=== PATIENT | female | born 1965 | race Caucasian/White ===

== ENCOUNTER 2024-12-09 21:33 | Inpatient (IN) | payer BC, OTHER ==
--- OUTSIDE RECORDS SUMMARY | 2024-12-09 21:43 | XMS REPORT | Continuity of Care Document ---
Author Name Unknown Address [address] [facility] [address] [place] [address] [facility] [place] Address [address] [facility] [address] [place] [address] Care Team Providers Care Auditor Supervisor Name Role Phone Fiona Sanchez Primary Care Physician [phone] PRUDENCE SIERRA Attending Clinician Unavailable FIONA SANCHEZ Attending Clinician Unavailab john NICHOLAS MD Attending Clinician Unavailab john LAB90 Attending Clinician Unavailable Aye Sandoval RN Attending Clinician [phone] Sandy FLORES Attending Clinician Unavailable Sandy FLORES Attending Clinician Unavailable Sandy Canada Attending Clinician [phone] HIPOLITO POE Attending Clinician UnavailBerta Rojo MD Attending Clinician [phone] Hipolito Poe MD Attending Clinician [phone] FREDRICK GALVEZ Attending Clinician Unavailable LAUREL GUARDADO Attending Clinician Unavailable Abhay Bond MD, Winter Attending Clinician + Flavio Mills MD Attending Clinician + Laurel Guardado MD Attending Clinician + [phone] Attending Clinician Unavailable ROSE SCHMITT Attending Clinician UnavailSEBLE Guerrero Attending Clinician Unasheela iljunior Rm, Generic Provider Attending Clinician Unavailable KAYLI HOLGUIN Attending Clinician Unavailable KAYLI HOLGUIN Attending Clinician Unavailable Flavia Denise MD Attending Clinician + [phone] FLAVIA DENISE Attending Clinician Unavailable OLYA CALHOUN Attending Clinician Unavailable Berta Uribe MD Attending Clinician + Fletcher LINARES, Olya Attending Clinician [phone] ROB CALDERA Attending Clinician UnavailROB Horta Attending Clinician Unavaila cait Diamond, [facility] Attending Clinician UnavailVERONICA Meng Attending Clinician Unavailable Dieudonne THOMAS, Veronica Brown Attending Clinician [phone] Doctor Unassigned, Melvin Attending Clinician U navailable Amaya Durand Attending Clinician +[phone] CANDIDO KRUEGER Attending Clinician Unavailable Candido Krueger DO Attending Clinician + ANIBAL CHINCHILLA Attending Clinician Unav Anibal Mcneil MD Attending Clinician + SOREN LEO Attending Clinician Unavailab HIPOLITO Hartley Admitting Clinician UnavailHipolito Holley MD Admitting Clinician [phone] LAUREL GUARDADO Admitting Clinician Unavailable Laurel Guardado MD Admitting Clinician +[phone] Sandy FLORES Admitting Clinician Unavailable OLYA CALHOUN Admitting Clinician Unavailable Olya Calhoun DO Admitting Clinician [phone] AMAYA TINOCO Admitting Clinician Unavailable ANIBAL CHINCHILLA Admitting Clinician Unav ailSOREN Wang Admitting Clinician Unavailab le Payers Payer Name Policy Type Policy Number Effective Date Expirati on Date Source SILVER 5 [facility] 94 9 [id number] 2024 00:00:00 ZACH Baxter/ GRACE NIEVES [id number] 2024 00:00:00 [employer] [place] [id number] 2017 00:00:00 [facility] Problems Condition Name Condition Details Condition Category Status Onset Date Resolution Date Last Treatment Date Treating Clinician Comments Source Hospital discharge follow-up Hospital discharge follow-up Disease Active 12-07 00:00: 00 Grace Arana Externa willam PNA (pneumonia ) PNA (pneumonia ) Disease Active 12-07 00:00: 00 Grace Mcgowana willam Vomiting and diarrhea Vomiting and diarrhea Disease Active 11-30 00:00: 00 [facility] Abdominal pain, unspecifie d abdominal location Abdominal pain, unspecifie d abdominal location Disease Active 11-01 00:00: 00 [facility] Encounter for screening for human papillomav irus (HPV) Encounter for screening for human papillomav irus (HPV) Disease Active 04-14 00:00: 00 Grace Jon - Juan Ma willam History of diverticul itis History of diverticul itis Disease Active 04-14 00:00: 00 Grace Jon - Externa willam Primary hypertensi on Primary hypertensi on Disease Active 03-16 00:00: 00 Grace Jon - Externa willam Seasonal allergies Seasonal allergies Disease Active 03-16 00:00: 00 Grace Jon - Externa willam Vomiting, unspecifie d vomiting type, unspecifie d whether nausea present Vomiting, unspecifie d vomiting type, unspecifie d whether nausea present Disease Active 03-01 00:00: 00 [facility] Obesity (BMI 30-39.9) Obesity (BMI 30-39.9) Disease Active 03-01 00:00: 00 [facility] Gallstones Gallstones Disease Active 2023-0 8-06 00:00: 00 [facility] Routine gynecologi mily examinatio n Routine gynecologi mily examinatio n Disease Active 2021-07 00:00: 00 [facility] Urinary incontinen ce in female Urinary incontinen ce in female Disease Active 2021-07 00:00: 00 [facility] BMI 32.0-32.9, adult BMI 32.0-32.9, adult Disease Active 2021-07 00:00: 00 [facility] Absence of menstruati on Absence of menstruati on Disease Active 2021-07 00:00: 00 [facility] Uterovagin al prolapse, complete Uterovagin al prolapse, complete Disease Active 2021-07 00:00: 00 [facility] Allergic rhinitis Allergic rhinitis Disease Active 2021-07 00:00: 00 [facility] Anxiety Anxiety Disease Active 2021-07 00:00: 00 [facility] Diverticul osis of colon without diverticul itis Diverticul osis of colon without diverticul itis Disease Active 2021-07 00:00: 00 [facility] Gastroesop hageal reflux disease Gastroesop hageal reflux disease Disease Active 2021-07 00:00: 00 [facility] Headache Headache Disease Active 2021-07 00:00: 00 [facility] Major depressive disorder, single episode, unspecifie d Major depressive disorder, single episode, unspecifie d Disease Active 2021-07 00:00: 00 [facility] Mixed anxiety and depressive disorder Mixed anxiety and depressive disorder Disease Active 2021-07 00:00: 00 [facility] Pain in left knee Pain in left knee Disease Active 2021-07 00:00: 00 [facility] Swelling Swelling Disease Active 2021-07 00:00: 00 [facility] Urinary incontinen ce Urinary incontinen ce Disease Active 2021-07 00:00: 00 [facility] Uterovagin al prolapse Uterovagin al prolapse Disease Active 2021-07 00:00: 00 [facility] Vitamin deficiency Vitamin deficiency Disease Active 2021-07 00:00: 00 [facility] Continuous urine leakage Continuous urine leakage Disease Active 2021-07 00:00: 00 [facility] [id number] Left knee pain, unspecifie d chronicity Problem [facility] [id number] Gastroesop hageal reflux disease without esophagiti s Problem [facility] Dysthymia Dysthymic disorder Problem [facility] [id number] Screening mammogram, encounter for Problem [facility] Swelling Swelling Problem [facility] History of substance abuse History of substance abuse Disease Active Grace Arana Externa l Screening for malignant neoplasm of breast Encounter for screening for malignant neoplasm of breast Problem [facility] Depression Depression Problem [facility] No known active problems No known active problems Disease [facility] Allergies, Adverse Reactions, Alerts Allergy Name Allergy Type Status Severity Reaction(s) Onset Date Inactive Date Treating Clinician Comments Source Seasonal Ic Propensi ty to adverse reaction s Active Runny Nose 03-16 00:00: 00 Grace Arana Externa l NO KNOWN ALLERGIE S Drug Class Active [facility] Social History Social Habit Start Date Stop Date Quantity Comments Source Sexual orientation 2024-09-29 09:26:03 Heterosexual (finding) Grace Jon - External History of tobacco use Cigarette Smoker [facility] Gender identity [facility] ASSERTION Not [facility] History of Social function 2024-12-09 00:00:00 2024-12-09 00:00:00 Grace Jon - External Alcoholic beverage intake 2024-12-03 00:00:00 2024-12-03 00:00:00 Current drinker of alcohol (finding) [facility] Tobacco use and exposure 2024-11-30 00:00:00 2024-11-30 00:00:00 Smokeless tobacco non-user [facility] Cigarettes smoked current (pack per day) - Reported 2024-11-30 00:00:00 2024-11-30 00:00:00 [facility] Cigarette pack-years 2024-11-30 00:00:00 2024-11-30 00:00:00 [facility] Sex 2024-02-03 21:43:28 2024-02-03 21:43:28 Female (finding) Grace Jon - [place] Alcohol intake 2023-03-23 00:00:00 2023-03-23 00:00:00 Current drinker of alcohol (finding) [facility] Tobacco Comment 2023-03-01 00:00:00 2023-03-01 00:00:00 Recently russ [facility] Exposure to SARS-CoV-2 (event) 2022-07-01 00:00:00 2022-07-11 12:09:00 Not sure [facility] Alcohol Comment 2022-07-11 00:00:00 2022-07-11 00:00:00 rarely [facility] Sex assigned at 1965 00:00:00 1965 00:00:00 F Grace Lebron Smoking Status Start Date Stop Date Source Smokes tobacco daily 2024-03-16 00:00:00 Grace Jon - External Ex-smoker 2023-03-01 00:00:00 2023-03-01 00:00:00 [facility] Tobacco smoking consumption unknown [facility] Never Smoker [facility] Medications Ordered Medication Name Filled Medication Name Start Date Stop Date Current Medication? Ordering Clinician Indication Dosage Frequency Signature (SIG) Comments Components Source Amoxicillin -Pot Clavulanate 500-125 MG oral Tablet 12-09 15:55: 19 12-09 00:00 :00 No 1{tbl} Q.[id number] 3D Take 1 tablet by mouth every 8 hours. Grace quarles busPIRone HCl 10 MG oral Tablet 12-08 11:52: 18 Yes 10mg Q.5D Take 1 tablet (10 mg total) by mouth 2 times daily as needed. Grace quarles Propranolol HCl 10 MG oral Tablet 12-08 00:00: 00 Yes [id number] 10mg Q.5D Take 1 tablet (10 mg total) by mouth 2 times daily as needed (Anxiety). Grace quarles Loratadine (CLARITIN) 10 MG oral tablet 12-07 12:22: 57 12-07 00:00 :00 No 10mg QD Take 1 tablet (10 mg total) by mouth daily. Grace quarles Azithromyci n 250 MG oral Tablet 12-07 12:22: 51 12-07 00:00 :00 No 250mg QD Take 1 tablet (250 mg total) by mouth daily. Grace quarles busPIRone HCl 10 MG oral Tablet 12-07 11:10: 41 Yes 10mg Q.5D Take 1 tablet (10 mg total) by mouth 2 times daily as needed. Grace quarles Amoxicillin -Pot Clavulanate 500-125 MG oral Tablet 12-07 10:25: 27 Yes 1{tbl} Q.[id number] 3D Take 1 tablet by mouth every 8 hours. Grace quarles hydroCHLORO thiazide 12.5 MG oral Capsule 12-07 00:00: 00 Yes [id number] 12.5mg QD Take 1 capsule (12.5 mg total) by mouth daily as needed. Grace quarles magnesium sulfate in water 2 gram/50 mL (4 %) infusion 2 g 12-04 02:15: 00 12-04 02:49 :00 No 2g 2 g, IV Piggyback, Administer over 60 Minutes, ONCE, 1 dose, On 12/03/24 at 2115, Routine [facility] LORazepam (ATIVAN) injection 0.5 mg 12-04 01:45: 00 12-04 01:42 :00 No .5mg 0.5 mg, Slow IV Push, ONCE, 1 dose, On 12/03/24 at 2045, STAT [facility] azithromyci n (ZITHROMAX) tablet 500 mg 12-04 01:30: 00 12-04 01:41 :00 No 500mg 500 mg, Oral, ONCE, 1 dose, On 12/03/24 at 2030, LORENA, Reason for Anti-Infec tive: Documented Infection, Documented Infection Site: Respirator y, Duration of therapy: Once (ED) [facility] cefTRIAXone (ROCEPHIN) 1,000 mg in sterile water for injection 10 mL IV Push 12-04 01:30: 00 12-04 01:44 :00 No 1000mg 1,000 mg, Intravenou s, ONCE, 1 dose, On 12/03/24 at 2030, 10 mL, Reason for Anti-Infec tive: Documented Infection, Documented Infection Site: Respirator y, Duration of therapy: Once (ED) [facility] iopamidol (ISOVUE 370-500 mL) injection 90 mL 12-03 23:45: 00 12-04 00:00 :00 No [id number] 90mL 90 mL, Intravenou s, ONCE, 1 dose, On 12/03/24 at 1900, [facility] psyllium husk (METAMUCIL (SUGAR FREE)) 3.4 gram oral powder packet 1 Packet 12-03 17:45: 00 12-03 18:23 :18 No 1{packe t} 1 Packet, Oral, DAILY, First dose on 12/03/24 at 1245, Until Discontinu ed, Routine [facility] NaCl 0.9% (NS) IV infusion 1,000 mL 12-03 16:00: 00 12-03 18:23 :18 No 1000mL at 125 mL/hr, IV Infusion, CONTINUOUS , Starting on 12/03/24 at 1100, Until 12/03/24 at 1323, Routine [facility] diclofenac 75 mg EC tablet 12-03 12:44: 24 12-03 00:00 :00 No 75mg Take 1 tablet by mouth in the morning. [facility] simethicone (GAS RELIEF (SIMETHICON E)) chewable tablet 80 mg simethicone (GAS RELIEF (SIMETHICON E)) chewable tablet 80 mg 12-03 02:00: 00 12-03 18:23 :18 Yes 80mg 80 mg, Oral, PC+HS, First dose on Thu12/02/24 at 2100, Until Discontinu ed, Routine [facility] amoxicillin -pot clavulanate 500-125 mg tablet 12-03 00:00: 00 Yes [id number] 500mg Take 1 tablet by mouth every 8 (eight) hours. [facility] azithromyci n (ZITHROMAX Z-CHERELLE) 250 mg tablet 12-03 00:00: 00 Yes [id number] 250mg Take 1 tablet by mouth SEE-INSTRU CTIONS. Take 500 mg day 1, then 250 mg days 2 to 5. [facility] busPIRone 10 mg tablet 12-03 00:00: 00 Yes [id number] 10mg Take 1 tablet by mouth 2 (two) times daily as needed for Other (anxiety). [facility] iopamidol (ISOVUE-370 ) injection 50 mL iopamidol (ISOVUE-370 ) injection 50 mL 12-02 16:15: 00 12-02 16:15 :00 Yes [id number] 50mL 50 mL, Intravenou s, ONCE, 1 dose, On Thu12/02/24 at 1115, Routine [facility] potassium chloride in water 10 mEq/100 mL RTU 10 mEq potassium chloride in water 10 mEq/100 mL RTU 10 mEq 12-02 13:00: 00 12-02 16:43 :00 Yes 10meq 10 mEq, IV Piggyback, Q1H, 2 doses, First dose on Thu12/02/24 at 0800, Last dose on Thu12/02/24 at 0900, Administer over 60 Minutes, 100 mL [facility] magnesium sulfate in water 4 gram/50 mL (8 %) IV Piggyback 4 g magnesium sulfate in water 4 gram/50 mL (8 %) IV Piggyback 4 g 12-02 13:00: 00 12-02 18:42 :00 Yes 4g 4 g, IV Piggyback, at 25 mL/hr Administer over 120 Minutes, ONCE, 1 dose, On Thu12/02/24 at 0800, LORENA [facility] ondansetron (ZOFRAN (PF)) injection 4 mg ondansetron (ZOFRAN (PF)) injection 4 mg 12-01 19:00: 00 12-02 18:59 :00 Yes 4mg 4 mg, Slow IV Push, Q8H, First dose on Thu12/01/24 at 1400, For 3 doses, Please give medication over 2-5 minutes. [facility] buPROPion XL (WELLBUTRIN XL) tablet 150 mg buPROPion XL (WELLBUTRIN XL) tablet 150 mg 11-30 14:00: 00 12-03 18:23 :18 Yes 150mg 150 mg, Oral, DAILY, First dose on Thu11/30/24 at 0900, Until Discontinu ed [facility] heparin (porcine) injection 5,000 Units [id number] 4849-0 5-07 13:00: 00 12-03 18:23 :18 Yes 5000U 5,000 Units, Subcutaneo us, Q12H, First dose on Thu11/30/24 at 0800, Until Discontinu ed, Routine [facility] NaCl 0.9% (NS) IV infusion 1,000 mL 11-30 06:45: 00 11-30 07:50 :51 No 1000mL at 100 mL/hr, IV Infusion, CONTINUOUS , Starting on Thu11/30/24 at 0145, Until Thu11/30/24 at 0250, Routine [facility] methylPREDN ISolone sod succ (SOLU-MEDRO L (PF)) injection 40 mg methylPREDN ISolone sod succ (SOLU-MEDRO L (PF)) injection 40 mg 11-30 06:30: 00 11-30 07:48 :00 Yes 40mg 40 mg, Intravenou s, ONCE, 1 dose, On Thu11/30/24 at 0130, 1 mL [facility] NaCl 0.9% (NS) IV infusion 1,000 mL 11-30 05:45: 00 12-03 12:51 :55 No 1000mL at 125 mL/hr, IV Infusion, CONTINUOUS , Starting on Thu11/30/24 at 0045, Until 12/03/24 at 0751, Routine [facility] ondansetron (ZOFRAN (PF)) injection 4 mg ondansetron (ZOFRAN (PF)) injection 4 mg 11-30 05:34: 52 12-03 18:23 :18 Yes 4mg 4 mg, Slow IV Push, Q6HPRN, Starting on Thu11/30/24 at 0034, Until 12/03/24 at 1323, Administer over 2-5 Minutes, 2 mL [facility] FENTanyl (PF) (SUBLIMAZE) injection 25 mcg FENTanyl (PF) (SUBLIMAZE) injection 25 mcg 11-30 05:34: 48 12-01 05:33 :48 Yes 25ug 25 mcg, Slow IV Push, Q6HPRN, Starting on Thu11/30/24 at 0034, Until Apple 12/01/24 at 0033, Routine, Pain (scale 7-10) [facility] HYDROcodone -acetaminop hen (NORCO 5) tablet 1 tablet HYDROcodone -acetaminop hen (NORCO 5) tablet 1 tablet 11-30 05:34: 40 12-02 05:33 :40 Yes 1{tbl} 1 tablet, Oral, Q6HPRN, Starting on Thu11/30/24 at 0034, Until 12/02/24 at 0033, Routine, Pain (scale 4-6) [facility] acetaminoph en (TYLENOL) tablet 650 mg 11-30 05:34: 37 12-03 18:23 :18 No 650mg 650 mg, Oral, Q6HPRN, Starting on Thu11/30/24 at 0034, Until 12/03/24 at 1323, Routine, Pain (scale 1-3) [facility] ciprofloxac in in 5 % dextrose (CIPRO) piggyback 200 mg 11-30 05:00: 00 11-30 06:47 :00 No 200mg 200 mg, IV Piggyback, ONCE, 1 dose, On Thu11/30/24 at 0000, Administer over 60 Minutes, 100 mL, Reason for Anti-Infec tive: Documented Infection, Documented Infection Site: Abdominal, Duration of therapy: Once (ED) [facility] metroNIDAZO LE in NaCl (iso-os) (FLAGYL I.V.) RTU IV infusion 500 mg 11-30 04:15: 00 11-30 05:34 :00 No 500mg 500 mg, IV Infusion, ONCE, 1 dose, On Thu11/29/24 at 2315, Administer over 60 Minutes, 100 mL, Reason for Anti-Infec tive: Documented Infection, Documented Infection Site: Abdominal, Duration of therapy: Once (ED) [facility] NaCl 0.9% (NS) bolus infusion 1,000 mL 11-30 03:30: 00 11-30 07:08 :00 No 1000mL at 999 mL/hr, 1,000 mL, IV Infusion, ONCE, 1 dose, On Thu11/29/24 at 2230, [facility] NaCl 0.9% (NS) bolus infusion 1,000 mL 11-30 02:00: 00 11-30 02:02 :00 No 1000mL at 999 mL/hr, 1,000 mL, IV Infusion, ONCE, 1 dose, On Thu11/29/24 at 2100, STAT [facility] metoclopram melita HCl (REGLAN) injection 10 mg 11-30 01:15: 00 11-30 01:07 :00 No 10mg 10 mg, Slow IV Push, ONCE, 1 dose, On Thu11/29/24 at 2015, LORENA [facility] Diclofenac Sodium 75 MG oral Tablet Delayed Response 11-24 00:00: 00 12-07 00:00 :00 No 75mg Q.5D TAKE 1 TABLET (75 MG TOTAL) BY MOUTH TWICE A DAY NEEDED Grace quarles hydrALAZINE (APRESOLINE ) tablet 10 mg 11-02 17:00: 00 11-02 21:22 :26 No 10mg 10 mg, Oral, Q6H, First dose on Thu11/02/24 at 1200, Until Discontinu ed, Routine [facility] BUPROPION HCL ORAL 11-02 16:22: 26 Yes 300mg Take 300 mg by mouth. Bupropion HCL XL 300 mg [facility] magnesium oxide (MAG-OX 400) 400 mg (241.3 mg magnesium) tablet 400 mg 11-02 14:15: 00 11-02 21:22 :26 No 400mg 400 mg, Oral, DAILY, First dose on Thu11/02/24 at 0915, Until Discontinu ed, Routine [facility] enoxaparin (LOVENOX) injection 40 mg 11-02 14:00: 00 11-02 21:22 :26 No 40mg 40 mg, Subcutaneo us, DAILY, First dose on Thu11/02/24 at 0900, Until Discontinu ed, Routine [facility] nicotine (NICODERM) 21 mg/24 hr patch 1 Patch 11-02 04:15: 00 11-02 21:22 :26 No 1{patch } 1 Patch, Topical, Administer over 24 Hours, Q24H, First dose on Thu11/01/24 at 2315, Until Discontinu ed, Routine [facility] Ondansetron (ZOFRAN) 4 MG oral TABLET DISPERSIBLE 11-02 00:00: 00 Yes 4mg Q.[id number] 3D Take 1 tablet (4 mg total) by mouth every 8 hours as needed for nausea PLEASE SEE ATTACHED FOR DETAILED DIRECTIONS . Grace quarles ondansetron 4 mg disintegrat ing tablet 11-02 00:00: 00 11-13 04:59 :00 Yes [id number] 8mg Take 2 tablets by mouth every 8 (eight) hours as needed for Nausea and Vomiting (N/V) for up to 10 days. [facility] acetaminoph en-codeine 300-30 mg tablet 11-02 00:00: 00 11-10 04:59 :00 Yes [id number] 1{tbl} Take 1 tablet by mouth every 6 (six) hours as needed for Pain (scale 4-6) or Pain (scale 7-10) for up to 7 days. Indication s: acute pain [facility] NaCl 0.9% (NS) IV infusion 1,000 mL 2024-11-01 23:45: 00 11-02 01:37 :17 No 1000mL at 125 mL/hr, IV Infusion, ONCE, 1 dose, On Thu11/01/24 at 1845, LORENA [facility] NaCl 0.9% (NS) IV infusion 1,000 mL 2024-0 11-01 23:00: 00 11-02 21:22 :26 No 1000mL at 125 mL/hr, IV Infusion, CONTINUOUS , Starting on Thu11/01/24 at 1800, Until Thu11/02/24 at 1622, Routine [facility] ondansetron (ZOFRAN (PF)) injection 4 mg 2024-11-01 22:52: 53 11-02 21:22 :26 No 4mg [facility] morpHINE (4 mg/mL) injection 4 mg 11-01 22:52: 51 11-02 21:22 :26 No 4mg [facility] HYDROcodone -acetaminop hen (NORCO 5) tablet 1 tablet 11-01 22:52: 50 11-02 21:22 :26 No 1{tbl} [facility] acetaminoph en (TYLENOL) tablet 650 mg 2024-11-01 22:52: 44 11-02 21:22 :26 No 650mg [facility] NaCl 0.9% (NS) bolus infusion 1,000 mL 5-0 11-01 21:15: 00 11-01 22:49 :00 No 1000mL at 999 mL/hr, 1,000 mL, IV Infusion, ONCE, 1 dose, On Thu11/01/24 at 1615, LORENA [facility] iopamidol (ISOVUE 370-500 mL) injection 85 mL 11-01 20:57: 00 11-01 20:57 :00 No [id number] 85mL 85 mL, Intravenou s, ONCE, 1 dose, On Thu11/01/24 at 1615, Routine [facility] morpHINE (4 mg/mL) injection 4 mg 11-01 20:30: 00 11-01 20:42 :00 No 4mg 4 mg, Slow IV Push, ONCE, 1 dose, On Thu11/01/24 at 1530, STAT [facility] ondansetron (ZOFRAN (PF)) injection 8 mg 11-01 20:30: 00 11-01 20:40 :00 No 8mg 8 mg, Slow IV Push, ONCE, 1 dose, On Thu11/01/24 at 1530, 4 mL [facility] famotidine (PEPCID (PF)) injection 20 mg 11-01 20:30: 00 11-01 20:45 :00 No 20mg 20 mg, Slow IV Push, ONCE, 1 dose, [facility]01/24 [facility] 1530[facility] oral Tablet 10-09 00:00: 00 12-07 00:00 :00 No [id number] 40mg QD Take 1 tablet (40 mg total) by mouth daily. Grace quarles Bilateral Injection: Methylpredn isolone Acetate (Depo-Medro l) 40 mg/ml, 80mg - Physician Administere d ([id number]) 09-26 14:45: 37 No [id number] 80mg 80 mg, Physician Administer ed, ONCE, 1 dose, On Thu09/26/24 at 1315 Grace quarles Loratadine (CLARITIN) 10 MG oral tablet 09-26 12:57: 10 Yes 10mg QD Take 1 tablet (10 mg total) by mouth daily. Grace quarles Diclofenac Sodium 75 MG oral Tablet Delayed Response 09-26 00:00: 00 Yes 75mg Q.5D Take 1 tablet (75 mg total) by mouth 2 times daily Prn pain. Grace quarles Diclofenac Sodium 1 % apply externally Gel 09-26 00:00: 00 12-07 00:00 :00 No Q.25D Apply 1 applicatio n. topically 4 times daily as needed. Grace quarles methylPREDN ISolone (Medrol) 4 MG oral Tablet Therapy Pack 09-26 00:00: 00 12-07 00:00 :00 No 1{cherelle} Take 1 cherelle by mouth See Admin Instructio ns Use as directed.. Grace quarles Ibuprofen (MOTRIN) 800 MG oral Tablet 2023-07 00:00: 00 Yes [id number] 800mg Take 1 tablet (800 mg total) by mouth every 12 hours as needed for pain Please take with food. Grace quarles hydrALAZINE HCl 25 MG oral Tablet 2023-07 00:00: 00 12-07 00:00 :00 No [id number] 25mg Q.5D Take 1 tablet (25 mg total) by mouth 2 times daily. Grace quarles Bupropion HCL XL 300 MG OR TB24 2023-07 00:00: 00 Yes [id number] 300mg QD Take 1 tablet (300 mg total) by mouth daily. Grace quarles Loratadine (CLARITIN) 10 MG oral tablet 2023-07 10:44: 35 Yes 10mg QD Take 1 tablet (10 mg total) by mouth daily. Grace quarles Bilateral Injection: Methylpredn isolone Acetate (Depo-Medro l) 40 mg/ml, 80mg - Physician Administere d ([id number]) 2023-07 10:44: 27 No [id number] 80mg Grace quarles Bilateral Injection: Methylpredn isolone Acetate (Depo-Medro l) 40 mg/ml, 80mg - Physician Administere d ([id number]) 2023-07 16:15: 45 No [id number] 80mg 80 mg, Physician Administer ed, ONCE, 1 dose, On Thu05/23/24 at 1530 Grace quarles Loratadine (CLARITIN) 10 MG oral tablet 2023-07 15:03: 29 Yes 10mg QD Take 1 tablet (10 mg total) by mouth daily. Grace quarles Loratadine (CLARITIN) 10 MG oral tablet 2023-07 14:55: 37 Yes 10mg QD Take 1 tablet (10 mg total) by mouth daily. Grace quarles Bupropion HCL XL 300 MG OR TB24 2023-07 00:00: 00 Yes [id number] 300mg QD Take 1 tablet (300 mg total) by mouth daily. Grace quarles hydrALAZINE HCl 25 MG oral Tablet 2023-07 00:00: 00 07-12 00:00 :00 No [id number] 25mg QD Take 1 tablet (25 mg total) by mouth daily. Grace quarles Loratadine (CLARITIN) 10 MG oral tablet 04-14 08:53: 09 Yes 10mg QD Take 1 tablet (10 mg total) by mouth daily. Grace quarles Ibuprofen (MOTRIN) 800 MG oral Tablet 04-14 00:00: 00 07-12 00:00 :00 No [id number] 800mg Take 1 tablet (800 mg total) by mouth every 12 hours as needed for pain Please take with food. Grace quarles Bupropion HCL XL 150 MG OR TB24 04-14 00:00: 00 05-11 00:00 :00 No [id number] 150mg QD Take 1 tablet (150 mg total) by mouth daily. Grace quarles Lisinopril 40 MG oral Tablet 04-11 00:00: 00 Yes [id number] 40mg QD Take 1 tablet (40 mg total) by mouth daily. Grace quarles Loratadine (CLARITIN) 10 MG oral tablet 03-16 09:07: 10 Yes 10mg QD Take 1 tablet (10 mg total) by mouth daily. Grace quarles Lisinopril 40 MG oral Tablet 03-16 00:00: 00 Yes [id number] 40mg QD Take 1 tablet (40 mg total) by mouth daily. Grace quarles hydrALAZINE HCl 25 MG oral Tablet 03-16 00:00: 00 Yes [id number] 25mg QD Take 1 tablet (25 mg total) by mouth daily. Grace quarles Ibuprofen (MOTRIN) 800 MG oral Tablet 03-16 00:00: 00 04-14 00:00 :00 No [id number] 800mg Take 1 tablet (800 mg total) by mouth every 12 hours as needed for pain Please take with food. Grace qualres hydrALAZINE HCl 25 MG oral Tablet 01-24 00:00: 00 03-16 00:00 :00 No 25mg Q.5D Take 1 tablet (25 mg total) by mouth 2 times daily. Grace quarles Ondansetron (ZOFRAN) 4 MG oral TABLET DISPERSIBLE 12-24 00:00: 00 03-16 00:00 :00 No DISSOLVE 1 TABLET ON THE TONGUE EVERY 8 HOURS NEEDED FOR NAUSEA AND VOMITING . Grace quarles NaCl 0.9% (NS) bolus infusion 1,000 mL 12-22 21:30: 00 12-22 22:02 :00 No 1000mL at 999 mL/hr, 1,000 mL, IV Infusion, ONCE, 1 dose, On Thu12/23/23 at 1630, STAT [facility] ketorolac (TORADOL) injection 15 mg 12-22 21:30: 00 12-22 20:24 :00 No 15mg 15 mg, Slow IV Push, ONCE, 1 dose, On Thu12/23/23 at 1630, LORENA [facility] diphenhydrA MINE (BENADRYL) injection 25 mg 12-22 21:30: 00 12-22 20:24 :00 No 25mg 25 mg, Slow IV Push, ONCE, 1 dose, On Thu12/23/23 at 1630, STAT [facility] metoclopram melita HCl (REGLAN) injection 10 mg 12-22 21:30: 00 12-22 20:24 :00 No 10mg 10 mg, Slow IV Push, ONCE, 1 dose, On Thu12/23/23 at 1630, [facility] cefTRIAXone (ROCEPHIN) 1,000 mg in NaCl 0.9% (NS) 100 mL MINI-BAG 12-22 21:15: 00 12-22 21:45 :00 No 1000mg 1,000 mg, IV Piggyback, ONCE, 1 dose, On Thu12/23/23 at 1615, Administer over 30 Minutes, 100 mL, Reason for Anti-Infec tive: Documented Infection, Documented Infection Site: Urine, Duration of Therapy: Once (ED) [facility] ketorolac (TORADOL) injection 15 mg 12-22 19:00: 00 12-22 18:39 :00 No 15mg 15 mg, Slow IV Push, ONCE, 1 dose, On Thu12/23/23 at 1400, [facility] ondansetron (ZOFRAN (PF)) injection 4 mg 12-22 19:00: 00 12-22 18:37 :00 No 4mg 4 mg, Slow IV Push, ONCE, 1 dose, On Thu12/23/23 at 1400, [facility] NaCl 0.9% (NS) bolus infusion 1,000 mL 12-22 18:15: 00 12-22 20:00 :00 No 1000mL at 999 mL/hr, 1,000 mL, IV Infusion, ONCE, 1 dose, On Thu12/23/23 at 1315, STAT [facility] ondansetron 4 mg disintegrat ing tablet 12-22 00:00: 00 Yes [id number] 4mg Take 1 tablet by mouth every 8 (eight) hours as needed for Nausea and Vomiting (N/V). [facility] cefdinir 300 mg capsule 529 00:00: 00 01-02 04:59 :00 No [id number] 300mg Take 1 capsule by mouth every 12 (twelve) hours for 10 days. [facility] Lisinopril 40 MG oral Tablet 23 00:00: 00 03-16 00:00 :00 No 40mg QD Take 1 tablet (40 mg total) by mouth daily. Grace quarles hydrALAZINE 25 mg tablet 04-08 00:00: 00 05-09 04:59 :00 No [id number] 25mg Take 1 tablet by mouth in the morning and 1 tablet in the evening. Do all this for 30 days. [facility] loratadine 10 mg tablet 03-19 10:01: 56 Yes 1 tablet [facility] lisinopriL 40 mg tablet 03-19 00:00: 00 Yes [id number] 40mg Take 1 tablet by mouth in the morning. [facility] cloniDINE 0.1 mg/24 hr patch 03-08 00:00: 00 04-08 04:59 :00 No [id number] 1{patch } Apply 1 Patch to skin weekly for 30 days. [facility] lisinopriL 40 mg tablet 03-05 00:00: 00 04-05 04:59 :00 No [id number] 40mg Take 1 tablet by mouth in the morning for 30 days. [facility] loratadine 10 mg tablet 03-04 17:51: 07 Yes 1 tablet [facility] DULoxetine 60 mg capsule 03-04 17:51: 07 11-30 00:00 :00 No 1 capsule [facility] venlafaxine XR 75 mg 24 hr capsule 03-04 17:51: 07 11-01 00:00 :00 No 1 capsule with food [facility] ibuprofen (ADVIL ORAL) 03-04 16:25: 15 03-04 00:00 :00 No Take by mouth. [facility] hydrALAZINE (APRESOLINE ) tablet 25 mg 03-04 13:45: 00 Yes 25mg 25 mg, Oral, BID, First dose (after last modificati on) on Thu03/04/23 at 0845, Until Discontinu ed, [facility] mg tablet 03-04 00:00: 00 04-04 04:59 :00 No [id number] 25mg Take 1 tablet by mouth in the morning and 1 tablet in the evening. Do all this for 30 days. [facility] traMADoL 50 mg tablet 03-04 00:00: 00 03-12 04:59 :00 No [id number] 50mg Take 1 tablet by mouth every 8 (eight) hours as needed for Pain (scale 7-10) for up to 7 days. Indication s: acute pain [facility] acetaminoph en (TYLENOL) tablet 650 mg 03-03 23:42: 09 Yes 650mg 650 mg, Oral, Q6HPRN, Starting on Thu03/03/23 at 1842, Until Discontinu ed, Routine, Pain (scale 1-3), Temp > 38 C [facility] iohexoL (OMNIPAQUE 300-50 mL)) injection 03-03 21:31: 00 Yes PRN, Starting on Thu03/03/23 at 1631, Until Discontinu ed, Routine, Intra-op [facility] bupivacaine (preserv free) (SENSORCAIN E MPF) 0.25 % (2.5 mg/mL) 30 mL, lidocaine-e pinephrine (XYLOCAINE WITH EPINEPHRINE ) 1 %-1:100,000 30 mL 03-03 20:43: 00 Yes PRN, Starting on Thu03/03/23 at 1543, Intra-op [facility] sodium chloride 0.9 % irrigation solution 03-03 20:43: 00 Yes PRN, Starting on Thu03/03/23 at 1543, Until Discontinu ed, Intra-op [facility] ALPRAZolam (XANAX) tablet 0.5 mg 03-03 13:00: 00 03-03 13:26 :00 No .5mg 0.5 mg, Oral, ONCE, 1 dose, On Thu03/03/23 at 0800, Routine [facility] morpHINE (2 mg/mL) injection 2 mg 03-03 11:48: 09 Yes 2mg 2 mg, Slow IV Push, PRN, Starting on Thu03/03/23 at 0648, Until Discontinu ed, Routine, Chest pain [facility] labetaloL (NORMODYNE) injection 20 mg 03-03 11:45: 00 Yes 20mg 20 mg, Slow IV Push, Q4HPRN, Starting on Thu03/03/23 at 0645, Until Discontinu ed, Routine, For SBP > 170, failed Hydralazin e [facility] hydralAZINE (APRESOLINE ) injection 10 mg 03-03 11:41: 37 Yes 10mg 10 mg, Slow IV Push, Q4HPRN, Starting on Thu03/03/23 at 0641, Until Discontinu ed, Routine, DBP=>100; SBP=>160 [facility] proMETHazin e (PHENERGAN) 12.5 mg in NaCl 0.9% (NS) 50 mL IV piggyback 03-03 11:28: 19 Yes 12.5mg 12.5 mg, IV Piggyback, Q4HPRN, Starting on Thu03/03/23 at 0628, Until Discontinu ed, Routine, N/V unresponsi ve to Ondansetro n [facility] hydrALAZINE (APRESOLINE ) tablet 10 mg 03-03 01:00: 00 03-04 13:41 :32 No 10mg 10 mg, Oral, BID, First dose (after last modificati on) on Thu03/02/23 at 2000, Until Discontinu ed, Routine [facility] potassium chloride in water 10 mEq/100 mL RTU 10 mEq 03-02 17:00: 00 03-02 21:19 :00 No 10meq 10 mEq, IV Piggyback, Q2H ES, 2 doses, First dose (after last modificati on) on Thu03/02/23 at 1200, Last dose on Thu03/02/23 at 1400, Administer over 60 Minutes, 100 mL [facility] KCL (KLOR-CON M20) tablet 40 mEq 03-02 15:00: 00 03-02 15:06 :00 No 40meq 40 mEq, Oral, ONCE, 1 dose, On Thu03/02/23 at 1000, Routine [facility] lisinopriL (PRINIVIL,Z ESTRIL) tablet 40 mg 03-02 14:00: 00 Yes 40mg 40 mg, Oral, DAILY, First dose on Thu03/02/23 at 0900, Until Discontinu ed, Routine [facility] hydrALAZINE (APRESOLINE ) tablet 10 mg 03-02 11:00: 00 03-02 20:47 :19 No 10mg 10 mg, Oral, Q6H, First dose on Thu03/02/23 at 0600, Until Discontinu ed, Routine [facility] piperacilli n-tazobacta m (ZOSYN) 3.375 g in NaCl 0.9% (NS) 100 mL MINI-BAG 03-02 06:30: 00 03-09 06:29 :00 No 3.375g 3.375 g, IV Piggyback, Q8H ABX, 21 doses, First dose on Thu03/02/23 at 0130, Last dose on Thu03/08/23 at 1730, Administer over 4 Hours, 100 mL
Reas on for Anti-Infec tive: Documented Infection& lt;br>Docu mented Infection Site: Abdominal< br>Duratio n of Therapy: 7 days [facility] cloniDINE (CATAPRES-T TS 1) 0.1 mg/24 hr patch 1 Patch 03-01 23:40: 35 Yes 1{patch } 1 Patch, Transderma l (Apply To Skin), Administer over 7 Days, QWEEKLY, First dose (after last modificati on) on Thu03/01/23 at 1845, Until Discontinu ed, LORENA [facility] piperacilli n-tazobacta m (ZOSYN) 3.375 g in NaCl 0.9% (NS) 100 mL MINI-BAG 03-01 22:45: 00 03-02 03:24 :57 No 3.375g 3.375 g, IV Piggyback, ONCE, 1 dose, On Thu03/01/23 at 1745, Administer over 30 Minutes, 100 mL
Reas on for Anti-Infec tive: Documented Infection< br>Documen jessy Infection Site: Abdominal< br>Duratio n of Therapy: 7 days [facility] labetaloL (NORMODYNE) injection 20 mg 03-01 22:26: 31 03-03 11:42 :00 No 20mg 20 mg, Slow IV Push, Q6HPRN, Starting on Thu03/01/23 at 1726, Until Thu03/03/23 at 0642, Routine, For SBP > 170, failed Hydralazin e [facility] enoxaparin (LOVENOX) injection 40 mg 03-01 22:00: 00 Yes 40mg 40 mg, Subcutaneo us, DAILY, First dose on Thu03/01/23 at 1700, Until Discontinu ed, Routine [facility] hydralAZINE (APRESOLINE ) injection 10 mg 03-01 21:05: 15 03-03 11:42 :00 No 10mg 10 mg, Slow IV Push, Q4HPRN, Starting on Thu03/01/23 at 1605, Until Thu03/03/23 at 0642, Routine, DBP=>100; SBP=>180 [facility] proCHLORper azine (COMPAZINE) 5 mg in NaCl 0.9% (NS) piggyback 03-01 19:45: 49 Yes 5mg 5 mg, IV Piggyback, at 100 mL/hr Administer over 30 Minutes, Q6HPRN, Starting on Thu03/01/23 at 1445, Until Discontinu ed, Routine, N/V not improved with zofran [facility] lactated ringers IV infusion 1,000 mL 03-01 18:45: 00 03-02 12:12 :27 No 1000mL at 100 mL/hr, 1,000 mL, IV Infusion, CONTINUOUS , Starting on Thu03/01/23 at 1345, Until 03/02/23 at 0712, Routine [facility] ondansetron (ZOFRAN (PF)) injection 4 mg 03-01 18:32: 26 Yes 4mg 4 mg, Slow IV Push, Q6HPRN, Starting on Thu03/01/23 at 1332, Until Discontinu ed, Routine, Nausea and Vomiting (N/V) [facility] iopamidol (ISOVUE 370-500 mL) injection 85 mL 03-01 17:15: 00 03-01 17:15 :00 No [id number] 85mL 85 mL, Intravenou s, ONCE, 1 dose, On Thu03/01/23 at 1215, Routine [facility] proMETHazin e (PHENERGAN) 12.5 mg in NaCl 0.9% (NS) 50 mL IV piggyback 03-01 16:30: 00 03-01 16:26 :00 No 12.5mg 12.5 mg, IV Piggyback, ONCE, 1 dose, On Thu03/01/23 at 1130, LORENA [facility] ketorolac (TORADOL) injection 15 mg 03-01 16:00: 00 03-01 15:09 :00 No 15mg 15 mg, Slow IV Push, ONCE, 1 dose, On Thu03/01/23 at 1100, Routine [facility] NaCl 0.9% (NS) bolus infusion 1,000 mL 03-01 15:45: 00 03-01 17:30 :00 No 1000mL at 999 mL/hr, 1,000 mL, IV Infusion, ONCE, 1 dose, On Thu03/01/23 at 1045, STAT [facility] ondansetron (ZOFRAN (PF)) injection 4 mg 03-01 15:45: 00 03-01 14:54 :00 No 4mg 4 mg, Slow IV Push, ONCE, 1 dose, On Thu03/01/23 at 1045, LORENA [facility] NaCl 0.9% (NS) bolus infusion 1,000 mL 03-01 15:30: 00 03-01 16:30 :00 No 1000mL at 999 mL/hr, 1,000 mL, IV Infusion, ONCE, 1 dose, On Thu03/01/23 at 1030, LORENA [facility] loratadine 10 mg tablet 03-01 15:15: 03 Yes 1 tablet [facility] ibuprofen (ADVIL ORAL) 03-01 15:15: 03 Yes Take by mouth. [facility] metoclopram melita HCl (REGLAN) injection 10 mg 03-01 15:15: 00 03-01 15:12 :00 No 10mg 10 mg, Slow IV Push, ONCE, 1 dose, On Thu03/01/23 at 1015, LORENA [facility] DULoxetine 60 mg capsule 03-01 14:42: 11 Yes 1 capsule [facility] venlafaxine XR 75 mg 24 hr capsule 03-01 14:42: 11 Yes 1 capsule with food [facility] DULoxetine 60 mg capsule 2021-07 10:42: 18 Yes 1 capsule [facility] loratadine 10 mg tablet 2021-07 10:42: 18 Yes 1 tablet [facility] venlafaxine XR 75 mg 24 hr capsule 2021-07 10:42: 18 Yes 1 capsule with food [facility] ibuprofen (ADVIL ORAL) 2021-07 10:42: 18 Yes Take by mouth. [facility] DULoxetine 60 mg capsule 2021-07 08:53: 03 Yes 1 capsule [facility] loratadine 10 mg tablet 2021-07 08:53: 03 Yes 1 tablet [facility] venlafaxine XR (EFFEXOR XR) 75 mg 24 hr capsule 2021-07 08:53: 03 Yes 1 capsule with food [facility] traMADoL (ULTRAM) tablet 50 mg 09-25 03:15: 00 09-25 02:13 :00 No 50mg 50 mg, Oral, ONCE NOW, 1 dose, On Thu09/24/21 at 2115, Routine [facility] predniSONE (DELTASONE) tablet 40 mg 09-25 03:15: 00 09-25 02:12 :00 No 40mg 40 mg, Oral, ONCE, 1 dose, On Thu09/24/21 at 2115, LORENA [facility] ketorolac (TORADOL) injection 15 mg 09-25 01:30: 00 09-25 00:41 :00 No 15mg 15 mg, Slow IV Push, ONCE, 1 dose, On Thu09/24/21 at 1930, LORENA
Fa culty member approving Restricted medication : AMAYA TINOCO [facility] fluconazole 150 mg tablet 09-24 00:00: 00 11-01 00:00 :00 No [id number] Take 1 tablet now and repeat in 5 days [facility] naproxen 500 mg tablet 09-24 00:00: 00 03-04 00:00 :00 No [id number] 500mg Take 1 tablet by mouth 2 (two) times daily with meals. [facility] traMADoL 50 mg tablet 09-24 00:00: 00 10-02 05:59 :00 No [id number] 50mg Take 1 tablet by mouth every 6 (six) hours as needed for Pain (scale 7-10) for up to 7 days. Indication s: acute pain [facility] predniSONE 20 mg tablet 09-24 00:00: 00 09-29 05:59 :00 No [id number] 20mg Take 1 tablet by mouth 2 (two) times daily for 4 days. [facility] loperamide 2 mg capsule 07-30 00:00: 00 12-03 00:00 :00 No [id number] 2mg Take 1 capsule by mouth every 4 (four) hours as needed for Diarrhea. Not to exceed 16mg daily. [facility] ondansetron 4 mg disintegrat ing tablet 07-30 00:00: 00 11-30 00:00 :00 No [id number] 4mg Take 1 tablet by mouth every 8 (eight) hours as needed for Nausea and Vomiting (N/V). [facility] aspirin chewable tablet 324 mg 08-14 10:00: 00 08-14 08:49 :00 No 324mg 324 mg, Oral, ONCE, 1 dose, 08/14/20 at 0400, Routine [facility] nitroglycer in (NITROSTAT) sublingual tablet 0.4 mg 08-14 09:45: 00 08-14 08:49 :00 No .4mg 0.4 mg, Sublingual , ONCE, 1 dose, 08/14/20 at 0345, LORENA [facility] meclizine 25 mg tablet 01-12 00:00: 00 Yes 25mg Take 1 tablet by mouth every 6 (six) hours. [facility] ondansetron (ZOFRAN, HYDROCHLORI DE,) 4 mg tablet 01-12 00:00: 00 11-30 00:00 :00 No 4mg Take 1 tablet by mouth every 8 (eight) hours as needed for Nausea and Vomiting (N/V). [facility] Loratadine Loratadine Yes Na Wild 1 tablet [facility] Duloxetine HCl Duloxetine HCl Yes Na Wild 1 capsule [facility] Effexor XR 75 MG Effexor XR 75 MG No 1{capsu le_with _food} QD Effexor XR 75 MG Immunizations Ordered Immunization Name Filled Immunization Name Date Status Comments Source TD Pres-Free 2024-02-23 00:00:00 Completed [facility] TDAP 2021-04-06 00:00:00 Completed [facility] TDAP 2021-04-06 00:00:00 Completed [facility] TDAP 2021-04-06 00:00:00 Completed [facility] TDAP 2021-04-06 00:00:00 Completed [facility] TDAP 2021-04-06 00:00:00 Completed [facility] TDAP 2021-04-06 00:00:00 Completed [facility] TDAP 2021-04-06 00:00:00 Completed [facility] TDAP 2021-04-06 00:00:00 Completed [facility] TDAP 2021-04-06 00:00:00 Completed [facility] SARS-COV-2 COVID-19 VACCINE - (MODERNA) 2020-10-06 00:00:00 Completed [facility] SARS-COV-2 COVID-19 VACCINE - (MODERNA) 2020-10-06 00:00:00 Completed [facility] SARS-COV-2 COVID-19 VACCINE - (MODERNA) 2020-10-06 00:00:00 Completed [facility] SARS-COV-2 COVID-19 VACCINE - (MODERNA) 2020-10-06 00:00:00 Completed [facility] SARS-COV-2 COVID-19 VACCINE - (MODERNA) 2020-10-06 00:00:00 Completed [facility] SARS-COV-2 COVID-19 VACCINE - (MODERNA) 2020-10-06 00:00:00 Completed [facility] SARS-COV-2 COVID-19 VACCINE - (MODERNA) 2020-10-06 00:00:00 Completed [facility] SARS-COV-2 COVID-19 VACCINE - (MODERNA) 2020-10-06 00:00:00 Completed [facility] SARS-COV-2 COVID-19 VACCINE - (MODERNA) 2020-10-06 00:00:00 Completed SARS-COV-2 COVID-19 VACCINE - (MODERNA) 2020-08-31 00:00:00 Completed [facility] SARS-COV-2 COVID-19 VACCINE - (MODERNA) 2020-08-31 00:00:00 Completed [facility] SARS-COV-2 COVID-19 VACCINE - (MODERNA) 2020-08-31 00:00:00 Completed [facility] SARS-COV-2 COVID-19 VACCINE - (MODERNA) 2020-08-31 00:00:00 Completed [facility] SARS-COV-2 COVID-19 VACCINE - (MODERNA) 2020-08-31 00:00:00 Completed [facility] SARS-COV-2 COVID-19 VACCINE - (MODERNA) 2020-08-31 00:00:00 Completed [facility] SARS-COV-2 COVID-19 VACCINE - (MODERNA) 2020-08-31 00:00:00 Completed [facility] SARS-COV-2 COVID-19 VACCINE - (MODERNA) 2020-08-31 00:00:00 Completed [facility] SARS-COV-2 COVID-19 VACCINE - (MODERNA) 2020-08-31 00:00:00 Completed SARS-COV-2 COVID-19 VACCINE - (MODERNA) Unknown Completed [facility] TDAP Unknown Completed [facility] SARS-COV-2 COVID-19 VACCINE - (MODERNA) Unknown Completed [facility] TDAP Unknown Completed [facility] TD Pres-Free Unknown Completed [facility] SARS-COV-2 COVID-19 VACCINE - (MODERNA) Unknown Completed [facility] TDAP Unknown Completed [facility] TD Pres-Free Unknown Completed [facility] Td- Tetanus & Diphtheria Vaccine (age 7+ years) Unknown Completed Grace Seybol d - External Tdap- (Boostrix, Adacel) Unknown Completed Grace Seybold - External Td- Tetanus & Diphtheria Vaccine (age 7+ years) Unknown Completed Grace Seybol d - External Tdap- (Boostrix, Adacel) Unknown Completed Grace Seybold - External Td- Tetanus & Diphtheria Vaccine (age 7+ years) Unknown Completed Grace Seybol d - External Tdap- (Boostrix, Adacel) Unknown Completed Grace Seybold - External Td- Tetanus & Diphtheria Vaccine (age 7+ years) Unknown Completed Grace Seybol d - External Tdap- (Boostrix, Adacel) Unknown Completed Grace Seybold - External Td- Tetanus & Diphtheria Vaccine (age 7+ years) Unknown Completed Grace Seybol d - External Tdap- (Boostrix, Adacel) Unknown Completed Grace Seybold - External Td- Tetanus & Diphtheria Vaccine (age 7+ years) Unknown Completed Grace Seybol d - External Tdap- (Boostrix, Adacel) Unknown Completed Grace Seybold - External Td- Tetanus & Diphtheria Vaccine (age 7+ years) Unknown Completed Grace Seybol d - External Tdap- (Boostrix, Adacel) Unknown Completed Grace Seybold - External Td- Tetanus & Diphtheria Vaccine (age 7+ years) Unknown Completed Grace Seybol d - External Tdap- (Boostrix, Adacel) Unknown Completed Grace Seybold - External Td- Tetanus & Diphtheria Vaccine (age 7+ years) Unknown Completed Grace Seybol d - External Tdap- (Boostrix, Adacel) Unknown Completed Grace Floresybold - External Vital Signs Vital Name Observation Time Observation Value Comments S ource Systolic blood pressure 2024-12-09 20:25:00 123 mm[Hg] Grace Aguiaro ld - External Diastolic blood pressure 2024-12-09 20:25:00 84 mm[Hg] Grace Aguiaro ld - External Heart rate 2024-12-09 20:25:00 96 /min Royce orlando Seybold - External Respiratory rate 2024-12-09 20:25:00 16 /min Grace Floresybold - External Body height 2024-12-09 20:25:00 167.6 cm Elaina otero Seybold - External Body weight 2024-12-09 20:25:00 73.936 kg Elaina otero Seybold - External BMI 2024-12-09 20:25:00 26.31 kg/m2 Elaina otero Seybold - External Oxygen saturation in Arterial blood by Pulse oximetry 2024-12-09 20:25:00 100 /min Gracefilemon Aguiaro ld - External Systolic blood pressure 2024-12-07 15:22:00 138 mm[Hg] Gracefilemon Aguiaro ld - External Diastolic blood pressure 2024-12-07 15:22:00 72 mm[Hg] Grace Aldrich ld - External Body temperature 2024-12-07 15:22:00 36.83 Ai Grace Jon - External Respiratory rate 2024-12-07 15:22:00 23 /min Grace Jon - External Body height 2024-12-07 15:22:00 167.6 cm Elaina Jon - External Body weight 2024-12-07 15:22:00 73.483 kg Elaina Jon - External BMI 2024-12-07 15:22:00 26.15 kg/m2 Elaina Jon - External Systolic blood pressure 2024-12-04 04:00:00 158 mm[Hg] [facility] Diastolic blood pressure 2024-12-04 04:00:00 73 mm[Hg] [facility] Heart rate 2024-12-04 04:00:00 94 /min [facility] Body temperature 2024-12-04 04:00:00 36.78 Ai [facility] Respiratory rate 2024-12-04 04:00:00 22 /min [facility] Oxygen saturation in Arterial blood by Pulse oximetry 2024-12-04 04:00:00 95 /min [facility] Body height 2024-12-03 22:51:00 170.2 cm [facility] Body weight 2024-12-03 22:51:00 75.751 kg [facility] BMI 2024-12-03 22:51:00 26.16 kg/m2 [facility] Systolic blood pressure 2024-12-03 13:52:00 149 mm[Hg] [facility] Diastolic blood pressure 2024-12-03 13:52:00 87 mm[Hg] [facility] Heart rate 2024-12-03 13:52:00 87 /min [facility] Body temperature 2024-12-03 13:52:00 36.72 Ai [facility] Respiratory rate 2024-12-03 13:52:00 16 /min [facility] Oxygen saturation in Arterial blood by Pulse oximetry 2024-12-03 13:52:00 97 /min [facility] Body weight 2024-12-03 08:00:00 79.47 kg [facility] BMI 2024-12-03 08:00:00 28.28 kg/m2 [facility] Body height 2024-11-30 08:16:00 167.6 cm [facility] Systolic blood pressure 2024-11-02 20:25:00 148 mm[Hg] [facility] Diastolic blood pressure 2024-11-02 20:25:00 90 mm[Hg] [facility] Heart rate 2024-11-02 20:25:00 96 /min [facility] Body temperature 2024-11-02 20:25:00 36.11 Ai [facility] Respiratory rate 2024-11-02 20:25:00 18 /min [facility] Oxygen saturation in Arterial blood by Pulse oximetry 2024-11-02 20:25:00 98 /min [facility] Body height 2024-11-01 23:49:00 167.6 cm [facility] Body weight 2024-11-01 23:49:00 74.481 kg [facility] BMI 2024-11-01 23:49:00 26.50 kg/m2 [facility] Body height 2024-09-26 18:56:00 167.6 cm Elaina ey Seybold - External Body weight 2024-09-26 18:56:00 73.483 kg Elaina ey Seybold - External BMI 2024-09-26 18:56:00 26.15 kg/m2 Elaina ey Seybold - External Systolic blood pressure 2024-06-07 16:44:00 120 mm[Hg] Grace Seybo ld - External Diastolic blood pressure 2024-06-07 16:44:00 70 mm[Hg] Grace Floresybo ld - External Heart rate 2024-06-07 16:44:00 85 /min Arielse y Seybold - External Body temperature 2024-06-07 16:44:00 36.06 Ai Grace Seybold - External Respiratory rate 2024-06-07 16:44:00 16 /min Grace Seybold - External Body height 2024-06-07 16:44:00 167.6 cm Elaina ey Seybold - External Body weight 2024-06-07 16:44:00 73.573 kg Elaina ey Seybold - External BMI 2024-06-07 16:44:00 26.18 kg/m2 Elaina ey Seybold - External Oxygen saturation in Arterial blood by Pulse oximetry 2024-06-07 16:44:00 98 /min Grace Seybo ld - External Body weight 2024-05-23 20:04:00 75.841 kg Elaina ey Seybold - External BMI 2024-05-23 20:04:00 26.99 kg/m2 Elaina ey Seybold - External Systolic blood pressure 2024-05-11 19:47:00 104 mm[Hg] Grace Seybo ld - External Diastolic blood pressure 2024-05-11 19:47:00 68 mm[Hg] Grace Seybo ld - External Heart rate 2024-05-11 19:47:00 88 /min Kelse y Seybold - External Body temperature 2024-05-11 19:47:00 36.78 Ai Grace Seybold - External Respiratory rate 2024-05-11 19:47:00 18 /min Grace Seybold - External Body height 2024-05-11 19:47:00 167.6 cm Elaina ey Seybold - External Body weight 2024-05-11 19:47:00 73.029 kg Elaina ey Seybold - External BMI 2024-05-11 19:47:00 25.99 kg/m2 Elaina ey Seybold - External Oxygen saturation in Arterial blood by Pulse oximetry 2024-05-11 19:47:00 98 /min Grace Seybo ld - External Systolic blood pressure 2024-04-14 13:45:00 124 mm[Hg] Grace Seybo ld - External Diastolic blood pressure 2024-04-14 13:45:00 60 mm[Hg] Grace Seybo ld - External Heart rate 2024-04-14 13:45:00 86 /min Kelse y Seybold - External Body temperature 2024-04-14 13:45:00 36.5 Ai Grace Seybold - External Respiratory rate 2024-04-14 13:45:00 20 /min Grace Seybold - External Body height 2024-04-14 13:45:00 167.6 cm Elaina ey Seybold - External Body weight 2024-04-14 13:45:00 73.936 kg Elaina ey Seybold - External BMI 2024-04-14 13:45:00 26.31 kg/m2 Elaina ey Seybold - External Oxygen saturation in Arterial blood by Pulse oximetry 2024-04-14 13:45:00 98 /min Grace Seybo ld - External Systolic blood pressure 2024-03-16 14:00:00 108 mm[Hg] Grace Seybo ld - External Diastolic blood pressure 2024-03-16 14:00:00 62 mm[Hg] Grace Seybo ld - External Heart rate 2024-03-16 14:00:00 68 /min Royce orlando Seybold - External Body temperature 2024-03-16 14:00:00 36.89 Ai Grace Seybold - External Respiratory rate 2024-03-16 14:00:00 20 /min Grace Seybold - External Body height 2024-03-16 14:00:00 167.6 cm Elaina ey Seybold - External Body weight 2024-03-16 14:00:00 71.838 kg Elaina ey Seybold - External BMI 2024-03-16 14:00:00 25.56 kg/m2 Elaina ey Seybold - External Oxygen saturation in Arterial blood by Pulse oximetry 2024-03-16 14:00:00 98 /min Grace Floresybo ld - External Systolic blood pressure 2024-02-23 05:29:18 112 mm[Hg] [facility] Diastolic blood pressure 2024-02-23 05:29:18 62 mm[Hg] [facility] Heart rate 2024-02-23 05:29:18 88 /min [facility] Body temperature 2024-02-23 05:29:18 36.5 Ai [facility] Respiratory rate 2024-02-23 05:29:18 18 /min [facility] Body height 2024-02-23 05:24:00 167.6 cm [facility] Body weight 2024-02-23 05:24:00 70.308 kg [facility] BMI 2024-02-23 05:24:00 25.02 kg/m2 [facility] Oxygen saturation in Arterial blood by Pulse oximetry 2024-02-23 05:24:00 97 /min [facility] Systolic blood pressure 2023-12-23 23:30:00 156 mm[Hg] [facility] Diastolic blood pressure 2023-12-23 23:30:00 78 mm[Hg] [facility] Heart rate 2023-12-23 23:30:00 89 /min Un[facility] Body temperature 2023-12-23 23:30:00 36.78 Ai [facility] Respiratory rate 2023-12-23 23:30:00 16 /min [facility] Oxygen saturation in Arterial blood by Pulse oximetry 2023-12-23 23:30:00 98 /min [facility] Body height 2023-12-23 16:46:00 170.2 cm [facility] Body weight 2023-12-23 16:46:00 74.844 kg [facility] BMI 2023-12-23 16:46:00 25.84 kg/m2 [facility] Systolic blood pressure 2023-03-19 15:02:00 141 mm[Hg] [facility] Diastolic blood pressure 2023-03-19 15:02:00 78 mm[Hg] [facility] Heart rate 2023-03-19 15:02:00 90 /min Unive [facility] Body temperature 2023-03-19 15:02:00 36.61 Ai [facility] Respiratory rate 2023-03-19 15:02:00 18 /min [facility] Body height 2023-03-19 15:02:00 167.6 cm [facility] Body weight 2023-03-19 15:02:00 86.637 kg [facility] BMI 2023-03-19 15:02:00 30.83 kg/m2 [facility] Oxygen saturation in Arterial blood by Pulse oximetry 2023-03-19 15:02:00 98 /min [facility] Systolic blood pressure 2023-03-04 21:20:00 109 mm[Hg] [facility] Diastolic blood pressure 2023-03-04 21:20:00 60 mm[Hg] [facility] Heart rate 2023-03-04 21:20:00 82 /min Un[facility] Body temperature 2023-03-04 21:20:00 37.06 Ai [facility] Respiratory rate 2023-03-04 21:20:00 18 /min [facility] Oxygen saturation in Arterial blood by Pulse oximetry 2023-03-04 21:20:00 93 /min [facility] Body weight 2023-03-03 08:12:00 87 kg [facility] BMI 2023-03-03 08:12:00 30.96 kg/m2 [facility] Body height 2023-03-01 20:17:00 167.6 cm [facility] Body temperature 2023-03-03 19:10:00 36.56 Ai [facility] Systolic blood pressure 2023-03-03 18:17:00 178 mm[Hg] [facility] Diastolic blood pressure 2023-03-03 18:17:00 93 mm[Hg] [facility] Heart rate 2023-03-03 18:17:00 109 /min [facility] Oxygen saturation in Arterial blood by Pulse oximetry 2023-03-03 16:13:00 97 /min [facility] Respiratory rate 2023-03-03 12:56:00 19 /min [facility] Body weight 2023-03-03 08:12:00 87 kg [facility] BMI 2023-03-03 08:12:00 30.96 kg/m2 [facility] Body height 2023-03-01 20:17:00 167.6 cm [facility] Systolic blood pressure 2022-07-11 16:40:00 122 mm[Hg] [facility] Diastolic blood pressure 2022-07-11 16:40:00 76 mm[Hg] [facility] Heart rate 2022-07-11 16:40:00 77 /min Un[facility] Body temperature 2022-07-11 16:40:00 36.72 Ai [facility] Body height 2022-07-11 16:40:00 166.4 cm [facility] Body weight 2022-07-11 16:40:00 91.164 kg [facility] BMI 2022-07-11 16:40:00 32.94 kg/m2 [facility] Systolic blood pressure 2021-09-25 02:27:00 152 mm[Hg] [facility] Diastolic blood pressure 2021-09-25 02:27:00 68 mm[Hg] [facility] Heart rate 2021-09-25 02:27:00 91 /min Un[facility] Respiratory rate 2021-09-25 02:27:00 18 /min [facility] Oxygen saturation in Arterial blood by Pulse oximetry 2021-09-25 02:27:00 99 /min [facility] Body temperature 2021-09-24 23:57:00 36.44 Ai [facility] Body weight 2021-09-24 23:57:00 100.699 kg [facility] Systolic blood pressure 2021-07-30 21:02:00 115 mm[Hg] [facility] Diastolic blood pressure 2021-07-30 21:02:00 72 mm[Hg] [facility] Heart rate 2021-07-30 21:02:00 94 /min [facility] Respiratory rate 2021-07-30 21:02:00 21 /min [facility] Oxygen saturation in Arterial blood by Pulse oximetry 2021-07-30 21:02:00 93 /min [facility] Body temperature 2021-07-30 20:26:00 37.17 Ai [facility] Body weight 2021-07-30 20:26:00 129.729 kg [facility] Systolic blood pressure 2020-08-14 11:00:00 117 mm[Hg] [facility] Diastolic blood pressure 2020-08-14 11:00:00 77 mm[Hg] [facility] Heart rate 2020-08-14 11:00:00 77 /min [facility] Respiratory rate 2020-08-14 11:00:00 16 /min [facility] Oxygen saturation in Arterial blood by Pulse oximetry 2020-08-14 11:00:00 95 /min [place] [facility] Body temperature 2020-08-14 06:27:00 36.94 Ai [facility] Body weight 2020-08-14 06:27:00 129.729 kg [facility] Procedures Procedure Date / Time Performed Performing Clinician Source CBC WITH DIFF 2024-12-04 00:08:00 Sandy Flores [facility] URINALYSIS 2024-12-04 00:08:[address] [facility] XR CHEST 1 VW 2024-12-04 00:04:13 Sandy Flores Lili [facility] CT CHEST PULMONARY ANGIOGRAM 2024-12-03 23:50:01 Sandy Flores Lili [facility] MAGNESIUM 2024-12-03 23:28:00 Sandy Flores [facility] TROPONIN I 2024-12-03 23:28:[address] [facility] COMP. METABOLIC PANEL ([id number]) 2024-12-03 23:28:00 Sandy Flores Lili [facility] N-TERMINAL PRO-BNP 2024-12-03 23:28:00 Sandy Flores [facility] PHOSPHORUS 2024-12-03 09:39:00 Olya Calhoun [facility] MAGNESIUM 2024-12-03 09:39:00 Olya Calhoun [facility] BASIC METABOLIC PANEL (NA, K, CL, CO2, GLUCOSE, BUN, CREATININE, CA) 2024-12-03 09:39:00 Olya Calhoun [facility] CBC WITH DIFF 2024-12-03 09:39:00 Olya Calhoun [facility] MAGNESIUM 2024-12-02 19:44:00 Hipolito Poe [facility] BASIC METABOLIC PANEL (NA, K, CL, CO2, GLUCOSE, BUN, CREATININE, CA) 2024-12-02 19:44:00 Hipolito Poe [facility] CLOSTRIDIUM DIFFICILE TOXIN 2024-12-02 11:53:00 Mayra Gómez [facility] MAGNESIUM 2024-12-02 09:27:00 Laurel Guardado [facility] BASIC METABOLIC PANEL (NA, K, CL, CO2, GLUCOSE, BUN, CREATININE, CA) 2024-12-02 09:27:00 Laurel Guardado [facility] CBC WITHOUT DIFF 2024-12-02 09:27:00 Laurel Guardado [facility] GIARDIA CRYPTOSPORIDIUM AG SCR 2024-12-01 01:32:00 Celia [facility] BASIC METABOLIC PANEL (NA, K, CL, CO2, GLUCOSE, BUN, CREATININE, CA) 2024-11-30 19:04:00 Celia [facility] XR ABDOMEN 2 VW 2024-11-30 14:28:00 Hipolito Poe [facility] URINALYSIS 2024-11-30 02:56:00 [facility] CT ABDOMEN PELVIS WO CONTRAST 2024-11-30 02:51:22 Berta Uribe [facility] HB ECG ROUTINE & RHYTHM STRIP 2024-11-30 01:25:09 Berta Uribe [facility] LIPASE 2024-11-30 01:03:00 Berta [facility]ribe [facility] TROPONIN I 2024-11-30 01:03:00 Berta Uribe [facility] COMP. METABOLIC PANEL ([id number]) 2024-11-30 01:03:00 Berta Uribe [facility] CBC WITH DIFF 2024-11-30 01:03:00 Berta Uribe [facility] N-TERMINAL PRO-BNP 2024-11-30 01:03:00 Berta Uribe [facility] LACTIC ACID WHOLE BLOOD 2024-11-30 01:02:00 Do rianna Uribe [facility] BASIC METABOLIC PANEL (NA, K, CL, CO2, GLUCOSE, BUN, CREATININE, CA) 2024-11-02 13:53:00 Laurel Guardado [facility] MAGNESIUM 2024-11-02 11:38:00 Laurel Guardado [facility] CBC WITH DIFF 2024-11-02 09:38:00 Laurel Guardado [facility] CT ABDOMEN PELVIS W CONTRAST 2024-11-01 21:06:00 Flavio Mills [facility] URINALYSIS 2024-11-01 20:45:00 Flavio Mills [facility] LIPASE 2024-11-01 20:27:00 Flavio Mills [facility] COMP. METABOLIC PANEL ([id number]) 2024-11-01 20:27:00 Flavio Mills [facility] CBC WITH DIFF 2024-11-01 20:27:00 [facility] 2024-09-26 19:51:49 Fredrick Galvez Semario alberto - External CT HEAD WO CONTRAST 2023-12-23 20:54:00 Sandy Flores [facility] URINALYSIS 2023-12-23 20:12:00 Sandy Flores [facility] LIPASE 2023-12-23 18:36:00 SandraSandy agrawal [facility] MAGNESIUM 2023-12-23 18:36:00 Sandy Flores [facility] TROPONIN I 2023-12-23 18:36:00 Sandy Flores [facility] COMP. METABOLIC PANEL ([id number]) 2023-12-23 18:36:00 Sandy Flores [facility] CBC WITH DIFF 2023-12-23 18:36:00 Sandy Flores [facility] BASIC METABOLIC PANEL (NA, K, CL, CO2, GLUCOSE, BUN, CREATININE, CA) 2023-03-04 10:35:00 Mary Escalera [facility] CBC WITH DIFF 2023-03-04 10:35:[address] [facility] BASIC METABOLIC PANEL (NA, K, CL, CO2, GLUCOSE, BUN, CREATININE, CA) 2023-03-04 10:35:00 Jw [facility] CBC WITH DIFF 2023-03-04 10:35:[address] [facility] FL TIME OR (NON-REPORTABLE) 2023-03-03 21:49:00 Flavia Denise [facility] FL TIME OR (NON-REPORTABLE) 2023-03-03 21:49:00 Flavia Denise [facility] CHOLECYSTECTOMY LAPAROSCOPY WITH CHOLANGIOGRAM 2023-03-03 20:05:00 Howie [facility] CHOLECYSTECTOMY LAPAROSCOPY WITH CHOLANGIOGRAM 2023-03-03 20:05:00 Howie [facility] FECES CULTURE 2023-03-03 13:01:00 Jef Desouza [facility] FECES CULTURE 2023-03-03 13:01:00 Jef Desouza Un [facility] HB ECG ROUTINE & RHYTHM STRIP 2023-03-03 11:56:26 Jw [facility] HB ECG ROUTINE & RHYTHM STRIP 2023-03-03 11:56:26 Jw [facility] MAGNESIUM 2023-03-03 10:06:00 Laurel Guardado [facility] TROPONIN I 2023-03-03 10:06:00 Jw [facility] BASIC METABOLIC PANEL (NA, K, CL, CO2, GLUCOSE, BUN, CREATININE, CA) 2023-03-03 10:06:00 [facility] 2023-03-03 10:06:00 Laurel [facility]ado [facility] MAGNESIUM 2023-03-03 10:06:00 [facility] 2023-03-03 10:06:00 Jw [facility] BASIC METABOLIC PANEL (NA, K, CL, CO2, GLUCOSE, BUN, CREATININE, CA) 2023-03-03 10:06:00 Laurel Guardado [facility] CBC WITH DIFF 2023-03-03 10:06:00 Laurel Guardado [facility] MAGNESIUM 2023-03-02 17:10:00 Laurel [facility]ado [facility] MAGNESIUM 2023-03-02 17:10:00 Laurel Guardado [facility] ABDOMEN LIMITED 2023-03-02 14:51:14 [facility]23[facility]-02 14:51[facility] 2023-03-02 10:17:00 Jef Desouza [facility] HEPATIC FUNCTION PANEL ([id number]) (ALB,T.PRO,BILI T,BU/BC,ALT,AST,ALK PHOS) 2023-03-02 10:17:00 [facility] BASIC MET[facility]OLIC PANEL (NA, K, CL, CO2, GLUCOSE, BUN, CREATININE, CA) 2023-03-02 10:17:00 Jef Desouza [facility] CBC WITH DIFF 2023-03-02 10:17:00 Jef Desouza [facility] MAGNESIUM 2023-03-02 10:17:00 Jef Desouza [facility] HEPATIC FUNCTION PANEL ([id number]) (ALB,T.PRO,BILI T,BU/BC,ALT,AST,ALK PHOS) 2023-03-02 10:17:00 [facility] BASIC MET[facility]OLIC PANEL (NA, K, CL, CO2, GLUCOSE, BUN, CREATININE, CA) 2023-03-02 10:17:00 Jef Desouza [facility] CBC WITH DIFF 2023-03-02 10:17:00 Jef Desouza [facility] URINALYSIS 2023-03-01 16:22:00 Berta [facility] URINALYSIS 2023-03-01 16:22:00 Berta Uribe [facility] CT ABDOMEN PELVIS W CONTRAST 2023-03-01 16:08:00 Berta Uribe [facility] CT ABDOMEN PELVIS W CONTRAST 2023-03-01 16:08:00 Berta Uribe [facility] LIPASE 2023-03-01 14:53:00 Berta [facility] COMP. METABOLIC PANEL ([id number]) 2023-03-01 14:53:00 Berta Uribe [facility] CBC WITH DIFF 2023-03-01 14:53:00 Berta Uribe [facility] GLYCOSYLATED HEMOGLOBIN (A1C) 2023-03-01 14:53:00 Jef Desouza [facility] COVID-19 (ID NOW RAPID TESTING) 2023-03-01 14:53:[facility] 2023-03-01 14:53:00 Berta Uribe [facility] LIPASE 2023-03-01 14:53:00 Berta [facility] COMP. METABOLIC PANEL ([id number]) 2023-03-01 14:53:00 [facility] 2023-03-01 14:53:00 Berta Uribe [facility] GLYCOSYLATED HEMOGLOBIN (A1C) 2023-03-01 14:53:00 Jef Desouza [facility] COVID-19 (ID NOW RAPID TESTING) 2023-03-01 14:53:00 [facility] 2023-03-01 14:53:00 [facility] FOR [facility]AG[facility]IS AND TREATMENT 2023-03-01 14:27:45 Doctor Unassigned, Melvin [facility] CONSENT/REFUSAL FOR DIAGNOSIS AND TREATMENT 2023-03-01 14:27:45 Doctor Unassigned, Melvin [facility] PAP SMEAR-LIQUID BASED-CP 2022-07-11 17:01:00 Rob Hutchins [facility] CONSENT/REFUSAL FOR DIAGNOSIS AND TREATMENT 2022-07-11 16:18:16 Doctor Unassigned, Melvin [facility] POCT URINALYSIS W/O SPECIFIC GRAVITY 2022-07-11 00:00:00 Rob Caldera [facility] XR CHEST 1 VW 2021-09-25 01:22:27 Amaya Tinoco [facility] XR SHOULDER 2+ VW LEFT 2021-09-25 01:22:27 Elvia Tinoco [facility] URINALYSIS 2021-09-25 01:15:00 Am[facility] MAGNESIUM 2021-09-25 00:41:00 Amaya Tin[facility] TROPONIN I 2021-09-25 00:41:00 Amaya Tin[facility] COMP. METABOLIC PANEL ([id number]) 2021-09-25 00:41:00 Amaya Tinoco [facility] CBC WITH DIFF 2021-09-25 00:41:00 Amaya Tinoco [facility] N-TERMINAL PRO-BNP 2021-09-25 00:41:00 Amaya Tinoco [facility] CONSENT/REFUSAL FOR DIAGNOSIS AND TREATMENT 2021-09-24 23:55:08 Doctor Unassigned, Melvin [facility] NOTICE OF PRIVACY PRACTICES 2021-07-30 20:15:43 Doctor Unassigned, Melvin [facility] CONSENT/REFUSAL FOR DIAGNOSIS AND TREATMENT 2021-07-30 20:14:53 Doctor Unassigned, Melvin [facility] TROPONIN I 2020-08-14 08:54:00 AufdAnibal rios [facility] XR CHEST 1 VW 2020-08-14 07:37:40 Anibal Chinchilla [facility] LIPASE 2020-08-14 06:37:00 AuAnibal mackey [facility] TROPONIN I 2020-08-14 06:37:00 AumelitaerAnibal aguilera [facility] COMP. METABOLIC PANEL ([id number]) 2020-08-14 06:37:00 AufdAnibal rios [facility] CBC WITH DIFF 2020-08-14 06:37:00 Anibal Chinchilla [facility] PROTHROMBIN TIME / INR 2020-08-14 06:37:00 Anibal Ruvalcaba [facility] D-DIMER 2020-08-14 06:37:00 Anibal Chinchilla [facility] ACTIVATED PARTIAL THRMPLAS RENA 2020-08-14 06:37:00 Anibal Chinchilla [facility] NOTICE OF PRIVACY PRACTICES 2020-08-14 06:18:59 Doctor Unassigned, Melvin [facility] CONSENT/REFUSAL FOR DIAGNOSIS AND TREATMENT 2020-08-14 06:18:36 Doctor Unassigned, Melvin [facility] Encounters Start Date/Time End Date/Time Encounter Type Admission Type Attending [facility] Care Department Encounter ID Source 2024-12-12 13:20:00 2024-12-12 13:20:00 Outpatient PRUDENCE SIERRA [id number] [facility] 2024-12-09 15:30:00 2024-12-09 15:30:00 Outpatient FIONA SANCHEZ [id number] [facility] 2024-12-08 00:00:00 2024-12-08 00:00:00 Outpatient FIONA SANCHEZ [id number] [facility] 2024-12-08 00:00:00 2024-12-08 00:00:00 Outpatient FIONA SANCHEZ [id number] [facility] 2024-12-08 00:00:00 2024-12-08 00:00:00 Outpatient FIONA SANCHEZ [id number] [facility] 2024-12-08 00:00:00 2024-12-08 00:00:00 Outpatient MD GRACE MADRIGAL [id number] [facility] 2024-12-07 11:20:00 2024-12-07 11:20:00 Outpatient LAB90 GRACE ORR [id number] [facility] 2024-12-07 10:30:00 2024-12-07 10:30:00 Outpatient FIONA SANCHEZ [id number] [facility] 2024-12-07 00:00:00 2024-12-07 00:00:00 Outpatient GRACE ORR [id number] [facility] 2024-12-05 00:00:00 2024-12-05 12:09:42 Transition of Care Aye Sandoval Marisa M [facility] [id number] [facility] 2024-12-03 17:54:00 2024-12-03 23:04:00 Emergency X Sandy [facility]ES [facility] [id number] [facility] 2024-12-03 17:54:00 2024-12-03 23:04:00 Emergency Sandy Flores [facility] 1..840.114 [id number] [facility] 2024-11-29 19:40:00 2024-12-03 13:23:00 Inpatient X HIPOLITO POE [facility] [id number] [facility] 2024-11-29 19:40:00 2024-12-03 13:23:00 Hospital Encounter Berta Uribe Mohammad A. [facility] 1..840.114 [id number] [facility] 2024-11-24 00:00:00 2024-11-24 00:00:00 Outpatient FREDRICK GALVEZ [id number] [facility] 2024-11-19 00:00:00 2024-11-19 00:00:00 Outpatient [facility] [id number] [facility] 2024-11-03 00:00:00 2024-11-03 16:26:26 Transition of Care Aye Sandoval Marisa M [facility] [id number] [facility] 2024-11-01 14:57:00 2024-11-02 16:21:00 Outpatient LAUREL HOOPER [facility] [id number] [place] [facility] 2024-11-01 14:57:00 2024-11-02 16:21:00 Emergency Abhay Bond, [place], Laurel Akins [facility] .2.840.114 350.1.13.10 4.2.7.2.686 [id number] [facility] 2024-10-24 13:30:00 2024-10-24 13:30:00 Outpatient GRACE ORR [id number] [facility] 2024-10-24 13:00:00 2024-10-24 13:00:00 Outpatient GRACE ORR [id number] [facility] 2024-10-23 00:00:00 2024-10-23 00:00:00 Outpatient FREDRICK GALVEZ [id number] [facility] 2024-10-20 00:00:00 2024-10-20 00:00:00 Outpatient FREDRICK GALVEZ [id number] [facility] 2024-10-09 00:00:00 2024-10-09 00:00:00 Outpatient FIONA SANCHEZ [id number] [facility] 2024-09-26 13:35:00 2024-09-26 13:35:00 [facility] [id number] [facility]-26 13:00:00 2024-09-26 13:00:00 Outpatient FREDRICK GALVEZ [id number] [facility] 2024-07-29 00:00:00 2024-07-29 00:00:00 Outpatient MD GRACE MADRIGAL [id number] [facility] 2024-07-21 00:00:00 2024-07-21 00:00:00 Outpatient FIONA SANCHEZ GRACE ORR [id number] [facility] 2024-07-16 00:00:00 2024-07-16 00:00:00 Outpatient FIONA SANCHEZ GRACE ORR [id number] [facility] 2024-07-12 14:00:00 2024-07-12 14:00:00 Outpatient FIONA SANCHEZ GRACE ORR [id number] [facility] 2024-07-09 00:00:00 2024-07-09 00:00:00 Outpatient FIONA SANCHEZ GRACE ORR [id number] [facility] 2024-06-21 00:00:00 2024-06-21 00:00:00 Outpatient MD GRACE [facility]ADRIGAL [id number] [facility] 2024-06-15 15:00:00 2024-06-15 15:00:00 Outpatient FIONA SANCHEZ GRACE ORR [id number] [facility] 2024-06-07 11:45:00 2024-06-07 11:45:00 Outpatient CHAZ [facility] [id number] [facility] 2024-06-07 11:00:00 2024-06-07 11:00:00 Outpatient ROSE SCHMITT [id number] [facility] 2024-06-04 00:00:00 2024-06-04 00:00:00 Outpatient FIONA SANCHEZ GRACE ROR [id number] [facility] 2024-05-23 14:30:00 2024-05-23 14:30:00 Outpatient FREDRICK GALVEZ [id number] [facility] 2024-05-11 15:00:00 2024-05-11 15:00:00 Outpatient FIONA SANCHEZ GRACE ORR [id number] [facility] 2024-05-06 00:00:00 2024-05-06 00:00:00 Outpatient FIONA SANCHEZ GRACE ORR [id number] [facility] 2024-05-03 00:00:00 2024-05-03 00:00:00 Outpatient FIONA SANCHEZ GRACE [id number] [facility] 2024-04-14 09:00:00 2024-04-14 09:00:00 Outpatient FIONA SANCHEZ GRACE [id number] [facility] 2024-04-14 00:00:00 2024-04-14 00:00:00 Outpatient GRACE GRACE [id number] [facility] 2024-04-11 00:00:00 2024-04-11 00:00:00 Outpatient FIONA SANCHEZ GRACE [id number] [facility] 2024-04-06 00:00:00 2024-04-06 00:00:00 Outpatient FIONA SANCHEZFILEMON ORR [id number] [facility] 2024-04-02 00:00:00 2024-04-02 00:00:00 Outpatient FIONA SANCHEZ GRACE ORR [id number] [facility] 2024-04-01 09:40:00 2024-04-01 09:40:00 Outpatient LAB47 GRACE ORR [id number] [facility] 2024-04-01 09:40:00 2024-04-01 09:40:00 Outpatient GRACE ORR [id number] [facility] 2024-04-01 09:35:00 2024-04-01 09:35:00 Outpatient LAB47 GRACE ORR [id number] [facility] 2024-03-16 09:55:00 2024-03-16 09:55:00 Outpatient LAB90 GRACE ORR [id number] [facility] 2024-03-16 09:00:00 2024-03-16 09:00:00 Outpatient FIONA SANCHEZ GRACE ORR [id number] [facility] 2024-03-07 10:00:00 2024-03-07 10:00:00 Outpatient SEBLE GARZA [id number] [facility] 2024-03-02 00:00:00 2024-03-02 10:13:01 Letter (Out) Campaigns, Generic Provider Campaigns, Generic Provider [facility] 1.2.840.114 350.1.13.10 4.2.7.2.686 [id number] [facility] 2024-02-23 00:28:00 2024-02-23 02:47:00 Emergency X KAYLI HOLGUINKARENMELISSA ARZOLAPEDRO [facility] [id number] [facility] 2024-02-23 00:28:00 2024-02-23 02:47:00 Emergency Kayli Holguin S [facility] 1.840.114 350.1.13.10 4.2.7.2.686 [id number] [facility] 2023-12-23 11:47:00 2023-12-23 18:33:00 Emergency X SANDRA Sandy [facility] [id number] [facility] 2023-12-23 11:47:00 2023-12-23 18:33:00 Emergency Sandra, K Lili [facility] 1.840.114 350.1.13.10 4.2.7.2.686 [id number] [facility] 2023-11-09 11:33:37 2023-11-09 11:33:37 Outpatient [facility] [id number] Fredrick Smith 2023-09-17 13:24:58 2023-09-17 13:24:58 Outpatient [facility] [id number] Fredrick Smith 2023-04-08 17:11:13 2023-04-08 17:11:13 Outpatient [facility] [id number] Fredrick Smith 2023-04-08 00:00:00 2023-04-08 00:00:00 Telephone Flavia Denise [facility] 1..840.114 350.1.13.10 4.2.7.2.686 [id number] [facility] 2023-04-07 00:00:00 2023-04-07 00:00:00 Telephone Flavia Denise [facility] 1.2.840.114 350.1.13.10 4.2.7.2.686 [id number] [facility] 2023-03-19 10:00:00 2023-03-19 10:47:42 Outpatient R FLAVIA DENISE [facility] [id number] [facility] 2023-03-19 10:00:00 2023-03-19 10:47:42 Office Visit Flavia Denise [facility] 1.2.840.114 350.1.13.10 4.2.7.2.686 [id number] [facility] 2023-03-01 09:36:00 2023-03-04 17:50:00 Outpatient X OLYA CALHOUN [facility] [id number] [facility] 2023-03-01 09:36:00 2023-03-04 17:50:00 [facility] 1.2.840.114 350.1.13.10 4.2.7.2.686 [id number] [facility] 2023-03-03 14:20:00 2023-03-03 17:01:00 Surgery Flavia Denise [facility] 1.2.840.114 350.1.13.10 4.2.7.2.686 [id number] [facility] 2022-08-22 00:00:00 2022-08-22 00:00:00 Outpatient R ROB CALDERA CHERYAL [facility] [id number] [facility] 2022-07-11 14:00:00 2022-07-11 14:15:00 Care Analyst Visit Pob, Adc Lab Main Rob Caldera [facility] 1..114 350.1.13.10 4.2.7.2.686 [id number] [facility] 2022-07-11 10:30:00 2022-07-11 11:11:49 Outpatient R VERONICA GALAN [facility] [id number] [facility] 2022-07-11 10:30:00 2022-07-11 11:11:49 Office Visit Rob Caldera Veronica Galan [facility] 1..114 350.1.13.10 4.2.7.2.686 [id number] [facility] 2022-07-11 00:00:00 2022-07-11 00:00:00 Orders Only Doctor Unassigned, Melvin [facility] 1..114 350.1.13.10 4.2.7.2.686 [id number] [facility] 2022-07-09 00:00:00 2022-07-09 00:00:00 (TEL) STLMLC ST[facility]MLC [id number] [facility] 2021-09-24 18:10:00 2021-09-24 20:29:00 Emergency X AMAYA TINOCO [facility] [id number] [facility] 2021-09-24 18:10:00 2021-09-24 20:29:00 Emergency Amaya Tinoco [facility] 1..114 350.1.13.10 4.2.7.2.686 [id number] [facility] 2021-07-30 14:29:00 2021-07-30 15:19:00 Emergency X CANDIDO KRUEGER [facility] [id number] [facility] 2021-07-30 14:29:00 2021-07-30 15:19:00 Emergency Candido Krueger [facility] 1.2.840.114 350.1.13.10 4.2.7.2.686 [id number] [facility] 2021-07-30 00:00:00 2021-07-30 00:00:00 Orders Only Doctor Unassigned, Melvin [facility] 1.2.840.114 350.1.13.10 4.2.7.2.686 [id number] [facility] 2020-08-14 00:20:00 2020-08-14 05:15:00 Emergency X ANIBAL CHINCHILLA [facility] [id number] [facility] 2020-08-14 00:20:00 2020-08-14 05:15:00 Emergency Anibal Chinchilla [facility] 1.2.840.114 350.1.13.10 4.2.7.2.686 [id number] [facility] 2020-08-14 00:00:00 2020-08-14 00:00:00 Orders Only Doctor Unassigned, Melvin [facility] 1.2.840.114 350.1.13.10 4.2.7.2.686 [id number] [facility] 2019-07-31 13:24:12 2019-07-31 15:25:00 Emergency X SOREN LEO [facility] [id number] [facility] 2018-01-12 11:07:00 2018-01-12 11:07:00 [facility] [id number] [facility] 2017-12-14 14:00:00 2017-12-14 14:00:00 Outpatient [facility] [id number] [facility] 2017-12-07 10:15:00 2017-12-07 10:15:[address] [facility] [id number] [facility] Results Test Description Test Time Test Comments Results Result Co mments Source [facility] 1 [id number] 00:49:40ORDERING PROVIDER: ?Sandy FLORES HISTORY: Shortness of breath TECHNIQUE: AP view of the chest COMPARISON: Concurrent CTA chest FINDINGS: Small right pleural effusion and subjacent pulmonary opacities. Bluntingleft costophrenic angle appears to correlate with subsegmental atelectasisversus scarring on the comparison CT. ? No pneumothorax. ? The cardiacsilhouette and pulmonary vasculature are within normal limits. ?Milddegenerative changes are seen in the spine and shoulders. [facility] pulmonary [id number] 00:46:32ORDERING PROVIDER: ?Sandy FLORES HISTORY: PE suspected, high pretest prob TECHNIQUE: ?Axial CT images of the chest were obtained followingadministration of IV contrast in the arterial phase according to the PEprotocol. Multiplanar 2-D and 3-D/MIP reformations were generated andevaluated. CT scan is performed using the ALARA principle. Technical Quality: Adequate COMPARISON: CXR 12/03/2024 FINDINGS: Vasculature: ?The pulmonary arteries are patent and normal in caliber. ? Nointraluminal filling defects are seen to suggest thromboembolic disease. ?The aorta is patent and normal in caliber. No intraluminal dissection flap. ?Aortic atherosclerotic disease is identified. Airways: ?The trachea and central airways are patent. Lungs and pleura: ?Small right pleural effusion. There are consolidativeopacities at the basilar segments right lower lobe, possibly atelectasis orpotentially pneumonia. Additional subsegmental atelectasis versus scarringat the left lung base. Lungs are otherwise relatively clear. Nopneumothorax. Heart and mediastinum: ?The heart is normal in size. ? No pericardialeffusion. ?No evidence of right heart strain. No pathologically enlargedmediastinal or hilar lymph nodes are detected. Chest wall: ?The chest wall soft tissues are nonacute. ? No pathologicallyenlarged axillary lymph nodes. ? No acute or suspicious osseousabnormalities. Upper abdomen: ?Prior cholecystectomy. Otherwise, the visualized upperabdomen is unremarkable.[facility] Troponin [id number] 00:20:15* Test Item Value Reference Range Interpretation Comme [facility] TROPONIN I (test code = 9104917425) 0.006 ng/mL <=0.034 REMINGTON (test code = REMINGTON) Reference (Normal) Range (defined by the 99th percentile reference limit): <= 0.034 ng/mL Note: Cardiac troponin begins to rise 3-4 hours after the onset of ischemia. Repeat in 4-6 hours if the sample was drawn within 3-4 hours of the onset of the symptom and found normal. Diagnosis of myocardial injury is made with acute changes in cTn concentrations with at least one serial sample above the 99th percentile upper reference limit (URL), taken together with the patient's clinical presentation. Biotin has been reported to cause a negative bias, interpret results relative to patient's use of biotin. Lab Interpretation (test code = 31774-2) Normal [facility]-Terminal Aof-[id number] 00:17:59* Test Item Value Reference Range Interpretation Comme [facility] NT-proBNP (test code = 89335-3) 39322 pg/mL <=125 H REMINGTON (test code = REMINGTON) Positive: Heart Failure Likely Lab Interpretation (test code = 09031-4) Abnormal [facility]. Metabolic Panel (38304)2024-12-04 00:11:18* Test Item Value Reference Range Interpretation Comme nts NA (test code = 7951526760) 137 mmol/L 135-145 K (test code = 4889542273) 3.6 mmol/L 3.5-5.0 CL (test code = 9055941375) 104 mmol/L 98-108 CO2 TOTAL (test code = 9571092290) 28 mmol/L 23-31 AGAP (test code = 2898589972) 5 2-16 BUN (test code = 1518061174) 10 mg/dL 7-23 GLUCOSE (test code = 8363428529) 102 mg/dL 70-110 CREATININE (test code = 2160-0) 0.83 mg/dL 0.50-1.04 TOTAL BILI (test code = 0504255030) 0.6 mg/dL 0.1-1.1 CALCIUM (test code = 4394587284) 7.8 mg/dL 8.6-10.6 L T PROTEIN (test code = 9573547406) 5.9 g/dL 6.3-8.2 L ALBUMIN (test code = 5863850518) 3.1 g/dL 3.5-5.0 L ALK PHOS (test code = 8191276843) 90 U/L 34-122 ALTv (test code = 1742-6) 46 U/L 5-35 H AST(SGOT) (test code = 3858981901) 21 U/L 13-40 eGFR (test code = 32193-0) 81.3 mL/min/1.73m2 CKD-EPI eGFR (2020). Assuming creatinine has been stable day-to-day for at least three months, the eGFR indicates Category G2 (60 - 89 mL/min/1.73 m2) Lab Interpretation (test code = 87600-0) Abnormal [facility]2025-05-11 00:11:18* Test Item Value Reference Range Interpretation Comme nts MAGNESIUM (test code = 0397491954) 1.4 mg/dL 1.7-2.4 L Lab Interpretation (test cod e = 89653-8) Abnormal [facility] Abdomen 2 [id number] 21:49:51EXAM: XR ABDOMEN 2 11/30/2024 8:59 AM HISTORY: ileus COMPARISON: None. FINDINGS: Multiple loops ofgaseous dilated loops of small bowel measuring 4.3 cm inlargest diameter. Gas is noted in the largebowel loops without distention.Air is present in the rectum. No radiopaque stones identified. No acute bony abnormality is present. Cholecystectomy clips are notedCH[facility]25-[facility] 20:43:36* Test Item Value Reference Range Interpretation Comme nts MAGNESIUM (test code = 3208099596) 2.3 mg/dL 1.7-2.4 Lab Interpretation (test cod e = 82004-2) Normal [facility] Center[facility] Metabolic Panel (NA, K, CL, CO2, GLUCOSE, BUN, CREATININE, CA)2024-12-02 20:43:36* Test Item Value Reference Range Interpretation Comme nts NA (test code = 9214617780) 134 mmol/L 135-145 L K (test code = 7080992676) 3.7 mmol/L 3.5-5.0 CL (test code = 2879791061) 105 mmol/L 98-108 CO2 TOTAL (test code = 9128732884) 25 mmol/L 23-31 AGAP (test code = 8486142105) 4 2-16 BUN (test code = 1670901240) 16 mg/dL 7-23 GLUCOSE (test code = 0254552622) 97 mg/dL 70-110 CREATININE (test code = 2160-0) 0.83 mg/dL 0.50-1.04 CALCIUM (test code = 1025795556) 7.8 mg/dL 8.6-10.6 L eGFR (test code = 58265-3) 81.3 mL/min/1.73m2 CKD-EPI eGFR (2020). Assuming creatinine has been stable day-to-day for at least three months, the eGFR indicates Category G2 (60 - 89 mL/min/1.73 m2) Lab Interpretation (test code = 29654-2) Abnormal [facility] Metabolic Panel (NA, K, CL, CO2, GLUCOSE, BUN, CREATININE, CA)2024-11-30 20:08:08* Test Item Value Reference Range Interpretation Comme nts NA (test code = 6874064680) 138 mmol/L 135-145 K (test code = 8343519056) 3.7 mmol/L 3.5-5.0 CL (test code = 4088169270) 104 mmol/L 98-108 CO2 TOTAL (test code = 7026923191) 24 mmol/L 23-31 AGAP (test code = 6700852049) 10 2-16 BUN (test code = 3481428666) 60 mg/dL 7-23 H GLUCOSE (test code = 1980316430) 118 mg/dL 70-110 H CREATININE (test code = 2160-0) 1.76 mg/dL 0.50-1.04 H CALCIUM (test code = 8685006374) 8.4 mg/dL 8.6-10.6 L eGFR (test code = 43388-9) 33 mL/min/1.73m2 CKD-EPI eGFR (2020). Assuming creatinine has been stable day-to-day for at least three months, the eGFR indicates Category G3b (30 - 44 mL/min/1.73 m2) Lab Interpretation (test code = 71738-2) Abnormal [facility] pelvis wo [id number] 03:55:20ORDERING PHYSICIAN:BERTA CANTU CLINICAL INFORMATION: ? Nausea/vomiting COMPARISON: 11/01/2024 Technique: ? CT of the abdomen and pelvis was performed without IV or p.o.contrast. Multiplanar reformats were also obtained. This study wasperformed according to ALARA principle for radiation dose reduction. Findings: No urinary calcifications or signs of urinary obstruction are seen. Thegallbladder is surgically absent. Unenhanced liver, spleen, adrenal glands,and pancreas show no evidence of grossabnormalities. Distended fluid-filled loops of small bowel are seen throughout theabdomen. High-grade point of transition is seen at the level of thedistal/terminal ileum (best seen on image 103 of series 2). Liquid stool isalso seen in the colon. Colonic diverticulosis without evidence of acutediverticulitis is seen. No free air or free fluid is seen. No focalloculated fluid collections are seen. Lung bases are clear. There are nosuspicious focal osseous lesions.[facility] CenterCBC WITH [id number] 02:02:09* Test Item Value Reference Range Interpretation Comme nts WBC (test code = 6690-2) 5.59 4.30-11.10 RBC (test code = 789-8) 4.4 3.93-5.25 HGB (test code = 718-7) 13.4 g/dL 11.6-15.0 HCT (test code = 4544-3) 40.1 % 35.7-45.2 MCV (test code = 787-2) 91.1 fL 80.6-95.5 MCH (test code = 785-6) 30.5 pg 25.9-32.8 MCHC (test code = 786-4) 33.4 g/dL 31.6-35.1 RDW-SD (test code = 85214-9) 45.9 fL 39.0-49.9 RDW-CV (test code = 788-0) 13.6 % 12.0-15.5 PLT (test code = 777-3) 272 166-358 MPV (test code = 20761-2) 10.4 fL 9.5-12.9 NRBC/100 WBC (test code = 4597840685) 0 0.0-10.0 NRBC x10^3 (test code = 3741898095) See_Comment [Automated messa ge] The system which generated this result transmitted reference range: 10*3/?L. The reference range was not used to interpret this result as normal/abnormal. SEG % (test code = 76595-0) 37 % 33-76 BAND % (test code = 33215-2) 24 % 0-1 H META % (test code = 73364-4) 7 % <=0 H LYMPH % (test code = 37268-1) 17 % 14-54 MONO % (test code = 57718-6) 12 % 0-4 H EOS % (test code = 64672-3) 2 % 0-3 BASO % (test code = 29105-3) 1 % 0-1 ANC (test code = 753-4) 3.41 10*3/uL 1.88-7.09 TOXIC CHANGES (test code = 803-7) Present A PLT ESTIMATE (test code = 9317-9) Normal Normal Lab Interpretation (test code = 03472-7) Abnormal [facility] CenterTROPONIN [id number] 01:34:06* Test Item Value Reference Range Interpretation Comme nts TROPONIN I (test code = 5963336899) 0.007 ng/mL <=0.034 REIMNGTON (test code = REMINGTON) Reference (Normal) Range (defined by the 99th percentile reference limit): <= 0.034 ng/mL Note: Cardiac troponin begins to rise 3-4 hours after the onset of ischemia. Repeat in 4-6 hours if the sample was drawn within 3-4 hours of the onset of the symptom and found normal. Diagnosis of myocardial injury is made with acute changes in cTn concentrations with at least one serial sample above the 99th percentile upper reference limit (URL), taken together with the patient's clinical presentation. Biotin has been reported to cause a negative bias, interpret results relative to patient's use of biotin. Lab Interpretation (test code = 89229-6) Normal [facility] CenterN-TERMINAL [id number] 01:31:25* Test Item Value Reference Range Interpretation Comme nts NT-proBNP (test code = 44239-4) 1140 pg/mL <=125 H REMINGTON (test code = REMINGTON) Positive: Heart Failure Likely Lab Interpretation (test code = 97354-3) Abnormal [facility] CenterCOMP. METABOLIC PANEL (71349)2024-11-30 01:22:25* Test Item Value Reference Range Interpretation Comme nts NA (test code = 8206089111) 132 mmol/L 135-145 L K (test code = 6177660853) 3.7 mmol/L 3.5-5.0 CL (test code = 8808552124) 94 mmol/L 98-108 L CO2 TOTAL (test code = 4994715265) 26 mmol/L 23-31 AGAP (test code = 5789167653) 12 2-16 BUN (test code = 9864697545) 96 mg/dL 7-23 H GLUCOSE (test code = 9388142233) 118 mg/dL 70-110 H CREATININE (test code = 2160-0) 3.84 mg/dL 0.50-1.04 H TOTAL BILI (test code = 0549554537) 0.6 mg/dL 0.1-1.1 CALCIUM (test code = 7855762666) 8.5 mg/dL 8.6-10.6 L T PROTEIN (test code = 9297764751) 6.7 g/dL 6.3-8.2 ALBUMIN (test code = 0233961992) 3.6 g/dL 3.5-5.0 ALK PHOS (test code = 4397487033) 88 U/L 34-122 ALTv (test code = 1742-6) 184 U/L 5-35 H AST(SGOT) (test code = 8399063156) 22 U/L 13-40 eGFR (test code = 16201-0) 12.9 mL/min/1.73m2 CKD-EPI eGFR (2020). Assuming creatinine has been stable day-to-day for at least three months, the eGFR indicates Category G5 (<= 14mL/min/1.73 m2) Lab Interpretation (test code = 45672-2) Abnormal [facility] CenterLIPASE2025-05-07 01:22:05* Test Item Value Reference Range Interpretation Comme nts LIPASE (test code = 7371588583) 34 U/L 0-220 Lab Interpretation (test cod e = 79371-2) Normal [facility] CenterLactic Acid Whole [id number] 01:10:23* Test Item Value Reference Range Interpretation Jaswinder rosenthal LACTIC ACID (test code = 7953113908) 1.52 mmol/L 0.50-2.20 Lab Interpretation (test cod e = 39914-7) Normal [facility] CenterCT Abdomen pelvis w kdktnsep1025-35-96 21:37:10CT ABDOMEN PELVIS W CONTRAST 11/01/2024 3:46 PM HISTORY: Abdominal pain, acute, nonlocalized non-focal abdominal pain; greatest in RLQ; history of cholecystectomy.Vomiting and diarrhea. COMPARISON: Ultrasound dated 03/02/[address] dated 03/01/2023. TECHNIQUE: Axial images of the abdomen and pelvis were acquired afteradministration of intravenous contrast. Coronal and sagittalreconstructions were alsocreated. FINDINGS: LOWER CHEST: Right lower quadrant calcified granuloma. Bibasilaratelectasis.. ? HEPATOBILIARY: The liver is normal in size. No focal hepatic lesion.The gallbladder is surgically abs ent.Mild extrahepatic biliary ductal dilatation with CBD measuring up to 9 mmin diameter, likely related to reservoir phenomena. SPLEEN: Normal in size. ?No lesion. Small splenule is noted. PANCREAS:The parenchyma is unremarkable. No ductal dilatation. No masses. ADRENAL GLANDS: Mild thickening ofbilateral adrenal glands withoutdiscrete nodules, more on the left side, similar to prior. KIDNEYS:No hydronephrosis or stone. No solid mass. Subcentimeterhypodensities seen in the mid pole of the right kidney, too small tocharacterize. GI TRACT: Small hiatus hernia. There is wall thickening of the terminalileum with alternating areas of dilatation and luminal narrowing of thesmall bowel loops mo st evident distally measuring up to 3.9 cm in the rightupper quadrant. The appendix is normal. Sigmoid predominant colonicdiverticulosis with wall thickening of the sigmoid colon, similar to prior PERITONEUM AND RETROPERITONEUM: No free air or free fluid. LYMPH NODES: Prominent reactive mesenteric lymph nodes mainly along theileocolic chain. PELVIS/BLADDER: The urinary bladder is underdistended with circumferentialmural thickening. The reproductive organs are within normal limits. VESSELS: Mildaortoiliac atherosclerotic calcification without dilatationor significant stenosis. BONES AND SOFT TISSUES: No aggressive osseous lesion. Degenerative changesof bilateral hip joints. No concerning soft tissue abnormality.[facility] CenterHIPS [id number] 19:54:26History: ?severe bilateral pain; no injuryImages: ?3 views, each hipFindings: There is advanced osteoarthritis of the joints bilaterally with 95% narrowing of articular cartilage, subcortical eburnation, subchondral cyst formation, and ? osteophytosis.Grace Dontrell - ExternalCT HEAD WO [id number] 20:57:52EXAM: CT HEAD WO CONTRAST HISTORY: 58 years-old Female; Provided indication: Headache, new orworsening. TECHNIQUE: Axial CT of the head was performed and reconstructed at 5 mmintervals. Coronal and sagittal reformatted images were generated. COMPARISON: 01/11/2017 FINDINGS: The ventricles and cerebral sulci are normal in caliber and configuration.No midline shift or pathological extra-axial fluid collection is present.The basal cisterns are unremarkable. No acute intracranial hemorrhage or significant mass effect is visualized.No parenchymal attenuation abnormality is seen. The ricci- white matterdifferentiation is preserved. The mastoid air cells and paranasal air sinuses are clear. The calvariumand central skull base are unremarkable. [facility] [id number] 19:26:44* Test Item Value Reference Range Interpretation Comme nts TROPONIN I (test code = 5753430773) 0.010 ng/mL <=0.034 REMINGTON (test code = REMINGTON) Reference (Normal) Range (defined by the 99th percentile reference limit): <= 0.034 ng/mL Note: Cardiac troponin begins to rise 3-4 hours after the onset of ischemia. Repeat in 4-6 hours if the sample was drawn within 3-4 hours of the onset of the symptom and found normal. Diagnosis of myocardial injury is made with acute changes in cTn concentrations with at least one serial sample above the 99th percentile upper reference limit (URL), taken together with the patient's clinical presentation. Biotin has been reported to cause a negative bias, interpret results relative to patient's use of biotin. Lab Interpretation (test code = 32112-3) [facility]15:27* Test Item Value Reference Range Interpretation Comme nts MAGNESIUM (test code = 7792097118) 1.9 mg/dL 1.7-2.4 Lab Interpretation (test cod e = 13740-3) Normal [facility]. Metabolic Panel (80165)2023-12-23 19:15:22* Test Item Value Reference Range Interpretation Comme nts NA (test code = 1774448520) 143 mmol/L 135-145 K (test code = 2883811552) 4.5 mmol/L 3.5-5.0 CL (test code = 8067826462) 111 mmol/L 98-108 H CO2 TOTAL (test code = 1196905414) 29 mmol/L 23-31 AGAP (test code = 4168292638) 3 2-16 BUN (test code = 3477418938) 22 mg/dL 7-23 GLUCOSE (test code = 5364828521) 121 mg/dL 70-110 H CREATININE (test code = 2160-0) 0.77 mg/dL 0.50-1.04 TOTAL BILI (test code = 9230369632) 0.6 mg/dL 0.1-1.1 CALCIUM (test code = 6125182108) 9.8 mg/dL 8.6-10.6 T PROTEIN (test code = 3782573347) 7.2 g/dL 6.3-8.2 ALBUMIN (test code = 8764961051) 4.3 g/dL 3.5-5.0 ALK PHOS (test code = 9456352833) 87 U/L 34-122 ALTv (test code = 1742-6) 49 U/L 5-35 H AST(SGOT) (test code = 8155073090) 36 U/L 13-40 eGFR (test code = 65113-9) 89.5 mL/min/1.73m2 Lab Interpretation (test cod e = 67645-3) [facility] 19:15:02* Test Item Value Reference Range Interpretation Comme nts LIPASE (test code = 1697276829) 81 U/L 0-220 Lab Interpretation (test cod e = 76621-4) Normal [facility] with [id number] 19:08:24* Test Item Value Reference Range Interpretation Comme nts WBC (test code = 6690-2) 9.10 4.30-11.10 RBC (test code = 789-8) 4.72 3.93-5.25 HGB (test code = 718-7) 14.7 g/dL 11.6-15.0 HCT (test code = 4544-3) 45.7 % 35.7-45.2 H MCV (test code = 787-2) 96.8 fL 80.6-95.5 H MCH (test code = 785-6) 31.1 pg 25.9-32.8 MCHC (test code = 786-4) 32.2 g/dL 31.6-35.1 RDW-SD (test code = 51793-1) 52.2 fL 39.0-49.9 H RDW-CV (test code = 788-0) 14.5 % 12.0-15.5 PLT (test code = 777-3) 189 166-358 MPV (test code = 67388-0) 11.3 fL 9.5-12.9 NRBC/100 WBC (test code = 3907640257) 0.0 0.0-10.0 NRBC x10^3 (test code = 9882612286) See_Comment [Automated messa ge] The system which generated this result transmitted reference range: 10*3/?L. The reference range was not used to interpret this result as normal/abnormal. GRAN MAT (NEUT) % (test code = 770-8) 85.8 % IMM GRAN % (test code = 9031913007) 0.20 % LYMPH % (test code = 736-9) 8.4 % MONO % (test code = 5905-5) 5.2 % EOS % (test code = 713-8) 0.2 % BASO % (test code = 706-2) 0.2 % GRAN MAT x10^3(ANC) (test code = 7111690144) 7.81 10*3/uL 1.88-7.09 H IMM GRAN x10^3 (test code = 3132261896) 0.00-0.06 LYMPH x10^3 (test code = 731-0) 0.76 10*3/uL 1.32-3.29 L MONO x10^3 (test code = 742-7) 0.47 10*3/uL 0.33-0.92 EOS x10^3 (test code = 711-2) 0.03-0.39 L BASO x10^3 (test code = 704-7) 0.01-0.07 Lab Interpretation (test code = 54724-3) [facility]* Test Item Value Reference Range Interpretation Comme nts MAGNESIUM (test code = 1497847091) 2.1 mg/dL 1.7-2.4 Lab Interpretation (test cod e = 82106-7) Normal [facility]2023-08-07 18:39:05* Test Item Value Reference Range Interpretation Comme nts MAGNESIUM (test code = 1805233925) 2.1 mg/dL 1.7-2.4 Lab Interpretation (test cod e = 42898-2) Normal [facility] (03840[facility] (ALB,T.PRO,BILI T,BU/BC,ALT,AST,ALK PHOS)2023-03-02 15:45:16* Test Item Value Reference Range Interpretation Comme nts TOTAL BILI (test code = 7223156728) 0.9 mg/dL 0.1-1.1 BILI UNCON (test code = 6778793064) 0.6 mg/dL 0.1-1.1 BILI CONJ (test code = 6330464755) 0.0 mg/dL 0.0-0.3 T PROTEIN (test code = 7482623822) 6.9 g/dL 6.3-8.2 ALBUMIN (test code = 1552619584) 4.0 g/dL 3.5-5.0 ALK PHOS (test code = 1265212208) 80 U/L 34-122 ALTv (test code = 1742-6) 17 U/L 5-35 AST(SGOT) (test code = 3944035977) 23 U/L 13-40 Lab Interpretation (test cod e = 95799-2) Normal [facility] (55317) (ALB,T.PRO,BILI T,BU/BC,ALT,AST,ALK PHOS)2023-03-02 15:45:16* Test Item Value Reference Range Interpretation Comme nts TOTAL BILI (test code = 2952628232) 0.9 mg/dL 0.1-1.1 BILI UNCON (test code = 4319610339) 0.6 mg/dL 0.1-1.1 BILI CONJ (test code = 7647714410) 0.0 mg/dL 0.0-0.3 T PROTEIN (test code = 8973130173) 6.9 g/dL 6.3-8.2 ALBUMIN (test code = 3707830684) 4.0 g/dL 3.5-5.0 ALK PHOS (test code = 3091853932) 80 U/L 34-122 ALTv (test code = 1742-6) 17 U/L 5-35 AST(SGOT) (test code = 4800969531) 23 U/L 13-40 Lab Interpretation (test cod e = 03965-3) Normal [facility] METABOLIC PANEL (NA, K, CL, CO2, GLUCOSE, BUN, CREATININE, CA)2023-03-02 11:51:06* Test Item Value Reference Range Interpretation Comme nts NA (test code = 2049379237) 139 mmol/L 135-145 K (test code = 9575730830) 3.0 mmol/L 3.5-5.0 L CL (test code = 5103295967) 103 mmol/L 98-108 CO2 TOTAL (test code = 5748136165) 27 mmol/L 23-31 AGAP (test code = 3153000236) 9 2-16 BUN (test code = 5569942118) 13 mg/dL 7-23 GLUCOSE (test code = 9107782916) 115 mg/dL 70-110 H CREATININE (test code = 8054122398) 0.69 mg/dL 0.50-1.04 CALCIUM (test code = 9440498744) 9.4 mg/dL 8.6-10.6 eGFR (test code = 3032645101) 87.7 mL/min/1.73m2 REMINGTON (test code = REMINGTON) Association of Glomerular Filtration Rate (GFR) and Staging of Kidney Disease* + --+ --+ ------+| GFR (mL/min/1.73 m2) ?| With Kidney Damage ?| ?Without Kidney Damage+ --------+ --------+ +| ?>90 ?| ?Stage one ?| ? Normal ?+ ---+ ---+ -------+| ?60-89 ?| ?Stage two ?| ? Decreased GFR ? + --+ --+ ------+| ?30-59 ?| ?Stage three ?| ? Stage three ? + --+ --+ ------+| ?15-29 ?| ?Stage four ? | ? Stage four ?+ ---+ ---+ -------+| ?<15 (or dialysis) ? ?| ?Stage five ? | ? Stage five ?+ ---+ ---+ -------+ *Each stage assumes the associated GFR level has been in effect for at least three months. ?Stages 1 to 5, with or without kidney disease, indicate chronic kidney disease. Notes: Determination of stages one and two (with eGFR >59mL/min/1.73 m2) requires estimation of kidney damage for at least three months as defined by structural or functional abnormalities of the kidney, manifested by either:Pathological abnormalities or Markers of kidney damage (including abnormalities in the composition of the blood or urine or abnormalities in imaging tests). Lab Interpretation (test code = 23449-7) Abnormal [facility] METABOLIC PANEL (NA, K, CL, CO2, GLUCOSE, BUN, CREATININE, CA)2023-03-02 11:51:06* Test Item Value Reference Range Interpretation Comme nts NA (test code = 1619822552) 139 mmol/L 135-145 K (test code = 2175420388) 3.0 mmol/L 3.5-5.0 L CL (test code = 6729415595) 103 mmol/L 98-108 CO2 TOTAL (test code = 3057870982) 27 mmol/L 23-31 AGAP (test code = 8229639565) 9 2-16 BUN (test code = 6480501535) 13 mg/dL 7-23 GLUCOSE (test code = 6191844515) 115 mg/dL 70-110 H CREATININE (test code = 2792240309) 0.69 mg/dL 0.50-1.04 CALCIUM (test code = 7415556675) 9.4 mg/dL 8.6-10.6 eGFR (test code = 7109262086) 87.7 mL/min/1.73m2 REMINGTON (test code = REMINGTON) Association of Glomerular Filtration Rate (GFR) and Staging of Kidney Disease* + --+ --+ ------+| GFR (mL/min/1.73 m2) ?| With Kidney Damage ?| ?Without Kidney Damage+ --------+ --------+ +| ?>90 ?| ?Stage one ?| ? Normal ?+ ---+ ---+ -------+| ?60-89 ?| ?Stage two ?| ? Decreased GFR ? + --+ --+ ------+| ?30-59 ?| ?Stage three ?| ? Stage three ? + --+ --+ ------+| ?15-29 ?| ?Stage four ? | ? Stage four ?+ ---+ ---+ -------+| ?<15 (or dialysis) ? ?| ?Stage five ? | ? Stage five ?+ ---+ ---+ -------+ *Each stage assumes the associated GFR level has been in effect for at least three months. ?Stages 1 to 5, with or without kidney disease, indicate chronic kidney disease. Notes: Determination of stages one and two (with eGFR >59mL/min/1.73 m2) requires estimation of kidney damage for at least three months as defined by structural or functional abnormalities of the kidney, manifested by either:Pathological abnormalities or Markers of kidney damage (including abnormalities in the composition of the blood or urine or abnormalities in imaging tests). Lab Interpretation (test code = 68389-0) [facility] 11:38:59* Test Item Value Reference Range Interpretation Comme nts MAGNESIUM (test code = 7012885456) 2.0 mg/dL 1.7-2.4 Lab Interpretation (test cod e = 06054-4) Normal [facility]2023-08-07 11:38:59* Test Item Value Reference Range Interpretation Comme nts MAGNESIUM (test code = 5253616138) 2.0 mg/dL 1.7-2.4 Lab Interpretation (test cod e = 67520-5) Normal [facility] WITH [id number] 11:29:57* Test Item Value Reference Range Interpretation Comme nts WBC (test code = 6690-2) 14.14 See_Comment H [Automated message] The system which generated this result transmitted reference range: 4.30 - 11.10 10*3/?L. The reference range was not used to interpret this result as normal/abnormal. RBC (test code = 789-8) 5.39 See_Comment H [Automated message] The system which generated this result transmitted reference range: 3.93 - 5.25 10*6/?L. The reference range was not used to interpret this result as normal/abnormal. HGB (test code = 718-7) 16.2 g/dL 11.6-15.0 H HCT (test code = 4544-3) 47.9 % 35.7-45.2 H MCV (test code = 787-2) 88.9 fL 80.6-95.5 MCH (test code = 785-6) 30.1 pg 25.9-32.8 MCHC (test code = 786-4) 33.8 g/dL 31.6-35.1 RDW-SD (test code = 10970-7) 40.7 fL 39.0-49.9 RDW-CV (test code = 788-0) 12.5 % 12.0-15.5 PLT (test code = 777-3) 178 See_Comment [Automated message] The system which generated this result transmitted reference range: 166 - 358 10*3/?L. The reference range was not used to interpret this result as normal/abnormal. MPV (test code = 34097-4) 11.0 fL 9.5-12.9 NRBC/100 WBC (test code = 6508329684) 0.0 See_Comment [Automated message] The system which generated this result transmitted reference range: 0.0 - 10.0 /100 WBCs. The reference range was not used to interpret this result as normal/abnormal. NRBC x10^3 (test code = 6189877553) See_Comment [Automated message] The system which generated this result transmitted reference range: 10*3/?L. The reference range was not used to interpret this result as normal/abnormal. GRAN MAT (NEUT) % (test code = 770-8) 79.7 % IMM GRAN % (test code = 8088396321) 0.40 % LYMPH % (test code = 736-9) 11.5 % MONO % (test code = 5905-5) 8.3 % EOS % (test code = 713-8) 0.0 % BASO % (test code = 706-2) 0.1 % GRAN MAT x10^3(ANC) (test code = 8685148157) 11.28 10*3/uL 1.88-7.09 H IMM GRAN x10^3 (test code = 1858331555) 0.06 10*3/uL 0.00-0.06 LYMPH x10^3 (test code = 731-0) 1.62 10*3/uL 1.32-3.29 MONO x10^3 (test code = 742-7) 1.17 10*3/uL 0.33-0.92 H EOS x10^3 (test code = 711-2) 0.03-0.39 L BASO x10^3 (test code = 704-7) 0.01-0.07 Lab Interpretation (test code = 31599-3) [facility]normal [facility] WITH [id number] 11:29:57* Test Item Value Reference Range Interpretation Comme nts WBC (test code = 6690-2) 14.14 See_Comment H [Automated message] The system which generated this result transmitted reference range: 4.30 - 11.10 10*3/?L. The reference range was not used to interpret this result as normal/abnormal. RBC (test code = 789-8) 5.39 See_Comment H [Automated message] The system which generated this result transmitted reference range: 3.93 - 5.25 10*6/?L. The reference range was not used to interpret this result as normal/abnormal. HGB (test code = 718-7) 16.2 g/dL 11.6-15.0 H HCT (test code = 4544-3) 47.9 % 35.7-45.2 H MCV (test code = 787-2) 88.9 fL 80.6-95.5 MCH (test code = 785-6) 30.1 pg 25.9-32.8 MCHC (test code = 786-4) 33.8 g/dL 31.6-35.1 RDW-SD (test code = 70502-3) 40.7 fL 39.0-49.9 RDW-CV (test code = 788-0) 12.5 % 12.0-15.5 PLT (test code = 777-3) 178 See_Comment [Automated message] The system which generated this result transmitted reference range: 166 - 358 10*3/?L. The reference range was not used to interpret this result as normal/abnormal. MPV (test code = 37261-3) 11.0 fL 9.5-12.9 NRBC/100 WBC (test code = 5966850156) 0.0 See_Comment [Automated message] The system which generated this result transmitted reference range: 0.0 - 10.0 /100 WBCs. The reference range was not used to interpret this result as normal/abnormal. NRBC x10^3 (test code = 4387670580) See_Comment [Automated message] The system which generated this result transmitted reference range: 10*3/?L. The reference range was not used to interpret this result as normal/abnormal. GRAN MAT (NEUT) % (test code = 770-8) 79.7 % IMM GRAN % (test code = 7429528012) 0.40 % LYMPH % (test code = 736-9) 11.5 % MONO % (test code = 5905-5) 8.3 % EOS % (test code = 713-8) 0.0 % BASO % (test code = 706-2) 0.1 % GRAN MAT x10^3(ANC) (test code = 7723801377) 11.28 10*3/uL 1.88-7.09 H IMM GRAN x10^3 (test code = 5054778254) 0.06 10*3/uL 0.00-0.06 LYMPH x10^3 (test code = 731-0) 1.62 10*3/uL 1.32-3.29 MONO x10^3 (test code = 742-7) 1.17 10*3/uL 0.33-0.92 H EOS x10^3 (test code = 711-2) 0.03-0.39 L BASO x10^3 (test code = 704-7) 0.01-0.07 Lab Interpretation (test code = 86739-4) [facility] 22:48:46* Test Item Value Reference Range Interpretation Comme nts HGB A1C (test code = 4548-4) 5.5 % 4.0-5.7 REMINGTON (test code = REMINGTON) Reference RangesNormal: <5.7%Prediabetes: 5.7 - 6.4%Diabetes: > 6.5% Lab Interpretation (test code = 76215-7) Normal [facility]A1C[facility]2023-03-01 22:48:46* Test Item Value Reference Range Interpretation Comme nts HGB A1C (test code = 4548-4) 5.5 % 4.0-5.7 REMINGTON (test code = REMINGTON) Reference RangesNormal: <5.7%Prediabetes: 5.7 - 6.4%Diabetes: > 6.5% Lab Interpretation (test code = 02931-6) [facility] [id number] 15:55:43* Test Item Value Reference Range Interpretation Comme nts WBC (test code = 6690-2) 12.07 See_Comment H [Automated message] The system which generated this result transmitted reference range: 4.30 - 11.10 10*3/?L. The reference range was not used to interpret this result as normal/abnormal. RBC (test code = 789-8) 5.74 See_Comment H [Automated message] The system which generated this result transmitted reference range: 3.93 - 5.25 10*6/?L. The reference range was not used to interpret this result as normal/abnormal. HGB (test code = 718-7) 17.7 g/dL 11.6-15.0 H HCT (test code = 4544-3) 51.9 % 35.7-45.2 H MCV (test code = 787-2) 90.4 fL 80.6-95.5 MCH (test code = 785-6) 30.8 pg 25.9-32.8 MCHC (test code = 786-4) 34.1 g/dL 31.6-35.1 RDW-SD (test code = 01570-1) 40.2 fL 39.0-49.9 RDW-CV (test code = 788-0) 12.2 % 12.0-15.5 PLT (test code = 777-3) 200 See_Comment [Automated message] The system which generated this result transmitted reference range: 166 - 358 10*3/?L. The reference range was not used to interpret this result as normal/abnormal. MPV (test code = 86943-7) 10.9 fL 9.5-12.9 NRBC/100 WBC (test code = 2670541056) 0.0 See_Comment [Automated message] The system which generated this result transmitted reference range: 0.0 - 10.0 /100 WBCs. The reference range was not used to interpret this result as normal/abnormal. NRBC x10^3 (test code = 8837888617) See_Comment [Automated message] The system which generated this result transmitted reference range: 10*3/?L. The reference range was not used to interpret this result as normal/abnormal. GRAN MAT (NEUT) % (test code = 770-8) 89.3 % IMM GRAN % (test code = 7498459980) 0.40 % LYMPH % (test code = 736-9) 7.2 % MONO % (test code = 5905-5) 2.7 % EOS % (test code = 713-8) 0.2 % BASO % (test code = 706-2) 0.2 % GRAN MAT x10^3(ANC) (test code = 4581720010) 10.79 10*3/uL 1.88-7.09 H IMM GRAN x10^3 (test code = 6117916352) 0.05 10*3/uL 0.00-0.06 LYMPH x10^3 (test code = 731-0) 0.87 10*3/uL 1.32-3.29 L MONO x10^3 (test code = 742-7) 0.32 10*3/uL 0.33-0.92 L EOS x10^3 (test code = 711-2) 0.03-0.39 L BASO x10^3 (test code = 704-7) 0.01-0.07 REACT LYMPHS (test code = 1864318922) Rare GIANT PLATELETS (test code = 5908-9) Present See_Comment A [Automated message] The system which generated this result transmitted reference range: (none). The reference range was not used to interpret this result as normal/abnormal. Lab Interpretation (test code = 37437-2) Abnormal [facility] WITH [id number] 15:55:43* Test Item Value Reference Range Interpretation Comme nts WBC (test code = 6690-2) 12.07 See_Comment H [Automated message] The system which generated this result transmitted reference range: 4.30 - 11.10 10*3/?L. The reference range was not used to interpret this result as normal/abnormal. RBC (test code = 789-8) 5.74 See_Comment H [Automated message] The system which generated this result transmitted reference range: 3.93 - 5.25 10*6/?L. The reference range was not used to interpret this result as normal/abnormal. HGB (test code = 718-7) 17.7 g/dL 11.6-15.0 H HCT (test code = 4544-3) 51.9 % 35.7-45.2 H MCV (test code = 787-2) 90.4 fL 80.6-95.5 MCH (test code = 785-6) 30.8 pg 25.9-32.8 MCHC (test code = 786-4) 34.1 g/dL 31.6-35.1 RDW-SD (test code = 76076-7) 40.2 fL 39.0-49.9 RDW-CV (test code = 788-0) 12.2 % 12.0-15.5 PLT (test code = 777-3) 200 See_Comment [Automated message] The system which generated this result transmitted reference range: 166 - 358 10*3/?L. The reference range was not used to interpret this result as normal/abnormal. MPV (test code = 02643-8) 10.9 fL 9.5-12.9 NRBC/100 WBC (test code = 1623643428) 0.0 See_Comment [Automated message] The system which generated this result transmitted reference range: 0.0 - 10.0 /100 WBCs. The reference range was not used to interpret this result as normal/abnormal. NRBC x10^3 (test code = 9546862305) See_Comment [Automated message] The system which generated this result transmitted reference range: 10*3/?L. The reference range was not used to interpret this result as normal/abnormal. GRAN MAT (NEUT) % (test code = 770-8) 89.3 % IMM GRAN % (test code = 3835803947) 0.40 % LYMPH % (test code = 736-9) 7.2 % MONO % (test code = 5905-5) 2.7 % EOS % (test code = 713-8) 0.2 % BASO % (test code = 706-2) 0.2 % GRAN MAT x10^3(ANC) (test code = 0445991011) 10.79 10*3/uL 1.88-7.09 H IMM GRAN x10^3 (test code = 1600808686) 0.05 10*3/uL 0.00-0.06 LYMPH x10^3 (test code = 731-0) 0.87 10*3/uL 1.32-3.29 L MONO x10^3 (test code = 742-7) 0.32 10*3/uL 0.33-0.92 L EOS x10^3 (test code = 711-2) 0.03-0.39 L BASO x10^3 (test code = 704-7) 0.01-0.07 REACT LYMPHS (test code = 7212512240) Rare GIANT PLATELETS (test code = 5908-9) Present See_Comment A [Automated message] The system which generated this result transmitted reference range: (none). The reference range was not used to interpret this result as normal/abnormal. Lab Interpretation (test code = 81166-0) Abnormal [facility]. METABOLIC PANEL (76771)2023-03-01 15:35:52* Test Item Value Reference Range Interpretation Comme nts NA (test code = 1294386859) 141 mmol/L 135-145 K (test code = 8439479609) 3.9 mmol/L 3.5-5.0 CL (test code = 2406173636) 100 mmol/L 98-108 CO2 TOTAL (test code = 3862777548) 32 mmol/L 23-31 H AGAP (test code = 2836635954) 9 2-16 BUN (test code = 4476904784) 15 mg/dL 7-23 GLUCOSE (test code = 4001866487) 145 mg/dL 70-110 H CREATININE (test code = 3246990907) 0.74 mg/dL 0.50-1.04 TOTAL BILI (test code = 5501537955) 1.0 mg/dL 0.1-1.1 CALCIUM (test code = 5088866976) 9.8 mg/dL 8.6-10.6 T PROTEIN (test code = 1485318090) 8.2 g/dL 6.3-8.2 ALBUMIN (test code = 2789122445) 4.8 g/dL 3.5-5.0 ALK PHOS (test code = 9088457021) 96 U/L 34-122 ALTv (test code = 1742-6) 22 U/L 5-35 AST(SGOT) (test code = 3216386180) 32 U/L 13-40 eGFR (test code = 4632713415) 80.9 mL/min/1.73m2 REMINGTON (test code = REMINGTON) Association of Glomerular Filtration Rate (GFR) and Staging of Kidney Disease* + --+ --+ ------+| GFR (mL/min/1.73 m2) ?| With Kidney Damage ?| ?Without Kidney Damage+ --------+ --------+ +| ?>90 ?| ?Stage one ?| ? Normal ?+ ---+ ---+ -------+| ?60-89 ?| ?Stage two ?| ? Decreased GFR ? + --+ --+ ------+| ?30-59 ?| ?Stage three ?| ? Stage three ? + --+ --+ ------+| ?15-29 ?| ?Stage four ? | ? Stage four ?+ ---+ ---+ -------+| ?<15 (or dialysis) ? ?| ?Stage five ? | ? Stage five ?+ ---+ ---+ -------+ *Each stage assumes the associated GFR level has been in effect for at least three months. ?Stages 1 to 5, with or without kidney disease, indicate chronic kidney disease. Notes: Determination of stages one and two (with eGFR >59mL/min/1.73 m2) requires estimation of kidney damage for at least three months as defined by structural or functional abnormalities of the kidney, manifested by either:Pathological abnormalities or Markers of kidney damage (including abnormalities in the composition of the blood or urine or abnormalities in imaging tests). Lab Interpretation (test code = 08085-1) Abnormal [facility]. METABOLIC PANEL (51682)2023-03-01 15:35:52* Test Item Value Reference Range Interpretation Comme nts NA (test code = 5169175072) 141 mmol/L 135-145 K (test code = 6588384595) 3.9 mmol/L 3.5-5.0 CL (test code = 7079295406) 100 mmol/L 98-108 CO2 TOTAL (test code = 2726616851) 32 mmol/L 23-31 H AGAP (test code = 8771120274) 9 2-16 BUN (test code = 3830050561) 15 mg/dL 7-23 GLUCOSE (test code = 4569992886) 145 mg/dL 70-110 H CREATININE (test code = 1043125795) 0.74 mg/dL 0.50-1.04 TOTAL BILI (test code = 0122303326) 1.0 mg/dL 0.1-1.1 CALCIUM (test code = 8783792688) 9.8 mg/dL 8.6-10.6 T PROTEIN (test code = 3476079301) 8.2 g/dL 6.3-8.2 ALBUMIN (test code = 5781255896) 4.8 g/dL 3.5-5.0 ALK PHOS (test code = 5570153631) 96 U/L 34-122 ALTv (test code = 1742-6) 22 U/L 5-35 AST(SGOT) (test code = 9222991780) 32 U/L 13-40 eGFR (test code = 5667676071) 80.9 mL/min/1.73m2 REMINGTON (test code = REMINGTON) Association of Glomerular Filtration Rate (GFR) and Staging of Kidney Disease* + --+ --+ ------+| GFR (mL/min/1.73 m2) ?| With Kidney Damage ?| ?Without Kidney Damage+ --------+ --------+ +| ?>90 ?| ?Stage one ?| ? Normal ?+ ---+ ---+ -------+| ?60-89 ?| ?Stage two ?| ? Decreased GFR ? + --+ --+ ------+| ?30-59 ?| ?Stage three ?| ? Stage three ? + --+ --+ ------+| ?15-29 ?| ?Stage four ? | ? Stage four ?+ ---+ ---+ -------+| ?<15 (or dialysis) ? ?| ?Stage five ? | ? Stage five ?+ ---+ ---+ -------+ *Each stage assumes the associated GFR level has been in effect for at least three months. ?Stages 1 to 5, with or without kidney disease, indicate chronic kidney disease. Notes: Determination of stages one and two (with eGFR >59mL/min/1.73 m2) requires estimation of kidney damage for at least three months as defined by structural or functional abnormalities of the kidney, manifested by either:Pathological abnormalities or Markers of kidney damage (including abnormalities in the composition of the blood or urine or abnormalities in imaging tests). Lab Interpretation (test code = 04653-4) [facility] 15[facility]35:31* Test Item Value Reference Range Interpretation Comme nts LIPASE (test code = 0996906246) 136 U/L 0-220 Lab Interpretation (test cod e = 64382-5) [facility] 15:35:31* Test Item Value Reference Range Interpretation Comme nts LIPASE (test code = 2725231371) 136 U/L 0-220 Lab Interpretation (test cod e = 94280-1) Normal [facility] W/O SPECIFIC [id number] 16:47:00* Test Item Value Reference Range Interpretation Comme nts POCT PH U (test code = 3254) 5 mg/dl 5-8 POCT U LEUK EST (test code = 3263) Negative Negative - Negative POCT U NIT (test code = 3262) Negative Negative - Negati ve POCT U PROT (test code = 3259) Negative Negative - Negat papo POCT U GLU (test code = 3256) Normal Negative - Negati ve POCT U KETONE (test code = 3258) Negative Negative - Neg ative POCT U BLD (test code = 3257) Negative Negative - Negati ve [facility]/O SPECIFIC [id number] 16:47:00* Test Item Value Reference Range Interpretation Comme nts POCT PH U (test code = 3254) 5 mg/dl 5-8 POCT U LEUK EST (test code = 3263) Negative Negative - Negative POCT U NIT (test code = 3262) Negative Negative - Negati ve POCT U PROT (test code = 3259) Negative Negative - Negat papo POCT U GLU (test code = 3256) Normal Negative - Negati ve POCT U KETONE (test code = 3258) Negative Negative - Neg ative POCT U BLD (test code = 3257) Negative Negative - Negati ve [facility]TR[facility] [id number] 01:32:53* Test Item Value Reference Range Interpretation Comments TROPONIN I (test code = 2069926366) <0.012 See_Comment [Automated message] The system which generated this result transmitted reference range: <=0.034 ng/mL. The reference range was not used to interpret this result as normal/abnormal. REMINGTON (test code = REMINGTON) Reference (Normal) Range (defined by the 99th percentile reference limit): <= 0.034 ng/mL Note: Cardiac troponin begins to rise 3-4 hours after the onset of ischemia. Repeat in 4-6 hours if the sample was drawn within 3-4 hours of the onset of the symptom and found normal. Diagnosis of myocardial injury is made with acute changes in cTn concentrations with at least one serial sample above the 99th percentile upper reference limit (URL), taken together with the patient's clinical presentation. Biotin has been reported to cause a negative bias, interpret results relative to patient's use of biotin. Lab Interpretation (test code = 51150-1) Normal [facility] CenterN-TERMINAL [id number] 01:29:36* Test Item Value Reference Range Interpretation Comme nts NT-proBNP (test code = 9988066818) 334 pg/mL See_Comment H [Automated message] The system which generated this result transmitted reference range: <=125. The reference range was not used to interpret this result as normal/abnormal. REMINGTON (test code = REMINGTON) Biotin has been reported to cause a negative bias, interpret results relative to patient's use of biotin. Lab Interpretation (test code = 90782-0) [facility]normal [facility] CenterMAGNESIUM2022-03-[facility] 01:22:09* Test Item Value Reference Range Interpretation Comme nts MAGNESIUM (test code = 5511032958) 1.7 mg/dL 1.7-2.4 Lab Interpretation (test cod e = 59672-7) [facility] CenterCOMP[facility] METABOLIC PANEL (06885)2021-09-25 01:21:49* Test Item Value Reference Range Interpretation Comme nts NA (test code = 7744879136) 141 mmol/L 135-145 K (test code = 6489298830) 4.4 mmol/L 3.5-5.0 CL (test code = 1522814257) 103 mmol/L 98-108 CO2 TOTAL (test code = 8768720785) 30 mmol/L 23-31 AGAP (test code = 5463325248) 2-16 BUN (test code = 8630474649) 24 mg/dL 7-23 H GLUCOSE (test code = 1778823658) 91 mg/dL 70-110 CREATININE (test code = 7538900798) 0.99 mg/dL 0.50-1.04 TOTAL BILI (test code = 5235244271) 0.5 mg/dL 0.1-1.1 CALCIUM (test code = 7747986484) 9.6 mg/dL 8.6-10.6 T PROTEIN (test code = 9673643394) 6.9 g/dL 6.3-8.2 ALBUMIN (test code = 1661199928) 4.4 g/dL 3.5-5.0 ALK PHOS (test code = 4204035599) 79 U/L 34-122 ALTv (test code = 1742-6) 17 U/L 5-35 AST(SGOT) (test code = 4168417332) 21 U/L 13-40 eGFR (test code = 5991250311) mL/min/1.73m2 REMINGTON (test code = REMINGTON) Association of Glomerular Filtration Rate (GFR) and Staging of Kidney Disease* + --+ --+ ------+| GFR (mL/min/1.73 m2) ?| With Kidney Damage ?| ?Without Kidney Damage+ --------+ --------+ +| ?>90 ?| ?Stage one ?| ? Normal ?+ ---+ ---+ -------+| ?60-89 ?| ?Stage two ?| ? Decreased GFR ? + --+ --+ ------+| ?30-59 ?| ?Stage three ?| ? Stage three ? + --+ --+ ------+| ?15-29 ?| ?Stage four ? | ? Stage four ?+ ---+ ---+ -------+| ?<15 (or dialysis) ? ?| ?Stage five ? | ? Stage five ?+ ---+ ---+ -------+ *Each stage assumes the associated GFR level has been in effect for at least three months. ?Stages 1 to 5, with or without kidney disease, indicate chronic kidney disease. Notes: Determination of stages one and two (with eGFR >59mL/min/1.73 m2) requires estimation of kidney damage for at least three months as defined by structural or functional abnormalities of the kidney, manifested by either:Pathological abnormalities or Markers of kidney damage (including abnormalities in the composition of the blood or urine or abnormalities in imaging tests). Lab Interpretation (test code = 31703-5) [facility]normal [facility] WITH [id number] 01:04:49* Test Item Value Reference Range Interpretation Comme nts WBC (test code = 6690-2) See_Comment [[employer]] The system which generated this result transmitted reference range: 4.30 - 11.10 10*3/?L. The reference range was not used to interpret this result as normal/abnormal. RBC (test code = 789-8) See_Comment [Automated [employer]] The system which generated this result transmitted reference range: 3.93 - 5.25 10*6/?L. The reference range was not used to interpret this result as normal/abnormal. HGB (test code = 718-7) 14.3 g/dL 11.6-15.0 HCT (test code = 4544-3) 44.4 % 35.7-45.2 MCV (test code = 787-2) 90.2 fL 80.6-95.5 MCH (test code = 785-6) 29.1 pg 25.9-32.8 MCHC (test code = 786-4) 32.2 g/dL 31.6-35.1 RDW-SD (test code = 33576-8) 46.6 fL 39.0-49.9 RDW-CV (test code = 788-0) 14.0 % 12.0-15.5 PLT (test code = 777-3) See_Comment [Automated [employer]a ge] The system which generated this result transmitted reference range: 166 - 358 10*3/?L. The reference range was not used to interpret this result as normal/abnormal. MPV (test code = 61845-0) 11.2 fL 9.5-12.9 NRBC/100 WBC (test code = 4501369009) See_Comment [Automated [employer]age] The system which generated this result transmitted reference range: 0.0 - 10.0 /100 WBCs. The reference range was not used to interpret this result as normal/abnormal. NRBC x10^3 (test code = 9228875888) <0.01 See_Comment [Automated me ssage] The system which generated this result transmitted reference range: 10*3/?L. The reference range was not used to interpret this result as normal/abnormal. GRAN MAT (NEUT) % (test code = 770-8) 68.8 % IMM GRAN % (test code = 9960273697) 0.50 % LYMPH % (test code = 736-9) 21.5 % MONO % (test code = 5905-5) 7.7 % EOS % (test code = 713-8) 1.3 % BASO % (test code = 706-2) 0.2 % GRAN MAT x10^3(ANC) (test code = 7276664704) 6.05 10*3/uL 1.88-7.09 IMM GRAN x10^3 (test code = 2377609572) 0.04 10*3/uL 0.00-0.06 LYMPH x10^3 (test code = 731-0) 1.89 10*3/uL 1.32-3.29 MONO x10^3 (test code = 742-7) 0.68 10*3/uL 0.33-0.92 EOS x10^3 (test code = 711-2) 0.11 10*3/uL 0.03-0.39 BASO x10^3 (test code = 704-7) <0.03 0.01-0.07 [facility]TROP[facility] [id number] 09:25:00* Test Item Value Reference Range Interpretation Comme nts TROPONIN I (test code = 5782688043) <0.012 See_Comment [Automated message] The system which generated this result transmitted reference range: <=0.034 ng/mL. The reference range was not used to interpret this result as normal/abnormal. REMINGTON (test code = REMINGTON) Equal or Less than 0.034 ng/ml---Normal ?Note: Cardiac troponin begins to rise 3-4 hours after the onset of ischemia. Repeat in 4-6 hours if the sample was drawn within 3-4 hours of the onset of the symptom and found normal. Between 0.035 and 0.120 ng/mL--- Borderline. Questionable myocardial injury or necrosis ? ?Note: Serial measurement may be necessary to confirm or exclude the diagnosis of myocardial injury or necrosis; Clinical correlation (symptoms, EKGs, imaging studies, and others) required; Repeat in 4-6 hours if clinically indicated. ? Equal or Higher than 0.121 ng/mL---Abnormal. Myocardial Injury or Necrosis Likely ? Biotin has been reported to cause a negative bias, interpret results relative to patient's use of biotin. ? Lab Interpretation (test code = 80763-9) Normal [facility] CenterD-[id number] 08:20:00* Test Item Value Reference Range Interpretation Comments D-DIMER (test code = 4266118791) <0.27 See_Comment [Automated message] The system which generated this result transmitted reference range: <0.41 ?g/mL (FEU). The reference range was not used to interpret this result as normal/abnormal. REMINGTON (test code = REMINGTON) This test may be used in conjunction with a clinical pretest probability (PTP) assessment model to exclude venous thromboembolism (VTE) in patients suspected of deep venous thrombosis (DVT) and pulmonary embolism (PE) A D-Dimer value less than 0.50 ?g/ml (FEU) has a negative predicative value of 96 to 100% (95% CI)and 97 to 100% (95% CI) as an aid in the diagnosis of deep vein thrombosis (DVT) and pulmonary embolism when there is low or moderate pretest probability of PE or DVT. D-Dimer values are expressed in initial fibrinogen equivalent units (FEU)" The assay results should be used with other information, including the clinical context, in forming a diagnosis. Lab Interpretation (test code = 05155-4) Normal [facility] CenterXR CHEST 1 [id number] 07:48:151. Borderline cardiomegaly with no acute cardiopulmonary abnormalitiesidentified. RL: [id number] signed by Ray Choe DO at 08/14/2020 1:48 AMORDERING PHYSICIAN: ANIBAL CHINCHILLA CLINICAL HISTORY: chest tightness TECHNIQUE: Single view radiograph of the chest was performed. COMPARISON: Single view chest radiograph performed 07/31/2019 FINDINGS: The lungs are expanded and cl ear. No evidence of pleural effusionor pneumothorax is present. Borderline cardiomegaly without mediastinalwidening. No acute osseous abnormalities are identified. Comb, Radiant Results Inft User - 08/14/2020 1:49 AM CSTORDERING PHYSICIAN: ANIBAL CHINCHILLA CLINICAL HISTORY: chest tightness TECHNIQUE: Single view radiograph of the chest was performed.COMPARISON: Single view chest radiograph performed 07/31/2019FINDINGS: The lungs are expanded and clear. No evidence of pleural effusionor pneumothorax is present. Borderline cardiomegaly without mediastinalwidening. No acute osseous abnormalities are identified.IMPRESSION1. Borderline cardiomegaly with no acute cardiopulmonary abnormalitiesidentified.RL: [id number] [facility] CenterTROPONIN [id number] 07:17:00* Test Item Value Reference Range Interpretation Comme nts TROPONIN I (test code = 4535632646) <0.012 See_Comment [Automated message] The system which generated this result transmitted reference range: <=0.034 ng/mL. The reference range was not used to interpret this result as normal/abnormal. REMINGTON (test code = REMINGOTN) Equal or Less than 0.034 ng/ml---Normal ?Note: Cardiac troponin begins to rise 3-4 hours after the onset of ischemia. Repeat in 4-6 hours if the sample was drawn within 3-4 hours of the onset of the symptom and found normal. Between 0.035 and 0.120 ng/mL--- Borderline. Questionable myocardial injury or necrosis ? ?Note: Serial measurement may be necessary to confirm or exclude the diagnosis of myocardial injury or necrosis; Clinical correlation (symptoms, EKGs, imaging studies, and others) required; Repeat in 4-6 hours if clinically indicated. ? Equal or Higher than 0.121 ng/mL---Abnormal. Myocardial Injury or Necrosis Likely ? Biotin has been reported to cause a negative bias, interpret results relative to patient's use of biotin. ? Lab Interpretation (test code = 15386-3) Normal [facility] CenteraPTT2021-01-19 07:16:00* Test Item Value Reference Range Interpretation Comme [facility] APTT Patient (test code = 3173-2) See_Comment [Automated message] The system which generated this result transmitted reference range: 23 - 38 Seconds. The reference range was not used to interpret this result as normal/abnormal. REMINGTON (test code = REMINGTON) The [facility] patient population mean normal value for aPTT is 30 seconds. Lab Interpretation (test code = 39877-9) Normal [facility] CenterPROTHROMBIN TIME / [id number] 07:14:00* Test Item Value Reference Range Interpretation Comme [facility] PROTIME PATIENT (test code = 5964-2) See_Comment [[employer]] The system which generated this result transmitted reference range: 12.0 - 14.7 Seconds. The reference range was not used to interpret this result as normal/abnormal. INR (test code = 6301-6) Normal INR <1.1; Warfarin Therapeutic range 2.0 to 3.0 or 2.5 to 3.5, depending upon the indications. Lab Interpretation (test code = 03910-0) Normal [facility] CenterCOMP. METABOLIC PANEL (80762)2020-08-14 07:06:00* Test Item Value Reference Range Interpretation Comme nts NA (test code = 5336972792) 136 mmol/L 135-145 K (test code = 1779868848) 3.7 mmol/L 3.5-5 CL (test code = 7597233331) 104 mmol/L 98-108 CO2 TOTAL (test code = 8747545407) 26 mmol/L 23-31 AGAP (test code = 6713254912) 2-16 BUN (test code = 4610564934) 17 mg/dL 7-23 GLUCOSE (test code = 4231384394) 124 mg/dL 70-110 H CREATININE (test code = 0409608438) 0.83 mg/dL 0.5-1.04 TOTAL BILI (test code = 7813320071) 0.5 mg/dL 0.1-1.1 CALCIUM (test code = 1797499768) 9.0 mg/dL 8.6-10.6 T PROTEIN (test code = 6155984833) 7.0 g/dL 6.3-8.2 ALBUMIN (test code = 1806628586) 4.1 g/dL 3.5-5 ALK PHOS (test code = 5613600611) 100 U/L 34-122 ALTv (test code = 1742-6) 16 U/L 5-35 AST(SGOT) (test code = 2809876033) 19 U/L 13-40 eGFR Calculation (Non-) (test code = 1628529770) mL/min/1.73m2 eGFR Calculation () (test code = 0920078715) mL/min/1.73m2 REMINGTON (test code = REMINGTON) Association of Glomerular Filtration Rate (GFR) and Staging of Kidney Disease* + --+ --+ ------+| GFR (mL/min/1.73 m2) ?| With Kidney Damage ?| ?Without Kidney Damage+ --------+ --------+ +| ?>90 ?| ?Stage one ?| ? Normal ?+ ---+ ---+ -------+| ?60-89 ?| ?Stage two ?| ? Decreased GFR ? + --+ --+ ------+| ?30-59 ?| ?Stage three ?| ? Stage three ? + --+ --+ ------+| ?15-29 ?| ?Stage four ? | ? Stage four ?+ ---+ ---+ -------+| ?<15 (or dialysis) ? ?| ?Stage five ? | ? Stage five ?+ ---+ ---+ -------+ *Each stage assumes the associated GFR level has been in effect for at least three months. ?Stages 1 to 5, with or without kidney disease, indicate chronic kidney disease. Notes: Determination of stages one and two (with eGFR >59mL/min/1.73 m2) requires estimation of kidney damage for at least three months as defined by structural or functional abnormalities of the kidney, manifested by either:Pathological abnormalities or Markers of kidney damage (including abnormalities in the composition of the blood or urine or abnormalities in imaging tests). Lab Interpretation (test code = 05871-2) Abnormal [facility] CenterLIPASE, [id number] 07:06:00* Test Item Value Reference Range Interpretation Comme nts LIPASE (test code = 4177056170) 76 U/L 0-220 Lab Interpretation (test cod e = 25275-9) Normal [facility] CenterCB WITH [id number] 06:53:00* Test Item Value Reference Range Interpretation Comme nts WBC (test code = 6690-2) See_Comment [[employer]] The system which generated this result transmitted reference range: 4.30 - 11.10 10*3/?L. The reference range was not used to interpret this result as normal/abnormal. RBC (test code = 789-8) See_Comment [[employer]] The system which generated this result transmitted reference range: 3.93 - 5.25 10*6/?L. The reference range was not used to interpret this result as normal/abnormal. HGB (test code = 718-7) 13.5 g/dL 11.6-15 HCT (test code = 4544-3) 42.8 % 35.7-45.2 MCV (test code = 787-2) 87.5 fL 80.6-95.5 MCH (test code = 785-6) 27.6 pg 25.9-32.8 MCHC (test code = 786-4) 31.5 g/dL 31.6-35.1 L RDW-SD (test code = 65611-4) 44.0 fL 39-49.9 RDW-CV (test code = 788-0) 13.6 % 12-15.5 PLT (test code = 777-3) See_Comment [[employer]] The system which generated this result transmitted reference range: 166 - 358 10*3/?L. The reference range was not used to interpret this result as normal/abnormal. MPV (test code = 80937-7) 10.8 fL 9.5-12.9 NRBC/100 WBC (test code = 8126427980) See_Comment [[employer]] The system which generated this result transmitted reference range: 0.0 - 10.0 /100 WBCs. The reference range was not used to interpret this result as normal/abnormal. NRBC x10^3 (test code = 9640010671) <0.01 See_Comment [[employer]] The system which generated this result transmitted reference range: 10*3/?L. The reference range was not used to interpret this result as normal/abnormal. GRAN MAT (NEUT) % (test code = 770-8) 62.9 % IMM GRAN % (test code = 3114934004) 0.30 % LYMPH % (test code = 736-9) 26.1 % MONO % (test code = 5905-5) 8.2 % EOS % (test code = 713-8) 2.1 % BASO % (test code = 706-2) 0.4 % GRAN MAT x10^3(ANC) (test code = 0098782666) 5.85 10*3/uL 1.88-7.09 IMM GRAN x10^3 (test code = 0495141860) 0.03 10*3/uL 0-0.06 LYMPH x10^3 (test code = 731-0) 2.43 10*3/uL 1.32-3.29 MONO x10^3 (test code = 742-7) 0.76 10*3/uL 0.33-0.92 EOS x10^3 (test code = 711-2) 0.20 10*3/uL 0.03-0.39 BASO x10^3 (test code = 704-7) 0.04 10*3/uL 0.01-0.07 Lab Interpretation (test code = 73297-3) Abnormal [facility] Consult Notes Date/Time Note Provider Source 2024-11-30 10:59:47 Associated Order(s): CONSULT GENERAL SURGERY Surgery Consultation / History & Physical Note 11/30/2024 Consult ordered by: Hospitalist Reason for Consult / Chief complaint: abdominal pain, N/V History of presenting illness: Yenni Arce is a 59 year old female with PMHx of anxiety/depression, HTN who presents with 6 days of worsening abdominal pain, N/V. Has been having diarrhea for PMHx of anxiety/depression, HTN who presents with 6 days of worsening abdominal pain, N/V. Had recent hospital admission 11/01/24 for similar symptoms. Imaging showing terminal ileitis/enteritis with symptomatic improvement with zofran. Was told to follow up with PCP and GI for colonoscopy at [facility] On arrival to ED, found to be hypotensive 80s/50s with PAM and Cr elevation to 3.8, improvement after IVF. Reports no family history of UC or Crohns. Had a colonoscopy within the pat [address] Zheng and it was normal. History of diverticulitis that did have her hospitalized in the past. At bedside, RN just placed an NGT and patient is tearful and asking for removal. She reports continued passing flatus today. PSH notable for laparoscopic cholecystectomy 2022. Past medical history: Past Medical History: Diagnosis Date Anxiety Cervix prolapsed into vagina Depression Elevated blood sugar Past surgical history: Past Surgical History: Procedure Laterality Date CHOLECYSTECTOMY LAPAROSCOPY WITH CHOLANGIOGRAM (SHX) N/A 03/03/2023 Surgeon: Flavia Denise MD; Location: [facility] DILATION AND CURETTAGE (SHX) Family history: Family History Problem Relation Age of Onset Cancer Mother Breast Cancer Mother No Significant Medical Problems Father Cancer Sister Breast Cancer Sister Social history: Social History Socioeconomic History Marital status: Number of children: 2 Tobacco Use Smoking status: Every Day Current packs/day: 1.00 Average packs/day: 5.5 packs/day for 10.0 years (55.0 ttl pk-yrs) Types: Cigarettes Passive exposure: Never Smokeless tobacco: Never Vaping Use Vaping status: Every Day Substances: Nicotine Substance and Sexual Activity Alcohol use: Yes Comment: rarely Drug use: Never Sexual activity: Not Currently Social Drivers of Health Financial Resource Strain: Low Risk (03/02/2023) Overall Financial Resource Strain (CARDIA) Difficulty of Paying Living Expenses: Not hard at all Food Insecurity: No Food Insecurity (11/02/2024) NCSS - Food Insecurity Worried About Running Out of Food in the Last Year: No Ran Out of Food in the Last Year: No Transportation Needs: No Transportation Needs (11/02/2024) NCSS - Transportation Lack of Transportation: No Physical Activity: Insufficiently Active (03/02/2023) Exercise Vital Sign Days of Exercise per Week: 5 days Minutes of Exercise per Session: 20 min Social Connections: Unknown (03/02/2023) Social Connection and Isolation Panel [NHANES] Frequency of Communication with Friends and Family: More than three times a week Marital Status: Housing Stability: Not At Risk (11/02/2024) NCSS - Housing/Utilities Has Housing: Yes Worried About Losing Housing: No Unable to Get Utilities: No Allergies: No Known Allergies Medications: Current Facility-Administered Medications Medication Dose Route Frequency Last Rate Last Admin acetaminophen (TYLENOL) tablet 650 mg 650 mg Oral Q6HPRN buPROPion XL (WELLBUTRIN XL) tablet 150 mg 150 mg Oral DAILY FENTanyl (PF) (SUBLIMAZE) injection 25 mcg 25 mcg Slow IV Push Q6HPRN 25 mcg at 11/30/24 1008 heparin (porcine) injection 5,000 Units 5,000 Units Subcutaneous Q12H 5,000 Units at 11/30/24 0807 HYDROcodone-acetaminophen (NORCO 5) tablet 1 tablet 1 tablet Oral Q6HPRN NaCl 0.9% (NS) IV infusion 1,000 mL 1,000 mL IV Infusion CONTINUOUS 125 mL/hr at 11/30/24 0921 1,000 mL at 11/30/24 0921 ondansetron (ZOFRAN (PF)) injection 4 mg 4 mg Slow IV Push Q6HPRN 4 mg at 11/30/24 0804 Review of Systems (-)=Negative,(+)=Positive Constitutional: negative Skin: negative HEENT: negative Cardio: negative Resp: negative GI: per HPI : negative REINA: negative Neuro: negative Physical Exam: BP 103/53 (BP Location: Right arm) | Pulse 99 | Temp 36.8 ?C (98.3 ?F) (Tympanic) | Resp 18 | Ht 1.676 m (5' 6") | Wt 76 kg (167 lb 8 oz) | SpO2 96% | BMI 27.04 kg/m? General: Alert and oriented x 4, NAD HEENT: normocephalic, atraumatic Respiratory: unlabored, equal bilateral chest rise Cardiovascular: hemodynamically stable, regular rate Abdomen: soft, non-distended, non-tender. Prior lap harjinder scars Extremities: no rash, cyanosis or edema Neuro: moves all extremities, answers questions appropriately Labs: Hemogram Recent Labs 11/29/242002 WBC 5.59 HGB 13.4 HCT 40.1 PLT 272 Chemistry Recent Labs 11/29/242002 NA 132* K 3.7 CL 94* TCO2 26 BUN 96* CREAT 3.84* GLU 118* CA 8.5* Urinalysis Recent Labs 11/29/24 2156 UPROTEIN Negative UGLUCOSE Normal UKETONES Negative UBILI Negative ULEUKEST Negative UNITRITE Negative USPGRAV 1.013 LFTs Recent Labs 11/29/242002 AST 22 ALT 184* ALKPHOS 88 LIPASE 34 BILIT 0.6 Radiology: XR Abdomen 2 vw Result Date: 11/30/2024 EXAM: XR ABDOMEN 2 VW 11/30/2024 8:59 AM HISTORY: ileus COMPARISON: None. FINDINGS: Multiple loops of gaseous dilated loops of small bowel measuring 4.3 cm in largest diameter. Gas is noted in the large bowel loops without distention. Air is present in the rectum. No radiopaque stones identified. No acute bony abnormality is present. Cholecystectomy clips are noted Multiple loops of dilated small bowel which can be seen with small bowel obstruction versus ileus. Interval follow-up is recommended. Preliminary Report Dictated by Resident: Дмитрий Loredo CT Abdomen pelvis wo contrast Result Date: 11/29/2024 ORDERING PHYSICIAN:BERTA URIBE CLINICAL INFORMATION: Nausea/vomiting COMPARISON: 11/01/2024 Technique: CT of the abdomen and pelvis was performed without IV or p.o. contrast. Multiplanar reformats were also obtained. This study was performed according to ALARA principle for radiation dose reduction. Findings: No urinary calcifications or signs of urinary obstruction are seen. The gallbladder is surgically absent. Unenhanced liver, spleen, adrenal glands, and pancreas show no evidence of gross abnormalities. Distended fluid-filled loops of small bowel are seen throughout the abdomen. High-grade point of transition is seen at the level of the distal/terminal ileum (best seen on image 103 of series 2). Liquid stool is also seen in the colon. Colonic diverticulosis without evidence of acute diverticulitis is seen. No free air or free fluid is seen. No focal loculated fluid collections are seen. Lung bases are clear. There are no suspicious focal osseous lesions. 1. Distended fluid-filled loops of small bowel with high-grade point of transition to completely decompressed bowel at the level of the distal ileum. Findings are concerning for high-grade obstruction. 2. Liquid stool is also seen throughout the colon. Concomitant or superimposed enterocolitis cannot be ruled out. 3. No urinary calcifications or signs of urinary obstruction. END OF REPORT [id number] Abdomen pelvis w contrast Result Date: 11/01/2024 CT ABDOMEN PELVIS W CONTRAST 11/01/2024 3:46 PM HISTORY: Abdominal pain, acute, nonlocalized non-focal abdominal pain; greatest in RLQ; history of cholecystectomy. Vomiting and diarrhea. COMPARISON: Ultrasound dated 03/02/[address] dated 03/01/2023. TECHNIQUE: Axial images of the abdomen and pelvis were acquired after administration of intravenous contrast. Coronal and sagittal reconstructions were also created. FINDINGS: LOWER CHEST: Right lower quadrant calcified granuloma. Bibasilar atelectasis.. HEPATOBILIARY: The liver is normal in size. No focal hepatic lesion. The gallbladder is surgically absent. Mild extrahepatic biliary ductal dilatation with CBD measuring up to 9 mm in diameter, likely related to reservoir phenomena. SPLEEN: Normal in size. No lesion. Small splenule is noted. PANCREAS: The parenchyma is unremarkable. No ductal dilatation. No masses. ADRENAL GLANDS: Mild thickening of bilateral adrenal glands without discrete nodules, more on the left side, similar to prior. KIDNEYS: No hydronephrosis or stone. No solid mass. Subcentimeter hypodensities seen in the mid pole of the right kidney, too small to characterize. GI TRACT: Small hiatus hernia. There is wall thickening of the terminal ileum with alternating areas of dilatation and luminal narrowing of the small bowel loops most evident distally measuring up to 3.9 cm in the right upper quadrant. The appendix is normal. Sigmoid predominant colonic diverticulosis with wall thickening of the sigmoid colon, similar to prior PERITONEUM AND RETROPERITONEUM: No free air or free fluid. LYMPH NODES: Prominent reactive mesenteric lymph nodes mainly along the ileocolic chain. PELVIS/BLADDER: The urinary bladder is underdistended with circumferential mural thickening. The reproductive organs are within normal limits. VESSELS: Mild aortoiliac atherosclerotic calcification without dilatation or significant stenosis. BONES AND SOFT TISSUES: No aggressive osseous lesion. Degenerative changes of bilateral hip joints. No concerning soft tissue abnormality. 1. Terminal ileitis/enteritis with pattern suggestive of inflammatory bowel disease. Recommend clinical correlation and further assessment. 2. Colonic diverticulosis with wall thickening of the sigmoid colon, similar to prior likely related to muscular hypertrophy from chronic diverticulosis. Patient Active Problem List Diagnosis Allergic rhinitis Anxiety Diverticulosis of colon without diverticulitis Gastroesophageal reflux disease Headache Major depressive disorder, single episode, unspecified Mixed anxiety and depressive disorder Pain in left knee Swelling Continuous urine leakage Uterovaginal prolapse Vitamin deficiency Routine gynecological examination Urinary incontinence in female BMI 32.0-32.9,adult Absence of menstruation Uterovaginal prolapse, complete Vomiting, unspecified vomiting type, unspecified whether nausea present Obesity (BMI 30-39.9) Gallstones Abdominal pain, unspecified abdominal location Vomiting and diarrhea Assessment and Plan: Yenni Arce is a 59 year old female with PMHx of anxiety/depression, HTN who presents with 6 days of worsening abdominal pain, N/V. General surgery consulted for evaluation of SBO with TP at terminal ileum. Per chart review, has hx of terminal ileitis and concern for IBD. Plan: - Will make her NPO - Get stool studies for diarrhea - Will need a colonoscopy in near future - Bowel rest for today. Plan for serial abdominal exam - OK to hold off on NGT as she could not tolerate it. If she vomits again, may consider. Continued IVF for PAM Maria Luisa Yang MD [facility] 2023-03-02 06:45:01 Associated Order(s): CONSULT GENERAL SURGERY Trauma & Acute Care Surgery Consult Reason for Consult: "cholecystitis" History of Present Illness: Yenni Arce is a 57 year old female presenting with acute abdominal pain concerning for acute cholecystitis. Symptoms first started 2 days ago after she ate taco zuluaga, she notes "20 episodes" of vomiting with accompanied nausea, without right upper quadrant pain. On arrival, vital signs were within normal limits and the patient was not febrile. Cotto sign was not present. Labs were within normal limits. US pending. She notes recent CBD use but denies marijuana use. Past Medical History: Patient has a past medical history of Anxiety, Cervix prolapsed into vagina, and Depression. She has no past medical history of Diabetes mellitus, Hypertension, or Pap smear abnormality of cervix. Past Surgical History: Patient has a past surgical history that includes dilation and curettage (shx). Family History: Patient's family history includes Breast Cancer in her mother and sister; Cancer in her mother and sister; No Significant Medical Problems in her father. Social History: Patient reports that she has quit smoking. Her smoking use included cigarettes. She has never been exposed to tobacco smoke. She has never used smokeless tobacco. She reports current alcohol use. She reports that she does not use drugs. Review of systems: Constitutional: (-) fever, (-) chills, (-) weight change Integumentary: (-) rash, (-) lesion Head: (-) headache, (-) change in hearing, (-) change in vision Neck: (-) pain, (-) difficulty swallowing, (-) mass Hematologic: (-) bleeding disorder Pulmonary: (-) cough, (-) shortness of breath Cardiovascular: (-) chest pain, (-) palpitations, (-) syncope Gastrointestinal: (-) abdominal pain, (-) vomiting, (-) diarrhea Genitourinary: (-) dysuria, (-) increased frequency Endocrine: (-) heat intolerance, (-) cold intolerance, (-) polyuria, (-) polydipsia Neurologic: (-) numbness, (-) tingling, (-) weakness Back: (-) pain, (-) spasms Musculoskeletal: (-) muscle pain, (-) joint pain, (-) claudication Psychiatric: (-) anxiety, (-) depression, (-) psychiatric disorder Objective: Vitals: Temp: [36.4 ?C (97.6 ?F)-37.6 ?C (99.7 ?F)] Heart Rate (monitor): [92] Pulse: [90-114] Resp: [14-22] BP: (111-197)/(62-114) MAP (mmHg): [80-138] Physical exam: General: no apparent distress Neurologic: alert and oriented to person, place, and time Cardiac: regular rate and rhythm Chest: unlabored breathing Extremities: no gross deformities or injuries Vascular: pulses palpable and equal Abdomen: no rebound, guarding, or point tenderness Skin: no rashes Laboratory: There are no current results on file for these tests and/or test for 1 year. Recent Labs 03/02/23 0517 WBC 14.14* HGB 16.2* PLT 178 Recent Labs 03/01/23 0953 03/02/23 0517 NA 141 -- K 3.9 -- CL 100 -- TCO2 32* -- BUN 15 -- CREAT 0.74 -- GLU 145* -- MG -- 2.0 CA 9.8 -- Recent Labs 03/01/23 0953 BILIT 1.0 ALT 22 AST 32 ALKPHOS 96 ALB 4.8 LIPASE 136 There are no current results on file for these tests and/or test for 1 year. There are no current results on file for these tests and/or test for 1 year. Recent Labs 03/01/23 0953 HGBA1C 5.5 Radiology: CT ABDOMEN PELVIS W CONTRAST Result Date: 03/01/2023 Cholelithiasis without acute cholecystitis. Thickening of mid sigmoid lumen can be sequela of hypertrophy from extensive diverticulosis. A correlation with endoscopy is recommended if not already performed. Small type I hiatal hernia with distal esophageal thickening suggestive of reflux esophagitis. Preliminary Report Dictated by Resident: Nikita Howe I, Janet Umanzor MD., have reviewed this study and agree with the above report. Microbiology: N/A Pathology: N/A Assessment: Ms. Arce is a 57 year old female with no signficant PMH or past surgical history who presents with asymptomatic gallstones with intractable nausea and vomiting based off of imaging and laboratory findings. Overall clinical picture is consistent with possible gastroenteritis vs biliary colic; the patient would likely benefit from IV antibiotics and surgical intervention. Plan: - Agree with admit to floor - NPO status with IVF - IV Zosyn - Multimodal pain and nausea control - F/up Gallbladder ultrasound results; possible laparoscopic cholecystectomy this admission Patient was discussed with Dr. Denise. Dejuan Arizmendi MD 03/02/2023 06:45 Associated attestation - Flavia Denise MD - 03/03/2023 2:50 PM CDT Attending Attestation: I personally evaluated and examined the patient on 03/02/[address] Arizmendi's consultation note as written. I actively participated in the decision-making process. Please see the resident's note for additional details. 57 YO F with uncontrolled HTN presents with nausea, vomiting. Work p demonstrated a hydropic gallbladder with sones and sludge. Patient admitted by Hospitalist and empirically started on antibiotics for suspected cholecystitis. On exam patient is nontender. Discussed cholecystectomy for symptomatic jada of nausea and vomiting thought to be due to gallstones. Patient is agreeable to surgery. Risks/benefits discussed, consnet obtained. Will plan for laparoscopic cholecystectomy with cholangiogram tomorrow. Flavia Denise M.D. 03/03/2023 14:46 [facility] - Health History and Physical Notes Date/Time Note Provider Source 2024-11-30 00:37:14 [facility] Hospitalist Admission H&P Date of Service: 11/30/2024 CHIEF COMPLAINT: Abdominal pain with intractable nausea and vomiting HISTORY OF PRESENT ILLNESS Yenni Arce is a 59 year old female who presents with abdominal pain along with intractable nausea and vomiting. Patient states she has been feeling poorly for the last few days. Patient's symptoms started on and she is been getting progressively worse. She was seen in the emergency room and her blood pressure was 80s over 50s. She was given IV fluids and her labs came back showing severe dehydration. Patient also had imaging studies which suggested a small bowel obstruction. However, patient does not have any significant abdominal pain at this time. Patient does states that she continues having diarrhea. She denies any blood in her stools. Her labs revealed acute renal failure. Patient will be admitted to the hospital for aggressive IV hydration and for further treatment of her ileus. Patient will be admitted for inpatient hospitalization. PAST MEDICAL HISTORY Past Medical History: Diagnosis Date Anxiety Cervix prolapsed into vagina Depression Elevated blood sugar PAST SURGICAL HISTORY Past Surgical History: Procedure Laterality Date CHOLECYSTECTOMY LAPAROSCOPY WITH CHOLANGIOGRAM (SHX) N/A 03/03/2023 Surgeon: Flavia Denise MD; Location: [facility] [place] DILATION AND CURETTAGE (SHX) ALLERGIES No Known Allergies MEDICATIONS Current home medication list reviewed: Patient's Medications START taking these medications No medications on file CONTINUE taking these medications which have NOT CHANGED DULOXETINE 60 MG CAPSULE 1 capsule HYDRALAZINE HCL (HYDRALAZINE ORAL) Take by mouth. LISINOPRIL 40 MG TABLET Take 1 tablet by mouth in the morning. LOPERAMIDE 2 MG CAPSULE Take 1 capsule by mouth every 4 (four) hours as needed for Diarrhea. Not to exceed 16mg daily. LORATADINE 10 MG TABLET 1 tablet MECLIZINE 25 MG TABLET Take 1 tablet by mouth every 6 (six) hours. ONDANSETRON (ZOFRAN, HYDROCHLORIDE,) 4 MG TABLET Take 1 tablet by mouth every 8 (eight) hours as needed for Nausea and Vomiting (N/V). ONDANSETRON 4 MG DISINTEGRATING TABLET Take 1 tablet by mouth every 8 (eight) hours as needed for Nausea and Vomiting (N/V). ONDANSETRON 4 MG DISINTEGRATING TABLET Take 1 tablet by mouth every 8 (eight) hours as needed for Nausea and Vomiting (N/V). START taking Modified Medications as Prescribed No medications on file STOP taking these medications No medications on file FAMILY HISTORY Family History Problem Relation Age of Onset Cancer Mother Breast Cancer Mother No Significant Medical Problems Father Cancer Sister Breast Cancer Sister SOCIAL HISTORY Social History Socioeconomic History Marital status: Number of children: 2 Tobacco Use Smoking status: Every Day Current packs/day: 1.00 Average packs/day: 5.5 packs/day for 10.0 years (55.0 ttl pk-yrs) Types: Cigarettes Passive exposure: Never Smokeless tobacco: Never Tobacco comments: Recently russ Vaping Use Vaping status: Every Day Substances: Nicotine Substance and Sexual Activity Alcohol use: Yes Comment: rarely Drug use: Never Sexual activity: Not Currently Social Drivers of Health Financial Resource Strain: Low Risk (03/02/2023) Overall Financial Resource Strain (CARDIA) Difficulty of Paying Living Expenses: Not hard at all Food Insecurity: No Food Insecurity (11/02/2024) NCSS - Food Insecurity Worried About Running Out of Food in the Last Year: No Ran Out of Food in the Last Year: No Transportation Needs: No Transportation Needs (11/02/2024) NCSS - Transportation Lack of Transportation: No Physical Activity: Insufficiently Active (03/02/2023) Exercise Vital Sign Days of Exercise per Week: 5 days Minutes of Exercise per Session: 20 min Social Connections: Unknown (03/02/2023) Social Connection and Isolation Panel [NHANES] Frequency of Communication with Friends and Family: More than three times a week Marital Status: Housing Stability: Not At Risk (11/02/2024) NCSS - Housing/Utilities Has Housing: Yes Worried About Losing Housing: No Unable to Get Utilities: No REVIEW OF SYSTEMS 10 systems negative except per HPI PHYSICAL EXAMINATION BP 118/59 | Pulse 102 | Temp 36.3 ?C (97.3 ?F) (Oral) | Resp 17 | Ht 1.676 m (5' 6") | Wt 76.2 kg (168 lb) | SpO2 96% | BMI 27.12 kg/m? General: No acute distress HEENT: Normal oral mucosa, anicteric sclerae, NCAT Cardiovascular: RRR Lungs: Symmetric expansion, clear bilaterally Abdomen: Soft, mildly tender but nondistended bowel sounds hypoactive; no rebound or guarding Musculoskeletal: No synovitis, normal muscle mass Genitourinary: Deferred Skin: No rash, no skin lesions Extremities: No clubbing, no cyanosis, no lower extremity edema Neuro: AAOx3, no focal deficits Psych: Normal affect LABS - reviewed pertinent labs as below: CBC BMP PT/INR WBC (10*3/?L) Date Value 11/29/2024 5.59 NA (mmol/L) Date Value 11/29/2024 132 (L) No results found for: "PT" RBC (10*6/?L) Date Value 11/29/2024 4.40 K (mmol/L) Date Value 11/29/2024 3.7 INR (no units) Date Value 08/14/2020 1.1 PLT (10*3/?L) Date Value 11/29/2024 272 CALCIUM (mg/dL) Date Value 11/29/2024 8.5 (L) HGB (g/dL) Date Value 11/29/2024 13.4 CL (mmol/L) Date Value 11/29/2024 94 (L) aPTT HCT (%) Date Value 11/29/2024 40.1 BUN (mg/dL) Date Value 11/29/2024 96 (H) APTT Patient (Seconds) Date Value 08/14/2020 26 CREATININE (mg/dL) Date Value 11/29/2024 3.84 (H) IMAGING - reviewed, pertinent results as below: Hospital Encounter on 11/29/24 CT Abdomen pelvis wo contrast Narrative ORDERING PHYSICIAN:BERTA URIBE CLINICAL INFORMATION: Nausea/vomiting COMPARISON: 11/01/2024 Technique: CT of the abdomen and pelvis was performed without IV or p.o. contrast. Multiplanar reformats were also obtained. This study was performed according to ALARA principle for radiation dose reduction. Findings: No urinary calcifications or signs of urinary obstruction are seen. The gallbladder is surgically absent. Unenhanced liver, spleen, adrenal glands, and pancreas show no evidence of gross abnormalities. Distended fluid-filled loops of small bowel are seen throughout the abdomen. High-grade point of transition is seen at the level of the distal/terminal ileum (best seen on image 103 of series 2). Liquid stool is also seen in the colon. Colonic diverticulosis without evidence of acute diverticulitis is seen. No free air or free fluid is seen. No focal loculated fluid collections are seen. Lung bases are clear. There are no suspicious focal osseous lesions. Impression 1. Distended fluid-filled loops of small bowel with high-grade point of transition to completely decompressed bowel at the level of the distal ileum. Findings are concerning for high-grade obstruction. 2. Liquid stool is also seen throughout the colon. Concomitant or superimposed enterocolitis cannot be ruled out. 3. No urinary calcifications or signs of urinary obstruction. END OF REPORT [id number] SSMENT/PLAN: 1. Abdominal pain with intractable nausea and vomiting; patient appears to have gastroenteritis versus obstructive symptoms including ileus versus small bowel obstruction. Will repeat abdominal films in the morning. Will continue monitoring labs and will continue with clear liquid diet. If having nausea and vomiting persistently then we may need to get surgical consultation. 2. Hypotension; most likely related to dehydration. Continue with IV fluids. Blood pressure is much better after IV hydration 3. Acute kidney injury; patient's creatinine is 3 times higher than baseline. Continue with IV fluids and repeat renal function in morning. 4. Hyponatremia; continue monitoring sodium level and repeat labs in the morning DVT prophylaxis: enoxaparin Stress ulcer prophylaxis: pantoprazole Code status: FULL Advanced Care Planning (Z71.89) Above assessment and plan discussed at length with patient, patient expressed full understanding. Questions and concerned addressed. Surrogate decision maker: NO Level of care expected after discharge: HOME Time spent: 3 minutes discussing the advanced care plan Smoking Cessation: (Z71.6) Tobacco user?: NO Patient will require inpatient stay of 2 midnights or more given high risk of morbidity and mortality. [place] [employer] TEST PROGRAM MANAGER was verified during stay Hipolito Poe MD [facility] 2024-11-01 23:36:22 Medicine History & Physical Date of Service: 11/01/2024 Pt presents from: Home CC: Int N/V History of Present Illness: Yenni Arce is a 59 year old female with past md hx including hypertension, elevated blood sugar, anxiety and depression that presents to the ED for intractable nausea and vomiting. Per patient she suffered intractable nausea vomiting and diarrhea for the past 5 days. Denies any sick contacts or recent travel. Denies fever intermittent chills. Today she did develop abdominal pain decided come to ED for evaluation. Initial labs show no fever. Hemodynamically stable. She has no leukocytosis. Chemistry did show an elevated creatinine of 1.44 mg deciliter with an elevated BUN of 46 mg/dL. Glucose was noted to be elevated to 126 mg/dL. UA is negative for white blood cells. CT of abdomen and pelvis shows terminal ileitis enteritis with concern for possible inflammatory bowel disease hospitalist call for admission. On exam patient's intractable nausea vomiting has improved with Zofran feels improved. States she has not taken any of her home medications in a few days due to her symptoms. Active smoker, rarely drinks alcohol denies drugs. ROS: Pt denies F / Constipation / CP / SOB / cough / dysuria / hematuria / melena / hematochezia / rashes / suicidal or homicidal ideation / All others negative Review of Hx/Meds: PMH: Past Medical History: Diagnosis Date Anxiety Cervix prolapsed into vagina Depression Elevated blood sugar PSH: has a past surgical history that includes dilation and curettage (shx) and cholecystectomy laparoscopy with cholangiogram (shx) (N/A, 03/03/2023). Family Hx: Noncontributory unless mentioned above Social History Tobacco Use Smoking status: Every Day Current packs/day: 1.00 Average packs/day: 5.5 packs/day for 10.0 years (55.0 ttl pk-yrs) Types: Cigarettes Passive exposure: Never Smokeless tobacco: Never Tobacco comments: Recently russ Vaping Use Vaping status: Every Day Substances: Nicotine Substance Use Topics Alcohol use: Yes Comment: rarely Drug use: Never Current Scheduled Medications Current IV Current Facility-Administered Medications: acetaminophen (TYLENOL) tablet 650 mg, 650 mg, Oral, Q6HPRN, Laurel Guardado MD [START ON 11/02/2024] enoxaparin (LOVENOX) injection 40 mg, 40 mg, Subcutaneous, DAILY, Laurel Guardado MD HYDROcodone-acetaminophen (NORCO 5) tablet 1 tablet, 1 tablet, Oral, Q6HPRN, Laurel Guardado MD morpHINE (4 mg/mL) injection 4 mg, 4 mg, Slow IV Push, Q4HPRN, Laurel Guardado MD NaCl 0.9% (NS) IV infusion 1,000 mL, 1,000 mL, IV Infusion, CONTINUOUS, Laurel Guardado MD, Last Rate: 125 mL/hr at 11/01/241828, 1,000 mL at 11/01/241828 nicotine (NICODERM) 21 mg/24 hr patch 1 Patch, 1 Patch, Topical, Q24H, Olya Calhoun DO ondansetron (ZOFRAN (PF)) injection 4 mg, 4 mg, Slow IV Push, Q6HPRN, Laurel Guardado MD Objective: Vitals: Vitals: 11/01/24 1810 11/01/24 1843 11/01/24 18411/01/241947 BP: 133/75 133/63 (!) 152/85 Pulse: 91 88 90 Resp: 17 18 18 Temp: 36.7 ?C (98.1 ?F) 36.1 ?C (97 ?F) 36.5 ?C (97.7 ?F) TempSrc: SpO2: 95% 98% 97% Weight: 75 kg (165 lb 4.8 oz) 74.5 kg (164 lb 3.2 oz) Height: 1.676 m (5' 6") I/O's: No intake or output data in the 24 hours ending 11/01/24 2336 Physical Exam: General: NAD, Alert, lying in bed comfortable, cogent speech. HEENT: anicteric, oral mucosa dry Neck: supple, no JVD, no bruits. Chest: CTA B/L, no W/R/C. Heart: RRR, S1/S2, no M/G/R Abdominal: BS normoactive, soft, ND, NT. Skin/Extremities: no rash, no cyanosis, warm and dry, no LE edema. Neurological: CN II-XII grossly intact, no focal deficits. Labs: BMP:BMP NA (mmol/L) Date Value 11/01/2024 137 12/23/2023 143 03/04/2023 137 03/03/2023 141 03/02/2023 139 K (mmol/L) Date Value 11/01/2024 4.0 12/23/2023 4.5 03/04/2023 3.8 03/03/2023 3.9 03/02/2023 3.0 (L) CALCIUM (mg/dL) Date Value 11/01/2024 9.2 12/23/2023 9.8 03/04/2023 8.9 03/03/2023 9.1 03/02/2023 9.4 CL (mmol/L) Date Value 11/01/2024 104 12/23/2023 111 (H) 03/04/2023 104 03/03/2023 106 03/02/2023 103 BUN (mg/dL) Date Value 11/01/2024 46 (H) 12/23/2023 22 03/04/2023 16 03/03/2023 15 03/02/2023 13 CREATININE (mg/dL) Date Value 11/01/2024 1.44 (H) 12/23/2023 0.77 03/04/2023 0.75 03/03/2023 0.75 03/02/2023 0.69 GLUCOSE (mg/dL) Date Value 11/01/2024 126 (H) 12/23/2023 121 (H) 03/04/2023 101 03/03/2023 105 03/02/2023 115 (H) CO2 TOTAL (mmol/L) Date Value 11/01/2024 25 12/23/2023 29 03/04/2023 24 03/03/2023 26 03/02/2023 27 CBC:CBC WBC (10*3/?L) Date Value 11/01/2024 6.22 RBC (10*6/?L) Date Value 11/01/2024 4.87 PLT (10*3/?L) Date Value 11/01/2024 267 HGB (g/dL) Date Value 11/01/2024 15.0 HCT (%) Date Value 11/01/2024 44.9 BMP:Hepatic Function Panel ALBUMIN (g/dL) Date Value 11/01/2024 3.9 T PROTEIN (g/dL) Date Value 11/01/2024 6.9 TOTAL BILI (mg/dL) Date Value 11/01/2024 0.5 BILI UNCON (mg/dL) Date Value 03/02/2023 0.6 BILI CONJ (mg/dL) Date Value 03/02/2023 0.0 ALT(SGPT) (U/L) Date Value 01/11/2017 34 ALTv (U/L) Date Value 11/01/2024 18 AST(SGOT) (U/L) Date Value 11/01/2024 14 ALK PHOS (U/L) Date Value 11/01/2024 93 Troponin: Recent Labs 12/23/23 1336 TROPNI 0.010 I have reviewed all relevant labs Imaging: CT Abdomen pelvis w contrast Result Date: 11/01/2024 CT ABDOMEN PELVIS W CONTRAST 11/01/2024 3:46 PM HISTORY: Abdominal pain, acute, nonlocalized non-focal abdominal pain; greatest in RLQ; history of cholecystectomy. Vomiting and diarrhea. COMPARISON: Ultrasound dated 03/02/[address] dated 03/01/2023. TECHNIQUE: Axial images of the abdomen and pelvis were acquired after administration of intravenous contrast. Coronal and sagittal reconstructions were also created. FINDINGS: LOWER CHEST: Right lower quadrant calcified granuloma. Bibasilar atelectasis.. HEPATOBILIARY: The liver is normal in size. No focal hepatic lesion. The gallbladder is surgically absent. Mild extrahepatic biliary ductal dilatation with CBD measuring up to 9 mm in diameter, likely related to reservoir phenomena. SPLEEN: Normal in size. No lesion. Small splenule is noted. PANCREAS: The parenchyma is unremarkable. No ductal dilatation. No masses. ADRENAL GLANDS: Mild thickening of bilateral adrenal glands without discrete nodules, more on the left side, similar to prior. KIDNEYS: No hydronephrosis or stone. No solid mass. Subcentimeter hypodensities seen in the mid pole of the right kidney, too small to characterize. GI TRACT: Small hiatus hernia. There is wall thickening of the terminal ileum with alternating areas of dilatation and luminal narrowing of the small bowel loops most evident distally measuring up to 3.9 cm in the right upper quadrant. The appendix is normal. Sigmoid predominant colonic diverticulosis with wall thickening of the sigmoid colon, similar to prior PERITONEUM AND RETROPERITONEUM: No free air or free fluid. LYMPH NODES: Prominent reactive mesenteric lymph nodes mainly along the ileocolic chain. PELVIS/BLADDER: The urinary bladder is underdistended with circumferential mural thickening. The reproductive organs are within normal limits. VESSELS: Mild aortoiliac atherosclerotic calcification without dilatation or significant stenosis. BONES AND SOFT TISSUES: No aggressive osseous lesion. Degenerative changes of bilateral hip joints. No concerning soft tissue abnormality. 1. Terminal ileitis/enteritis with pattern suggestive of inflammatory bowel disease. Recommend clinical correlation and further assessment. 2. Colonic diverticulosis with wall thickening of the sigmoid colon, similar to prior likely related to muscular hypertrophy from chronic diverticulosis. Assessment and plan: Principal Problem: Abdominal pain, unspecified abdominal location Intractable nausea vomiting: Improved - Continue antiemetics as needed - Advance diet as tolerated PAM: Suspect prerenal in nature based on presentation - Avoid nephrotoxins - Continue gentle IV fluids - Trend BMP - Consider ultrasound of kidneys if function does not improve with fluids Ileitis/enteritis: Noted concern for inflammatory bowel disease, noted patient is afebrile without leukocytosis we will hold off on starting antibiotics his presentation is not consistent - Follow-up fecal calprotectin - Follow-up C. difficile along with fecal pathogen panel will hold antibiotics unless they come back positive Hypertension: - Hold hypertensive agents, reevaluate morning Increased blood sugar: - Continue to monitor may require insulin sliding scale - Follow-up hemoglobin A1c Active smoker: - Counseled to quit - Nicotine patch offered DVT prophylaxis: Lovenox Tobacco user (Z71.6) Patient counseled at length and Pt expressed full understanding, Time discussed 3 minutes [place] QUALITY ASSURANCE TEST PROGRAM MANAGER was verified Disposition: Admit for observation [facility] 2023-03-01 16:37:49 Formatting of this n ote is different from the original. [facility] Hospitalist Admission H&P Date of Service: 03/01/2023 CHIEF COMPLAINT: Nausea/vomiting HISTORY OF PRESENT ILLNESS Yenni Arce is a 57 year old female who presents with nausea/vomiting. States that she had a women's wellness check a few months ago and was told everything was fine. Today she presents to the emergency room complaining of worsening nausea and vomiting that started at noon yesterday and progressively got worse. Denies any right upper quadrant pain or pain with p.o. intake. States that she was in her normal state of health and started having abdominal pain yesterday afternoon. Today the pain continued and has progressively worsened. The emergency room lab work shows a slightly elevated WBC, hemoglobin and hematocrit, UA is negative and glucose slightly elevated at 145. Liver enzymes are within normal limits. CT imaging showing distended gallbladder, cholelithiasis but no acute cholecystitis. Hospitalist consulted for admission and further evaluation. PAST MEDICAL HISTORY Past Medical History: Diagnosis Date Anxiety Cervix prolapsed into vagina Depression PAST SURGICAL HISTORY Past Surgical History: Procedure Laterality Date DILATION AND CURETTAGE (SHX) ALLERGIES No Known Allergies MEDICATIONS Current home medication list reviewed: Current Discharge Medication List STOP taking these medications ibuprofen (ADVIL ORAL) Comments: Reason for Stopping: loratadine 10 mg tablet Comments: Reason for Stopping: loperamide 2 mg capsule Comments: Reason for Stopping: DULoxetine 60 mg capsule Comments: Reason for Stopping: venlafaxine XR 75 mg 24 hr capsule Comments: Reason for Stopping: fluconazole 150 mg tablet Comments: Reason for Stopping: naproxen 500 mg tablet Comments: Reason for Stopping: ondansetron 4 mg disintegrating tablet Comments: Reason for Stopping: meclizine 25 mg tablet Comments: Reason for Stopping: ondansetron (ZOFRAN, HYDROCHLORIDE,) 4 mg tablet Comments: Reason for Stopping: FAMILY HISTORY Family History Problem Relation Age of Onset Cancer Mother Breast Cancer Mother No Significant Medical Problems Father Cancer Sister Breast Cancer Sister SOCIAL HISTORY Social History Socioeconomic History Marital status: Number of children: 2 Tobacco Use Smoking status: Former Types: Cigarettes Passive exposure: Never Smokeless tobacco: Never Tobacco comments: Recently russ Vaping Use Vaping Use: Every day Substances: Nicotine Substance and Sexual Activity Alcohol use: Yes Comment: rarely Drug use: Never Sexual activity: Not Currently REVIEW OF SYSTEMS 10 systems negative except per HPI PHYSICAL EXAMINATION BP (!) 181/109 | Pulse 104 | Temp 37.1 ?C (98.7 ?F) | Resp 16 | Ht 1.676 m (5' 6") | Wt 87 kg (191 lb 12.8 oz) | SpO2 96% | BMI 30.96 kg/m? General: No acute distress HEENT: Normal oral mucosa, anicteric sclerae, NCAT Cardiovascular: RRR Lungs: Symmetric expansion, CTAB Abdomen: Soft, NTND Musculoskeletal: No synovitis, normal muscle mass Genitourinary: Normal Skin: No rash, lesions Neuro: AAOx3, no focal deficits Psych: Normal affect LABS - reviewed pertinent labs as below: CBC BMP PT/INR WBC (10*3/?L) Date Value 03/01/2023 12.07 (H) NA (mmol/L) Date Value 03/01/2023 141 No results found for: "PT" RBC (10*6/?L) Date Value 03/01/2023 5.74 (H) K (mmol/L) Date Value 03/01/2023 3.9 INR (no units) Date Value 08/14/2020 1.1 PLT (10*3/?L) Date Value 03/01/2023 200 CALCIUM (mg/dL) Date Value 03/01/2023 9.8 HGB (g/dL) Date Value 03/01/2023 17.7 (H) CL (mmol/L) Date Value 03/01/2023 100 aPTT HCT (%) Date Value 03/01/2023 51.9 (H) BUN (mg/dL) Date Value 03/01/2023 15 APTT Patient (Seconds) Date Value 08/14/2020 26 CREATININE (mg/dL) Date Value 03/01/2023 0.74 IMAGING - reviewed, pertinent results as below: Hospital Encounter on 03/01/23 CT ABDOMEN PELVIS W CONTRAST Narrative EXAM: CT ABDOMEN PELVIS W CONTRAST HISTORY: 57 years-old Female; Provided indication: Nausea/vomiting. TECHNIQUE: Contiguous axial imaging from the level of the lung bases through the proximal thighs was performed with intravenous contrast. Coronal and sagittal reconstructions were obtained. COMPARISON: None FINDINGS: LOWER THORAX: Atelectatic changes are noted at the bilateral lung bases. LIVER: The liver is normal in size and contour. No focal hepatic lesion is seen. GALLBLADDER AND BILIARY TREE: The gallbladder appears distended. Multiple gallstones are visualized within the gallbladder lumen. Mild prominence of the common bile duct measuring approximately 7 mm. SPLEEN: The spleen appears unremarkable. PANCREAS: No ductal dilation or masses are visualized. ADRENAL GLANDS: No adrenal masses are seen. KIDNEYS: No hydronephrosis, stones, or suspicious masses are visualized. PELVIS/BLADDER: The urinary bladder is partially distended but exhibits circumferential wall thickening. The uterus is normal in appearance. GI TRACT: No dilation or bowel wall thickening is seen. The appendix appears unremarkable. Distal colonic diverticulosis. Moderate-sized mixed type hiatal hernia. PERITONEUM AND RETROPERITONEUM: No intra-abdominal free air or fluid collection is visualized. LYMPH NODES: No lymphadenopathy. VESSELS: Mild atherosclerosis is seen. BONES AND SOFT TISSUES: No suspicious lytic or sclerotic bony lesions are present. Impression Cholelithiasis without acute cholecystitis. Mild prominence of the common bile duct. Circumferential wall thickening of the urinary bladder which is nonspecific but may be seen in the setting of chronic bladder outlet obstruction or cystitis. Distal colonic diverticulosis. Moderate-sized mixed type hiatal hernia. Preliminary Report Dictated by Resident: Nikita Howe PROBLEM LIST/PLAN: Intractable nausea and vomiting: Continue gentle IV fluids Continue antiemetics Continue pain control Stool culture Start IV Zosyn Keep n.p.o. for now Leukocytosis, polycythemia: Likely from dehydration 2/2 nausea and vomiting Given gentle IV fluids Recheck CBC/BMP in a.m. Possible acute cholecystitis: Surgery consulted Keep n.p.o. Imaging showing distended gallbladder, cholelithiasis Continue pain control Hypertension: Unclear etiology likely from nausea vomiting and fluids Patient states she does not take any medications for high blood pressure. Continue as needed hydralazine for now May need to be started on blood pressure medications prior to discharge Hyperglycemia: Check hemoglobin A1c Patient denies history of diabetes mellitus Obesity: Counseled on weight loss diet and exercise DVT prophylaxis: enoxaparin Stress ulcer prophylaxis: no indication for prophylaxis Code status: FC Advanced Care Planning (Z71.89) Above assessment and plan discussed at length with patient, patient expressed full understanding. Questions and concerned addressed. Surrogate decision maker: No Level of care expected after discharge: Home Time spent: 3 minutes discussing the advanced care plan Smoking Cessation: (Z71.6) Tobacco user?: no Observation [place] [employer]ALITY ASSURANCE TEST PROGRAM MANAGER was verified during stay JOANNE Lewis Associated attestation - Olya Calhoun DO - 03/01/2023 7:12 PM CDT I have independently seen and evaluated this patient. I agree with the findings and documentation provided in the PA's note. Medicine team will continue to provide daily care. In summary patient presents for intractable nausea and vomiting. Noted CT imaging showing distended gallbladder cholelithiasis. Surgery was consulted started on empiric antibiotics for possible acute cholecystitis. Continue IV fluids. Continue as needed antiemetics, continue pain management. Noted poorly controlled hypertension we will trial as needed hydralazine and labetalol. Rest of plan events outlined below. Olya Calhoun DO 03/01/2023 7:10 PM Imaging: CT ABDOMEN PELVIS W CONTRAST Result Date: 03/01/2023 EXAM: CT ABDOMEN PELVIS W CONTRAST HISTORY: 57 years-old Female; Provided indication: Nausea/vomiting. TECHNIQUE: Contiguous axial imaging from the level of the lung bases through the proximal thighs was performed with intravenous contrast. Coronal and sagittal reconstructions were obtained. COMPARISON: None FINDINGS: LOWER THORAX: Subsegmental bibasilar lung atelectatic changes are noted. LIVER: The liver is normal in size and contour. No focal hepatic lesion is seen. GALLBLADDER AND BILIARY TREE: The gallbladder appears distended. Multiple gallstones are visualized within the gallbladder lumen. No intra or extrahepatic biliary ductal dilatation. SPLEEN: The spleen appears unremarkable. PANCREAS: No ductal dilation or masses are visualized. ADRENAL GLANDS: No adrenal masses are seen. KIDNEYS: No hydronephrosis, stones, or suspicious masses are visualized. Subcentimeter hypodensity lower pole of the right kidney, too small to characterize. PELVIS/BLADDER: The urinary bladder is collapsed and appears normal. The uterus and ovaries are normal in appearance. GI TRACT: Small type I hiatal hernia and thickening of distal esophageal wall. There is thickening of the mid sigmoid colon associated with extensive diverticulosis. The appendix appears unremarkable. PERITONEUM AND RETROPERITONEUM: No intra-abdominal free air or fluid collection is visualized. LYMPH NODES: No lymphadenopathy. VESSELS: Mild atherosclerosis is seen. BONES AND SOFT TISSUES: No suspicious lytic or sclerotic bony lesions are present. Cholelithiasis without acute cholecystitis. Thickening of mid sigmoid lumen can be sequela of hypertrophy from extensive diverticulosis. A correlation with endoscopy is recommended if not already performed. Small type I hiatal hernia with distal esophageal thickening suggestive of reflux esophagitis. Preliminary Report Dictated by Resident: Nikita Howe I, Janet Umanzor MD., have reviewed this study and agree with the above report. PA-PHYSICIAN POOL MANAGER MIDLEVEL PROVIDER [facility] Notes Date/Time Note Provider Source 2024-12-03 23:02:38 Pt discharged with diagnosis of pneumonia pf right lower lobe due to infectious organism, SOB, and anxiety. Printed and verbal instructions reviewed with and given to pt. Prescriptions given x 3. pt verbalized understanding of teaching and recommended follow-up. Denies questions or concerns at this time. Pt wheeled out at discharge. Appears in no apparent distress. No ataxia noted. [facility] 2024-12-[facility] 17:46:03 Pt arrives to the Ed via [facility] for C/O of SOB. EMS reports pt was discharged to at 1300 from [facility] ICU. Pt called EMS because she reports she couldn't lay flat and catch her breath. Pt placed on 3L NC @97%. Pt has history of HTN. In the ED pt states, " she she feels like she having an anxiety attack. Pt reports pain /10 in neck and shoulders. [facility] 2024-12-03 10:19:37 Problem: Venous Thromboembolism, (actual or risk of) Goal: Absence of venous thromboembolism (Risk) Outcome: Progressing as expected Problem: Discharge Planning Goal: Adequate for discharge Outcome: Progressing as expected Problem: Infection Risk Goal: Absence of infection Outcome: Progressing as expected Problem: Falls, Risk of Goal: Absence of falls Outcome: Progressing as expected Problem: Cardiac Output - Decreased Goal: Cardiac output within specified parameters Outcome: Progressing as expected Goal: Absence of signs and symptoms of decreased cardiac output Outcome: Progressing as expected Problem: Fluid Volume - Imbalanced Goal: Absence of imbalanced fluid volume signs and symptoms Outcome: Progressing as expected Caitlyn Vila RN [facility] 2024-12-03 00:58:40 Problem: Venous Thromboembolism, (actual or risk of) Goal: Absence of venous thromboembolism (Risk) Outcome: Progressing as expected Problem: Discharge Planning Goal: Adequate for discharge Outcome: Progressing as expected Problem: Infection Risk Goal: Absence of infection Outcome: Progressing as expected Problem: Falls, Risk of Goal: Absence of falls Outcome: Progressing as expected Problem: Cardiac Output - Decreased Goal: Cardiac output within specified parameters Outcome: Progressing as expected Goal: Absence of signs and symptoms of decreased cardiac output Outcome: Progressing as expected Problem: Fluid Volume - Imbalanced Goal: Absence of imbalanced fluid volume signs and symptoms Outcome: Progressing as expected Leydi Olson RN [facility] 2024-12-02 13:20:53 Problem: Venous Thromboembolism, (actual or risk of) Goal: Absence of venous thromboembolism (Risk) Outcome: Progressing as expected Problem: Discharge Planning Goal: Adequate for discharge Outcome: Progressing as expected Problem: Infection Risk Goal: Absence of infection Outcome: Progressing as expected Problem: Falls, Risk of Goal: Absence of falls Outcome: Progressing as expected Problem: Cardiac Output - Decreased Goal: Cardiac output within specified parameters Outcome: Progressing as expected Goal: Absence of signs and symptoms of decreased cardiac output Outcome: Progressing as expected Problem: Fluid Volume - Imbalanced Goal: Absence of imbalanced fluid volume signs and symptoms Outcome: Progressing as expected [facility] 2024-12-01 22:15:51 Problem: Venous Thromboembolism, (actual or risk of) Goal: Absence of venous thromboembolism (Risk) Outcome: Progressing as expected Problem: Discharge Planning Goal: Adequate for discharge Outcome: Progressing as expected Problem: Infection Risk Goal: Absence of infection Outcome: Progressing as expected Problem: Falls, Risk of Goal: Absence of falls Outcome: Progressing as expected Problem: Cardiac Output - Decreased Goal: Cardiac output within specified parameters Outcome: Progressing as expected Goal: Absence of signs and symptoms of decreased cardiac output Outcome: Progressing as expected Problem: Fluid Volume - Imbalanced Goal: Absence of imbalanced fluid volume signs and symptoms Outcome: Progressing as expected [facility] Fang Lord RN [facility] 2024-12-01 17:05:37 Problem: Venous Thromboembolism, (actual or risk of) Goal: Absence of venous thromboembolism (Risk) Outcome: Progressing as expected Problem: Discharge Planning Goal: Adequate for discharge Outcome: Progressing as expected Problem: Infection Risk Goal: Absence of infection Outcome: Progressing as expected Problem: Falls, Risk of Goal: Absence of falls Outcome: Progressing as expected Problem: Cardiac Output - Decreased Goal: Cardiac output within specified parameters Outcome: Progressing as expected Goal: Absence of signs and symptoms of decreased cardiac output Outcome: Progressing as expected Problem: Fluid Volume - Imbalanced Goal: Absence of imbalanced fluid volume signs and symptoms Outcome: Progressing as expected [facility] 2024-12-01 01:18:52 Problem: Venous Thromboembolism, (actual or risk of) Goal: Absence of venous thromboembolism (Risk) Outcome: Progressing as expected Problem: Discharge Planning Goal: Adequate for discharge Outcome: Progressing as expected Problem: Infection Risk Goal: Absence of infection Outcome: Progressing as expected Problem: Falls, Risk of Goal: Absence of falls Outcome: Progressing as expected Problem: Cardiac Output - Decreased Goal: Cardiac output within specified parameters Outcome: Progressing as expected Goal: Absence of signs and symptoms of decreased cardiac output Outcome: Progressing as expected Problem: Fluid Volume - Imbalanced Goal: Absence of imbalanced fluid volume signs and symptoms Outcome: Progressing as expected Aruna Martins RN [facility] 2024-11-30 17:34:53 Problem: Venous Thromboembolism, (actual or risk of) Goal: Absence of venous thromboembolism (Risk) Outcome: Progressing as expected Problem: Discharge Planning Goal: Adequate for discharge Outcome: Progressing as expected Problem: Infection Risk Goal: Absence of infection Outcome: Progressing as expected Problem: Falls, Risk of Goal: Absence of falls Outcome: Progressing as expected Problem: Cardiac Output - Decreased Goal: Cardiac output within specified parameters Outcome: Progressing as expected Goal: Absence of signs and symptoms of decreased cardiac output Outcome: Progressing as expected Problem: Fluid Volume - Imbalanced Goal: Absence of imbalanced fluid volume signs and symptoms Outcome: Progressing as expected Keyla Knutson RN [facility] 2024-11-30 03:41:34 Problem: Venous Thromboembolism, (actual or risk of) Goal: Absence of venous thromboembolism (Risk) 11/30/2024 034 by Kristy Lennon RN Outcome: Progressing as expected 11/30/2024 034 by Kristy Lennon RN Outcome: Progressing as expected Problem: Discharge Planning Goal: Adequate for discharge 11/30/2024 034 by Kristy Lnenon RN Outcome: Progressing as expected 11/30/2024 034 by Kristy Lennon RN Outcome: Progressing as expected Problem: Infection Risk Goal: Absence of infection 11/30/2024341 by Kristy Lennon RN Outcome: Progressing as expected 11/30/2024340 by Kristy Lennon RN Outcome: Progressing as expected Problem: Cardiac Output - Decreased Goal: Cardiac output within specified parameters 11/30/2024341 by Kristy Lennon RN Outcome: Progressing as expected 11/30/2024340 by Kristy Lennon RN Outcome: Progressing as expected Goal: Absence of signs and symptoms of decreased cardiac output 11/30/2024341 by Kristy Lennon RN Outcome: Progressing as expected 11/30/2024340 by Kristy Lennon RN Outcome: Progressing as expected Problem: Fluid Volume - Imbalanced Goal: Absence of imbalanced fluid volume signs and symptoms Outcome: Progressing as expected [facility] 2024-11-30 02:27:43 Patient admitted to [facility] for diagnosis of vomiting & diarrhea, & PAM. Patient agrees to admission, discussed plan of care with patient and family. Patient is awake, alert, oriented, resp reg unlabored, color appropriate for race, PIV intact No adverse reaction to medications administered while in ED Belongings with patient to unit Report to SHINGLES ROOFER HELPER Mariluz Leo RN [facility] 2024-11-29 19:32:59 Pt arrived using ED wheelchair, denies use of wheel chair at home. Pt c/o abd pain, nausea, vomiting and diarrhea that started last . Pt denies seeing PCP prior to ED visit. Right arm BP 82/43 map 54 Left arm BP 76/47 map 57 Azucena Herrera RN [facility] 2024-11-29 19:30:00 EMERGENCY DEPARTMENT ENCOUNTER [facility] Patient Name: Yenni Arce Date of : 1965 59 year old Exam Room:TR9/9 Primary Care Physician: Fiona Sanchez Pre- Hospital Patient Escorted by: Friend [6] Mode of Arrival: Personal means [1] EMS Treatment Prior to ED Arrival: PACKING ROOM INSPECTOR treatment: None ED Events Date/Time Event User Comments 11/29/241949 Medical Screening Begins BERTA URIBE MD -- 11/29/241949 First Provider Evaluation BERTA URIBE MD -- Chief Complaint Chief Complaint Patient presents with Abdominal Pain Nausea Vomiting Diarrhea ED Triage Notes Azucena Herrera, [place] 11/29/2024 19:37 Pt arrived using ED wheelchair, denies use of wheel chair at home. Pt c/o abd pain, nausea, vomiting and diarrhea that started last . Pt denies seeing PCP prior to ED visit. Right arm BP 82/43 map 54 Left arm BP 76/47 map 57 HPI History provided by: Patient Vomiting Severity: Moderate Quality: Stomach contents Chronicity: New Relieved by: Nothing Worsened by: Nothing Associated symptoms: no abdominal pain, no chills, no cough, no fever and no headaches Past Medical History / Immunizations Past Medical History: Diagnosis Date Anxiety Cervix prolapsed into vagina Depression Elevated blood sugar Tetanus received in last 5 years: Yes Past Surgical History Past Surgical History: Procedure Laterality Date CHOLECYSTECTOMY LAPAROSCOPY WITH CHOLANGIOGRAM (SHX) N/A 03/03/2023 Surgeon: Flavia Denise MD; Location: [facility] DILATION AND CURETTAGE (SHX) Allergies No Known Allergies Social History Tobacco Use Every Day; 1 pack/day; Smoked an average of 5.5 packs/day for 10.0 years; Types: Cigarettes Passive Exposure: Never Smokeless Tobacco: Never used smokeless tobacco. Tobacco Cessation: Ready to quit: No; Counseling given: Yes Vaping Use Every day; Substances: Nicotine Alcohol Use Yes. Comments: rarely Drug Use Never. Sexual Activity Not currently sexually active. Review of Systems Review of Systems Constitutional: Negative. Negative for chills, fatigue, fever and unexpected weight change. HENT: Negative. Eyes: Negative. Negative for discharge and itching. Respiratory: Negative. Negative for cough, chest tightness, shortness of breath and wheezing. Cardiovascular: Negative. Negative for chest pain and palpitations. Gastrointestinal: Positive for nausea and vomiting. Negative for abdominal distention and abdominal pain. Genitourinary: Negative. Negative for dysuria, urgency, frequency and flank pain. Musculoskeletal: Negative. Skin: Negative. Negative for color change, pallor and wound. Neurological: Negative. Negative for dizziness, syncope, light-headedness and headaches. Psychiatric/Behavioral: Negative. Negative for agitation and behavioral problems. All other systems reviewed and are negative. Endocrine: Endocrine negative Physical Exam ED Triage Vitals [11/29/241932] Weight 76.2 kg (168 lb) Actual or estimated Estimated by patient/family report Height 1.676 m (5' 6") BP (!) 82/43 Pulse 98 Resp 18 Temp 36.3 ?C (97.3 ?F) Temp source Oral SpO2 99 % Measured on Room air Physical Exam Vitals reviewed. Constitutional: Appearance: She is well-developed. HENT: Head: Normocephalic and atraumatic. Nose: Nose normal. Mouth/Throat: Mouth: Mucous membranes are dry. Eyes: Conjunctiva/sclera: Conjunctivae normal. Neck: Trachea: No tracheal deviation. Cardiovascular: Rate and Rhythm: Normal rate and regular rhythm. Heart sounds: Normal heart sounds. No murmur heard. No friction rub. Pulmonary: Effort: Pulmonary effort is normal. No respiratory distress. Breath sounds: Normal breath sounds. No stridor. No wheezing or rales. Abdominal: General: Bowel sounds are normal. There is no distension. Palpations: Abdomen is soft. Tenderness: There is no abdominal tenderness. There is no guarding or rebound. Musculoskeletal: General: Normal range of motion. Cervical back: Normal range of motion and neck supple. Skin: General: Skin is warm and dry. Neurological: Mental Status: She is alert and oriented to person, place, and time. Cranial Nerves: No cranial nerve deficit. Sensory: No sensory deficit. Psychiatric: Behavior: Behavior normal. Thought Content: Thought content normal. Judgment: Judgment normal. Labs Lab Results CBC WITH DIFF - Abnormal Result Value Ref Range WBC 5.59 4.30 - 11.10 10*3/?L RBC 4.40 3.93 - 5.25 10*6/?L HGB 13.4 11.6 - 15.0 g/dL HCT 40.1 35.7 - 45.2 % MCV 91.1 80.6 - 95.5 fL MCH 30.5 25.9 - 32.8 pg MCHC 33.4 31.6 - 35.1 g/dL RDW-SD 45.9 39.0 - 49.9 fL RDW-CV 13.6 12.0 - 15.5 % PLT 272 166 - 358 10*3/?L MPV 10.4 9.5 - 12.9 fL NRBC/100 WBC 0.0 0.0 - 10.0 /100 WBCs NRBC x10 3 <0.01 10*3/?L SEG % 37 33 - 76 % BAND % 24 (*) 0 - 1 % META % 7 (*) <=0 % LYMPH % 17 14 - 54 % MONO % 12 (*) 0 - 4 % EOS % 2 0 - 3 % BASO % 1 0 - 1 % ANC 3.41 1.88 - 7.09 10*3/uL TOXIC CHANGES Present (*) PLT ESTIMATE Normal Normal COMP. METABOLIC PANEL (95227) - Abnormal NA 132 (*) 135 - 145 mmol/L K 3.7 3.5 - 5.0 mmol/L CL 94 (*) 98 - 108 mmol/L CO2 TOTAL 26 23 - 31 mmol/L AGAP 12 2 - 16 BUN 96 (*) 7 - 23 mg/dL GLUCOSE 118 (*) 70 - 110 mg/dL CREATININE 3.84 (*) 0.50 - 1.04 mg/dL TOTAL BILI 0.6 0.1 - 1.1 mg/dL CALCIUM 8.5 (*) 8.6 - 10.6 mg/dL T PROTEIN 6.7 6.3 - 8.2 g/dL ALBUMIN 3.6 3.5 - 5.0 g/dL ALK PHOS 88 34 - 122 U/L ALTv 184 (*) 5 - 35 U/L AST(SGOT) 22 13 - 40 U/L eGFR 12.9 mL/min/1.73m2 N-TERMINAL PRO-BNP - Abnormal NT-proBNP 1,140 (*) <=125 pg/mL URINALYSIS - Abnormal APPEARANCE Slightly Cloudy (*) Clear COLOR Yellow Yellow PH 5.0 4.8 - 8.0 SP GRAVITY 1.013 1.003 - 1.030 GLU U QUAL Normal Normal BLOOD Negative Negative KETONES Negative Negative PROTEIN Negative Negative UROBILIN Normal Normal BILIRUBIN Negative Negative NITRITE Negative Negative LEUK SUSAN Negative Negative RBC/HPF 1 0 - 3 HPF WBC/HPF 7 (*) 0 - 5 HPF BACTERIA Few (*) Negative SQ EPITH 2 HPF LIPASE - Normal LIPASE 34 0 - 220 U/L TROPONIN I - Normal TROPONIN I 0.007 <=0.034 ng/mL LACTIC ACID WHOLE BLOOD - Normal LACTIC ACID 1.52 0.50 - 2.20 mmol/L Imaging CT Abdomen pelvis wo contrast Final Result ORDERING PHYSICIAN:BERTA URIBE CLINICAL INFORMATION: Nausea/vomiting COMPARISON: 11/01/2024 Technique: CT of the abdomen and pelvis was performed without IV or p.o. contrast. Multiplanar reformats were also obtained. This study was performed according to ALARA principle for radiation dose reduction. Findings: No urinary calcifications or signs of urinary obstruction are seen. The gallbladder is surgically absent. Unenhanced liver, spleen, adrenal glands, and pancreas show no evidence of gross abnormalities. Distended fluid-filled loops of small bowel are seen throughout the abdomen. High-grade point of transition is seen at the level of the distal/terminal ileum (best seen on image 103 of series 2). Liquid stool is also seen in the colon. Colonic diverticulosis without evidence of acute diverticulitis is seen. No free air or free fluid is seen. No focal loculated fluid collections are seen. Lung bases are clear. There are no suspicious focal osseous lesions. IMPRESSION 1. Distended fluid-filled loops of small bowel with high-grade point of transition to completely decompressed bowel at the level of the distal ileum. Findings are concerning for high-grade obstruction. 2. Liquid stool is also seen throughout the colon. Concomitant or superimposed enterocolitis cannot be ruled out. 3. No urinary calcifications or signs of urinary obstruction. END OF REPORT [id number] Orders and Treatments Orders Placed This Encounter Procedures CT Abdomen pelvis wo contrast XR Abdomen 2 vw Abdominal 1 View - To confirm nasogastric tube placement. CBC WITH DIFF COMP. METABOLIC PANEL (21176) LIPASE TROPONIN I N-TERMINAL PRO-BNP Lactic Acid Whole Blood URINALYSIS GIARDIA CRYPTOSPORIDIUM AG SCR CLOSTRIDIUM DIFFICILE TOXIN Basic Metabolic Panel (NA, K, CL, CO2, GLUCOSE, BUN, CREATININE, CA) CONSULT GENERAL SURGERY Orders Placed This Encounter Medications NaCl 0.9% (NS) bolus infusion 1,000 mL metoclopramide HCl (REGLAN) injection 10 mg NaCl 0.9% (NS) bolus infusion 1,000 mL metroNIDAZOLE in NaCl (iso-os) (FLAGYL I.V.) RTU IV infusion 500 mg ciprofloxacin in 5 % dextrose (CIPRO) piggyback 200 mg NaCl 0.9% (NS) IV infusion 1,000 mL DISCONTD: NaCl 0.9% (NS) IV infusion 1,000 mL heparin (porcine) injection 5,000 Units acetaminophen (TYLENOL) tablet 650 mg HYDROcodone-acetaminophen (NORCO 5) tablet 1 tablet FENTanyl (PF) (SUBLIMAZE) injection 25 mcg ondansetron (ZOFRAN (PF)) injection 4 mg methylPREDNISolone sod succ (SOLU-MEDROL (PF)) injection 40 mg BUPROPION HCL ORAL buPROPion XL (WELLBUTRIN XL) tablet 150 mg Procedures EKG Time 2024 Rate 92 Normal sinus Non specific ST T changes Prolonged QT Abnormal EKG MDM Patient was evaluated for an emergency medical condition related to Abdominal Pain, Nausea, Vomiting, and Diarrhea Diagnoses considered but not limited to: Dehydration Gastroenteritis Labs:were ordered, and resulted, any relevant abnormalities were considered. Abnormal Labs Reviewed CBC WITH DIFF - Abnormal; Notable for the following components: Result Value BAND % 24 (*) META % 7 (*) MONO % 12 (*) TOXIC CHANGES Present (*) All other components within normal limits COMP. METABOLIC PANEL (15105) - Abnormal; Notable for the following components: NA 132 (*) CL 94 (*) BUN 96 (*) GLUCOSE 118 (*) CREATININE 3.84 (*) CALCIUM 8.5 (*) ALTv 184 (*) All other components within normal limits N-TERMINAL PRO-BNP - Abnormal; Notable for the following components: NT-proBNP 1,140 (*) All other components within normal limits Narrative: Positive: Heart Failure Likely URINALYSIS - Abnormal; Notable for the following components: APPEARANCE Slightly Cloudy (*) WBC/HPF 7 (*) BACTERIA Few (*) All other components within normal limits BASIC METABOLIC PANEL (NA, K, CL, CO2, GLUCOSE, BUN, CREATININE, CA) - Abnormal; Notable for the following components: BUN 60 (*) GLUCOSE 118 (*) CREATININE 1.76 (*) CALCIUM 8.4 (*) All other components within normal limits Imaging:This is a teaching institution and preliminary studies are read by physicians in training. A final read by a radiologist will be confirmatory of preliminary studies or may include addenda. A reasonable attempt will be made to contact the patient or family to communicate findings if necessary. Diagnosis/Impression as of 11/30/24 1858 Vomiting and diarrhea PAM (acute kidney injury) Enterocolitis AdmissionCare Guideline: Renal Failure (Acute), Inpatient Based on the indications selected for the patient, the bed status of Inpatient was determined to be MET The following indications were selected as present at the time of evaluation of the patient: - Clinical Indications for Admission to Inpatient Care - Admission is indicated for 1 or more of the following: - Acute renal failure (stage 3 acute kidney injury), as indicated by 1 or more of the following: - Within past 7 days, rise in serum creatinine to 3 times its baseline value or higher AdmissionCare documentation entered by: Berta Uribe [facility], 28 edition, Copyright ? 2023 [facility] All Rights Reserved. [id number]:00 Medical Decision Making Problems Addressed: PAM (acute kidney injury): acute illness or injury Vomiting and diarrhea: acute illness or injury Amount and/or Complexity of Data Reviewed Labs: ordered. Decision-making details documented in ED Course. Radiology: ordered and independent interpretation performed. Decision-making details documented in ED Course. Risk Prescription drug management. Parenteral controlled substances. Decision regarding hospitalization. Pulse Oximetry: is not hypoxic. Interpreted. Reassessment:stable Communication with beauty consultant: None. Limitations to patient care and compliance: none. Plan & Summary: The patient is a 59-year-old female who presents for vomiting and diarrhea. Upon evaluation the patient looks very dehydrated. She had dry mucous membranes. She was hypotensive as well. She was given IV fluids in emergency department. Workup demonstrates that she has PAM. Also appears that she has an enterocolitis on the CT. Patient was started on Cipro for renal dosed and Flagyl. The patient will require inpatient management. She was admitted in guarded condition. Yenni Arce is a 59 year old female presenting for complaint(s) listed within the note.. Patient has been deemed stable for discharge. Follow up with providers listed below for further evaluation and management. Return precautions given if symptoms worsen as documented in the discharge instructions. History, physical exam findings, results of visit, diagnosis, medication regimens and plan of future care have been considered. Additional MDM may be found in the ED course. Vital signs were rechecked before final disposition and determined to be expected for patient's clinical condition.. Disposition & Follow Up ED Disposition ED Disposition Admit - Inpatient Condition -- Comment -- Current Discharge Medication List STOP taking these medications BUPROPION HCL ORAL Comments: Reason for Stopping: hydralazine HCl (HYDRALAZINE ORAL) Comments: Reason for Stopping: lisinopriL 40 mg tablet Comments: Reason for Stopping: ondansetron 4 mg disintegrating tablet Comments: Reason for Stopping: loratadine 10 mg tablet Comments: Reason for Stopping: loperamide 2 mg capsule Comments: Reason for Stopping: meclizine 25 mg tablet Comments: Reason for Stopping: Berta Uribe Jr., MD [employer] [facility] Emergency Department [employer] D[employer] Software is used frequently and may produce errors. Promptly contact for obvious discrepancies. Berta Uribe MD 11/30/24 0612 [facility] 2024-11-29 19:30:00 AdmissionCare Guideline: Renal Failure (Acute), Inpatient Based on the indications selected for the patient, the bed status of Inpatient was determined to be MET The following indications were selected as present at the time of evaluation of the patient: - Clinical Indications for Admission to Inpatient Care - Admission is indicated for 1 or more of the following: - Acute renal failure (stage 3 acute kidney injury), as indicated by 1 or more of the following: - Within past 7 days, rise in serum creatinine to 3 times its baseline value or higher AdmissionCare documentation entered by: Berta Uribe [facility], 28th edition, Copyright ? 2023 [facility] All Rights Reserved. [id number]:[id number]:00 [employer] [facility] 2024-11-02 15:58:52 Problem: Falls, Risk of Goal: Absence of falls Outcome: Adequate for discharge Problem: Pain Goal: Control of pain at or below patient's documented comfort goal Outcome: Adequate for discharge Goal: Reduction in pain sensation Outcome: Adequate for discharge Problem: Discharge Planning Goal: Adequate for discharge Outcome: Adequate for discharge Goal: Effective communication Outcome: Adequate for discharge Problem: Infection Risk Goal: Absence of infection Outcome: Adequate for discharge Shelbie Paige RN [facility] 2024-11-02 01:34:10 Problem: Falls, Risk of Goal: Absence of falls Outcome: Progressing as expected Problem: Pain Goal: Control of pain at or below patient's documented comfort goal Outcome: Progressing as expected Goal: Reduction in pain sensation Outcome: Progressing as expected Problem: Infection Risk Goal: Absence of infection Outcome: Progressing as expected Nina Motta RN [facility] 2024-11-01 18:22:08 Report hand off to William JOYNER, patient is ready to transport. Nina Ferguson RN [facility] 2024-11-01 18:09:19 Pt blood pressure cuff was off and laying next to her. I reapplied cuff and took a BP to verify pt was not hypotensive. New BP documented Digna Hitchcock RN [facility] 2024-11-01 17:49:24 Patient urinated all over herself, patient was cleaned up and bed was changed and patient requested a bed guerrero to be at her side. Bed guerrero was given, patient is resting, and remains on the monitor. [facility] 2024-11-01 14:53:55 Pt reports headache, vomiting, diarrhea starting last . Some sxs have improved, but she still has nausea and abdominal pain. Describes abd pain as "it feels like the inside of my stomach was beaten up" Daya Melgar RN [facility] - [facility] 2024-11-01 14:49:00 [facility] Emergency Department Note Patient Name: Yenni Arce Date of : 1965 59 year old female Treatment Room: [facility] Primary Care Physician: PATIENT DOES NOT HAVE A PCP Patient Escorted by: Self [9] Mode of Arrival: Personal means [1] EMS Treatment Prior to ED Arrival: PACKING ROOM INSPECTOR treatment: None Travel and Exposure Screening: Symptoms Does patient have any of these symptoms?: (not recorded) Exposure Screening Has patient had contact with someone with a communicable disease in the last month?: (not recorded) Diseases exposed to:: (not recorded) Is Patient ?: (not recorded) Exposure Date: (not recorded) Chief Complaint: Chief Complaint Patient presents with Abdominal Pain History of Present Illness: Onset 10/27 with nausea, vomiting, watery diarrhea. All non-bloody. Unable to keep down food or drink for 3 days. Unable to take daily medications. Concurrent abdominal pain, non-focal, greatest in bilateral lower quadrants, constant with wax/wane intensity, aggravated with PO intake, no definitive relieving factors. No fever. No dysuria, frequency, flank pain. No pedal edema. History provided by: Patient Past Medical History/Immunizations: Past Medical History: Diagnosis Date Anxiety Cervix prolapsed into vagina Depression Tetanus received in last 5 years: Yes Childhood immunizations: Up-to-date Allergies: No Known Allergies Past Social History: Tobacco Use Former; Types: Cigarettes Passive Exposure: Never Smokeless Tobacco: Never used smokeless tobacco. Comments: Recently russ Vaping Use Every day; Substances: Nicotine Alcohol Use Yes. Comments: rarely Drug Use Never. Sexual Activity Not currently sexually active. Past Surgical History: Past Surgical History: Procedure Laterality Date CHOLECYSTECTOMY LAPAROSCOPY WITH CHOLANGIOGRAM (SHX) N/A 03/03/2023 Surgeon: Flavia Denise MD; Location: [facility] [place] DILATION AND CURETTAGE (SHX) Review of Systems: Review of Systems Constitutional: Negative for appetite change ((+) appetite, but unable to tolerate PO) and fever. HENT: Negative. Eyes: Negative. Respiratory: Negative. Cardiovascular: Negative. Gastrointestinal: Positive for abdominal pain, diarrhea, nausea and vomiting. Negative for blood in stool. Genitourinary: Negative. Musculoskeletal: Negative. Skin: Negative. Neurological: Negative. Psychiatric/Behavioral: Negative. Physical Exam: ED Triage Vitals [11/01/24 1455] Weight 70.3 kg (155 lb) Actual or estimated Estimated by healthcare provider Height 1.676 m (5' 6") BP 115/62 Pulse 98 Resp 17 Temp 36.8 ?C (98.2 ?F) Temp source Oral SpO2 96 % Measured on Room air Physical Exam Vitals and nursing note reviewed. Constitutional: General: She is not in acute distress. Appearance: Normal appearance. She is not ill-appearing, toxic-appearing or diaphoretic. HENT: Head: Normocephalic and atraumatic. Right Ear: External ear normal. Left Ear: External ear normal. Nose: Nose normal. Mouth/Throat: Mouth: Mucous membranes are dry. Eyes: Extraocular Movements: Extraocular movements intact. Conjunctiva/sclera: Conjunctivae normal. Cardiovascular: Rate and Rhythm: Normal rate and regular rhythm. Pulmonary: Effort: Pulmonary effort is normal. No respiratory distress. Breath sounds: Normal breath sounds. No wheezing, rhonchi or rales. Abdominal: General: There is no distension. Palpations: Abdomen is soft. Tenderness: There is abdominal tenderness (non-focal, greatest in BLQ). There is no right CVA tenderness or left CVA tenderness. Musculoskeletal: General: Normal range of motion. Cervical back: Normal range of motion. Skin: General: Skin is warm and dry. Neurological: General: No focal deficit present. Mental Status: She is alert. Psychiatric: Mood and Affect: Mood normal. Behavior: Behavior normal. Thought Content: Thought content normal. Judgment: Judgment normal. Radiology: CT Abdomen pelvis w contrast Final Result CT ABDOMEN PELVIS W CONTRAST 11/01/2024 3:46 PM HISTORY: Abdominal pain, acute, nonlocalized non-focal abdominal pain; greatest in RLQ; history of cholecystectomy. Vomiting and diarrhea. COMPARISON: Ultrasound dated 03/02/[address] dated 03/01/2023. TECHNIQUE: Axial images of the abdomen and pelvis were acquired after administration of intravenous contrast. Coronal and sagittal reconstructions were also created. FINDINGS: LOWER CHEST: Right lower quadrant calcified granuloma. Bibasilar atelectasis.. HEPATOBILIARY: The liver is normal in size. No focal hepatic lesion. The gallbladder is surgically absent. Mild extrahepatic biliary ductal dilatation with CBD measuring up to 9 mm in diameter, likely related to reservoir phenomena. SPLEEN: Normal in size. No lesion. Small splenule is noted. PANCREAS: The parenchyma is unremarkable. No ductal dilatation. No masses. ADRENAL GLANDS: Mild thickening of bilateral adrenal glands without discrete nodules, more on the left side, similar to prior. KIDNEYS: No hydronephrosis or stone. No solid mass. Subcentimeter hypodensities seen in the mid pole of the right kidney, too small to characterize. GI TRACT: Small hiatus hernia. There is wall thickening of the terminal ileum with alternating areas of dilatation and luminal narrowing of the small bowel loops most evident distally measuring up to 3.9 cm in the right upper quadrant. The appendix is normal. Sigmoid predominant colonic diverticulosis with wall thickening of the sigmoid colon, similar to prior PERITONEUM AND RETROPERITONEUM: No free air or free fluid. LYMPH NODES: Prominent reactive mesenteric lymph nodes mainly along the ileocolic chain. PELVIS/BLADDER: The urinary bladder is underdistended with circumferential mural thickening. The reproductive organs are within normal limits. VESSELS: Mild aortoiliac atherosclerotic calcification without dilatation or significant stenosis. BONES AND SOFT TISSUES: No aggressive osseous lesion. Degenerative changes of bilateral hip joints. No concerning soft tissue abnormality. IMPRESSION 1. Terminal ileitis/enteritis with pattern suggestive of inflammatory bowel disease. Recommend clinical correlation and further assessment. 2. Colonic diverticulosis with wall thickening of the sigmoid colon, similar to prior likely related to muscular hypertrophy from chronic diverticulosis. Lab Results: Lab Results CBC WITH DIFF - Abnormal Result Value Ref Range WBC 6.22 4.30 - 11.10 10*3/?L RBC 4.87 3.93 - 5.25 10*6/?L HGB 15.0 11.6 - 15.0 g/dL HCT 44.9 35.7 - 45.2 % MCV 92.2 80.6 - 95.5 fL MCH 30.8 25.9 - 32.8 pg MCHC 33.4 31.6 - 35.1 g/dL RDW-SD 46.5 39.0 - 49.9 fL RDW-CV 13.6 12.0 - 15.5 % PLT 267 166 - 358 10*3/?L MPV 10.9 9.5 - 12.9 fL NRBC/100 WBC 0.0 0.0 - 10.0 /100 WBCs NRBC x10 3 <0.01 10*3/?L GRAN MAT (NEUT) % 55.6 % IMM GRAN % 2.10 % LYMPH % 16.6 % MONO % 23.5 % EOS % 1.6 % BASO % 0.6 % GRAN MAT x10 3 (ANC) 3.46 1.88 - 7.09 10*3/uL IMM GRAN x10 3 0.13 (*) 0.00 - 0.06 10*3/uL LYMPH x10 3 1.03 (*) 1.32 - 3.29 10*3/uL MONO x10 3 1.46 (*) 0.33 - 0.92 10*3/uL EOS x10 3 0.10 0.03 - 0.39 10*3/uL BASO x10 3 0.04 0.01 - 0.07 10*3/uL BANDS Increased (*) TOXIC CHANGES Present (*) COMP. METABOLIC PANEL (14416) - Abnormal NA 137 135 - 145 mmol/L K 4.0 3.5 - 5.0 mmol/L CL 104 98 - 108 mmol/L CO2 TOTAL 25 23 - 31 mmol/L AGAP 8 2 - 16 BUN 46 (*) 7 - 23 mg/dL GLUCOSE 126 (*) 70 - 110 mg/dL CREATININE 1.44 (*) 0.50 - 1.04 mg/dL TOTAL BILI 0.5 0.1 - 1.1 mg/dL CALCIUM 9.2 8.6 - 10.6 mg/dL T PROTEIN 6.9 6.3 - 8.2 g/dL ALBUMIN 3.9 3.5 - 5.0 g/dL ALK PHOS 93 34 - 122 U/L ALTv 18 5 - 35 U/L AST(SGOT) 14 13 - 40 U/L eGFR 42.0 mL/min/1.73m2 URINALYSIS - Abnormal APPEARANCE Slightly Cloudy (*) Clear COLOR Yellow Yellow PH 5.0 4.8 - 8.0 SP GRAVITY 1.018 1.003 - 1.030 GLU U QUAL Normal Normal BLOOD Negative Negative KETONES Negative Negative PROTEIN Negative Negative UROBILIN Normal Normal BILIRUBIN Negative Negative NITRITE Negative Negative LEUK SUSAN Negative Negative RBC/HPF 0 0 - 3 HPF WBC/HPF 2 0 - 5 HPF BACTERIA Few (*) Negative MUCOUS Slight (*) Negative LPF SQ EPITH 9 HPF LIPASE - Normal LIPASE 64 0 - 220 U/L EKG: If EKG completed, see Procedure Note. Orders and Treatments: Orders Placed This Encounter Procedures CT Abdomen pelvis w contrast CBC WITH DIFF COMP. METABOLIC PANEL (13423) LIPASE URINALYSIS Orders Placed This Encounter Medications NaCl 0.9% (NS) bolus infusion 1,000 mL famotidine (PEPCID (PF)) injection 20 mg ondansetron (ZOFRAN (PF)) injection 8 mg morpHINE (4 mg/mL) injection 4 mg iopamidol (ISOVUE 370-500 mL) injection 85 mL First Provider Eval: ED Events Date/Time Event User Comments 11/01/24 1504 Medical Screening Begins WINTER MARTIN MD -- 11/01/24 1504 First Provider Evaluation WINTER MARTIN MD -- AdmissionCare Guideline: Dehydration, Observation Based on the indications selected for the patient, the bed status of Observation was determined to be MET The following indications were selected as present at the time of evaluation of the patient: - Observation Care Admission Criteria - Observation care is indicated for 1 or more of the following: - Ability to maintain oral hydration (eg, IV fluid support needed) unclear - Acute kidney injury (stage 2), as indicated by 1 or more of the following: - Reduction of more than 50% in estimated glomerular filtration rate from baseline eGFR - Adult CalculatoreGFR - Pediatric Calculator AdmissionCare documentation entered by: Flavio Mills [facility], 28th edition, Copyright ? 2023 [facility] [place] [facility] [place] [facility] All Rights Reserved. [id number]:39:32-05:00 ED COURSE Diagnosis/Impression as of 11/01/24 1743 Abdominal pain, unspecified abdominal location Nausea and vomiting, unspecified vomiting type Diarrhea, unspecified type Dehydration PAM (acute kidney injury) Procedures: Procedures MDM: Medical Decision Making Primary impression: acute kidney injury Secondary impression: intractable nausea with vomiting, diarrhea; dehydration; abdominal pain; gastroenteritis Differential Diagnoses, including but not limited to: electrolyte / glucose abnl, anemia, PAM, arrhythmia, acute coronary event Problems Addressed: Abdominal pain, unspecified abdominal location: acute illness or injury Dehydration: acute illness or injury Diarrhea, unspecified type: acute illness or injury Nausea and vomiting, unspecified vomiting type: acute illness or injury Amount and/or Complexity of Data Reviewed Independent Historian: Details: self Labs: ordered. Decision-making details documented in ED Course. Radiology: ordered. Decision-making details documented in ED Course. Discussion of management or test interpretation with external provider(s): 1. Case discussed with Hospitalist including presentation, exam, findings, plan. Will evaluate and continue care in Hospital Risk Prescription drug management. Parenteral controlled substances. Risk Details: Findings and plan discussed with patient. GFR today 42 (CKF 3b), down from baseline 89 (CKD 2). 4 days of persistent nausea, vomiting, diarrhea. CT notable for enteritis. Will benefit from further evaluation and treatment in hospital today. Meets AdmissionCare criteria. Flowsheet Documentation: Scoring Tools: No data recorded Disposition/Condition: ED Disposition ED Disposition Admit - Observation Condition Stable Comment -- Discharge Medications: Patient's Medications START taking these medications No medications on file CONTINUE taking these medications which have NOT CHANGED DULOXETINE 60 MG CAPSULE 1 capsule FLUCONAZOLE 150 MG TABLET Take 1 tablet now and repeat in 5 days LISINOPRIL 40 MG TABLET Take 1 tablet by mouth in the morning. LOPERAMIDE 2 MG CAPSULE Take 1 capsule by mouth every 4 (four) hours as needed for Diarrhea. Not to exceed 16mg daily. LORATADINE 10 MG TABLET 1 tablet MECLIZINE 25 MG TABLET Take 1 tablet by mouth every 6 (six) hours. ONDANSETRON (ZOFRAN, HYDROCHLORIDE,) 4 MG TABLET Take 1 tablet by mouth every 8 (eight) hours as needed for Nausea and Vomiting (N/V). ONDANSETRON 4 MG DISINTEGRATING TABLET Take 1 tablet by mouth every 8 (eight) hours as needed for Nausea and Vomiting (N/V). ONDANSETRON 4 MG DISINTEGRATING TABLET Take 1 tablet by mouth every 8 (eight) hours as needed for Nausea and Vomiting (N/V). VENLAFAXINE XR 75 MG 24 HR CAPSULE 1 capsule with food START taking Modified Medications as Prescribed No medications on file STOP taking these medications No medications on file Follow-up: N/a Electronically signed by: Flavio Mills MD 11/01/24 1131 [facility] 2024-11-01 14:49:00 AdmissionCare Guideline: Dehydration, Observation Based on the indications selected for the patient, the bed status of Observation was determined to be MET The following indications were selected as present at the time of evaluation of the patient: - Observation Care Admission Criteria - Observation care is indicated for 1 or more of the following: - Ability to maintain oral hydration (eg, IV fluid support needed) unclear - Acute kidney injury (stage 2), as indicated by 1 or more of the following: - Reduction of more than 50% in estimated glomerular filtration rate from baseline eGFR - Adult CalculatoreGFR - Pediatric Calculator AdmissionCare documentation entered by: Flavio Mills [facility], 28th edition, Copyright ? 2023 [facility] All Rights Reserved. [id number] [facility] 2024-09-27 08:14:05 Pt given results in office. [facility] 2024-09-26 12:57:17 Chief Complaint Patient presents with Follow-up Bilateral knee pain. Pt states she is in constant pain. Last inj 04/2024. [facility] 2024-06-07 10:45:28 Yenni Arce is here today for her Well Woman Exam. No LMP recorded. Patient is postmenopausal. Control Method: post-menopausal The patient's last Pap smear was on 07/11/2022 and results were Normal Last Mammogram was on 11/2023 and results were Abnormal . Last DEXA (Bone Density Scan) was on N/A and results were N/A. Patient requests STD testing. 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 Patent can't tell a difference on medications Casie Kaye LVN T [facility] 2024-04-14 08:53:11 Chief Complaint Patient presents with Physical Has already done labs. Would like to get anxiety or Depression medication Casie Kaye LVN [facility] 2024-03-16 09:07:18 Chief Complaint Patient presents with New Patient Refills on medications. Referral to orthopedic surgeon. Left hand was numb for 10 days Casie Kaye LVN [facility] 2024-02-23 02:46:15 Pt dc'd home ambulatory. Pt v/u of dc instructions, follow up, and wound care. 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 Not UTD on Tetanus. Rebecca Nicole RN [facility] 2023-12-23 18:32:40 Pt given printed and verbal discharge instructions regarding unspecified vomiting, encouraged hydration, Prescriptions provided Discussed antibiotic therapy and to take until all completed unless adverse reaction occurs - if occurs, discontinue medication and follow up with pcp/seek medical attention Pt verbalized understanding of instructions, pt awake alert oriented, resp reg unlabored, skin w/d, color appropriate for race, moves all ext well,pt encouraged to follow up with pcp Advised to seek medical attention for new/prolonged/worsening of symptoms, No adverse reaction to meds given in ER noted upon discharge PIV d'cd, dressing to site, catheter in tact. Awake, alert oriented, resp reg unlabored, skin w/d, pt leaving amb with steady gait, in no apparent distress, waiting for a ride home, sitting on the lobby. [facility] 2023-12-23 11:43:12 Pt states" I've been throwing up for 6hrs straight, hx of htn" Rita Lanza RN [facility] 2023-04-08 15:56:09 Addended by: RAMONE Orlando MD, FLAVIA Quarles on: 04/08/2023 03:56 PM Modules accepted: Orders [facility] 2023-04-08 15:55:13 Formatting of this n ote might be different from the original. A prescription for hydralazine 25 mg BID with no refills was sent to the [facility] pharmacy. She will need to establish a PCP for any additional refills. [facility] 2023-04-08 15:13:26 Formatting of this n ote might be different from the original. Patient notified of results/recommendations. Patient states hydralazine 25 mg BID not ordered. Per office visit note 03/19/23 lisinopril 40 mg tablet was ordered. Confirmed with [facility] order for hydralazine not received. Virgen Stone RN [facility] 2023-04-08 13:29:59 Formatting of this n ote might be different from the original. Confirmed with Dr. Denise via telephone that she does not approve refill for hydralazine, she advised the patient that she needed to contact PCP for that medication. Patient advised and understanding verbalized that she needed to see PCP for further refills. EILEEN DAVIS RN 04/08/2023 1:33 PM Eileen Davis RN [facility] 2023-04-08 12:53:03 Formatting of this n ote might be different from the original. Yenni Arce is a 57 year old female Patient is calling back to check status of medication. I relayed to patient that Rx was filled 03/19 and she needed to discuss further refills with PCP as documented in previous encounter. Patient states she is aware she is suppose to contact PCP, but states a prescription for 90day supply was suppose to be completed by provider. Please contact at earliest convenience to discuss further hydrALAZINE 25 mg tablet Nimco Esparza [facility] 2023-04-08 09:54:44 Formatting of this n ote might be different from the original. A refill was sent to [facility] with confirmation on 03/19/2023. The patient needs to contact her PCP for additional evaluation and need for refills. [facility] 2023-04-07 15:13:26 Formatting of this n ote might be different from the original. Pt calling in for a refill that Dr. Denise was willing to refill until pt gets PCP. Hydralazine 25 mgs twice daily. [facility] Pt has been out fro 3 days. Sara Adhikari [facility] 2023-03-04 16:57:11 Formatting of this n ote might be different from the original. Adequate for discharge Annia Miramontes RN [facility] 2023-03-04 02:47:24 Formatting of this n ote might be different from the original. Problem: Falls, Risk of Goal: Absence of falls Outcome: Progressing as expected Problem: Skin integrity Impaired (Risk or Actual) Goal: Prevention of new skin breakdown Outcome: Progressing as expected Problem: Discharge Planning Goal: Adequate for discharge Outcome: Progressing as expected Goal: Effective communication Outcome: Progressing as expected Problem: Pain Goal: Control of pain at or below patient's documented comfort goal Outcome: Progressing as expected Goal: Reduction in pain sensation Outcome: Progressing as expected Problem: Venous Thromboembolism, (actual or risk of) Goal: Absence of venous thromboembolism (Risk) Outcome: Progressing as expected Problem: Nausea/Vomiting Goal: Absence of nausea/vomiting Outcome: Progressing as expected Micaela Kim RN [facility] 2023-03-03 19:43:13 Formatting of this n ote might be different from the original. Problem: Falls, Risk of Goal: Absence of falls Outcome: Progressing as expected Problem: Skin integrity Impaired (Risk or Actual) Goal: Prevention of new skin breakdown Outcome: Progressing as expected Problem: Discharge Planning Goal: Adequate for discharge Outcome: Progressing as expected Goal: Effective communication Outcome: Progressing as expected Problem: Pain Goal: Control of pain at or below patient's documented comfort goal Outcome: Progressing as expected Goal: Reduction in pain sensation Outcome: Progressing as expected Problem: Venous Thromboembolism, (actual or risk of) Goal: Absence of venous thromboembolism (Risk) Outcome: Progressing as expected Problem: Nausea/Vomiting Goal: Absence of nausea/vomiting Outcome: Progressing as expected Maya Chatman RN [facility] 2023-03-03 15:43:00 Formatting of this n ote is different from the original. BRIEF OPERATIVE NOTE Date of Surgery: 03/03/2023 Surgeon(s) and Role: * Flavia Denise MD - Primary * Deng Baeza MD - Resident - Assisting Pre-Op Diagnosis: Gallstones [K80.20] Post-Op Diagnosis Codes: * Gallstones [K80.20] Procedures: Procedure(s) (LRB): CHOLECYSTECTOMY LAPAROSCOPY WITH CHOLANGIOGRAM (N/A) CPT: , Any Complications Encounters: None Estimated Blood Loss: Minimal Specimens Removed: ID Type Source Tests Collected by Time Destination 1 : Tissue GALLBLADDER SURGICAL PATHOLOGY EXAM Flavia Denise MD 03/03/2023 1646 * No implants in log * Patient's Condition: Stable Findings: Negative IOC Cholelithiasis Any other important information: Stable for transfer to the floor Please see dictated operative report for additional detail. [facility] 2023-03-03 02:00:00 Formatting of this n ote might be different from the original. Problem: Falls, Risk of Goal: Absence of falls Outcome: Progressing as expected Problem: Skin integrity Impaired (Risk or Actual) Goal: Prevention of new skin breakdown Outcome: Progressing as expected Problem: Discharge Planning Goal: Adequate for discharge Outcome: Progressing as expected Goal: Effective communication Outcome: Progressing as expected Problem: Pain Goal: Control of pain at or below patient's documented comfort goal Outcome: Progressing as expected Goal: Reduction in pain sensation Outcome: Progressing as expected Problem: Venous Thromboembolism, (actual or risk of) Goal: Absence of venous thromboembolism (Risk) Outcome: Progressing as expected Problem: Nausea/Vomiting Goal: Absence of nausea/vomiting Outcome: Progressing as expected [facility] 2023-03-02 12:34:20 Formatting of this n ote might be different from the original. Problem: Falls, Risk of Goal: Absence of falls Outcome: Progressing as expected Problem: Skin integrity Impaired (Risk or Actual) Goal: Prevention of new skin breakdown Outcome: Progressing as expected Problem: Discharge Planning Goal: Adequate for discharge Outcome: Progressing as expected Goal: Effective communication Outcome: Progressing as expected Problem: Pain Goal: Control of pain at or below patient's documented comfort goal Outcome: Progressing as expected Goal: Reduction in pain sensation Outcome: Progressing as expected Problem: Venous Thromboembolism, (actual or risk of) Goal: Absence of venous thromboembolism (Risk) Outcome: Progressing as expected Problem: Nausea/Vomiting Goal: Absence of nausea/vomiting Outcome: Progressing as expected T [facility] 2023-03-02 02:41:16 Formatting of this n ote might be different from the original. Problem: Falls, Risk of Goal: Absence of falls Outcome: Progressing as expected Problem: Skin integrity Impaired (Risk or Actual) Goal: Prevention of new skin breakdown Outcome: Progressing as expected Problem: Discharge Planning Goal: Adequate for discharge Outcome: Progressing as expected Goal: Effective communication Outcome: Progressing as expected Problem: Pain Goal: Control of pain at or below patient's documented comfort goal Outcome: Progressing as expected Goal: Reduction in pain sensation Outcome: Progressing as expected Problem: Venous Thromboembolism, (actual or risk of) Goal: Absence of venous thromboembolism (Risk) Outcome: Progressing as expected Problem: Nausea/Vomiting Goal: Absence of nausea/vomiting Outcome: Progressing as expected Azucena Herrera RN [facility] 2023-03-01 14:14:49 Formatting of this n ote might be different from the original. Nurse handoff report called to William JOYNER for 5 Digna Hitchcock RN [facility] 2023-03-01 10:07:00 Formatting of this n ote might be different from the original. Dr Uribe notified pt is c/o headache and continues to vomit. New orders received and initiated. [facility] 2023-03-01 09:35:04 Formatting of this n ote might be different from the original. Vomiting since midnight. Chills. Penelope Dwyer RN [facility] 2023-03-01 09:27:00 Formatting of this n ote is different from the original. 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 Chills. HPI History provided by: Patient Vomiting Severity: Moderate Duration: 1 day Quality: Stomach contents Chronicity: New Relieved by: Nothing Worsened by: Nothing Associated symptoms: chills Associated symptoms: no abdominal pain, no cough, no fever and no headaches Past Medical History / Immunizations Past Medical History: Diagnosis Date Anxiety Cervix prolapsed into vagina Depression Tetanus received in last 5 years: No Past Surgical History Past Surgical History: Procedure Laterality Date DILATION AND CURETTAGE (SHX) Allergies No Known Allergies Social History Tobacco Use Former; Types: Cigarettes Passive Exposure: Never Smokeless Tobacco: Never used smokeless tobacco. Tobacco Cessation: Counseling given: Not Answered Comments: Recently russ Vaping Use Every day; Substances: Nicotine Alcohol Use Yes. Comments: rarely Drug Use Never. Sexual Activity Not currently sexually active. Review of Systems Review of Systems Constitutional: Positive for chills. Negative for fatigue, fever and unexpected weight change. HENT: Negative. Eyes: Negative. Negative for discharge and itching. Respiratory: Negative. Negative for cough, chest tightness, shortness of breath and wheezing. Cardiovascular: Negative. Negative for chest pain and palpitations. Gastrointestinal: Positive for nausea and vomiting. Negative for abdominal distention and abdominal pain. Genitourinary: Negative. Negative for dysuria, urgency, frequency and flank pain. Musculoskeletal: Negative. Skin: Negative. Negative for color change, pallor and wound. Neurological: Negative. Negative for dizziness, syncope, light-headedness and headaches. Psychiatric/Behavioral: Negative. Negative for agitation and behavioral problems. All other systems reviewed and are negative. Endocrine: Endocrine negative Physical Exam ED Triage Vitals [03/01/23 0935] Weight 90.7 kg (200 lb) Actual or estimated Estimated by patient/family report Height 1.676 m (5' 6") BP (!) 146/99 Pulse 90 Resp 14 Temp 36.4 ?C (97.6 ?F) Temp source Oral SpO2 97 % Measured on Room air Physical Exam Vitals reviewed. Constitutional: Appearance: She is well-developed. HENT: Head: Normocephalic and atraumatic. Nose: Nose normal. Eyes: Conjunctiva/sclera: Conjunctivae normal. Neck: Trachea: No tracheal deviation. Cardiovascular: Rate and Rhythm: Normal rate and regular rhythm. Heart sounds: Normal heart sounds. No murmur heard. No friction rub. Pulmonary: Effort: Pulmonary effort is normal. No respiratory distress. Breath sounds: Normal breath sounds. No stridor. No wheezing or rales. Abdominal: General: Bowel sounds are normal. There is no distension. Palpations: Abdomen is soft. Tenderness: There is no abdominal tenderness. There is no guarding or rebound. Musculoskeletal: General: Normal range of motion. Cervical back: Normal range of motion and neck supple. Skin: General: Skin is warm and dry. Neurological: Mental Status: She is alert and oriented to person, place, and time. Cranial Nerves: No cranial nerve deficit. Sensory: No sensory deficit. Psychiatric: Behavior: Behavior normal. Thought Content: Thought content normal. Judgment: Judgment normal. Labs Lab Results CBC WITH DIFF - Abnormal Result Value Ref Range WBC 12.07 (*) 4.30 - 11.10 10*3/?L RBC 5.74 (*) 3.93 - 5.25 10*6/?L HGB 17.7 (*) 11.6 - 15.0 g/dL HCT 51.9 (*) 35.7 - 45.2 % MCV 90.4 80.6 - 95.5 fL MCH 30.8 25.9 - 32.8 pg MCHC 34.1 31.6 - 35.1 g/dL RDW-SD 40.2 39.0 - 49.9 fL RDW-CV 12.2 12.0 - 15.5 % PLT 200 166 - 358 10*3/?L MPV 10.9 9.5 - 12.9 fL NRBC/100 WBC 0.0 0.0 - 10.0 /100 WBCs NRBC x10^3 <0.01 10*3/?L GRAN MAT (NEUT) % 89.3 % IMM GRAN % 0.40 % LYMPH % 7.2 % MONO % 2.7 % EOS % 0.2 % BASO % 0.2 % GRAN MAT x10^3(ANC) 10.79 (*) 1.88 - 7.09 10*3/uL IMM GRAN x10^3 0.05 0.00 - 0.06 10*3/uL LYMPH x10^3 0.87 (*) 1.32 - 3.29 10*3/uL MONO x10^3 0.32 (*) 0.33 - 0.92 10*3/uL EOS x10^3 <0.03 (*) 0.03 - 0.39 10*3/uL BASO x10^3 <0.03 0.01 - 0.07 10*3/uL REACT LYMPHS Rare GIANT PLATELETS Present (*) (none) COMP. METABOLIC PANEL (83475) - Abnormal NA 141 135 - 145 mmol/L K 3.9 3.5 - 5.0 mmol/L CL 100 98 - 108 mmol/L CO2 TOTAL 32 (*) 23 - 31 mmol/L AGAP 9 2 - 16 BUN 15 7 - 23 mg/dL GLUCOSE 145 (*) 70 - 110 mg/dL CREATININE 0.74 0.50 - 1.04 mg/dL TOTAL BILI 1.0 0.1 - 1.1 mg/dL CALCIUM 9.8 8.6 - 10.6 mg/dL T PROTEIN 8.2 6.3 - 8.2 g/dL ALBUMIN 4.8 3.5 - 5.0 g/dL ALK PHOS 96 34 - 122 U/L ALTv 22 5 - 35 U/L AST(SGOT) 32 13 - 40 U/L eGFR 80.9 mL/min/1.73m2 URINALYSIS - Abnormal APPEARANCE Clear Clear COLOR Yellow Yellow PH 7.0 4.8 - 8.0 SP GRAVITY 1.058 (*) 1.003 - 1.030 GLU U QUAL Normal Normal BLOOD Negative Negative KETONES 20 mg/dL (*) Negative PROTEIN Negative Negative UROBILIN Normal Normal BILIRUBIN Negative Negative NITRITE Negative Negative LEUK SUSAN Negative Negative RBC/HPF 9 (*) 0 - 3 HPF WBC/HPF <1 0 - 5 HPF BACTERIA Negative Negative SQ EPITH 6 HPF LIPASE - Normal LIPASE 136 0 - 220 U/L COVID-19 (ID NOW RAPID TESTING) - Normal SARS-CoV-2 Rapid ID NOW Not Detected Not Detected Imaging CT ABDOMEN PELVIS W CONTRAST Preliminary Result EXAM: CT ABDOMEN PELVIS W CONTRAST HISTORY: 57 years-old Female; Provided indication: Nausea/vomiting. TECHNIQUE: Contiguous axial imaging from the level of the lung bases through the proximal thighs was performed with intravenous contrast. Coronal and sagittal reconstructions were obtained. COMPARISON: None FINDINGS: LOWER THORAX: Atelectatic changes are noted at the bilateral lung bases. LIVER: The liver is normal in size and contour. No focal hepatic lesion is seen. GALLBLADDER AND BILIARY TREE: The gallbladder appears distended. Multiple gallstones are visualized within the gallbladder lumen. Mild prominence of the common bile duct measuring approximately 7 mm. SPLEEN: The spleen appears unremarkable. PANCREAS: No ductal dilation or masses are visualized. ADRENAL GLANDS: No adrenal masses are seen. KIDNEYS: No hydronephrosis, stones, or suspicious masses are visualized. PELVIS/BLADDER: The urinary bladder is partially distended but exhibits circumferential wall thickening. The uterus is normal in appearance. GI TRACT: No dilation or bowel wall thickening is seen. The appendix appears unremarkable. Distal colonic diverticulosis. Moderate-sized mixed type hiatal hernia. PERITONEUM AND RETROPERITONEUM: No intra-abdominal free air or fluid collection is visualized. LYMPH NODES: No lymphadenopathy. VESSELS: Mild atherosclerosis is seen. BONES AND SOFT TISSUES: No suspicious lytic or sclerotic bony lesions are present. IMPRESSION Cholelithiasis without acute cholecystitis. Mild prominence of the common bile duct. Circumferential wall thickening of the urinary bladder which is nonspecific but may be seen in the setting of chronic bladder outlet obstruction or cystitis. Distal colonic diverticulosis. Moderate-sized mixed type hiatal hernia. Preliminary Report Dictated by Resident: Nikita Howe Orders and Treatments Orders Placed This Encounter Procedures CT ABDOMEN PELVIS W CONTRAST CBC WITH DIFF COMP. METABOLIC PANEL (60349) LIPASE URINALYSIS COVID-19 (ID NOW TESTING) LAB ONLY COVID INTERPRETATION FECES CULTURE BASIC METABOLIC PANEL (NA, K, CL, CO2, GLUCOSE, BUN, CREATININE, CA) CBC WITH DIFF MAGNESIUM GLYCOSYLATED HEMOGLOBIN (A1C) CONSULT GENERAL SURGERY Orders Placed This Encounter Medications NaCl 0.9% (NS) bolus infusion 1,000 mL NaCl 0.9% (NS) bolus infusion 1,000 mL ondansetron (ZOFRAN (PF)) injection 4 mg ketorolac (TORADOL) injection 15 mg metoclopramide HCl (REGLAN) injection 10 mg proMETHazine (PHENERGAN) 12.5 mg in NaCl 0.9% (NS) 50 mL IV piggyback iopamidol (ISOVUE 370-500 mL) injection 85 mL enoxaparin (LOVENOX) injection 40 mg lactated ringers IV infusion 1,000 mL morpHINE (4 mg/mL) injection 4 mg ondansetron (ZOFRAN (PF)) injection 4 mg proCHLORperazine (COMPAZINE) 5 mg in NaCl 0.9% (NS) piggyback hydralAZINE (APRESOLINE) injection 10 mg piperacillin-tazobactam (ZOSYN) 3.375 g in NaCl 0.9% (NS) 100 mL MINI-BAG piperacillin-tazobactam (ZOSYN) 3.375 g in NaCl 0.9% (NS) 100 mL MINI-BAG labetaloL (NORMODYNE) injection 20 mg DISCONTD: cloniDINE (CATAPRES-TTS 1) 0.1 mg/24 hr patch 1 Patch cloniDINE (CATAPRES-TTS 1) 0.1 mg/24 hr patch 1 Patch Procedures EKG Time 0940 Sinus bradycardia Helix normal Prolonged QT No acute ischemia Notes & MDM Patient was evaluated for an emergency medical condition related to Vomiting DDX GERD PUD Pancreatitis History and/or review of systems is limited by:History limited: None. ED Course as of 03/01/23 1848 Sun Mar 01, 2023 [address] Calhoun [DN] ED Course User Index [DN] Berta Uribe MD Diagnosis/Impression as of 03/01/23 1848 Vomiting, unspecified vomiting type, unspecified whether nausea present Gallstones Diverticulosis Ketonuria Medical Decision Making Problems Addressed: Diverticulosis: chronic illness or injury Gallstones: acute illness or injury Ketonuria: acute illness or injury Vomiting, unspecified vomiting type, unspecified whether nausea present: acute illness or injury Amount and/or Complexity of Data Reviewed Labs: ordered. Decision-making details documented in ED Course. Radiology: ordered and independent interpretation performed. Decision-making details documented in ED Course. Risk Prescription drug management. Parenteral controlled substances. Decision regarding hospitalization. Limitations to patient care and compliance: none. Assessment/Summary: The patient is a 57-year-old female who presents for intractable nausea and vomiting. The patient does not admit to a bilious or bloody vomitus. She denies heavy drinking. She denies fever or diarrhea. She denies any questionable food intake. Work-up demonstrates that she has ketonuria. She does not have an anion gap. She was given IV fluids and multiple antiemetics. Urine is not infected. COVID was negative. CT of the abdomen pelvis does demonstrate diverticulosis which is chronic. However, she has gallstones. She has a benign abdominal exam. Laboratory evaluation does not demonstrate any elevated LFTs or bilirubin. The patient was admitted for further management. General surgery Dr. Patiño was contacted for consult directly. He will see the patient as an inpatient. History, physical exam findings, results of visit, differential diagnosis, medication regimens and plan of future care have been considered. Additional MDM may be found in the ED course. Differential diagnosis considered and final disposition made based on information gathered during evaluation and may not be completely ruled out or specifically listed. Vital signs were rechecked before final disposition. Diagnosis Final diagnoses: [R11.10] Vomiting, unspecified vomiting type, unspecified whether nausea present (Primary) [K80.20] Gallstones [K57.90] Diverticulosis [R82.4] Ketonuria Disposition & Follow Up ED Disposition ED Disposition Admit - Observation Condition -- Comment Is (or was) this a planned re-admission?: No Treatment Team: [facility] [[id number]] Is this patient COVID positive or a patient under investigation (PUI)?: No Current Discharge Medication List STOP taking these medications ibuprofen (ADVIL ORAL) Comments: Reason for Stopping: loratadine 10 mg tablet Comments: Reason for Stopping: loperamide 2 mg capsule Comments: Reason for Stopping: DULoxetine 60 mg capsule Comments: Reason for Stopping: venlafaxine XR 75 mg 24 hr capsule Comments: Reason for Stopping: fluconazole 150 mg tablet Comments: Reason for Stopping: naproxen 500 mg tablet Comments: Reason for Stopping: ondansetron 4 mg disintegrating tablet Comments: Reason for Stopping: meclizine 25 mg tablet Comments: Reason for Stopping: ondansetron (ZOFRAN, HYDROCHLORIDE,) 4 mg tablet Comments: Reason for Stopping: Berta Uribe Jr., MD [employer] [facility] Emergency Department [employer] D[employer] Software is used frequently and may produce errors. Promptly contact for obvious discrepancies. Berta Uribe MD 03/01/23 [id number] [facility] EMERGENCY PHYSICIAN STAFF [facility]
[2024-12-09] MEDS ORDERED: KETOROLAC 30 MG/ML INJ ONE (23:29)
[2024-12-10] LABS: Absolute Basophils 0.1 K/uL (0-0.5); Absolute Eosinophils 0.1 K/uL (0-0.5); Absolute Lymphocytes (CBC) 1.7 K/uL (0.7-4.9); Absolute Monocytes 0.6 K/uL (0.1-1.3); Absolute Neutrophil 6.4 K/uL (1.8-8.0); Basophils % 0.6 % (0-1.3); Eosinophils % 1.6 % (0-4.4); Hematocrit 33.6 % (36.0-45.0); Hemoglobin 11.4 g/dL (12.0-15.0); Lymphocytes % 18.8 % (15.3-44.8); MCHC 33.9 g/dL (32.0-36.0); MCV 88.5 fL (80-100); MPV 8.2 fL (7.6-11.3); Monocytes % 6.7 % (3.3-12.3); Neutrophils % 72.3 % (41.7-73.7); Nucleated Red Blood Cells % 0.1 % (0-0); Platelets 318 thou/uL (152-406); Red Cell Distribution Width 14.2 % (12.1-15.2)
--- NOTE | 2024-12-10 00:31 | RAD REPORT ---
EXAM DESCRIPTION: Extrem Venous W Compress Micheal RadLex: US EXTREMITY VEINS BILATERAL CLINICAL HISTORY: 59 years Female; Pain;Swelling TECHNIQUE: Spectral analysis and color/grayscale sonographic images of both legs were obtained utilizing a high- frequency linear array transducer supplemented with color Doppler, compression and augmentation techniques. COMPARISON: None. FINDINGS: Right leg veins: Common femoral: normal Greater saphenous: normal Superficial femoral: normal Popliteal: normal Calf Veins: normal Left leg veins: Common femoral: normal Greater saphenous: normal Superficial femoral: normal Popliteal: normal Calf Veins: normal IMPRESSION: 1. No sonographic evidence for lower extremity deep venous thrombosis in either leg. Electronically signed by: Caroline Duke MD 12/10/2024 12:25 AM CDT RP TYG Due to temporary technical issues with the PACS/QBuy reporting system, reports are being ami d by the in-house radiologist without review as a courtesy to ensure prompt reporting the interpreting radiologist is fully responsible for the content of the report. Transcribed Date/Time: 12/10/2024 12:30 AM
[2024-12-10 00:45] LABS: ALT/SGPT 32 U/L (13-56); AST/SGOT 14 U/L (15-37); Albumin/Globulin Ratio 0.8 (1.1-1.8); Alkaline Phosphatase 87 U/L (45-117); BUN Blood Urea Nitrogen 22 mg/dL (7-18); Bicarbonate 28 mEq/L (21-32); Bilirubin Total 0.3 mg/dL (0.2-1.0); Globulin 3.9 g/dL (2.3-3.5); Glomerular Filtration Rate 61 ml/min (=/>90); Glucose Level 123 mg/dL (74-106); Magnesium 1.7 mg/dL (1.6-2.4); NT PRO-BNP 1319 pg/mL (<125); Protein, Total 6.9 g/dL (6.4-8.2); Sodium Level 139 mEq/L (136-145); Troponin High Sensitivity 8.9 pg/mL (<58.9)
[2024-12-10 00:54] LABS: Bilirubin Direct < 0.2 mg/dL (0-0.2); Bilirubin Indirect, Calculated 0.1 mg/dL (0.2-0.8)
--- NOTE | 2024-12-10 01:36 | RAD REPORT ---
TIME OF STUDY: 12/09/2024 10:59 PM CDT REASON FOR EXAM: edema COMPARISON: None. FINDINGS: AP view of the chest was obtained, chest 1 view. Lungs: Normal lung volume. No mass, or consolidation. Normal pulmonary vascularity.. Pleura: No pneumothorax. Tiny bilateral pleural effusions are noted. Heart and Mediastinum: Cardiac silhouette is enlarged. Bones: No acute bony abnormality.. IMPRESSION: 1. Cardiomegaly with tiny bilateral pleural effusions. Electronically signed by: Garrick Knowles MD 12/10/2024 01:04 AM CDT Transcribed Date/Time: 12/10/2024 1:36 AM
[2024-12-10] MEDS ORDERED: MAGNESIUM SULFATE 1 gm IVPB 1 GM/100 ML BAG IV ONE ×2 (02:20→07:44)
[2024-12-10] MEDS ORDERED: LORAZEPAM 1 MG TABLET ONE (02:20)
[2024-12-10] MEDS ORDERED: FUROSEMIDE 20 MG/ 2ML VIAL ONE ×2 (02:20→07:44)
[2024-12-10 02:29] LABS: Specific Gravity 1.025 (1.005-1.030); Urine Bacteria None Seen /HPF (<20); Urine Bilirubin NEGATIVE (Negative); Urine Blood Negative (Negative); Urine Clarity Turbid (Clear); Urine Color Yellow (Yellow); Urine Culture Reflex Order NOT NEEDED; Urine Glucose NEGATIVE (Negative); Urine Ketones NEGATIVE (Negative); Urine Microscopic Reflex YN ORDER UMIC; Urine Mucus Slight /HPF (None Seen); Urine Nitrite NEGATIVE (Negative); Urine Protein NEGATIVE (Negative); Urine RBC None Seen /HPF (None Seen); Urine Urobilinogen Normal (Normal); Urine WBC <5 /HPF (<5); Urine pH 5.5 (5.0-7.0)
--- NOTE | 2024-12-10 02:39 | EDPHYS ---
Physician Documentation [facility] Name: Yenni Arce Age: 59 yrs Sex: Female : 1965 Arrival Date: 12/09/2024 Time: 21:33 Bed 16 Private MD: ED Physician Carlos Manuel Walker HPI: 12/09 23:05 This 59 yrs old Female presents to ER via Wheelchair with complaints of Abnormal Lab cp Results, insomnia. 23:05 The patient has shortness of breath when lying on back. cp 23:05 Onset: The symptoms/episode began/occurred over past couple days. Associated signs and cp symptoms: Pertinent positives: edema, difficulty sleeping. Patient reports recent discharge from hospital this past Thursday after admission for vomiting and diarrhea. Vomiting and diarrhea resolved and patient had f/u blood work this week by pcp. Patient was told to go to emergency department for low magnesium and low sodium. Patient c/o swelling in lower legs, insomnia and shortness of breath when lying flat. Historical: - Allergies: 22:51 No Known Allergies; iw - PMHx: 22:51 Hypertensive disorder; iw - PSHx: 22:51 Cholecystectomy; iw - Immunization history:: Adult Immunizations not up to date. - Infectious Disease History:: Denies. - Social history:: Smoking status: Patient reports the use of cigarette tobacco products, smokes one pack cigarettes per day. ROS: 23:10 Constitutional: Negative for body aches, chills, fever, poor PO intake, cp 23:10 Eyes: Negative for injury, pain, redness, and discharge, cp 23:10 ENT: Negative for drainage from ear(s), ear pain, sore throat, difficulty swallowing, difficulty handling secretions, 23:10 Cardiovascular: Positive for edema, Negative for chest pain, palpitations, 23:10 Respiratory: Positive for orthopnea, 23:10 Abdomen/GI: Negative for abdominal pain, vomiting, diarrhea, constipation, 23:10 : Negative for urinary symptoms, 23:10 Neuro: Negative for altered mental status, 23:10 Psych: Positive for insomnia, 23:10 All other systems are negative, Exam: 23:15 Constitutional: The patient appears in no acute distress, alert, awake, cp non-diaphoretic, non-toxic, well developed, well nourished, anxious, 23:15 Head/Face: Normocephalic, atraumatic. cp 23:15 Eyes: Periorbital structures: appear normal, Conjunctiva: normal, no exudate, no injection, Sclera: no appreciated abnormality, Lids and lashes: appear normal, bilaterally, 23:15 ENT: External ear(s): are unremarkable, Nose: is normal, Mouth: Lips: moist, Oral mucosa: moist, Posterior pharynx: Airway: no evidence of obstruction, patent, 23:15 Neck: ROM/movement: is normal, is supple, without pain, no range of motions limitations, 23:15 Chest/axilla: Inspection: normal, 23:15 Cardiovascular: Rate: normal, Rhythm: regular, Edema: pedal edema, that is moderate, ankle edema, that is moderate, JVD: is not appreciated, 23:15 Respiratory: the patient does not display signs of respiratory distress, Respirations: labored breathing, that is mild, Breath sounds: decreased breath sounds, that are mild, throughout, stridor, is not appreciated, 23:15 Abdomen/GI: Inspection: abdomen appears normal, Palpation: abdomen is soft and non-tender, in all quadrants, 23:15 Back: pain, is absent, ROM is normal, 23:15 Musculoskeletal/extremity: ROM: limited passive range of motion due to pain, in the right hip, 23:15 Skin: cellulitis, is not appreciated, no rash present. 23:15 Neuro: Orientation: to person, place \T\ time. Mentation: is normal, Motor: moves all fours, strength is normal, 12/10 02:23 ECG was reviewed by the Attending Physician. cp Vital Signs: 12/09 22:50 BP 139 / 79; Pulse 96; Resp 16; Temp 97; Pulse Ox 95% on R/A; Weight 79.38 kg; Height 5 iw ft. 6 in. ; 12/10 02:16 BP 120 / 99; Pulse 82; Resp 18; Pulse Ox 98% ; cp4 03:00 BP 138 / 74; Pulse 83; Resp 18; Pulse Ox 97% ; cp4 04:00 BP 125 / 86; Pulse 85; Resp 18; Pulse Ox 97% ; cp4 12/09 22:50 Body Mass Index 28.25 (79.38 kg, 167.64 cm) iw MDM: 12/09 22:46 Medical Screening Exam initiated cp 12/10 02:33 Data reviewed: vital signs, nurses notes, lab test result(s), EKG, radiologic studies, cp plain films, I have discussed the patient's presentation/case with the attending Emergency Department Physician; and as a result, I will admit patient. 02:33 Differential diagnosis: Anxiety Reaction CHF exacerbation, Chronic Obstructive cp Pulmonary Disease pneumonia, Pneumothorax pulmonary edema, Pulmonary Embolism reactive airway disease, Sepsis Unstable Angina. Management of patient was discussed with the following: Hospitalist: DR Murcia will admit but requests CT chest PE prior to admission. I considered the following discharge prescriptions or medication management in the emergency department Medications were administered in the Emergency Department. See MAR. Independent interpretation of the following test(s) in the Emergency Department EKG: See my EKG interpretation above. Care significantly affected by the following chronic conditions: Hypertension. Counseling: I had a detailed discussion with the patient and/or guardian regarding the historical points, exam findings, and any diagnostic results supporting the discharge/admit diagnosis, lab results, radiology results, the need for further work-up and treatment in the hospital. Response to treatment: the patient's symptoms have mildly improved after treatment. 12/09 22:59 Order name: Basic Metabolic Panel; Complete Time: : 12/10 01:22 Interpretation: Normal except: GLUC 123; BUN 22; CRE 1.06; GFR 61. 12/09 22:59 Order name: CBC with Diff; Complete Time: 00:29 12/10 00:29 Interpretation: Normal except: RBC 3.80; HGB 11.4; HCT 33.6. 12/09 22:59 Order name: LFT's; Complete Time: : 12/10 01:23 Interpretation: Normal except: AST 14; IBILI, CALC 0.1; ALB 3.0; GLOB 3.9; A/G 0.8. 12/09 22:59 Order name: Magnesium; Complete Time: : 12/10 01:23 Interpretation: Reviewed. 12/09 22:59 Order name: NT PRO-BNP; Complete Time: : 12/10 01:22 Interpretation: Abnormal: NT PRO-BNP 1319. 12/09 22:59 Order name: PT-INR 12/09 21:59 Order name: Troponin HS; Complete Time: : 12/10 01:23 Interpretation: Reviewed. 12/09 22:59 Order name: UA Rfx Latrell Cult if indicated; Complete Time: 03:40 cp 12/09 22:59 Order name: UDS; Complete Time: 03:40 cp 12/10 03:59 Order name: CBC with Automated Diff EDMS 12/10 03:59 Order name: CBC with Automated Diff EDMS 12/10 03:59 Order name: Comprehensive Metabolic Panel EDMS 12/10 03:59 Order name: Comprehensive Metabolic Panel EDMS 12/10 03:59 Order name: Troponin High Sensitivity EDMS 12/10 03:59 Order name: Troponin High Sensitivity EDMS 12/10 03:59 Order name: Troponin High Sensitivity EDMS 12/10 03:59 Order name: Troponin High Sensitivity EDMS 12/09 22:59 Order name: XRAY Hip RIGHT 2 view cp 12/09 22:59 Order name: XRAY Chest (1 view) cp 12/09 22:59 Order name: US Extremity Venous W Compression Micheal cp 12/10 01:51 Order name: CT Chest For PE Angio 12/10 08:34 Order name: CT EDAK 12/09 22:59 Order name: EKG; Complete Time: 23:00 cp 12/09 22:59 Order name: Cardiac monitoring; Complete Time: 02:08 cp 12/09 22:59 Order name: EKG - Nurse/Tech; Complete Time: 02:17 cp 12/09 22:59 Order name: IV Saline Lock; Complete Time: 02:08 12/09 22:59 Order name: Labs collected and sent; Complete Time: 02:08 12/09 22:59 Order name: O2 Per Protocol; Complete Time: 02:08 12/09 22:59 Order name: O2 Sat Monitoring; Complete Time: 02:08 EC:23 Rate is 82 beats/min. Rhythm is regular. TX interval is normal. QRS interval is normal. cp QT interval is normal. T waves are Inverted in lead aVR. Interpreted by me. Reviewed by me. Administered Medications: 12/09 23:40 Drug: Ketorolac IVP 15 mg IVP once Route: IVP; Site: left forearm; kl 12/10 02:29 Drug: LORazepam PO 2 mg PO once Route: PO; cp4 03:26 Follow up: Response: No adverse reaction cp4 02:29 Drug: Furosemide IVP 20 mg IVP once; give over 2 minutes Route: IVP; Site: left cp4 antecubital; 03:26 Follow up: Response: No adverse reaction cp4 02:29 Drug: Magnesium Sulfate IVPB 1 grams IVPB once over 1 hrs Route: IVPB; Infused Over: 1 cp4 hrs; Site: left antecubital; 03:26 Follow up: IV Status: Completed infusion cp4 Disposition: 03:11 I was immediately available on-site in the Emergency Department for consultation in the ms3 care of the patient. Disposition Summary: 12/10/24 02:39 Hospitalization Ordered Notes: Hospitalization Status: Inpatient Admission cp Provider: Getachew Murcia cp Condition: Stable cp Problem: new cp Symptoms: have improved cp Bed/Room Type: Standard cp Location: Telemetry/MedSurg (Inpatient)(12/10/24 14:15) eb Room Assignment: [facility](12/10/24 14:15) eb Diagnosis - Unspecified combined systolic (congestive) and diastolic (congestive) heart failure cp - Pleural effusion in other conditions classified elsewhere cp - Dyspnea cp Forms: - Medication Reconciliation Form cp - SBAR form cp - Leadership Thank You Letter cp Signatures: Dispatcher [employer] Maya Conn RN RN kl Williams, Irene, RN RN iw Page, Corey, PA PA cp Botello, Elizabeth eb Sims, Marcus, DO DO ms3 Saima Martines rv1 Raegan Melgar cp4 Corrections: (The following items were deleted from the chart) 12/09 23:00 23:00 BASIC METABOLIC PANEL+C.LAB.BRZ ordered. EDMS EDMS 23:00 23:00 CBC+H.LAB.BRZ ordered. EDMS EDMS 23:00 23:00 HEPATIC FUNCTION+C.LAB.BRZ ordered. EDMS EDMS 23:00 23:00 MAGNESIUM+C.LAB.BRZ ordered. EDMS EDMS 23:00 23:00 PROBNP+C.LAB.BRZ ordered. EDMS EDMS 23:00 23:00 PROTIME (+INR)+COAG.LAB.BRZ ordered. EDMS EDMS 23:00 23:00 Troponin High Sensitivity+C.LAB.BRZ ordered. EDMS EDMS 23:00 23:00 UA Rfx Latrell Cult if indicated+U.LAB.BRZ ordered. EDMS EDMS 23:00 23:00 URINE DRUG SCREEN+UC.LAB.BRZ ordered. EDMS EDMS 12/10 03:31 02:39 Telemetry/MedSurg (Inpatient) cp rv1 03:31 02:39 cp rv1 14:15 03:31 [facility] ER HOLD rv1 eb 14: 03:31 ERHOLD- rv1 eb
--- NOTE | 2024-12-10 02:39 | ER ---
Nurse's Notes [facility] Name: Yenni Arce Age: 59 yrs Sex: Female : 1965 Arrival Date: 12/09/2024 Time: 21:33 Bed 16 Private MD: Diagnosis: Unspecified combined systolic (congestive) and diastolic (congestive) heart failure;Pleural effusion in other conditions classified elsewhere;Dyspnea Presentation: 12/09 22:51 Chief complaint: Patient states: magnesium was low, ad has swelling in her feet, and iw difficulty sleeping. Coronavirus screen: At this time, the client does not indicate any symptoms associated with coronavirus-19. Ebola Screen: No symptoms or risks identified at this time. Initial Sepsis Screen: Does the patient meet any 2 criteria? No. Patient's initial sepsis screen is negative. Does the patient have a suspected source of infection? No. Patient's initial sepsis screen is negative. Risk Assessment: Do you want to hurt yourself or someone else? Patient reports no desire to harm self or others. 22:51 Method Of Arrival: Wheelchair iw 22:51 Acuity: ROSA MARIA 3 iw 12/10 01:49 Note report to rosalinda melgar rn. kl Historical: - Allergies: 12/09 22:51 No Known Allergies; iw - PMHx: 22:51 Hypertensive disorder; iw - PSHx: 22:51 Cholecystectomy; iw - Immunization history:: Adult Immunizations not up to date. - Infectious Disease History:: Denies. - Social history:: Smoking status: Patient reports the use of cigarette tobacco products, smokes one pack cigarettes per day. Screenin:34 [facility] ED Fall Risk Assessment (Adult) History of falling in the last 3 months, including since admission No falls in past 3 months (0 pts) Confusion or Disorientation No (0 pts) Intoxicated or Sedated No (0 pts) Impaired Gait Yes (1 pt) Mobility Assist Device Used No (0 pt) Altered Elimination No (0 pt) Score/Fall Risk Level 0 - 2 = Low Risk Oriented to surroundings, Maintained a safe environment. Abuse screen: Denies threats or abuse. Nutritional screening: No deficits noted. Tuberculosis screening: No symptoms or risk factors identified. Assessment: 23:33 General: Appears comfortable, Behavior is cooperative. Pain: Complains of pain in kl bilateral hips and knees Pain currently is 9 out of 10 on a pain scale. Noted to be grimacing, guarding. Neuro: No deficits noted. Cardiovascular: No deficits noted. Respiratory: No deficits noted. GI: No deficits noted. No signs and/or symptoms were reported involving the gastrointestinal system. : No deficits noted. No signs and/or symptoms were reported regarding the genitourinary system. EENT: No deficits noted. No signs and/or symptoms were reported regarding the EENT system. Derm: No deficits noted. No signs and/or symptoms reported regarding the dermatologic system. Musculoskeletal: Reports generalized body pain due to arthritis. 12/10 00:21 Reassessment: Patient appears in no apparent distress at this time. No changes from previously documented assessment. Vital Signs: 12/09 22:50 BP 139 / 79; Pulse 96; Resp 16; Temp 97; Pulse Ox 95% on R/A; Weight 79.38 kg; Height 5 iw ft. 6 in. ; 12/10 02:16 BP 120 / 99; Pulse 82; Resp 18; Pulse Ox 98% ; cp4 03:00 BP 138 / 74; Pulse 83; Resp 18; Pulse Ox 97% ; cp4 04:00 BP 125 / 86; Pulse 85; Resp 18; Pulse Ox 97% ; cp4 12/09 22:50 Body Mass Index 28.25 (79.38 kg, 167.64 cm) iw ED Course: 12/09 21:37 Patient arrived in ED. im 21:45 Nick Ludwig PA is PHCP. cp 21:45 Carlos Manuel Walker DO is Attending Physician. cp 22:51 Triage completed. iw 22:52 Arm band placed on. iw 23:23 US Extremity Venous W Compression Micheal In Process Unspecified. EDMS 23:53 XRAY Chest (1 view) In Process Unspecified. EDMS 12/10 01:28 Inserted saline lock: 20 gauge in left antecubital area, using aseptic technique. Blood oh1 collected. Flushed with 10 mL NS. 01:28 Initial lab(s) drawn, by me, sent to lab. oh1 02:16 Raegan Melgar is Primary Nurse. cp4 02:37 Getachew Murcia MD is Hospitalizing Provider. cp 04:49 Bed in low position. Call light in reach. Side rails up X2. Provided Education on: cp4 admission. 04:49 No provider procedures requiring assistance completed. Patient admitted, IV remains in cp4 place. 11:19 Primary Nurse role handed off by Raegan Melgar Administered Medications: 12/09 23:40 Drug: Ketorolac IVP 15 mg IVP once Route: IVP; Site: left forearm; 12/10 02:29 Drug: LORazepam PO 2 mg PO once Route: PO; cp4 03:26 Follow up: Response: No adverse reaction cp4 02:29 Drug: Furosemide IVP 20 mg IVP once; give over 2 minutes Route: IVP; Site: left cp4 antecubital; 03:26 Follow up: Response: No adverse reaction cp4 02:29 Drug: Magnesium Sulfate IVPB 1 grams IVPB once over 1 hrs Route: IVPB; Infused Over: 1 cp4 hrs; Site: left antecubital; 03:26 Follow up: IV Status: Completed infusion cp4 Medication: 04:49 VIS not applicable for this client. cp4 Outcome: 02:39 Decision to Hospitalize by Provider. cp 04:49 Admitted to ER Hold. Please see [facility] for further documentation. cp4 04:49 Condition: stable 04:49 Instructed on the need for admit, 15:33 Patient left the ED. db Signatures: Dispatcher [employer] EDMS Maya Villasenor RN RN kl Williams, Irene, RN RN iw Page, Corey, PA PA Sarah Bloom RN RN ll1 Lizzeth Galan RN RN Jillian Steiner Christina cp4 Lauren Matthews oh1 Corrections: (The following items were deleted from the chart) 12/09 22:52 22:50 BP 139 / 79; Pulse 96bpm; Resp 16bpm; Pulse Ox 95% RA; Temp 97F; iw iw
[2024-12-10 03:32] LABS: Barbiturates NEGATIVE (NEGATIVE); Benzodiazepines NEGATIVE (NEGATIVE); Cocaine NEGATIVE (NEGATIVE); METHAMPHETAM NEGATIVE (NEGATIVE); Methadone NEGATIVE (NEGATIVE); Opiates POSITIVE (NEGATIVE); Phencyclidine NEGATIVE (NEGATIVE); THC Cannibis POSITIVE (NEGATIVE)
--- NOTE | 2024-12-10 03:53 | P.HP ---
Certification for Inpatient Patient admitted to: Inpatient With expected LOS: >2 Midnights Practitioner: I am a practitioner with admitting privileges, knowledge of patient current condition, hospital course, and medical plan of care. Services: Services provided to patient in accordance with Admission requirements found in Title 42 Section 412.3 of the Code of Federal Regulations Patient History Date of Service: 12/10/24 Reason for admission: SOB History of Present Illness: 59 yrs old Female presents to ER via Wheelchair with complaints of Abnormal Lab Results, and shortness of breath. Patient was found to have hypomagnesemia and was sent to ER. Patient also complains of shortness of breath especially when lying on back. Denies any chest pain. No nausea vomiting diarrhea. Symptoms began 2 days ago and has been progressively getting worse. She also has difficulty in sleeping especially when lying flat.. Patient reports recent discharge from hospital this past Thursday after admission for vomiting and diarrhea. Vomiting and diarrhea resolved and patient had f/u blood work this week by pcp. Patient was told to go to emergency department for low magnesium and low sodium. Patient c/o swelling in lower legs, insomnia and shortness of breath when lying flat. Patient was assessed in the ER and is admitted for further management of CHF exacerbation Allergies No Known Allergies Allergy (Unverified 12/10/24 04:11) Home medications list reviewed: Yes - Past Medical/Surgical History Past Medical History: Reviewed- Non-Contributory Past Surgical History: Reviewed- Non-Contributory - Social History Smoking Status: Never smoker Review of Systems 10-point ROS is otherwise unremarkable Physical Examination - Vital Signs Temperature: 98.2 F Blood Pressure: 103/76 Pulse: 78 Respirations: 18 Pulse Ox (%): 94 - Physical Exam General: Alert, Oriented x3, Mild distress HEENT: Atraumatic, Normocephalic Neck: Supple, 2+ carotid pulse no bruit Respiratory: Clear to auscultation bilaterally, Normal air movement Cardiovascular: Normal pulses, Regular rate/rhythm, Normal S1 S2 Capillary refill: <2 Seconds Gastrointestinal: Soft and benign, W/out hepatosplenomegaly Musculoskeletal: No clubbing, No swelling Integumentary: No rashes Neurological: Normal speech, Normal strength at 5/5 x4 extr, Cranial nerves 3-12 intact, Normal reflexes 2+ Lymphatics: No axilla or inguinal lymphadenopathy - Studies Laboratory Data (last 24 hrs) 12/09/24 12/09/24 23:34 23:34 WBC 8.90 Hgb 11.4 L Hct 33.6 L Plt Count 318 Sodium 139 Potassium 4.0 BUN 22 H Creatinine 1.06 H Glucose 123 H Magnesium 1.7 Total Bilirubin 0.3 AST 14 L ALT 32 Alkaline Phosphatase 87 Assessment and Plan - Plan Acute on chronic CHF possibly systolic/diastolic Monitor closely on telemetry Started on aggressive diuresis X-ray findings consistent with CHF Oxygen supplementation Will try to wean down oxygen requirement Continue home medications Titrate as needed Will obtain an echocardiogram Cardiology consult Hypomagnesemia Resolved Acute kidney injury Monitor renal parameters Electrolytes monitor and replace accordingly GI/DVT prophylaxis Advanced directive full code Discharge Plan: Home Plan to discharge in: 48 Hours - Advance Directives Does patient have a Living Will: No Does patient have a Durable POA for Healthcare: No - Code Status/Comfort Care Code Status: Full Code Time Spent Managing Pts Care (In Minutes): 48
[2024-12-10] MEDS ORDERED: ALBUTEROL 2.5 MG/3 ML NEB SOL NEB PRN (03:54)
[2024-12-10] MEDS ORDERED: ONDANSETRON 4 MG/2 ML VIAL IV PRN (03:54)
[2024-12-10 04:47] VITALS: BMI 28.2
[2024-12-10 06:28] LABS: PT Prothrombin Time 11.8 SECONDS (10-13.0)
[2024-12-10] MEDS ORDERED: ENOXAPARIN 40 MG/0.4 ML SQ ONE (07:44)
[2024-12-10] MEDS: LORazepam 2 MG/ML VIAL IV ONE (08:23)
[2024-12-10] MEDS: MAGNESIUM SULFATE 1 gm IVPB 1 GM/100 ML BAG IV ONE (08:30)
--- NOTE | 2024-12-10 08:33 | RAD REPORT ---
EXAMINATION: CTA CHEST PE CLINICAL INDICATION: Female, 59 years old. SOB TECHNIQUE: This examination was performed according to an angiographic protocol with 3D post-processi ng. This involves 3D reconstructions, MIPs, volume rendered images and/or shaded surface rendering. One or more of the following dose reduction techniques were used: Automated exposure control, adjustm ent of the mA and/or kV according to patient size, and/or iterative reconstruction. Unless otherwise specified, incidental findings do not require dedicated imaging follow-up. [id number]. COMPARISON: Yesterday chest radiograph FINDINGS: LOWER NECK: Visualized thyroid gland and soft tissues are normal. MEDIASTINUM AND LYMPH NODES: No mediastinal mass or fluid collection. Normal size mediastinal, hilar, and axillary lymph nodes. Diffuse esophageal wall thickening. THORACIC AORTA: No thoracic aortic aneurysm. PULMONARY ARTERIES: Caliber is within normal limits. No pulmonary emboli identified to the level of t he segmental pulmonary arteries. The subsegmental pulmonary arteries cannot be adequately assessed due to motion/suboptimal contrast opacification. HEART: Normal heart size. No coronary calcifications.No significant pericardial effusion. LUNGS AND AIRWAYS: Atelectasis is present in both lung bases. Eventration of the right hemidiaphragm. Motion artifact limits evaluation for pulmonary nodule detection. PLEURA: No pleural effusions. No pneumothorax. OSSEOUS STRUCTURES AND CHEST WALL: No fracture or suspicious osseous lesions. UPPER ABDOMEN: No acute abnormalities.Cholecystectomy IMPRESSION: Negative for pulmonary embolism to the level of the segmental pulmonary arteries. The subsegmental ve ssels cannot be adequate assessed due to motion. Atelectasis present in the lung bases. No evidence of edema or pneumonia.
[2024-12-10] MEDS: FUROSEMIDE 20 MG/ 2ML VIAL IV SCH (08:55)
[2024-12-10] MEDS: ENOXAPARIN 40 MG/0.4 ML SQ SCH (08:55)
[2024-12-10] MEDS: ALPRAZOLAM 0.5 MG TABLET PO ONE (19:32)
[2024-12-10] MEDS: PSYLLIUM 1 PKT PO SCH (19:46)
--- NOTE | 2024-12-10 21:30 | P.PN ---
Date of Service: 12/10/24 Subjective Patient doing well but really anxious. At requested anxiolytics. Otherwise, patient with a history of abdominal issues after laparoscopic cholecystectomy at [facility]. Patient is overall feeling a little bit better. However workup for congestive heart failure pending. Physical Examination - Vital Signs Reviewed - Physical Exam General: Alert, Oriented x3, Mild distress Cardiovascular: Normal pulses, Regular rate/rhythm, Normal S1 S2 Gastrointestinal: Soft and benign, W/out hepatosplenomegaly Musculoskeletal: No clubbing, No swelling Integumentary: No rashes Neurological: Normal speech, Normal strength at 5/5 x4 extr, Cranial nerves 3-12 intact, Normal reflexes 2+ Assessment and Plan -Assessment/Plan Assessment/plan 1. Heart failure with preserved ejection fraction; continue with diuretics and strict blood pressure control. 2. History of abdominal complaints secondary to laparoscopic cholecystectomy; continue with supportive care 3. History of hypertension; resume antihypertensive 4. History anxiety disorder; continue with anxiety 5. Hypomagnesemia 6; resolved 6 . Acute kidney injury; continue with IV hydration and renal ultrasound pending Monitor renal parameters Electrolytes monitor and replace accordingly GI/DVT prophylaxis Advanced directive full code Discharge Plan: Home Plan to discharge in: 48 Hours - Advance Directives Does patient have a Living Will: No Does patient have a Durable POA for Healthcare: No - Code Status/Comfort Care Code Status: Full Code Time Spent Managing Pts Care (In Minutes): 48
[2024-12-11] MEDS: TEMAZEPAM 15 MG CAP PO PRN (01:05)
[2024-12-11 04:25] LABS: Absolute Eosinophils 0.2 K/uL (0-0.5); Absolute Lymphocytes (CBC) 1.3 K/uL (0.7-4.9); Absolute Monocytes 0.7 K/uL (0.1-1.3); Absolute Neutrophil 6.3 K/uL (1.8-8.0); Basophils % 0.3 % (0-1.3); Eosinophils % 1.8 % (0-4.4); Hemoglobin 11.1 g/dL (12.0-15.0); Lymphocytes % 15.4 % (15.3-44.8); MCHC 33.7 g/dL (32.0-36.0); Monocytes % 8.2 % (3.3-12.3); Neutrophils % 74.3 % (41.7-73.7); Nucleated Red Blood Cells % 0.1 % (0-0); Platelets 301 thou/uL (152-406); RBC Red Blood Cell Count 3.71 M/uL (3.86-4.86); Red Cell Distribution Width 14.2 % (12.1-15.2)
[2024-12-11 04:37] LABS: Potassium 4.1 mEq/L (3.5-5.1); Sodium Level 140 mEq/L (136-145)
[2024-12-11 04:40] LABS: Albumin 2.6 g/dL (3.4-5.0); Anion Gap 6.1 mEq/L (5.0-15.0); BUN Blood Urea Nitrogen 22 mg/dL (7-18); Bicarbonate 33 mEq/L (21-32); Glucose Level 110 mg/dL (74-106)
[2024-12-11 04:43] LABS: ALT/SGPT 23 U/L (13-56); Bilirubin Total 0.4 mg/dL (0.2-1.0); Glomerular Filtration Rate 70 ml/min (=/>90)
[2024-12-11 04:45] LABS: Albumin/Globulin Ratio 0.7 (1.1-1.8); Alkaline Phosphatase 85 U/L (45-117); Globulin 3.6 g/dL (2.3-3.5); Protein, Total 6.2 g/dL (6.4-8.2)
[2024-12-11 05:10] LABS: AST/SGOT < 10 U/L (15-37)
[2024-12-11] MEDS ORDERED: ALBUTEROL 2.5 MG/3 ML NEB SOL NEB PRN (08:07)
[2024-12-11] MEDS ORDERED: FUROSEMIDE 20 MG TABLET PO SCH (09:00)
[2024-12-11] MEDS: NICOTINE 14 MG/PAT TD SCH (09:22)
[2024-12-11] MEDS: FUROSEMIDE 20 MG/ 2ML VIAL IV SCH (09:22)
--- NOTE | 2024-12-11 11:46 | P.CNS ---
Date of Consult: 12/11/24 Chief Complaint: SOB History of Present Illness: Patient with PMH of HTN, presented with worsening SOB, DAVILA, orthopnea, denies chest pain, no syncope, no palpitations. Allergies No Known Allergies Allergy (Unverified 12/10/24 04:11) Home medications list reviewed: Yes Home Medications: buPROPion HCL [Wellbutrin Xl] 1 tab PO DAILY 12/10/24 - Social History Smoking Status: Current every day smoker Review of Systems 10-point ROS is otherwise unremarkable Physical Examination Temp Pulse Resp BP Pulse Ox 97.6 F 80 14 145/63 H 96 12/11/24 08:00 12/11/24 09:22 12/11/24 08:00 12/11/24 09:22 12/11/24 08:00 General: Alert, In no apparent distress HEENT: Atraumatic, PERRLA, Mucous membr. moist/pink, EOMI, Sclerae nonicteric Neck: Supple, 2+ carotid pulse no bruit, No LAD, Without JVD or thyroid abnormality Respiratory: Clear to auscultation bilaterally, Normal air movement Cardiovascular: Regular rate/rhythm, Normal S1 S2 Gastrointestinal: Normal bowel sounds, No tenderness Musculoskeletal: No tenderness Integumentary: No rashes Neurological: Normal gait, Normal speech, Normal tone, Normal affect Lymphatics: No axilla or inguinal lymphadenopathy - Problems (1) SOB (shortness of breath) Current Visit: Yes Status: Acute Plan: agree with Lasix 20 mg IV BID Continue to monitor input and output and electrolytes get Echo.
[2024-12-11] MEDS: ACETAMINOPHEN 325 MG TABLET PO PRN (12:16)
--- NOTE | 2024-12-12 04:05 | P.PN ---
Date of Service: 12/11/24 Subjective Patient doing well but really anxious. At requested anxiolytics. Otherwise, patient with a history of abdominal issues after laparoscopic cholecystectomy at [facility]. Patient is overall feeling a little bit better. However workup for congestive heart failure pending. Echocardiogram to be done in the morning. As long as this looks good and hopefully patient can discharge with outpatient follow-up. Physical Examination - Vital Signs Reviewed - Physical Exam General: Alert, Oriented x3, Mild distress Cardiovascular: Normal pulses, Regular rate/rhythm, Normal S1 S2 Lungs: basilar crackles Gastrointestinal: Soft and benign, W/out hepatosplenomegaly Musculoskeletal: No clubbing, No swelling Integumentary: No rashes Neurological: No focal deficits Assessment and Plan -Assessment/Plan Assessment/plan 1. Heart failure with preserved ejection fraction; continue with diuretics and strict blood pressure control. 2. History of abdominal complaints secondary to laparoscopic cholecystectomy; continue with supportive care 3. History of hypertension; resume antihypertensive 4. History anxiety disorder; continue with anxiety 5. Hypomagnesemia; resolved 6 . Acute kidney injury; continue with IV hydration and renal ultrasound pending Monitor renal parameters Electrolytes monitor and replace accordingly GI/DVT prophylaxis Advanced directive full code Discharge Plan: Home Plan to discharge in: 48 Hours - Advance Directives Does patient have a Living Will: No Does patient have a Durable POA for Healthcare: No - Code Status/Comfort Care Code Status: Full Code Time Spent Managing Pts Care (In Minutes): 48
[2024-12-12] MEDS: FUROSEMIDE 20 MG TABLET PO SCH (08:31)
--- NOTE | 2024-12-12 10:49 | P.PN ---
Subjective Date of Service: 12/12/24 Chief Complaint: SOB Subjective: No new changes, No C/O voiced, Tolerating diet, Ambulating, Improving Review of Systems 10-point ROS is otherwise unremarkable Physical Examination - Vital Signs Temperature: 98 F Blood Pressure: 142/70 Pulse: 84 Respirations: 14 Pulse Ox (%): 95 - Physical Exam General: Alert, In no apparent distress HEENT: Atraumatic, PERRLA, EOMI Neck: Supple, JVD not distended Respiratory: Clear to auscultation bilaterally, Normal air movement Cardiovascular: Regular rate/rhythm, Normal S1 S2 Gastrointestinal: Normal bowel sounds, No tenderness Musculoskeletal: No tenderness Integumentary: No rashes Neurological: Normal speech, Normal tone, Normal affect Lymphatics: No axilla or inguinal lymphadenopathy - Studies Medications List Reviewed: Yes Assessment And Plan - Current Problems (Diagnosis) (1) SOB (shortness of breath) Current Visit: Yes Status: Acute Plan: agree with switching lasix to 20 mg po bid Continue to monitor input and output and electrolytes Echo pending.
--- NOTE | 2024-12-12 12:30 | P.PN ---
Date of Service: 12/12/24 Subjective: having loose watery stools very anxious restless at night, PCP didn't prescribe insomnia meds SOB worsened when laying flat afebrile Physical Exam: Gen: Alert, Orientedx3, very anxious CV: Regular rate and rhythm, no edema Pulm: Nonlabored respirations on 2L NC, basilar crackles Abdomen: Soft, nontender, nondistended Integumentary: No rashes Neuro: Normal strength, normal affect Problem List: Shortness of breath, unclear etiology Abdominal pain secondary to recent lap harjinder Diffuse esophageal wall thickening PAM, resolved Anxiety Hypertension Shortness of breath, unclear etiology on admission, presents with worsening SOB, abnormal labs (Hypomagnesemia). SOB worsened when laying flat. CTA chest negative for PE. No evidence of edema or pneumonia. Bilateral Atelectasis. Diffuse esophageal wall thickening Venous u/s negative for DVT in lower extremities bilaterally CXR: cardiomegaly with tiny bilateral pleural effusions Cardiology is following wean oxygen as tolerated Monitor on telemetry 12/12 - IV lasix deescalated to oral lasix 20 mg BID Echo ordered to eval EF / stenosis; was unable to be done over the weekend Abdominal pain secondary to recent lap harjinder Diffuse esophageal wall thickening recently had lap harjinder at [facility] pain control, antiemetics Tox screen positive for opiates, THC UA unremarkable PAM, resolved Hypomagnesemia, resolved continue to monitor renal function IV lasix deescalated to oral lasix mild PAM resolved Anxiety Pt with significant anxiety. States she hasn't been able to sleep well at night and her PCP hasn't prescribed anything for insomnia she was referred to psych however the provider was not in network asking for anxiolytics PRN temazepam as needed for anxiety Hypertension confirm home meds, restart as appropriate VTE: Lovenox Code: Full Dispo: Home Pending echo, cardiac recs
[2024-12-13] MEDS: CELECOXIB 100 MG CAPSULE PO SCH (05:18)
--- NOTE | 2024-12-13 07:00 | ECHO ---
HEIGHT: 5 ft 6 in WEIGHT: 175 lb 0 oz DATE OF STUDY: 12/12/[address]: Roney Murcia DO 2-DIMENSIONAL: YES M.MODE: YES DOPPLER: YES COLOR FLOW: YES TDS: PORTABLE: YES DEFINITY: BUBBLE STUDY: DIAGNOSIS: CONGESTIVE HEART FAILURE CARDIAC HISTORY: CATHERIZATION: NO SURGERY: NO PROSTHETIC VALVE: NO PACEMAKER: NO MEASUREMENTS (cm) DIASTOLIC (NORMALS) SYSTOLIC (NORMALS) IVSd 1.0 (0.6-1.2) LA Diam 2.3 (1.9-4.0) LVEF 60-65% LVIDd 3.4 (3.5-5.7) LVIDs 2.0 (2.0-3.5) %FS 41% LVPWd 1.2 (0.6-1.2) Ao Diam 2.7 (2.0-3.7) 2 DIMENSIONAL ASSESSMENT: RIGHT ATRIUM: NORMAL LEFT ATRIUM: NORMAL RIGHT VENTRICLE: NORMAL LEFT VENTRICLE: NORMAL TRICUSPID VALVE: TRACE TRICUSPID REGURGITATION MITRAL VALVE: NORMAL PULMONIC VALVE: NOT SEEN AORTIC VALVE: NORMAL PERICARDIAL EFFUSION: NONE AORTIC ROOT: NORMAL LEFT VENTRICULAR WALL MOTION: NORMAL DOPPLER/COLOR FLOW: DIASTOLIC DYSFUNCTION COMMENTS: 1. NORMAL LEFT VENTRICULAR SYSTOLIC FUNCTION, EJECTION FRACTION 60-65%, NORMAL WALL MOTION 2. DIASTOLIC DYSFUNCTION 3. INFERIOR VENA CAVA NOT WELL VISUALIZED TECHNOLOGIST: DARREN LEO
[2024-12-13 07:46] VITALS: TEMP 97.8
[2024-12-13 12:28] VITALS: BP 110/66
--- NOTE | 2024-12-13 14:10 | P.PN ---
Subjective Date of Service: 12/13/24 Chief Complaint: SOB Subjective: No new changes, No C/O voiced, Tolerating diet, Ambulating, Improving Review of Systems 10-point ROS is otherwise unremarkable Physical Examination - Vital Signs Temperature: 97.8 F Blood Pressure: 110/66 Pulse: 95 Respirations: 16 Pulse Ox (%): 95 - Physical Exam General: Alert, In no apparent distress HEENT: Atraumatic, PERRLA, EOMI Neck: Supple, JVD not distended Respiratory: Clear to auscultation bilaterally, Normal air movement Cardiovascular: Regular rate/rhythm, Normal S1 S2 Gastrointestinal: Normal bowel sounds, No tenderness Musculoskeletal: No tenderness Integumentary: No rashes Neurological: Normal speech, Normal tone, Normal affect Lymphatics: No axilla or inguinal lymphadenopathy - Studies Medications List Reviewed: Yes Assessment And Plan - Current Problems (Diagnosis) (1) SOB (shortness of breath) Current Visit: Yes Status: Acute Plan: agree with switching lasix to 20 mg po bid start patient on HCTZ 25 mg daily KCL 10 meq po daily Echo shows normal LV systolic function.
[2024-12-13 14:32] VITALS: O2SAT 95
--- NOTE | 2024-12-13 14:37 | P.DS ---
Admission Date: 12/10/24 Discharge Date: 12/13/24 Reason for Admission: SOB Brief History of Present Illness: Diagnosis Shortness of breath, unclear etiology Diastolic dysfunction Trace tricuspid regurgitation Abdominal pain secondary to recent lap harjinder Diffuse esophageal wall thickening PAM, resolved Anxiety Hypertension HPI 12/10/2024 59 yrs old Female presents to ER via Wheelchair with complaints of Abnormal Lab Results, and shortness of breath. Patient was found to have hypomagnesemia and was sent to ER. Patient also complains of shortness of breath especially when lying on back. Denies any chest pain. No nausea vomiting diarrhea. Symptoms began 2 days ago and has been progressively getting worse. She also has difficulty in sleeping especially when lying flat.. Patient reports recent discharge from hospital this past Thursday after admission for vomiting and diarrhea. Vomiting and diarrhea resolved and patient had f/u blood work this week by pcp. Patient was told to go to emergency department for low magnesium and low sodium. Patient c/o swelling in lower legs, insomnia and shortness of breath when lying flat. Patient was assessed in the ER and is admitted for further management of CHF exacerbation. Hospital Course: Shortness of breath, unclear etiology Diastolic dysfunction Trace mitral regurgitation Patient was seen by cardiology, added some medications for diuresis at home CTA chest negative for PE. No evidence of edema or pneumonia. Bilateral Atelectasis. Diffuse esophageal wall thickening Venous u/s negative for DVT in lower extremities bilaterally CXR: cardiomegaly with tiny bilateral pleural effusions Patient was weaned off oxygen nasal cannula Patient was monitored on telemetry with no arrythmias noted Patient tolerated IV lasix which deescalated to oral lasix 20 mg BID, will discharge with Lasix 20mg twice daily Echo reports "diastolic dysfunction, trace mitral regurgitation, EF 60-65%" Abdominal pain secondary to recent lap harjinder Diffuse esophageal wall thickening Patient reports recent lap harjinder at [facility] Tox screen positive for opiates, THC UA unremarkable PAM, resolved Hypomagnesemia, resolved monitor renal function, PAM resolved Anxiety Pt with significant anxiety. States she hasn't been able to sleep well at night and her PCP hasn't prescribed anything for insomnia she was referred to psych however the provider was not in network Tolerated PRN temazepam for anxiety Hypertension No home medications Blood pressure stable On 12/13/24, Yenni was seen on morning rounds hemodynamically stable. Dr. Khan has evaluted her this morning and cleared her for discharge and follow up in the clinic. Hydrochlorothiazide, Lasix, and potassium prescribed. Physical Exam: Gen: Orientedx3, very anxious CV: Regular rate and rhythm, no edema Pulm: Nonlabored respirations, on RA Abdomen: Soft and nontender on palpation Integumentary: No rashes Neuro: Normal strength, normal affect <Saray Santana - Last Filed: 12/13/24 14:17> Admission Date: 12/10/24 Discharge Date: 12/13/24 <Rashid Knutson - Last Filed: 12/13/24 16:17> Disposition: ROUTINE DISCHARGE Discharge Condition: GOOD Vital Signs/Physical Exam: Temp Pulse Resp BP Pulse Ox 97.8 F 95 H 16 110/66 95 12/13/24 14:10 12/13/24 14:10 12/13/24 14:10 12/13/24 14:10 12/13/24 14:10 Laboratory Data at Discharge: WBC 8.50 thou/uL (4.3-10.9) 12/11/24 05:00 Hgb 11.1 g/dL (12.0-15.0) L 12/11/24 05:00 Hct 33.0 % (36.0-45.0) L 12/11/24 05:00 Plt Count 301 thou/uL (152-406) 12/11/24 05:00 PT 11.8 SECONDS (10-13.0) 12/09/24 23:34 INR 1.00 12/09/24 23:34 Sodium 140 mEq/L (136-145) 12/11/24 05:00 Potassium 4.1 mEq/L (3.5-5.1) 12/11/24 05:00 BUN 22 mg/dL (7-18) H 12/11/24 05:00 Creatinine 0.94 mg/dL (0.55-1.02) 12/11/24 05:00 Glucose 110 mg/dL (74-106) H 12/11/24 05:00 Magnesium 1.7 mg/dL (1.6-2.4) 12/09/24 23:34 Total Bilirubin 0.4 mg/dL (0.2-1.0) 12/11/24 05:00 AST < 10 U/L (15-37) L 12/11/24 05:00 ALT 23 U/L (13-56) 12/11/24 05:00 Alkaline Phosphatase 85 U/L (45-117) 12/11/24 05:00 <Saray Santana - Last Filed: 12/13/24 14:17> Vital Signs/Physical Exam: Temp Pulse Resp BP Pulse Ox 97.8 F 95 H 16 110/66 95 12/13/24 14:10 12/13/24 14:10 12/13/24 14:10 12/13/24 14:10 12/13/24 14:10 Laboratory Data at Discharge: WBC 8.50 thou/uL (4.3-10.9) 12/11/24 05:00 Hgb 11.1 g/dL (12.0-15.0) L 12/11/24 05:00 Hct 33.0 % (36.0-45.0) L 12/11/24 05:00 Plt Count 301 thou/uL (152-406) 12/11/24 05:00 PT 11.8 SECONDS (10-13.0) 12/09/24 23:34 INR 1.00 12/09/24 23:34 Sodium 140 mEq/L (136-145) 12/11/24 05:00 Potassium 4.1 mEq/L (3.5-5.1) 12/11/24 05:00 BUN 22 mg/dL (7-18) H 12/11/24 05:00 Creatinine 0.94 mg/dL (0.55-1.02) 12/11/24 05:00 Glucose 110 mg/dL (74-106) H 12/11/24 05:00 Magnesium 1.7 mg/dL (1.6-2.4) 12/09/24 23:34 Total Bilirubin 0.4 mg/dL (0.2-1.0) 12/11/24 05:00 AST < 10 U/L (15-37) L 12/11/24 05:00 ALT 23 U/L (13-56) 12/11/24 05:00 Alkaline Phosphatase 85 U/L (45-117) 12/11/24 05:00 <Rashid Knutson - Last Filed: 12/13/24 16:17> Diet: AHA <Saray Santana Last Filed: 12/13/24 14:17> Physician Review: Patient Assessed, Agree with Above Assessment and Plan <EamonOnel oviedowilma - Last Filed: 12/13/24 16:17> Home Medications: buPROPion HCL [Wellbutrin Xl] 1 tab PO DAILY 12/10/24 Furosemide [Lasix] 20 mg PO BIDL 30 Days #60 tab 12/13/24 Potassium Oral Tab [Klor-Con 10 mEq Tab*] 10 meq PO DAILY 30 Days #30 tab 12/13/24 hydroCHLOROthiazide [Hydrochlorothiazide] 25 mg PO DAILY 30 Days #30 tab 12/13/24 New Medications: hydroCHLOROthiazide [Hydrochlorothiazide] 25 mg PO DAILY 30 Days #30 tab Potassium Oral Tab [Klor-Con 10 mEq Tab*] 10 meq PO DAILY 30 Days #30 tab Furosemide [Lasix] 20 mg PO BIDL 30 Days #60 tab Physician Discharge Instructions: 1. Please call and schedule a follow-up appointment with your PCP in 3-5 days - Please follow-up with your PCP for medication refills/adjustments 2. Please call and schedule a follow-up appointment with Dr. Khan, cardiology in one week 3. Continue heart healthy diet 4. No activity restrictions 5. Return to the ED if symptoms worsen New medications Hydrochlorothiazide 25 mg daily Lasix 20 mg twice daily Potassium chloride 10 mEq daily Followup: Cong Khan MD [ACTIVE - CAN ADMIT] - 1 Week Rehana Sanchez FNP [Primary Care Provider] - (3 to 5 days)
--- NOTE | 2024-12-20 12:58 | EKG ---
Test Date: 2024-12-10 Test Time: 02:21:13 [employer] Operator: ELVIRA MEASUREMENT RESULTS: Intervals: Rate: 82 LA: 130 QRSD: 76 QT: 402 QTc: 469 [place]: P: 57 LA: 130 QRS: 48 T: 66 INTERPRETIVE STATEMENTS: Normal sinus rhythm Normal ECG Compared to ECG 10/13/2010 13:25:52 No significant changes Electronically Signed On 12-20-24 12:36:36 CDT by Cong Khan
== END 2024-12-13 15:20 | disposition home or self-care (01) | DRG 291 ==
LOC: ER 21:33 → ERHOLD 12-10 03:54 → 4TH 12-10 15:31
PROVIDERS: ADMIT Family Medicine; ATTEND Family Medicine
DX: I11.0 Hypertensive heart disease with heart failure (principal); I50.33 Acute on chronic diastolic (congestive) heart failure; N17.9 Acute kidney failure, unspecified; E83.42 Hypomagnesemia; F41.9 Anxiety disorder, unspecified; I07.1 Rheumatic tricuspid insufficiency; F17.210 Nicotine dependence, cigarettes, uncomplicated; Z90.49 Acquired absence of other specified parts of digestive tract
CPT/HCPCS: 36415; 71045; 71275; 80048; 80053; 80076; 80307; 81001; 83735; 83880; 84484; 85025; 85610; 93005; 93306; 93970; 94760; 99285; J1650; J1938; J3475; Q9967

== ENCOUNTER 2025-05-15 22:48 | Emergency (ER) | payer OTHER ==
--- OUTSIDE RECORDS SUMMARY | 2025-05-15 22:59 | XMS REPORT | Continuity of Care Document ---
Author Name Unknown Address [address] [facility] [address] [place] [address] [facility] [place] Address [address] [facility] [place] [address] Care Team Providers Care Senior Patient Account Representative Name Role Phone FIONA SANCHEZ Primary Care Physician ROSE Garcia Attending Clinician UnavailMARISELA Michelle Attending Clinician Unavailab FIONA Xiong Attending Clinician Unavailab john NICHOLAS MD Attending Clinician Unavailab DANIEL Salmeron Attending Clinician Un available ZECHARIAH COOK Attending Clinician Unavailable FRERDICK GALVEZ Attending Clinician Unavailable BETH GARCIA Attending Clinician Unavailable BETH GARCIA Attending Clinician Unavailable MARY JOHNSON Attending Clinician UnavailPRUDENCE Sandoval Attending Clinician Unavailable LAB90 Attending Clinician Unavailable Aye Sandoval RN Attending Clinician [phone] Sandy FLORES Attending Clinician Unavailable Sandy FLORES Attending Clinician Unavailable HIPOLITO POE Attending Clinician UnavailBerta Rojo MD Attending Clinician + Hipolito Poe MD Attending Clinician + [phone] LAUREL GUARDADO Attending Clinician Unavailable Abhay Bond MD, Winter Attending Clinician +[phone] Flavio Mills MD Attending Clinician + Laurel Guardado MD Attending Clinician + LAB47 Attending Clinician Unavailable SEBLE GARZA Attending Clinician Unasheela [employer], Generic Provider Attending Clinician Unavailable KAYLI HOLGUIN Attending Clinician Unavailable KAYLI HOLGUIN Attending Clinician Unavailable Flavia Denise MD Attending Clinician + [phone] FLAVIA DENISE Attending Clinician Unavailable OLYA CALHOUN Attending Clinician Unavailable Berta Uribe MD Attending Clinician + Olya Calhoun DO Attending Clinician +[phone] ROB CALDERA Attending Clinician Unavaila ROB Mcmillan Attending Clinician Unavaila cait Pob, [facility] Attending Clinician UnavailVERONICA Meng Attending Clinician Unavailable Veronica Galan MD Attending Clinician [phone] Doctor Unassigned, [place] Attending Clinician U navailable Amaya Durand Attending Clinician +[phone] CANDIDO KRUEGER Attending Clinician Unavailable Candido Krueger DO Attending Clinician + ANIBAL CHINCHILLA Attending Clinician Unav Anibal Mcneil MD Attending Clinician + SOREN LEO Attending Clinician Unavailab BETH Carpenter Admitting Clinician Unavailable Sandy FLORES Admitting Clinician Unavailable HIPOLITO POE Admitting Clinician UnavailHipolito Holley MD Admitting Clinician + [phone] LAUREL GUARDADO Admitting Clinician Unavailable Laurel Guardado MD Admitting Clinician +[phone] Sandy FLORES Admitting Clinician Unavailable OLYA CALHOUN Admitting Clinician Unavailable Olya Calhoun DO Admitting Clinician AMAYA TINOCO Admitting Clinician Unavailable ANIBAL CHINCHILLA Admitting Clinician SOREN Bright Admitting Clinician Unavail le Payers Payer Name Policy Type Policy Number Effective Date Expirati on Date Source SILVER 5 [employer] 94 9 [id number] 2024 00:00:00 AEERWIN W/ GRACE JON OON [id number] 2024 00:00:00 [place] [address] [id number] 2017 00:00:00 [facility] Problems Condition Name Condition Details Condition Category Status Onset Date Resolution Date Last Treatment Date Treating Clinician Comments Source CHF exacerbati on CHF exacerbati on Disease Active 12-15 00:00: 00 Grace Jon - Juan Ma willam Tobacco use disorder Tobacco use disorder Disease Active 12-15 00:00: 00 Grace Jon - Externa willam Hospital discharge follow-up Hospital discharge follow-up Disease Active 12-07 00:00: 00 Grace Jon - Externa willam PNA (pneumonia ) PNA (pneumonia ) Disease Active 12-07 00:00: 00 Grace Jon - Externa willam Vomiting and diarrhea Vomiting and diarrhea Disease Active 11-30 00:00: 00 [facility] Abdominal pain, unspecifie d abdominal location Abdominal pain, unspecifie d abdominal location Disease Active 08 00:00: 00 [facility] Encounter for screening for human papillomav irus (HPV) Encounter for screening for human papillomav irus (HPV) Disease Active 04-14 00:00: 00 Grace Arana Externa willam History of diverticul itis History of diverticul itis Disease Active 04-14 00:00: 00 Grace Arana Externa willam Primary hypertensi on Primary hypertensi on Disease Active 03-16 00:00: 00 Grace Arana Externa willam Seasonal allergies Seasonal allergies Disease Active 03-16 00:00: 00 Grace Seybold - Externa l Vomiting, unspecifie d vomiting type, unspecifie d whether nausea present Vomiting, unspecifie d vomiting type, unspecifie d whether nausea present Disease Active 03-01 00:00: 00 [facility] Obesity (BMI 30-39.9) Obesity (BMI 30-39.9) Disease Active 03-01 00:00: 00 [facility] Gallstones Gallstones Disease Active 03-01 00:00: 00 [facility] Routine gynecologi mily examinatio n Routine gynecologi mily examinatio n Disease Active 2021-07 00:00: 00 [facility] Urinary incontinen ce in female Urinary incontinen ce in female Disease Active 2021-07 00:00: 00 [facility] BMI 32.0-32.9, adult BMI 32.0-32.9, adult Disease Active 2021-07 00:00: 00 [facility] Absence of menstruati on Absence of menstruati on Disease Active 2021-07 00:00: 00 [facility] Uterovagin al prolapse, complete Uterovagin al prolapse, complete Disease Active 2021-07 00:00: 00 [facility] Allergic rhinitis Allergic rhinitis Disease Active 2021-07 00:00: 00 [facility] Anxiety Anxiety Disease Active 2021-07 00:00: 00 [facility] Diverticul osis of colon without diverticul itis Diverticul osis of colon without diverticul itis Disease Active 2021-07 00:00: 00 [facility] Gastroesop hageal reflux disease Gastroesop hageal reflux disease Disease Active 2021-07 00:00: 00 [facility] Headache Headache Disease Active 2021-07 00:00: 00 [facility] Major depressive disorder, single episode, unspecifie d Major depressive disorder, single episode, unspecifie d Disease Active 2021-07 00:00: 00 [facility] Mixed anxiety and depressive disorder Mixed anxiety and depressive disorder Disease Active 2021-07 00:00: 00 [facility] Pain in left knee Pain in left knee Disease Active 2021-07 00:00: 00 [facility] Swelling Swelling Disease Active 2021-07 00:00: 00 [facility] Urinary incontinen ce Urinary incontinen ce Disease Active 2021-07 00:00: 00 [facility] Uterovagin al prolapse Uterovagin al prolapse Disease Active 2021-07 00:00: 00 [facility] Vitamin deficiency Vitamin deficiency Disease Active 2021-07 00:00: 00 [facility] Continuous urine leakage Continuous urine leakage Disease Active 2021-07 00:00: 00 [facility] No known active problems No known active problems Disease [facility] [id number] Left knee pain, unspecifie d chronicity Problem [facility] [id number] Gastroesop hageal reflux disease without esophagiti s Problem [facility] Dysthymia Dysthymic disorder Problem [facility] [id number] Screening mammogram, encounter for Problem [facility] Swelling Swelling Problem [facility] Screening for malignant neoplasm of breast Encounter for screening for malignant neoplasm of breast Problem [facility] Depression Depression Problem [facility] History of substance abuse History of substance abuse Disease Active Grace Arana Externa l Allergies, Adverse Reactions, Alerts Allergy Name Allergy Type Status Severity Reaction(s) Onset Date Inactive Date Treating Clinician Comments Source Seasonal Ic Propensi ty to adverse reaction s Active Cough, Itching, Runny Nose 03-16 00:00: 00 Grace quarles NO KNOWN ALLERGIE S Drug Class Active [facility] Social History Social Habit Start Date Stop Date Quantity Comments Source Sexual orientation 2024-09-29 09:26:03 Heterosexual (finding) Grace Jon - External Gender identity 2024-09-29 09:26:03 Identifies as female gender (finding) Grace Jon - External History of tobacco use Cigarette Smoker [facility] ASSERTION Not [facility] History of Social function 2025-04-17 00:00:00 2025-04-17 00:00:00 Grace Jon - External Alcoholic beverage intake 2025-02-17 00:00:00 2025-02-17 00:00:00 Current drinker of alcohol (finding) [facility] Tobacco use and exposure 2024-11-30 00:00:00 2024-11-30 00:00:00 Smokeless tobacco non-user [facility] Cigarettes smoked current (pack per day) - Reported 2024-11-30 00:00:00 2024-11-30 00:00:00 [facility] Cigarette pack-years 2024-11-30 00:00:00 2024-11-30 00:00:00 [facility] Sex 2024-02-03 21:43:28 2024-02-03 21:43:28 Female (finding) Grace Jon - External Alcohol intake 2023-03-23 00:00:00 2023-03-23 00:00:00 Current drinker of alcohol (finding) [facility] Tobacco Comment 2023-03-01 00:00:00 2023-03-01 00:00:00 Recently russ [facility] Exposure to SARS-CoV-2 (event) 2022-07-01 00:00:00 2022-07-11 12:09:00 Not sure [facility] Alcohol Comment 2022-07-11 00:00:00 2022-07-11 00:00:00 rarely [facility] Sex assigned at 1965 00:00:00 1965 00:00:00 Tayler Jon - External Smoking Status Start Date Stop Date Source Smokes tobacco daily 2024-03-16 00:00:00 Grace Jon - External Ex-smoker 2023-03-01 00:00:00 2023-03-01 00:00:00 [facility] Tobacco smoking consumption unknown [facility] Never Smoker [facility] Medications Ordered Medication Name Filled Medication Name Start Date Stop Date Current Medication? Ordering Clinician Indication Dosage Frequency Signature (SIG) Comments Components Source Azithromyci n 250 MG oral Tablet Azithromyci n 250 MG oral Tablet 2024-07 00:00: 00 05-07 23:59 :00 No [id number] Take 2 tablets by mouth on day 1 then 1 tablet by mouth daily for 4 days thereafter .. Grace quarles Potassium Chloride (K-LENARD OR) Potassium Chloride (K-LENARD OR) 04-17 11:12: 52 Yes [id number] 1{tbl} QD Take 1 tablet by mouth daily. Grace quarles Gabapentin 300 MG oral Capsule Gabapentin 300 MG oral Capsule 03-13 00:00: 00 Yes TAKE 1 CAPSULE BY MOUTH EVERY DAY AT BEDTIME FOR 7 DAYS, THEN 1 CAPSULE TWICE A DAY FOR 7 DAYS, THEN 1 CAPSULE 3 TIMES A DAY. Grace quarles ketorolac (TORADOL) injection 30 mg 02-17 21:30: 00 02-17 20:50 :00 No 30mg 30 mg, Slow IV Push, ONCE, 1 dose, On Thu02/17/25 at 1630, Routine [facility] NaCl 0.9% (NS) bolus infusion 500 mL 02-17 20:30: 00 02-17 22:40 :00 No 500mL at 999 mL/hr, 500 mL, IV Infusion, ONCE, 1 dose, On Thu02/17/25 at 1530, STAT [facility] magnesium sulfate in water 2 gram/50 mL (4 %) infusion 2 g 02-17 20:30: 00 02-17 21:40 :00 No 2g 2 g, Intravenou s, ONCE, 1 dose, On Thu02/17/25 at 1530, 50 mL [facility] clindamycin in 5 % dextrose (CLEOCIN) 600 mg/50 mL IV piggyback RTU 600 mg 02-17 18:15: 00 02-17 19:23 :00 No 600mg 600 mg, IV Piggyback, ONCE, 1 dose, On Thu02/17/25 at 1315, Administer over 30 Minutes, 50 mL, Reason for Anti-Infec tive: Documented Infection, Documented Infection Site: Skin / Soft Tissue, Duration of therapy: Once (ED), Restricted use approved by: ED PROVIDER [facility] furosemide (LASIX) injection 40 mg 02-17 18:15: 00 02-17 18:42 :00 No 40mg 40 mg, IV Push, ONCE, 1 dose, On Thu02/17/25 at 1315, LORENA [facility] clindamycin 300 mg capsule 02-17 00:00: 00 02-28 04:59 :00 Yes [id number] 300mg Take 1 capsule by mouth 4 times daily for 10 days. [facility] Potassium Chloride (K-LENARD OR) 01-25 15:21: 21 Yes [id number] 1{tbl} QD Take 1 tablet by mouth daily. Grace quarles hydroCHLORO thiazide 25 MG oral Tablet 01-25 14:48: 38 01-25 00:00 :00 No 25mg QD Take 1 tablet (25 mg total) by mouth daily. Grace quarles Bupropion HCL XL 300 MG OR TB24 Bupropion HCL XL 300 MG OR TB24 01-25 00:00: 00 Yes [id number] 300mg QD Take 1 tablet (300 mg total) by mouth daily. Grace quarles Furosemide (LASIX) 20 MG oral Tablet Furosemide (LASIX) 20 MG oral Tablet 01-25 00:00: 00 Yes [id number] 20mg QD Take 1 tablet (20 mg total) by mouth daily. Grace quarles methylPREDN ISolone Acetate 80 MG/ML 80 mg injection 01-16 17:12: 18 No [id number] 80mg Grace quarles methylPREDN ISolone Acetate 80 MG/ML 80 mg injection 01-16 17:12: 18 No [id number] 80mg 80 mg, Physician Administer ed, ONCE, 1 dose, On Thu01/16/25 at 1315 Grace quarles hydroCHLORO thiazide 25 MG oral Tablet 01-16 13:08: 45 Yes 25mg QD Take 1 tablet (25 mg total) by mouth daily. Grace quarles Gabapentin 300 MG oral Capsule 01-16 00:00: 00 Yes 1 cap po qhs x7d, then 1 cap bid x 7d, then 1 cap tid. Grace quarles hydroCHLORO thiazide 12.5 MG oral Capsule 01-03 00:00: 00 01-25 00:00 :00 No 12.5mg QD Take 1 capsule (12.5 mg total) by mouth daily as needed. Grace quarles Diclofenac Sodium 75 MG oral Tablet Delayed Response 12-31 00:00: 00 01-16 00:00 :00 No 75mg Q.5D TAKE 1 TABLET (75 MG TOTAL) BY MOUTH TWICE A DAY NEEDED Grace quarles busPIRone HCl 10 MG oral Tablet 12-15 15:15: 12 12-15 00:00 :00 No 10mg Q.5D Take 1 tablet (10 mg total) by mouth 2 times daily as needed. Grace quarles hydroCHLORO thiazide 25 MG oral Tablet 12-15 14:54: 14 Yes 25mg QD Take 1 tablet (25 mg total) by mouth daily. Grace quarles Furosemide (LASIX) 20 MG oral Tablet 12-15 00:00: 00 01-25 00:00 :00 No [id number] 20mg Q.5D Take 1 tablet (20 mg total) by mouth 2 times daily. Grace quarles Na Sulfate-K Sulfate-Mg Sulf (SUPREP BOWEL PREP KIT) 17.5-3.13-1 .6 GM/177ML oral Solution 12-14 00:00: 00 12-15 00:00 :00 No Grace quarles Diclofenac Sodium 1 % apply externally Gel 12-14 00:00: 00 12-15 00:00 :00 No Grace quarles Potassium chloride CR (KLOR-CON) 10 MEQ oral Tab CR 12-13 00:00: 00 01-16 00:00 :00 No Take by mouth. Grace quarles Furosemide (LASIX) 20 MG oral Tablet 12-13 00:00: 00 12-15 00:00 :00 No 20mg Take 1 tablet (20 mg total) by mouth. Grace quarles Amoxicillin -Pot Clavulanate 500-125 MG oral Tablet 12-09 15:55: 19 12-09 00:00 :00 No 1{tbl} [id number] 3D Take 1 tablet by mouth every 8 hours. Grace quarles busPIRone HCl 10 MG oral Tablet 12-08 11:52: 18 Yes 10mg Q.5D Take 1 tablet (10 mg total) by mouth 2 times daily as needed. Grace quarles Propranolol HCl 10 MG oral Tablet 12-08 00:00: 00 12-15 00:00 :00 No [id number] 10mg Q.5D Take 1 tablet (10 mg [...] oral Tablet 12-07 10:25: 27 Yes 1{tbl} Q.[id number] 3D Take 1 tablet by mouth every 8 hours. Grace quarles hydroCHLORO thiazide 12.5 MG oral Capsule 12-07 00:00: 00 12-15 00:00 :00 No [id number] 12.5mg QD Take 1 capsule (12.5 mg total) by mouth daily as needed. Grace quarles magnesium sulfate in water 2 gram/50 mL (4 %) infusion 2 g 12-04 02:15: 00 12-04 02:49 :00 No 2g 2 g, IV Piggyback, Administer over 60 Minutes, ONCE, 1 dose, On 12/03/24 at 2114, Routine [facility] LORazepam (ATIVAN) injection 0.5 mg 12-04 01:45: 00 12-04 01:42 :00 No .5mg 0.5 mg, Slow IV Push, ONCE, 1 dose, On 12/03/24 at 2044, STAT [facility] azithromyci n (ZITHROMAX) tablet 500 mg 12-04 01:30: 00 12-04 01:41 :00 No 500mg 500 mg, Oral, ONCE, 1 dose, On 12/03/24 at 2029, LORENA, Reason for Anti-Infec tive: Documented Infection, Documented Infection Site: Respirator y, Duration of therapy: Once (ED) [facility] cefTRIAXone (ROCEPHIN) 1,000 mg in sterile water for injection 10 mL IV Push 12-04 01:30: 00 12-04 01:44 :00 No 1000mg 1,000 mg, Intravenou s, ONCE, 1 dose, On 12/03/24 at 2030, 10 mL, Reason for Anti-Infec tive: Documented Infection, Documented Infection Site: Respirator y, Duration of therapy: Once (ED) [facility] iopamidol (ISOVUE 370-500 mL) injection 90 mL 12-03 23:45: 00 12-04 00:00 :00 No [id number] 90mL 90 mL, Intravenou s, ONCE, 1 dose, On 12/03/24 at 1900, [facility] psyllium husk (METAMUCIL (SUGAR FREE)) 3.4 gram oral powder packet 1 Packet 12-03 17:45: 00 12-03 18:23 :18 No 1{packe t} 1 Packet, Oral, DAILY, First dose on 12/03/24 at 1245, Until Discontinu ed, Routine [facility] NaCl 0.9% (NS) IV infusion 1,000 mL 12-03 16:00: 00 12-03 18:23 :18 No 1000mL at 125 mL/hr, IV Infusion, CONTINUOUS , Starting on 12/03/24 at 1100, Until 12/03/24 at 1323, Routine [facility] diclofenac 75 mg EC tablet 12-03 12:44: 24 12-03 00:00 :00 No 75mg Take 1 tablet by mouth in the morning. [facility] simethicone (GAS RELIEF (SIMETHICON E)) chewable tablet 80 mg simethicone (GAS RELIEF (SIMETHICON E)) chewable tablet 80 mg 12-03 02:00: 00 12-03 18:23 :18 No 80mg 80 mg, Oral, PC+HS, First dose on Thu12/02/24 at 2100, Until Discontinu ed, Routine [facility] azithromyci n (ZITHROMAX Z-CHERELLE) 250 mg tablet 12-03 00:00: 00 Yes [id number] 250mg Take 1 tablet by mouth SEE-INSTRU CTIONS. Take 500 mg day 1, then 250 mg days 2 to 5. [facility] busPIRone 10 mg tablet 12-03 00:00: 00 Yes [id number] 10mg Take 1 tablet by mouth 2 (two) times daily as needed for Other (anxiety). [facility] amoxicillin -pot clavulanate 500-125 mg tablet 12-03 00:00: 00 02-17 00:00 :00 No [id number] 500mg Take 1 tablet by mouth every 8 (eight) hours. [facility] iopamidol (ISOVUE-370 ) injection 50 mL iopamidol (ISOVUE-370 ) injection 50 mL 12-02 16:15: 00 12-02 16:15 :00 No [id number] 50mL 50 mL, Intravenou s, ONCE, 1 dose, On Thu12/02/24 at 1115, Routine [facility] potassium chloride in water 10 mEq/100 mL RTU 10 mEq potassium chloride in water 10 mEq/100 mL RTU 10 mEq 12-02 13:00: 00 12-02 16:43 :00 No 10meq 10 mEq, IV Piggyback, Q1H, 2 doses, First dose on Thu12/02/24 at 0800, Last dose on Thu12/02/24 at 0900, Administer over 60 Minutes, 100 mL [facility] magnesium sulfate in water 4 gram/50 mL (8 %) IV Piggyback 4 g magnesium sulfate in water 4 gram/50 mL (8 %) IV Piggyback 4 g 12-02 13:00: 00 12-02 18:42 :00 No 4g 4 g, IV Piggyback, at 25 mL/hr Administer over 120 Minutes, ONCE, 1 dose, On Thu12/02/24 at 0800, LORENA [facility] ondansetron (ZOFRAN (PF)) injection 4 mg ondansetron (ZOFRAN (PF)) injection 4 mg 12-01 19:00: 00 12-02 18:59 :00 No 4mg 4 mg, Slow IV Push, Q8H, First dose on Thu12/01/24 at 1400, For 3 doses, Please give medication over 2-5 minutes. [facility] buPROPion XL (WELLBUTRIN XL) tablet 150 mg buPROPion XL (WELLBUTRIN XL) tablet 150 mg 11-30 14:00: 00 12-03 18:23 :18 No 150mg 150 mg, Oral, DAILY, First dose on Thu11/30/24 at 0900, Until Discontinu ed [facility] heparin (porcine) injection 5,000 Units [id number] 4753-0 5-07 13:00: 00 12-03 18:23 :18 No 5000U 5,000 Units, Subcutaneo us, Q12H, First dose on Thu11/30/24 at 0800, Until Discontinu ed, Routine [facility] NaCl 0.9% (NS) IV infusion 1,000 mL 11-30 06:45: 00 11-30 07:50 :51 No 1000mL at 100 mL/hr, IV Infusion, CONTINUOUS , Starting on Thu11/30/24 at 0145, Until Thu11/30/24 at 0250, Routine [facility] methylPREDN ISolone sod succ (SOLU-MEDRO L (PF)) injection 40 mg methylPREDN ISolone sod succ (SOLU-MEDRO L (PF)) injection 40 mg 11-30 06:30: 00 11-30 07:48 :00 No 40mg 40 mg, Intravenou s, ONCE, 1 dose, On Thu11/30/24 at 0130, 1 mL [facility] NaCl 0.9% (NS) IV infusion 1,000 mL 11-30 05:45: 00 12-03 12:51 :55 No 1000mL at 125 mL/hr, IV Infusion, CONTINUOUS , Starting on Thu11/30/24 at 0045, Until 12/03/24 at 0751, Routine [facility] ondansetron (ZOFRAN (PF)) injection 4 mg ondansetron (ZOFRAN (PF)) injection 4 mg 11-30 05:34: 52 12-03 18:23 :18 No 4mg 4 mg, Slow IV Push, Q6HPRN, Starting on Thu11/30/24 at 0034, Until 12/03/24 at 1323, Administer over 2-5 Minutes, 2 mL [facility] F[facility] (PF) (SUBLIMAZE) injection 25 mcg FENTanyl (PF) (SUBLIMAZE) injection 25 mcg 11-30 05:34: 48 12-01 05:33 :48 No 25ug 25 mcg, Slow IV Push, Q6HPRN, Starting on Thu11/30/24 at 0034, Until Apple 12/01/24 at 0033, Routine, Pain (scale 7-10) [facility] HYDROcodone -acetaminop hen (NORCO 5) tablet 1 tablet HYDROcodone -acetaminop hen (NORCO 5) tablet 1 tablet 11-30 05:34: 40 12-02 05:33 :40 No 1{tbl} 1 tablet, Oral, Q6HPRN, Starting on Thu11/30/24 at 0034, Until Thu12/02/24 at 0033, Routine, Pain (scale 4-6) [facility] acetaminoph en (TYLENOL) tablet 650 mg 11-30 05:34: 37 12-03 18:23 :18 No 650mg 650 mg, Oral, Q6HPRN, Starting on Thu11/30/24 at 0034, Until 12/03/24 at 1323, Routine, Pain (scale 1-3) [facility] ciprofloxac in in 5 % dextrose (CIPRO) piggyback 200 mg 11-30 05:00: 00 11-30 06:47 :00 No 200mg 200 mg, IV Piggyback, ONCE, 1 dose, On Thu11/30/24 at 0000, Administer over 60 Minutes, 100 mL, Reason for Anti-Infec tive: Documented Infection, Documented Infection Site: Abdominal, Duration of therapy: Once (ED) [facility] metroNIDAZO LE in NaCl (iso-os) (FLAGYL I.V.) RTU IV infusion 500 mg 11-30 04:15: 00 11-30 05:34 :00 No 500mg 500 mg, IV Infusion, ONCE, 1 dose, On Thu11/29/24 at 2315, Administer over 60 Minutes, 100 mL, Reason for Anti-Infec tive: Documented Infection, Documented Infection Site: Abdominal, Duration of therapy: Once (ED) [facility] NaCl 0.9% (NS) bolus infusion 1,000 mL 11-30 03:30: 00 11-30 07:08 :00 No 1000mL at 999 mL/hr, 1,000 mL, IV Infusion, ONCE, 1 dose, On Thu11/29/24 at 2230, STAT [facility] NaCl 0.9% (NS) bolus infusion 1,000 mL 11-30 02:00: 00 11-30 02:02 :00 No 1000mL at 999 mL/hr, 1,000 mL, IV Infusion, ONCE, 1 dose, On Thu11/29/24 at 2100, STAT [facility] metoclopram melita HCl (REGLAN) injection 10 mg 11-30 01:15: 00 11-30 01:07 :00 No 10mg 10 mg, Slow IV Push, ONCE, 1 dose, On Thu11/29/24 at 2015, LORENA [facility] Diclofenac Sodium 75 MG oral Tablet Delayed Response 11-24 00:00: 00 12-07 00:00 :00 No 75mg Q.5D TAKE 1 TABLET (75 MG TOTAL) BY MOUTH TWICE A DAY NEEDED Grace quarles hydrALAZINE (APRESOLINE ) tablet 10 mg 11-02 17:00: 00 11-02 21:22 :26 No 10mg 10 mg, Oral, Q6H, First dose on Thu11/02/24 at 1200, Until Discontinu ed, Routine [facility] BUPROPION HCL ORAL 11-02 16:22: 26 Yes 300mg Take 300 mg by mouth. Bupropion HCL XL 300 mg [facility] magnesium oxide (MAG-OX 400) 400 mg (241.3 mg magnesium) tablet 400 mg 11-02 14:15: 00 11-02 21:22 :26 No 400mg 400 mg, Oral, DAILY, First dose on Thu11/02/24 at 0915, Until Discontinu ed, Routine [facility] enoxaparin (LOVENOX) injection 40 mg 11-02 14:00: 00 11-02 21:22 :26 No 40mg 40 mg, Subcutaneo us, DAILY, First dose on Thu11/02/24 at 0900, Until Discontinu ed, Routine [facility] nicotine (NICODERM) 21 mg/24 hr patch 1 Patch 11-02 04:15: 00 11-02 21:22 :26 No 1{patch } 1 Patch, Topical, Administer over 24 Hours, Q24H, First dose on Thu11/01/24 at 2315, Until Discontinu ed, Routine [facility] Ondansetron (ZOFRAN) 4 MG oral TABLET DISPERSIBLE 11-02 00:00: 00 12-15 00:00 :00 No 4mg [id number] 3D Take 1 tablet (4 mg total) by mouth every 8 hours as needed for nausea PLEASE SEE ATTACHED FOR DETAILED DIRECTIONS . Grace quarles ondansetron 4 mg disintegrat ing tablet 11-02 00:00: 00 11-13 04:59 :00 No [id number] 8mg Take 2 tablets by mouth every 8 (eight) hours as needed for Nausea and Vomiting (N/V) for up to 10 days. [facility] acetaminoph en-codeine 300-30 mg tablet 11-02 00:00: 00 11-10 04:59 :00 No [id number] 1{tbl} Take 1 tablet by mouth every 6 (six) hours as needed for Pain (scale 4-6) or Pain (scale 7-10) for up to 7 days. Indication s: acute pain [facility] NaCl 0.9% (NS) IV infusion 1,000 mL 11-01 23:45: 00 11-02 01:37 :17 No 1000mL at 125 mL/hr, IV Infusion, ONCE, 1 dose, On Thu11/01/24 at 1845, LORENA [facility] NaCl 0.9% (NS) IV infusion 1,000 mL 11-01 23:00: 00 11-02 21:22 :26 No 1000mL at 125 mL/hr, IV Infusion, CONTINUOUS , Starting on Thu11/01/24 at 1800, Until Thu11/02/24 at 1622, Routine [facility] ondansetron (ZOFRAN (PF)) injection 4 mg 2024-0 11-01 22:52: 53 11-02 21:22 :26 No 4mg [facility] morpHINE (4 mg/mL) injection 4 mg 2024-0 11-01 22:52: 51 11-02 21:22 :26 No 4mg [facility] HYDROcodone -acetaminop hen (NORCO 5) tablet 1 tablet 11-01 22:52: 50 11-02 21:22 :26 No 1{tbl} [facility] acetaminoph en (TYLENOL) tablet 650 mg 11-01 22:52: 44 11-02 21:22 :26 No 650mg [facility] NaCl 0.9% (NS) bolus infusion 1,000 mL 11-01 21:15: 00 11-01 22:49 :00 No 1000mL at 999 mL/hr, 1,000 mL, IV Infusion, ONCE, 1 dose, On Thu11/01/24 at 1615, LORENA [facility] iopamidol (ISOVUE 370-500 mL) injection 85 mL 2024-11-01 20:57: 00 11-01 20:57 :00 No [id number] 85mL 85 mL, Intravenou s, ONCE, 1 dose, On Thu11/01/24 at 1615, Routine [facility] morpHINE (4 mg/mL) injection 4 mg 2024-0 08 20:30: 00 11-01 20:42 :00 No 4mg 4 mg, Slow IV Push, ONCE, 1 dose, On Thu11/01/24 at 1530, STAT [facility] ondansetron (ZOFRAN (PF)) injection 8 mg 5-0 08 20:30: 00 11-01 20:40 :00 No 8mg 8 mg, Slow IV Push, ONCE, 1 dose, On Thu11/01/24 at 1530, 4 mL [facility] famotidine (PEPCID (PF)) injection 20 mg 11-01 20:30: 00 11-01 20:45 :00 No 20mg 20 mg, Slow IV Push, ONCE, 1 dose, On Thu11/01/24 at 1530, LORENA [facility] Lisinopril 40 MG oral Tablet 16 00:00: 00 12-07 00:00 :00 No [id number] 40mg QD Take 1 tablet (40 mg total) by mouth daily. Grace quarles Bilateral Injection: Methylpredn isolone Acetate (Depo-Medro l) 40 mg/ml, 80mg - Physician Administere d ([id number]) 09-26 14:45: 37 No [id number] 80mg 80 mg, Physician Administer ed, ONCE, [...] Ibuprofen (MOTRIN) 800 MG oral Tablet 2023-07 2- 00:00: 00 Yes [id number] 800mg Take 1 tablet (800 mg total) by mouth every 12 hours as needed for pain Please take with food. Grace quarles hydrALAZINE HCl 25 MG oral Tablet 2023-0717 00:00: 00 12-07 00:00 :00 No [id number] 25mg Q.5D Take 1 tablet (25 mg total) by mouth 2 times daily. Grace quarles Bupropion HCL XL 300 MG OR TB24 2023-07 2-14 00:00: 00 01-25 00:00 :00 No [id number] 300mg QD Take 1 tablet (300 mg total) by mouth daily. Grace quarles Loratadine (CLARITIN) 10 MG oral tablet 2023-07 10:44: 35 Yes 10mg QD Take 1 tablet (10 mg total) by mouth daily. Grace quarles Bilateral Injection: Methylpredn isolone Acetate (Depo-Medro l) 40 mg/ml, 80mg - Physician Administere d ([id number]) 2023-07 10:44: 27 No [id number] 80mg Grace quarles Bilateral Injection: Methylpredn isolone Acetate (Depo-Medro l) 40 mg/ml, 80mg - Physician Administere d ([id number]) 2023-07 16:15: 45 No [id number] 80mg 80 mg, Physician Administer ed, ONCE, [...] HCL XL 300 MG OR TB24 2023-07 0-16 00:00: 00 Yes [id number] 300mg QD Take 1 tablet (300 mg total) by mouth daily. Grace quarles hydrALAZINE HCl 25 MG oral Tablet 2023-07 0-08 00:00: 07-12 00:00 :00 No [id number] 25mg QD Take 1 tablet (25 mg total) by mouth daily. Grace quarles Loratadine (CLARITIN) 10 MG oral tablet 04-14 08:53: 09 Yes 10mg QD Take 1 tablet (10 mg total) by mouth daily. Grace quarles Ibuprofen (MOTRIN) 800 MG oral Tablet 04-14 00:00: 00 07-12 00:00 :00 No [id number] 800mg Take 1 tablet (800 mg total) by mouth every 12 hours as needed for pain Please take with food. Grace quarles Bupropion HCL XL 150 MG OR TB24 04-14 00:00: 00 05-11 00:00 :00 No [id number] 150mg QD Take 1 tablet (150 mg total) by mouth daily. Grace quarles Lisinopril 40 MG oral Tablet 04-11 00:00: 00 Yes [id number] 40mg QD Take 1 tablet (40 mg total) by mouth daily. Grace quarles Loratadine (CLARITIN) 10 MG oral tablet 03-16 09:07: 10 Yes 10mg QD Take 1 tablet (10 mg total) by mouth daily. Grace quarles Lisinopril 40 MG oral Tablet 03-16 00:00: 00 Yes [id number] 40mg QD Take 1 tablet (40 mg total) by mouth daily. Grace quarles hydrALAZINE HCl 25 MG oral Tablet 03-16 00:00: 00 Yes [id number] 25mg QD Take 1 tablet (25 mg total) by mouth daily. Grace quarles Ibuprofen (MOTRIN) 800 MG oral Tablet 03-16 00:00: 00 04-14 00:00 :00 No [id number] 800mg Take 1 tablet (800 mg total) by mouth every 12 hours as needed for pain Please take with food. Grace quarles hydrALAZINE HCl 25 MG oral Tablet 01-24 [...] ONCE, 1 dose, On Thu12/23/23 at 1630, [facility] ketorolac (TORADOL) injection 15 mg 12-22 21:30: 00 12-22 20:24 :00 No 15mg 15 mg, Slow IV Push, ONCE, 1 dose, On Thu12/23/23 at 1630, [facility] diphenhydrA MINE (BENADRYL) injection 25 mg 12-22 21:30: 00 12-22 20:24 :00 No 25mg 25 mg, Slow IV Push, ONCE, 1 dose, On Thu12/23/23 at 1630, [facility] metoclopram melita HCl (REGLAN) injection 10 mg 12-22 21:30: 00 12-22 20:24 :00 No 10mg 10 mg, Slow IV Push, ONCE, 1 dose, On Thu12/23/23 at 1630, [facility] cefTRIAXone (ROCEPHIN) 1,000 mg in NaCl 0.9% (NS) 100 mL MINI-BAG 12-22 21:15: 00 12-22 21:45 :00 No 1000mg 1,000 mg, IV Piggyback, ONCE, 1 dose, On Thu12/23/23 at 1615, Administer over 30 Minutes, 100 mL, Reason for Anti-Infec tive: Documented Infection, Documented Infection Site: Urine, Duration of Therapy: Once (ED) [facility] ketorolac (TORADOL) injection 15 mg 12-22 19:00: 00 12-22 18:39 :00 No 15mg 15 mg, Slow IV Push, ONCE, 1 dose, On Thu12/23/23 at 1400, LORENA [facility] ondansetron (ZOFRAN (PF)) injection 4 mg 12-22 19:00: 00 12-22 18:37 :00 No 4mg 4 mg, Slow IV Push, ONCE, 1 dose, On Thu12/23/23 at 1400, LORENA [facility] NaCl 0.9% (NS) bolus infusion 1,000 mL 12-22 18:15: 00 12-22 20:00 :00 No 1000mL at 999 mL/hr, 1,000 mL, IV Infusion, ONCE, 1 dose, On Thu12/23/23 at 1315, STAT [facility] ondansetron 4 mg disintegrat ing tablet 12-22 00:00: 00 Yes [id number] 4mg Take 1 tablet by mouth every 8 (eight) hours as needed for Nausea and Vomiting (N/V). [facility] cefdinir 300 mg capsule 12-22 00:00: 00 01-02 04:59 :00 No [id number] 300mg Take 1 capsule by mouth every 12 (twelve) hours for 10 days. [facility] Lisinopril 40 MG oral Tablet 12-16 00:00: 00 03-16 00:00 :00 No 40mg QD Take 1 tablet (40 mg total) by mouth daily. Grace quarles hydrALAZINE 25 mg tablet 9-13 00:00: 00 05-09 04:59 :00 No [id number] 25mg Take 1 tablet by mouth in the morning and 1 tablet in the evening. Do all this for 30 days. [facility] loratadine 10 mg tablet 8 10:01: 56 Yes 1 tablet [facility] lisinopriL 40 mg tablet 03-19 00:00: 00 Yes [id number] 40mg Take 1 tablet by mouth in the morning. [facility] cloniDINE 0.1 mg/24 hr patch 03-08 00:00: 00 04-08 04:59 :00 No [id number] 1{patch } Apply 1 Patch to skin weekly for 30 days. [facility] lisinopriL 40 mg tablet 03-05 00:00: 00 04-05 04:59 :00 No [id number] 40mg Take 1 tablet by mouth in the morning for 30 days. [facility] loratadine 10 mg tablet 03-04 17:51: 07 Yes 1 tablet [facility] DULoxetine 60 mg capsule 03-04 17:51: 07 11-30 00:00 :00 No 1 capsule [facility] venlafaxine XR 75 mg 24 hr capsule 03-04 17:51: 07 11-01 00:00 :00 No 1 capsule with food [facility] ibuprofen (ADVIL ORAL) 03-04 16:25: 15 03-04 00:00 :00 No Take by mouth. [facility] hydrALAZINE (APRESOLINE ) tablet 25 mg 03-04 13:45: 00 Yes 25mg 25 mg, Oral, BID, First dose (after last modificati on) on Thu03/04/23 at 0845, Until Discontinu ed, Routine [facility] hydrALAZINE 25 mg tablet 03-04 00:00: 00 04-04 04:59 :00 No [id number] 25mg Take 1 tablet by mouth in the morning and 1 tablet in the evening. Do all this for 30 days. [facility] traMADoL 50 mg tablet 03-04 00:00: 00 03-12 04:59 :00 No [id number] 50mg Take 1 tablet by mouth every 8 (eight) hours as needed for Pain (scale 7-10) for up to 7 days. Indication s: acute pain [facility] acetaminoph en (TYLENOL) tablet 650 mg 03-03 23:42: 09 Yes 650mg 650 mg, Oral, Q6HPRN, Starting on Thu03/03/23 at 1842, Until Discontinu ed, Routine, Pain (scale 1-3), Temp > 38 C [facility] iohexoL (OMNIPAQUE 300-50 mL)) injection 03-03 21:31: 00 Yes PRN, Starting on Thu03/03/23 at 1631, Until Discontinu ed, Routine, Intra-op [facility] bupivacaine (preserv free) (SENSORCAIN E MPF) 0.25 % (2.5 mg/mL) 30 mL, lidocaine-e pinephrine (XYLOCAINE WITH EPINEPHRINE ) 1 %-1:100,000 30 mL 03-03 20:43: 00 Yes PRN, Starting on Thu03/03/23 at 1543, Intra-op [facility] sodium chloride 0.9 % irrigation solution 03-03 20:43: 00 Yes PRN, Starting on Thu03/03/23 at 1543, Until Discontinu ed, Intra-op [facility] ALPRAZolam (XANAX) tablet 0.5 mg 03-03 13:00: 00 03-03 13:26 :00 No .5mg 0.5 mg, Oral, ONCE, 1 dose, On Thu03/03/23 at 0800, Routine [facility] morpHINE (2 mg/mL) injection 2 mg 03-03 11:48: 09 Yes 2mg 2 mg, Slow IV Push, PRN, Starting on Thu03/03/23 at 0648, Until Discontinu ed, Routine, Chest pain [facility] labetaloL (NORMODYNE) injection 20 mg 03-03 11:45: 00 Yes 20mg 20 mg, Slow IV Push, Q4HPRN, Starting on Thu03/03/23 at 0645, Until Discontinu ed, Routine, For SBP > 170, failed Hydralazin e [facility] hydralAZINE (APRESOLINE ) injection 10 mg 03-03 11:41: 37 Yes 10mg 10 mg, Slow IV Push, Q4HPRN, Starting on Thu03/03/23 at 0641, Until Discontinu ed, Routine, DBP=>100; SBP=>160 [facility] proMETHazin e (PHENERGAN) 12.5 mg in NaCl 0.9% (NS) 50 mL IV piggyback 03-03 11:28: 19 Yes 12.5mg 12.5 mg, IV Piggyback, Q4HPRN, Starting on Thu03/03/23 at 0628, Until Discontinu ed, Routine, N/V unresponsi ve to Ondansetro n [facility] hydrALAZINE (APRESOLINE ) tablet 10 mg 03-03 01:00: 00 03-04 13:41 :32 No 10mg 10 mg, Oral, BID, First dose (after last modificati on) on Thu03/02/23 at 2000, Until Discontinu ed, Routine [facility] potassium chloride in water 10 mEq/100 mL RTU 10 mEq 03-02 17:00: 00 03-02 21:19 :00 No 10meq 10 mEq, IV Piggyback, Q2H ES, 2 doses, First dose (after last modificati on) on Thu03/02/23 at 1200, Last dose on Thu03/02/23 at 1400, Administer over 60 Minutes, 100 mL [facility] KCL (KLOR-CON M20) tablet 40 mEq 03-02 15:00: 00 03-02 15:06 :00 No 40meq 40 mEq, Oral, ONCE, 1 dose, On Thu03/02/23 at 1000, Routine [facility] lisinopriL (PRINIVIL,Z ESTRIL) tablet 40 mg 03-02 14:00: 00 Yes 40mg 40 mg, Oral, DAILY, First dose on Thu03/02/23 at 0900, Until Discontinu ed, Routine [facility] hydrALAZINE (APRESOLINE ) tablet 10 mg 03-02 11:00: 00 03-02 20:47 :19 No 10mg 10 mg, Oral, Q6H, First dose on Thu03/02/23 at 0600, Until Discontinu ed, Routine [facility] piperacilli n-tazobacta m (ZOSYN) 3.375 g [...] Abdominal< br>Duratio n of Therapy: 7 days [facility] cloniDINE (CATAPRES-T TS 1) 0.1 mg/24 hr patch 1 Patch 03-01 23:40: 35 Yes 1{patch } 1 Patch, Transderma l (Apply To Skin), Administer over 7 Days, QWEEKLY, First dose (after last modificati on) on Thu03/01/23 at 1845, Until Discontinu ed, LORENA [facility] piperacilli n-tazobacta m (ZOSYN) 3.375 g in NaCl 0.9% (NS) 100 mL MINI-BAG 03-01 22:45: 00 03-02 03:24 :57 No 3.375g 3.375 g, IV Piggyback, ONCE, 1 dose, On Thu03/01/23 at 1745, Administer over 30 Minutes, 100 mL
Reas on for Anti-Infec tive: Documented Infection< br>Documen jessy Infection Site: Abdominal< br>Duratio n of Therapy: 7 days [facility] labetaloL (NORMODYNE) injection 20 mg 03-01 22:26: 31 03-03 11:42 :00 No 20mg 20 mg, Slow IV Push, Q6HPRN, Starting on Thu03/01/23 at 1726, Until Thu03/03/23 at 0642, Routine, For SBP > 170, failed Hydralazin e [facility] enoxaparin (LOVENOX) injection 40 mg 03-01 22:00: 00 Yes 40mg 40 mg, Subcutaneo us, DAILY, First dose on Thu03/01/23 at 1700, Until Discontinu ed, Routine [facility] hydralAZINE (APRESOLINE ) injection 10 mg 03-01 21:05: 15 03-03 11:42 :00 No 10mg 10 mg, Slow IV Push, Q4HPRN, Starting on Thu03/01/23 at 1605, Until Thu03/03/23 at 0642, Routine, DBP=>100; SBP=>180 [facility] proCHLORper azine (COMPAZINE) 5 mg in NaCl 0.9% (NS) piggyback 03-01 19:45: 49 Yes 5mg 5 mg, IV Piggyback, at 100 mL/hr Administer over 30 Minutes, Q6HPRN, Starting on Thu03/01/23 at 1445, Until Discontinu ed, Routine, N/V not improved with zofran [facility] lactated ringers IV infusion 1,000 mL 03-01 18:45: 00 03-02 12:12 :27 No 1000mL at 100 mL/hr, 1,000 mL, IV Infusion, CONTINUOUS , Starting on Thu03/01/23 at 1345, Until Thu03/02/23 at 0712, Routine [facility] ondansetron (ZOFRAN (PF)) injection 4 mg 03-01 18:32: 26 Yes 4mg 4 mg, Slow IV Push, Q6HPRN, Starting on Thu03/01/23 at 1332, Until Discontinu ed, Routine, Nausea and Vomiting (N/V) [facility] iopamidol (ISOVUE 370-500 mL) injection 85 mL 03-01 17:15: 00 03-01 17:15 :00 No [id number] 85mL 85 mL, Intravenou s, ONCE, 1 dose, On Thu03/01/23 at 1215, Routine [facility] proMETHazin e (PHENERGAN) 12.5 mg in NaCl 0.9% (NS) 50 mL IV piggyback 03-01 16:30: 00 03-01 16:26 :00 No 12.5mg 12.5 mg, IV Piggyback, ONCE, 1 dose, On Thu03/01/23 at 1130, LORENA [facility] ketorolac (TORADOL) injection 15 mg 03-01 16:00: 00 03-01 15:09 :00 No 15mg 15 mg, Slow IV Push, ONCE, 1 dose, On Thu03/01/23 at 1100, Routine [facility] NaCl 0.9% (NS) bolus infusion 1,000 mL 03-01 15:45: 00 03-01 17:30 :00 No 1000mL at 999 mL/hr, 1,000 mL, IV Infusion, ONCE, 1 dose, On Thu03/01/23 at 1045, STAT [facility] ondansetron (ZOFRAN (PF)) injection 4 mg 03-01 15:45: 00 03-01 14:54 :00 No 4mg 4 mg, Slow IV Push, ONCE, 1 dose, On Thu03/01/23 at 1045, LORENA [facility] NaCl 0.9% (NS) bolus infusion 1,000 mL 03-01 15:30: 00 03-01 16:30 :00 No 1000mL at 999 mL/hr, 1,000 mL, IV Infusion, ONCE, 1 dose, On Thu03/01/23 at 1030, [facility] loratadine 10 mg tablet 03-01 15:15: 03 Yes 1 tablet [facility] ibuprofen (ADVIL ORAL) 03-01 15:15: 03 Yes Take by mouth. [facility] metoclopram melita HCl (REGLAN) injection 10 mg 03-01 15:15: 00 03-01 15:12 :00 No 10mg 10 mg, Slow IV Push, ONCE, 1 dose, On Thu03/01/23 at 1015, LORENA [facility] DULoxetine 60 mg capsule 03-01 14:42: 11 Yes 1 capsule [facility] venlafaxine XR 75 mg 24 hr capsule 03-01 14:42: 11 Yes 1 capsule [facility] 2021-07 10:42: 18 Yes 1 capsule [facility] loratadine 10 mg tablet 2021-07 10:42: 18 Yes 1 tablet [facility] venlafaxine XR 75 mg 24 hr capsule 2021-07 10:42: 18 Yes 1 capsule with food [facility] ibuprofen (ADVIL ORAL) 2021-07 10:42: 18 Yes Take by mouth. [facility] DULoxetine 60 mg capsule 2021-07 2 08:53: 03 Yes 1 capsule [facility] loratadine 10 mg tablet 2021-07 08:53: 03 Yes 1 tablet [facility] venlafaxine XR (EFFEXOR XR) 75 mg 24 hr capsule 2021-07 08:53: 03 Yes 1 capsule with food [facility] traMADoL (ULTRAM) tablet 50 mg 09-25 03:15: 00 09-25 02:13 :00 No 50mg 50 mg, Oral, ONCE NOW, 1 dose, On Thu09/24/21 at 2115, Routine [facility] predniSONE (DELTASONE) tablet 40 mg 09-25 03:15: 00 09-25 02:12 :00 No 40mg 40 mg, Oral, ONCE, 1 dose, On Thu09/24/21 at 2115, LORENA [facility] ketorolac (TORADOL) injection 15 mg 09-25 01:30: 00 09-25 00:41 :00 No 15mg 15 mg, Slow IV Push, ONCE, 1 dose, On Thu09/24/21 at 1930, LORENA
[facility] member approving Restricted medication : AMAYA TINOCO [facility] fluconazole 150 mg tablet 09-24 00:00: 00 11-01 00:00 :00 No [id number] Take 1 tablet now and repeat in 5 days [facility] naproxen 500 mg tablet 09-24 00:00: 00 03-04 00:00 :00 No [id number] 500mg Take 1 tablet by mouth 2 (two) times daily with meals. [facility] traMADoL 50 mg tablet 09-24 00:00: 10-02 05:59 :00 No [id number] 50mg Take 1 tablet by mouth every 6 (six) hours as needed for Pain (scale 7-10) for up to 7 days. Indication s: acute pain [facility] predniSONE 20 mg tablet 09-24 00:00: 09-29 05:59 :00 No [id number] 20mg Take 1 tablet by mouth 2 (two) times daily for 4 days. [facility] loperamide 2 mg capsule 07-30 00:00: 00 12-03 00:00 :00 No [id number] 2mg Take 1 capsule by mouth every 4 (four) hours as needed for Diarrhea. Not to exceed 16mg daily. [facility] ondansetron 4 mg disintegrat ing tablet 07-30 00:00: 11-30 00:00 :00 No [id number] 4mg Take 1 tablet by mouth every 8 (eight) hours as needed for Nausea and Vomiting (N/V). [facility] aspirin chewable tablet 324 mg 08-14 10:00: 00 08-14 08:49 :00 No 324mg 324 mg, Oral, ONCE, 1 dose, Thu08/14/20 at 0400, Routine [facility] nitroglycer in (NITROSTAT) sublingual tablet 0.4 mg 08-14 09:45: 00 08-14 08:49 :00 No .4mg 0.4 mg, Sublingual , ONCE, 1 dose, 08/14/20 at 0345, LORENA [facility] meclizine 25 mg tablet 01-12 00:00: 00 Yes 25mg Take 1 tablet by mouth every 6 (six) hours. [facility] ondansetron (ZOFRAN, HYDROCHLORI DE,) 4 mg tablet 01-12 00:00: 00 11-30 00:00 :00 No 4mg Take 1 tablet by mouth every 8 (eight) hours as needed for Nausea and Vomiting (N/V). [facility] Loratadine Loratadine Yes Na Wild 1 tablet [facility] Duloxetine HCl Duloxetine HCl Yes Na Wild 1 capsule [facility] Effexor XR 75 MG Effexor XR 75 MG No 1{capsu le_with _food} QD Effexor XR 75 MG Immunizations Ordered Immunization Name Filled Immunization Name Date Status Comments Source TD Pres-Free 2024-02-23 00:00:00 Completed [facility] Td- Tetanus & Diphtheria Vaccine (age 7+ years) Td- Tetanus & Diphtheria Vaccine (age 7+ years) 2024-02-23 00:00:00 Completed [facility] Lebron TDAP 2021-04-06 00:00:00 Completed [facility] TDAP 2021-04-06 00:00:00 Completed [facility] TDAP 2021-04-06 00:00:00 Completed [facility] TDAP 2021-04-06 00:00:00 Completed [facility] TDAP 2021-04-06 00:00:00 Completed [facility] TDAP 2021-04-06 00:00:00 Completed [facility] TDAP 2021-04-06 00:00:00 Completed [facility] TDAP 2021-04-06 00:00:00 Completed [facility] TDAP 2021-04-06 00:00:00 Completed [facility] Tdap- (Boostrix, Adacel) Tdap- (Boostrix, Adacel) 2021-04-06 00:00:00 Completed Grace Jon - External SARS-COV-2 COVID-19 VACCINE - (MODERNA) 2020-10-06 00:00:00 Completed [facility] SARS-COV-2 COVID-19 VACCINE - (MODERNA) 2020-10-06 00:00:00 Completed [facility] SARS-COV-2 COVID-19 VACCINE - (MODERNA) 2020-10-06 00:00:00 Completed [facility] SARS-COV-2 COVID-19 VACCINE - (MODERNA) 2020-10-06 00:00:00 Completed [facility] SARS-COV-2 COVID-19 VACCINE - (MODERNA) 2020-10-06 00:00:00 Completed [facility] SARS-COV-2 COVID-19 VACCINE - (MODERNA) 2020-10-06 00:00:00 Completed [facility] SARS-COV-2 COVID-19 VACCINE - (MODERNA) 2020-10-06 00:00:00 Completed [facility] SARS-COV-2 COVID-19 VACCINE - (MODERNA) 2020-10-06 00:00:00 Completed [facility] SARS-COV-2 COVID-19 VACCINE - (MODERNA) 2020-10-06 00:00:00 Completed SARS-COV-2 COVID-19 VACCINE - (MODERNA) 2020-08-31 00:00:00 Completed [facility] SARS-COV-2 COVID-19 VACCINE - (MODERNA) 2020-08-31 00:00:00 Completed [facility] SARS-COV-2 COVID-19 VACCINE - (MODERNA) 2020-08-31 00:00:00 Completed [facility] SARS-COV-2 COVID-19 VACCINE - (MODERNA) 2020-08-31 00:00:00 Completed [facility] SARS-COV-2 COVID-19 VACCINE - (MODERNA) 2020-08-31 00:00:00 Completed [facility] SARS-COV-2 COVID-19 VACCINE - (MODERNA) 2020-08-31 00:00:00 Completed [facility] SARS-COV-2 COVID-19 VACCINE - (MODERNA) 2020-08-31 00:00:00 Completed [facility] SARS-COV-2 COVID-19 VACCINE - (MODERNA) 2020-08-31 00:00:00 Completed [facility] SARS-COV-2 COVID-19 VACCINE - (MODERNA) 2020-08-31 00:00:00 Completed SARS-COV-2 COVID-19 VACCINE - (MODERNA) Unknown Completed [facility] TDAP Unknown Completed [facility] SARS-COV-2 COVID-19 VACCINE - (MODERNA) Unknown Completed [facility] TDAP Unknown Completed [facility] TD Pres-Free Unknown Completed [facility] SARS-COV-2 COVID-19 VACCINE - (MODERNA) Unknown Completed [facility] TDAP Unknown Completed [facility] TD Pres-Free Unknown Completed [facility] Td- Tetanus & Diphtheria Vaccine (age [...] Adacel) Unknown Completed Grace Seybold - External Vital Signs Vital Name Observation Time Observation Value Comments S ource Body weight 2025-04-17 11:12:00 85.276 kg Elaina otero Seybold - External BMI 2025-04-17 11:12:00 30.34 kg/m2 Elaina otero Seybold - External Systolic blood pressure 2025-02-17 22:30:00 126 mm[Hg] [facility] Diastolic blood pressure 2025-02-17 22:30:00 61 mm[Hg] [facility] Heart rate 2025-02-17 22:30:00 76 /min [facility] temperature 2025-02-17 22:30:00 36.94 Ai [facility] Respiratory rate 2025-02-17 22:30:00 16 /min [facility] Oxygen saturation in Arterial blood by Pulse oximetry 2025-02-17 22:30:00 97 /min [facility] Body height 2025-02-17 16:13:00 167.6 cm [facility] Body weight 2025-02-17 16:13:00 81.647 kg [facility] BMI 2025-02-17 16:13:00 29.05 kg/m2 [facility] Systolic blood pressure 2025-01-25 19:51:00 127 mm[Hg] Grace Floresybo ld - External Diastolic blood pressure 2025-01-25 19:51:00 89 mm[Hg] Grace Floresybo ld - External Heart rate 2025-01-25 19:51:00 97 /min Kelse y Seybold - External Respiratory rate 2025-01-25 19:51:00 19 /min Grace Seybold - External Body height 2025-01-25 19:51:00 167.6 cm Elaina ey Seybold - External Body weight 2025-01-25 19:51:00 81.194 kg Elaina ey Seybold - External BMI 2025-01-25 19:51:00 28.89 kg/m2 Elaina ey Seybold - External Oxygen saturation in Arterial blood by Pulse oximetry 2025-01-25 19:51:00 100 /min Grace Floresybo ld - External Body weight 2025-01-16 18:07:00 74.844 kg Elaina ey Seybold - External BMI 2025-01-16 18:07:00 26.63 kg/m2 Elaina ey Seybold - External Systolic blood pressure 2024-12-15 20:06:00 142 mm[Hg] Grace Seybo ld - External Diastolic blood pressure 2024-12-15 20:06:00 80 mm[Hg] Grace Floresybo ld - External Oxygen saturation in Arterial blood by Pulse oximetry 2024-12-15 20:06:00 98 /min Grace Floresybo ld - External Heart rate 2024-12-15 19:50:00 99 /min Arielse y Seybold - External Body temperature 2024-12-15 19:50:00 36.83 Ai Grace Seybold - External Respiratory rate 2024-12-15 19:50:00 19 /min Grace Seybold - External Body height 2024-12-15 19:50:00 167.6 cm Elaina ey Seybold - External Body weight 2024-12-15 19:50:00 72.576 kg Elaina ey Seybold - External BMI 2024-12-15 19:50:00 25.82 kg/m2 Elaina ey Seybold - External Systolic blood pressure 2024-12-09 20:25:00 123 mm[Hg] Grace Seybo ld - External Diastolic blood pressure 2024-12-09 20:25:00 84 mm[Hg] Grace Seybo ld - External Heart rate 2024-12-09 20:25:00 96 /min Royce y Seybold - External Respiratory rate 2024-12-09 20:25:00 16 /min Grace Seybold - External Body height 2024-12-09 20:25:00 167.6 cm Elaina ey Seybold - External Body weight 2024-12-09 20:25:00 73.936 kg Elaina ey Seybold - External BMI 2024-12-09 20:25:00 26.31 kg/m2 Elaina ey Seybold - External Oxygen saturation in Arterial blood by Pulse oximetry 2024-12-09 20:25:00 100 /min Grace Floresybo ld - External Systolic blood pressure 2024-12-07 15:22:00 138 mm[Hg] Grace Seybo ld - External Diastolic blood pressure 2024-12-07 15:22:00 72 mm[Hg] Grace Floresybo ld - External Body temperature 2024-12-07 15:22:00 36.83 Ai Grace Seybold - External Respiratory rate 2024-12-07 15:22:00 23 /min Grace Seybold - External Body height 2024-12-07 15:22:00 167.6 cm Elaina ey Seybold - External Body weight 2024-12-07 15:22:00 73.483 kg Elaina ey Seybold - External BMI 2024-12-07 15:22:00 26.15 kg/m2 Elaina ey Seybold - External Systolic blood pressure 2024-12-04 04:00:00 158 mm[Hg] [facility] Diastolic blood pressure 2024-12-04 04:00:00 73 mm[Hg] [facility] Heart rate 2024-12-04 04:00:00 94 /min [facility] Body temperature 2024-12-04 04:00:00 36.78 Ai [facility] Respiratory rate 2024-12-04 04:00:00 22 /min [facility] Oxygen saturation in Arterial blood by Pulse oximetry 2024-12-04 04:00:00 95 /min [facility] Body height 2024-12-03 22:51:00 170.2 cm [facility] Body weight 2024-12-03 22:51:00 75.751 kg [facility] BMI 2024-12-03 22:51:00 26.16 kg/m2 [facility] Systolic blood pressure 2024-12-03 13:52:00 149 mm[Hg] [facility] Diastolic blood pressure 2024-12-03 13:52:00 87 mm[Hg] [facility] Heart rate 2024-12-03 13:52:00 87 /min [facility] Body temperature 2024-12-03 13:52:00 36.72 Ai [facility] Respiratory rate 2024-12-03 13:52:00 16 /min [facility] Oxygen saturation in Arterial blood by Pulse oximetry 2024-12-03 13:52:00 97 /min [facility] Body weight 2024-12-03 08:00:00 79.47 kg [facility] BMI 2024-12-03 08:00:00 28.28 kg/m2 [facility] Body height 2024-11-30 08:16:00 167.6 cm [facility] Systolic blood pressure 2024-11-02 20:25:00 148 mm[Hg] [facility] Diastolic blood pressure 2024-11-02 20:25:00 90 mm[Hg] [facility] Heart rate 2024-11-02 20:25:00 96 /min [facility] Body temperature 2024-11-02 20:25:00 36.11 Ai [facility] Respiratory rate 2024-11-02 20:25:00 18 /min [facility] Oxygen saturation in Arterial blood by Pulse oximetry 2024-11-02 20:25:00 98 /min [facility] Body height 2024-11-01 23:49:00 167.6 cm [facility] Body weight 2024-11-01 23:49:00 74.481 kg [facility] BMI 2024-11-01 23:49:00 26.50 kg/m2 [facility] Body height 2024-09-26 18:56:00 167.6 cm Elaina ey Seybold - External Body weight 2024-09-26 18:56:00 73.483 kg Elaina ey Seybold - External BMI 2024-09-26 18:56:00 26.15 kg/m2 Elaina ey Seybold - External Systolic blood pressure 2024-06-07 16:44:00 120 mm[Hg] Grace Seybo ld - External Diastolic blood pressure 2024-06-07 16:44:00 70 mm[Hg] Grace Seybo ld - External Heart rate 2024-06-07 16:44:00 85 /min Kelse y Seybold - External Body temperature 2024-06-07 [...] External Heart rate 2024-03-16 14:00:00 68 /min Kelse y Seybold - External Body temperature 2024-03-16 14:00:00 36.89 Ai Grace Seybold - External Respiratory rate 2024-03-16 14:00:00 20 /min Grace Seybold - External Body height 2024-03-16 14:00:00 167.6 cm Elaina Jon - External Body weight 2024-03-16 14:00:00 71.838 kg Elaina Jon - External BMI 2024-03-16 14:00:00 25.56 kg/m2 Elaina otero Seybzaki - External Oxygen saturation in Arterial blood by Pulse oximetry 2024-03-16 14:00:00 98 /min Grace Aldrich ld - External Systolic blood pressure 2024-02-23 05:29:18 112 mm[Hg] [facility] Diastolic blood pressure 2024-02-23 05:29:18 62 mm[Hg] [facility] Heart rate 2024-02-23 05:29:18 88 /min [facility] Body temperature 2024-02-23 05:29:18 36.5 Ai [facility] Respiratory rate 2024-02-23 05:29:18 18 /min [facility] Body height 2024-02-23 05:24:00 167.6 cm [facility] Body weight 2024-02-23 05:24:00 70.308 kg [facility] BMI 2024-02-23 05:24:00 25.02 kg/m2 [facility] Oxygen saturation in Arterial blood by Pulse oximetry 2024-02-23 05:24:00 97 /min [facility] Systolic blood pressure 2023-12-23 23:30:00 156 mm[Hg] [facility] Diastolic blood pressure 2023-12-23 23:30:00 78 mm[Hg] [facility] Heart rate 2023-12-23 23:30:00 89 /min [facility] Body temperature 2023-12-23 23:30:00 36.78 Ai [facility] Respiratory rate 2023-12-23 23:30:00 16 /min [facility] Oxygen saturation in Arterial blood by Pulse oximetry 2023-12-23 23:30:00 98 /min [facility] Body height 2023-12-23 16:46:00 170.2 cm [facility] Body weight 2023-12-23 16:46:00 74.844 kg [facility] BMI 2023-12-23 16:46:00 25.84 kg/m2 [facility] Systolic blood pressure 2023-03-19 15:02:00 141 mm[Hg] [facility] Diastolic blood pressure 2023-03-19 15:02:00 78 mm[Hg] [facility] Heart rate 2023-03-19 15:02:00 90 /min [facility] Body temperature 2023-03-19 15:02:00 36.61 Ai [facility] Respiratory rate 2023-03-19 15:02:00 18 /min [facility] Body height 2023-03-19 15:02:00 167.6 cm [facility] Body weight 2023-03-19 15:02:00 86.637 kg [facility] BMI 2023-03-19 15:02:00 30.83 kg/m2 [facility] Oxygen saturation in Arterial blood by Pulse oximetry 2023-03-19 15:02:00 98 /min [facility] Systolic blood pressure 2023-03-04 21:20:00 109 mm[Hg] [facility] Diastolic blood pressure 2023-03-04 21:20:00 60 mm[Hg] [facility] Heart rate 2023-03-04 21:20:00 82 /min [facility] Body temperature 2023-03-04 21:20:00 37.06 Ai [facility] Respiratory rate 2023-03-04 21:20:00 18 /min [facility] Oxygen saturation in Arterial blood by Pulse oximetry 2023-03-04 21:20:00 93 /min [facility] Body weight 2023-03-03 08:12:00 87 kg [facility] BMI 2023-03-03 08:12:00 30.96 kg/m2 [facility] Body height 2023-03-01 20:17:00 167.6 cm [facility] Body temperature 2023-03-03 19:10:00 36.56 Ai [facility] Systolic blood pressure 2023-03-03 18:17:00 178 mm[Hg] [facility] Diastolic blood pressure 2023-03-03 18:17:00 93 mm[Hg] [facility] Heart rate 2023-03-03 18:17:00 109 /min [facility] Oxygen saturation in Arterial blood by Pulse oximetry 2023-03-03 16:13:00 97 /min [facility] Respiratory rate 2023-03-03 12:56:00 19 /min [facility] Body weight 2023-03-03 08:12:00 87 kg [facility] BMI 2023-03-03 08:12:00 30.96 kg/m2 [facility] Body height 2023-03-01 20:17:00 167.6 cm [facility] Systolic blood pressure 2022-07-11 16:40:00 122 mm[Hg] [facility] Diastolic blood pressure 2022-07-11 16:40:00 76 mm[Hg] [facility] Heart rate 2022-07-11 16:40:00 77 /min [facility] Body temperature 2022-07-11 16:40:00 36.72 Ai [facility] Body height 2022-07-11 16:40:00 166.4 cm [facility] Body weight 2022-07-11 16:40:00 91.164 kg [facility] BMI 2022-07-11 16:40:00 32.94 kg/m2 [facility] Systolic blood pressure 2021-09-25 02:27:00 152 mm[Hg] [facility] Diastolic blood pressure 2021-09-25 02:27:00 68 mm[Hg] [facility] Heart rate 2021-09-25 02:27:00 91 /min [facility] Respiratory rate 2021-09-25 02:27:00 18 /min [facility] Oxygen saturation in Arterial blood by Pulse oximetry 2021-09-25 02:27:00 99 /min [facility] Body temperature 2021-09-24 23:57:00 36.44 Ai [facility] Body weight 2021-09-24 23:57:00 100.699 kg [facility] Oxygen saturation in Arterial blood by Pulse oximetry 2021-07-30 21:02:00 93 /min [facility] Systolic blood pressure 2021-07-30 21:02:00 115 mm[Hg] [facility] Diastolic blood pressure 2021-07-30 21:02:00 72 mm[Hg] [facility] Heart rate 2021-07-30 21:02:00 94 /min [facility] Respiratory rate 2021-07-30 21:02:00 21 /min [facility] Body temperature 2021-07-30 20:26:00 37.17 Ai [facility] Body weight 2021-07-30 20:26:00 129.729 kg [facility] Systolic blood pressure 2020-08-14 11:00:00 117 mm[Hg] [facility] Diastolic blood pressure 2020-08-14 11:00:00 77 mm[Hg] [facility] Heart rate 2020-08-14 11:00:00 77 /min [facility] Respiratory rate 2020-08-14 11:00:00 16 /min [facility] Oxygen saturation in Arterial blood by Pulse oximetry 2020-08-14 11:00:00 95 /min [facility] Body temperature 2020-08-14 06:27:00 36.94 Ai [facility] Body weight 2020-08-14 06:27:00 129.729 kg [facility] Procedures Procedure Date / Time Performed Performing Clinician Source CBC WITH DIFFERENTIAL 2025-04-17 00:00:00 Grace Jon - External BASIC METABOLIC PANEL (8) 2025-04-17 00:00:00 Grace Jon - External ECG- ADULT 2025-04-17 00:00:00 Grace lew - External XR CHEST 1 VW 2025-02-17 17:02:31 Beth Garcia [facility] MAGNESIUM 2025-02-17 16:47:00 Beth Garcia [facility] TROPONIN I 2025-02-17 16:47:00 [facility] COMP. METABOLIC PANEL ([id number]) 2025-02-17 16:47:00 Beth Garcia [facility] CBC WITH DIFF 2025-02-17 16:47:00 [facility] URINALYSIS 2025-02-17 16:47:00 Akil [facility] Rigoberto [facility] N-TERMINAL PRO-BNP 2025-02-17 16:47:00 Beth Garcia [facility] CBC WITH DIFF 2024-12-04 00:08:00 Sandy Flores [facility] URINALYSIS 2024-12-04 00:08:00 Sandy Flores [facility] XR CHEST 1 VW 2024-12-04 00:04:13 Sandy Flores [facility] CT CHEST PULMONARY ANGIOGRAM 2024-12-03 23:50:01 Sandy Flores Lili [facility] MAGNESIUM 2024-12-03 23:28:00 [facility] TROPONIN I 2024-12-03 23:28:00 Sandy [facility] COMP. METABOLIC PANEL ([id number]) 2024-12-03 23:28:00 Sandy Flores Lili [facility] N-TERMINAL PRO-BNP 2024-12-03 23:28:00 Sandy Flores [facility] PHOSPHORUS 2024-12-03 09:39:00 Olya Calhoun [facility] MAGNESIUM 2024-12-03 09:39:00 Olya Calhoun [facility] BASIC METABOLIC PANEL (NA, K, CL, CO2, GLUCOSE, BUN, CREATININE, CA) 2024-12-03 09:39:00 Olya Calhoun [facility] CBC WITH DIFF 2024-12-03 09:39:00 Olya Calhoun [facility] MAGNESIUM 2024-12-02 19:44:00 [facility] BASIC METABOLIC PANEL (NA, K, CL, CO2, GLUCOSE, BUN, CREATININE, CA) 2024-12-02 19:44:00 Hipolito Poe [facility] CLOSTRIDIUM DIFFICILE TOXIN 2024-12-02 11:53:00 Mayra Gómez [facility] MAGNESIUM 2024-12-02 09:27:00 Laurel Guardado [facility] BASIC METABOLIC PANEL (NA, K, CL, CO2, GLUCOSE, BUN, CREATININE, CA) 2024-12-02 09:27:00 Laurel Guardado [facility] CBC WITHOUT DIFF 2024-12-02 09:27:00 Laurel Guardado [facility] GIARDIA CRYPTOSPORIDIUM AG SCR 2024-12-01 01:32:00 [facility] BASIC METABOLIC PANEL (NA, K, CL, CO2, GLUCOSE, BUN, CREATININE, CA) 2024-11-30 19:04:00 [facility] XR ABDOMEN 2 VW 2024-11-30 14:28:00 Hipolito Poe [facility] URINALYSIS 2024-11-30 02:56:00 Berta [facility] CT ABDOMEN PELVIS WO CONTRAST 2024-11-30 02:51:22 Berta Uribe [facility] HB ECG ROUTINE & RHYTHM STRIP 2024-11-30 01:25:09 Berta Uribe [facility] LIPASE 2024-11-30 01:03:00 Berta Uribe [facility] TROPONIN I 2024-11-30 01:03:00 Berta Uribe [facility] COMP. METABOLIC PANEL ([id number]) 2024-11-30 01:03:00 Berta Uribe [facility] CBC WITH DIFF 2024-11-30 01:03:00 Berta Uribe [facility] N-TERMINAL PRO-BNP 2024-11-30 01:03:00 Berta Uribe [facility] LACTIC ACID WHOLE BLOOD 2024-11-30 01:02:00 Do rianna Uribe [facility] BASIC METABOLIC PANEL (NA, K, CL, CO2, GLUCOSE, BUN, CREATININE, CA) 2024-11-02 13:53:00 Laurel Guardado [facility] MAGNESIUM 2024-11-02 11:38:00 Laurel Guardado [facility] CBC WITH DIFF 2024-11-02 09:38:00 Laurel [facility]ado [facility] CT ABDOMEN PELVIS W CONTRAST 2024-11-01 21:06:00 Flavio Mills [facility] URINALYSIS 2024-11-01 20:45:00 Fl[facility] LIPASE 2024-11-01 20:27:00 [facility] COMP. METABOLIC PANEL ([id number]) 2024-11-01 20:27:00 Flavio Mills [facility] CBC WITH DIFF 2024-11-01 20:27:00 [facility] 2024-09-26 19:51:49 Fredrick Galvez Semario alberto - External CT HEAD WO CONTRAST 2023-12-23 20:54:00 Sandy Flores [facility] URINALYSIS 2023-12-23 20:12:00 Sandy Flores [facility] LIPASE 2023-12-23 18:36:00 SandraSandy agrawal [facility] MAGNESIUM 2023-12-23 18:36:00 SandraSandy agrawal [facility] TROPONIN I 2023-12-23 18:36:00 SandraSandy agrawal [facility] COMP. METABOLIC PANEL ([id number]) 2023-12-23 18:36:00 Sandy Flores [facility] CBC WITH DIFF 2023-12-23 18:36:00 Sandy Flores [facility] BASIC METABOLIC PANEL (NA, K, CL, CO2, GLUCOSE, BUN, CREATININE, CA) 2023-03-04 10:35:00 Mary Escalera [facility] CBC WITH DIFF 2023-03-04 10:35:00 [facility] BASIC METABOLIC PANEL (NA, K, CL, CO2, GLUCOSE, BUN, CREATININE, CA) 2023-03-04 10:35:00 Jw [facility] CBC WITH DIFF 2023-03-04 10:35:00 [facility] TIME [facility] (NON-REPORTABLE) 2023-03-03 21:49:00 Flavia Denise [facility] FL TIME OR (NON-REPORTABLE) 2023-03-03 21:49:00 Flavia Denise [facility] CHOLECYSTECTOMY LAPAROSCOPY WITH CHOLANGIOGRAM 2023-03-03 20:05:00 [facility] CHOLECYSTECTOMY LAPAROSCOPY WITH CHOLANGIOGRAM 2023-03-03 20:05:00 [facility] FECES CULTURE 2023-03-03 13:01:00 Jef Dseouza [facility] FECES CULTURE 2023-03-03 13:01:00 Jef Desouza [facility] HB ECG ROUTINE & RHYTHM STRIP 2023-03-03 11:56:26 Jw [facility] HB ECG ROUTINE & RHYTHM STRIP 2023-03-03 11:56:26 Jw [facility] MAGNESIUM 2023-03-03 10:06:00 Laurel Guardado [facility] TROPONIN I 2023-03-03 10:06:00 Jw [facility] BASIC METABOLIC PANEL (NA, K, CL, CO2, GLUCOSE, BUN, CREATININE, CA) 2023-03-03 10:06:00 Laurel Guardado [facility] CBC WITH DIFF 2023-03-03 10:06:00 Laurel Guardado [facility] MAGNESIUM 2023-03-03 10:06:00 Laurel Guardado [facility] TROPONIN I 2023-03-03 10:06:00 Jw [facility] BASIC METABOLIC PANEL (NA, K, CL, CO2, GLUCOSE, BUN, CREATININE, CA) 2023-03-03 10:06:00 [facility] 2023-03-03 10:06:00 Laurel Guardado [facility] MAGNESIUM 2023-03-02 17:10:00 [facility] MAGNESIUM 2023-03-02 17:10:00 [facility]23-03-02 14:51:[facility]23-03-02 14:51[facility]23-03-02 10:17:00 Jef [facility] HEPATIC FUNCTION PANEL ([id number]) (ALB,T.PRO,BILI T,BU/BC,ALT,AST,ALK PHOS) 2023-03-02 10:17:00 [facility] BASIC METABOLIC PANEL (NA, K, CL, CO2, GLUCOSE, BUN, CREATININE, CA) 2023-03-02 10:17:00 Jef Desouza [facility] CBC WITH DIFF 2023-03-02 10:17:00 Jef Desouza [facility] MAGNESIUM 2023-03-02 10:17:00 Jef [facility] HEPATIC FUNCTION PANEL ([id number]) (ALB,T.PRO,BILI T,BU/BC,ALT,AST,ALK PHOS) 2023-03-02 10:17:00 [facility] BASIC METABOLIC PANEL (NA, K, CL, CO2, GLUCOSE, BUN, CREATININE, CA) 2023-03-02 10:17:00 Jef Desouza [facility] CBC WITH DIFF 2023-03-02 10:17:00 Jef Desouza [facility] URINALYSIS 2023-03-01 16:22:00 [facility] URINALYSIS 2023-03-01 16:22:00 [facility] CT ABDOMEN PELVIS W CONTRAST 2023-03-01 16:08:00 Berta Uribe [facility] CT ABDOMEN PELVIS W CONTRAST 2023-03-01 16:08:00 Berta Uribe [facility] LIPASE 2023-03-01 14:53:00 Bert[facility] COMP. METABOLIC PANEL ([id number]) 2023-03-01 14:53:00 [facility]23-03-01 14:53[facility]00 [facility] (A1C) 2023-03-01 14:53:00 [facility] NOW RAPID TESTING) 2023-03-01 14:53:00 [facility]PRETATION 2023-03-01 14:53:00 Berta Uribe [facility] LIPASE 2023-03-01 14:53:00 [facility] COMP. METABOLIC PANEL ([id number]) 2023-03-01 14:53:00 [facility] 2023-03-01 14:53:00 [facility] GLYCOS[facility]EMOGLOBIN (A1C) 2023-03-01 14:53:00 Jef Desouza [facility] COVID-19 (ID NOW RAPID TESTING) 2023-03-01 14:53:00 Rony [facility] LAB ONLY COVID INTERPRETATION 2023-03-01 14:53:00 [facility]US[facility] FOR [facility]AG[facility]IS AND TREATMENT 2023-03-01 14:27:45 Doctor Unassigned, [place] [facility] CONSENT/REFUSAL FOR DIAGNOSIS AND TREATMENT 2023-03-01 14:27:45 Doctor Unassigned, [place] [facility] PAP SMEAR-LIQUID BASED-CP 2022-07-11 17:01:00 Rob Hutchins [facility] CONSENT/REFUSAL FOR DIAGNOSIS AND TREATMENT 2022-07-11 16:18:16 Doctor Unassigned, [place] [facility] POCT URINALYSIS W/O SPECIFIC GRAVITY 2022-07-11 00:00:00 Raven Rob [facility] XR CHEST 1 VW 2021-09-25 01:22:27 Amaya Tinoco [facility] XR SHOULDER 2+ VW LEFT 2021-09-25 01:22:27 Elvia Tinoco [facility] URINALYSIS 2021-09-25 01:15:00 Amaya Tinoco [facility] MAGNESIUM 2021-09-25 00:41:00 [facility] TROPONIN I 2021-09-25 00:41:00 [facility] COMP. METABOLIC PANEL ([id number]) 2021-09-25 00:41:00 Amaya Tinoco [facility] CBC WITH DIFF 2021-09-25 00:41:00 Amaya Tinoco [facility] N-TERMINAL PRO-BNP 2021-09-25 00:41:00 Amaya Tinoco [facility] CONSENT/REFUSAL FOR DIAGNOSIS AND TREATMENT 2021-09-24 23:55:08 Doctor Unassigned, [place] [facility] NOTICE OF PRIVACY PRACTICES 2021-07-30 20:15:43 Doctor Unassigned, [place] [facility] CONSENT/REFUSAL FOR DIAGNOSIS AND TREATMENT 2021-07-30 20:14:53 Doctor Unassigned, [place] [facility] TROPONIN I 2020-08-14 08:54:00 Anibal Chinchilla [facility] XR CHEST 1 VW 2020-08-14 07:37:40 Anibal Chinchilla [facility] LIPASE 2020-08-14 06:37:00 Anibal Chinchilla [facility] TROPONIN I 2020-08-14 06:37:00 Anibal Chinchilla [facility] COMP. METABOLIC PANEL ([id number]) 2020-08-14 06:37:00 Anibal Chinchilla [facility] CBC WITH DIFF 2020-08-14 06:37:00 Anibal Chinchilla [facility] PROTHROMBIN TIME / INR 2020-08-14 06:37:00 Anibal Ruvalcaba [facility] D-DIMER 2020-08-14 06:37:00 Anibal Chinchilla [facility] ACTIVATED PARTIAL THRMPLAS RENA 2020-08-14 06:37:00 Anibal Chinchilla [facility] NOTICE OF PRIVACY PRACTICES 2020-08-14 06:18:59 Doctor Unassigned, [place] [facility] CONSENT/REFUSAL FOR DIAGNOSIS AND TREATMENT 2020-08-14 06:18:36 Doctor Unassigned, [place] [facility] TOTAL HIP REPLACEMENT Metoxen, A cristo Jon - External TOTAL HIP REPLACEMENT Metoxen, A cristo Jon - External Plan of Care Planned Activity Planned Date Details Comments Source Encounters Start Date/Time End Date/Time Encounter Type Admission Type [facility]ending [facility] Care Department Encounter ID Source 2025-06-16 14:00:00 2025-06-16 14:00:00 [id number] 2025-06-16 09:20:00 2025-06-16 09:20:00 Outpatient [facility] [id number] [facility] 2025-05-16 11:40:00 2025-05-16 11:40:00 Outpatient GRACE ORR [id number] [facility] 2025-05-11 00:00:00 2025-05-11 00:00:00 Outpatient ROSE SCHMITT [id number] [facility] 2025-05-02 14:00:00 2025-05-02 14:00:00 Outpatient MARISELA SKINNER [id number] [facility] 2025-04-27 10:30:00 2025-04-27 10:30:00 Outpatient FIONA SANCHEZ [id number] [facility] 2025-04-24 00:00:00 2025-04-24 00:00:00 Outpatient MD [id number] [facility] 2025-04-17 10:50:00 2025-04-17 10:50:00 Outpatient ELIZABETHDANIEL RETANA [facility] [id number] [facility] 2025-04-17 10:45:00 2025-04-17 10:45:00 Outpatient GRACE ORR [id number] [facility] 2025-04-17 00:00:00 2025-04-17 00:00:00 Outpatient ELIZABETHDANIEL RETANA [facility] [id number] [facility] 2025-03-22 13:10:00 2025-03-22 13:10:00 Outpatient ZECHARIAH COOK [id number] [facility] 2025-03-12 00:00:00 2025-03-12 00:00:00 Outpatient FREDRICK GALVEZ [id number] [facility] 2025-03-07 00:00:00 2025-03-07 00:00:00 Outpatient GRACE ORR [id number] [facility] 2025-02-17 11:17:00 2025-02-17 17:41:00 Emergency X BETH GARCIA [facility] [id number] [facility] 2025-02-07 00:00:00 2025-02-07 00:00:00 Outpatient FIONA SANCHEZ [id number] [facility] 2025-01-30 00:00:00 2025-01-30 00:00:00 [facility] [id number] [facility]25-01-25 15:00:00 2025-01-25 15:00:00 Outpatient FIONA SANCHEZ [id number] [facility] 2025-01-21 00:00:00 2025-01-21 00:00:00 Outpatient GRACE ORR [id number] [facility] 2025-01-16 13:00:00 2025-01-16 13:00:00 Outpatient FREDRICK GALVEZ [id number] [facility] 2025-01-10 00:00:00 2025-01-10 00:00:00 Outpatient GRACE ORR [id number] [facility] 2025-01-04 11:00:00 2025-01-04 11:00:00 [employer] Visit MARY PORTILLO [facility] 1.2.840.114 350.1.13.10 4.2.7.2.686 [id number] [facility] 2024-12-31 00:00:00 2024-12-31 00:00:00 Outpatient JARVIS FREDRICK GRACE ORR [id number] [facility] 2024-12-30 00:00:00 2024-12-30 00:00:00 Outpatient VITA SANCHEZA [facility]ACE ORR [id number] [facility] 2024-12-29 00:00:00 2024-12-29 00:00:00 Outpatient GRACE ORR [id number] [facility] 2024-12-29 00:00:00 2024-12-29 00:00:00 Outpatient FIONA SANCHEZ [id number] [facility] 2024-12-15 15:00:00 2024-12-15 15:00:00 Outpatient DANIELFIONA [id number] [facility] 2024-12-15 00:00:00 2024-12-15 00:00:00 Outpatient GRACE ORR [id number] [facility] 2024-12-12 13:20:00 2024-12-12 13:20:00 Outpatient PRUDENCE SIERRA [id number] [facility] 2024-12-09 15:30:00 2024-12-09 15:30:00 Outpatient FIONA SANCHEZ [id number] [facility] 2024-12-08 00:00:00 2024-12-08 00:00:00 Outpatient FIONA SANCHEZ [id number] [facility] 2024-12-08 00:00:00 2024-12-08 00:00:00 Outpatient FIONA SANCHEZSEY [id number] [facility] 2024-12-08 00:00:00 2024-12-08 00:00:00 Outpatient FIONA SANCHEZ [id number] [facility] 2024-12-08 00:00:00 2024-12-08 00:00:00 Outpatient MD GRACE MADRIGAL [id number] [facility] 2024-12-07 11:20:00 2024-12-07 11:20:00 Outpatient LAB90 GRACE GRACE [id number] [facility] 2024-12-07 10:30:00 2024-12-07 10:30:00 Outpatient FIONA SANCHEZ GRACE [id number] [facility] 2024-12-07 00:00:00 2024-12-07 00:00:00 Outpatient GRACE GRACE [id number] [facility] 2024-12-05 00:00:00 2024-12-05 12:09:42 Transition of Care Jaime Ayesa Anisa Sandoval Aye [facility] 1.2.840.114 350.1.13.10 4.2.7.2.686 [id number] [facility] 2024-12-03 17:54:00 2024-12-03 23:04:00 Emergency X Sandy FLORES K [facility] [id number] [facility] 2024-12-03 17:54:00 2024-12-03 23:04:00 Emergency X Sandy FLORES K [facility] E[facility] [id number] [facility] 2024-11-29 19:40:00 2024-12-03 13:23:00 Inpatient X HIPOLITO POE DCVELASQUEZ ELVIA [id number] [facility] 2024-11-29 19:40:00 2024-12-03 13:23:00 Hospital Encounter Berta Uribe Mohammad A. DCVELASQUEZ AT [facility] 1.2.840.114 350.1.13.10 4.2.7.2.686 [id number] [facility] 2024-11-24 00:00:00 2024-11-24 00:00:00 Outpatient FREDRICK GALVEZ [id number] [facility] 2024-11-19 00:00:00 2024-11-19 00:00:00 Outpatient FIONA SANCHEZ GRACE ORR [id number] [facility] 2024-11-03 00:00:00 2024-11-03 16:26:26 Transition of [facility] Jaime Ayesa Anisa Sandoval Aye Lange SHANELLE KRISTINA LYNN 1..840.114 350.1.13.10 4.2.7.2.686 [id number] [facility] 2024-11-01 14:57:00 2024-11-02 16:21:00 Outpatient LAUREL HOOPER [facility] [id number] [facility] 2024-11-01 14:57:00 2024-11-02 16:21:00 Emergency Abhay Bond, [place], Laurel Akins [facility] 1..840.114 350.1.13.10 4.2.7.2.686 [id number] [facility] 2024-10-24 13:30:00 2024-10-24 13:30:00 Outpatient GRACE ORR [id number] [facility] 2024-10-24 13:00:00 2024-10-24 13:00:00 Outpatient GRACE ORR [id number] [facility] 2024-10-23 00:00:00 2024-10-23 00:00:00 Outpatient FREDRICK GALVEZ [id number] [facility] 2024-10-20 00:00:00 2024-10-20 00:00:00 Outpatient FREDRICK GALVEZ [id number] [facility] 2024-10-09 00:00:00 2024-10-09 00:00:00 Outpatient FIONA SANCHEZ [facility]ACE OR[facility] [id number] [facility] 2024-09-26 13:35:00 2024-09-26 13:35:00 Outpatient GRACE ORR [id number] [facility] 2024-09-26 13:00:00 2024-09-26 13:00:00 Outpatient JARVIS FREDRICK GRACE ORR [id number] [facility] 2024-07-29 00:00:00 2024-07-29 00:00:00 Outpatient MD GRACE MADRIGAL [id number] [facility] 2024-07-21 00:00:00 2024-07-21 00:00:00 Outpatient FIONA SANCHEZ GRACE ORR [id number] [facility] 2024-07-16 00:00:00 2024-07-16 00:00:00 Outpatient FIONA SANCHEZ GRACE ORR [id number] [facility] 2024-07-12 14:00:00 2024-07-12 14:00:00 Outpatient FIONA SANCHEZ GRACE ORR [id number] [facility] 2024-07-09 00:00:00 2024-07-09 00:00:00 Outpatient FIONA SANCHEZ GRACE ORR [id number] [facility] 2024-06-21 00:00:00 2024-06-21 00:00:00 Outpatient MD GRACE MADRIGAL [id number] [facility] 2024-06-15 15:00:00 2024-06-15 15:00:00 Outpatient FIONA SANCHEZ GRACE ORR [id number] [facility] 2024-06-07 11:45:00 2024-06-07 11:45:00 Outpatient CHAZ ORR [id number] [facility] 2024-06-07 11:00:00 2024-06-07 11:00:00 Outpatient ROSE SCHMITT [id number] [facility] 2024-06-04 00:00:00 2024-06-04 00:00:00 Outpatient FIONA SANCHEZ GRACE [id number] [facility] 2024-05-23 14:30:00 2024-05-23 14:30:00 Outpatient FRDERICK GALVEZ GRACE [id number] [facility] 2024-05-11 15:00:00 2024-05-11 15:00:00 Outpatient FIONA SANCHEZ GRACE [id number] [facility] 2024-05-06 00:00:00 2024-05-06 00:00:00 Outpatient FIONA SANCHEZ GRACE [id number] [facility] 2024-05-03 00:00:00 2024-05-03 00:00:00 Outpatient FIONA SANCHEZ GRACE [id number] [facility] 2024-04-14 09:00:00 2024-04-14 09:00:00 Outpatient FIONA SANCHEZ GRACE [id number] [facility] 2024-04-14 00:00:00 2024-04-14 00:00:00 Outpatient GRACE GRACE [id number] [facility] 2024-04-11 00:00:00 2024-04-11 00:00:00 Outpatient FIONA SANCHEZ GRACE [id number] [facility] 2024-04-06 00:00:00 2024-04-06 00:00:00 Outpatient FIONA SANCHEZ GRACE ORR [id number] [facility] 2024-04-02 00:00:00 2024-04-02 00:00:00 Outpatient FIONA SANCHEZFILEMON ORR [id number] [facility] 2024-04-01 09:40:00 2024-04-01 09:40:00 Outpatient LAB47 GRACE ORR [id number] [facility] 2024-04-01 09:40:00 2024-04-01 09:40:00 Outpatient GRACE ORR [id number] [facility] 2024-04-01 09:35:00 2024-04-01 09:35:00 Outpatient LAB47 GRACE ORR [id number] [facility] 2024-03-16 09:55:00 2024-03-16 09:55:00 Outpatient LAB90 GRACE ORR [id number] [facility] 2024-03-16 09:00:00 2024-03-16 09:00:00 Outpatient FIONA SANCHEZ [id number] [facility] 2024-03-07 10:00:00 2024-03-07 10:00:00 Outpatient SEBLE GARZA GRACE [id number] [facility] 2024-03-02 00:00:00 2024-03-02 10:13:01 Letter (Out) Campaigns, Generic Provider Campaigns, Generic Provider [facility] 1..840.114 350.1.13.10 4.2.7.2.686 [id number] [facility] 2024-02-23 00:28:00 2024-02-23 02:47:00 Emergency X KAYLI HOLGUIN WAKILI [facility] E[facility] [id number] [facility] 2024-02-23 00:28:00 2024-02-23 02:47:00 Emergency Kayli Holguin [facility] 1..840.114 350.1.13.10 4.2.7.2.686 [id number] [facility] 2023-12-23 11:47:00 2023-12-23 18:33:00 Emergency X Sandy FLORES [facility] ERT [id number] [facility] 2023-12-23 11:47:00 2023-12-23 18:33:00 Emergency Sandy Flores [facility] 1..840.114 350.1.13.10 4.2.7.2.686 [id number] [facility] 2023-11-09 11:33:37 2023-11-09 11:33:[address] [facility] [id number] Fredrick Smith 2023-09-17 13:24:58 2023-09-17 13:24:58 Outpatient [facility] [id number] Fredrick Smith 2023-04-08 17:11:13 2023-04-08 17:11:13 Outpatient [facility] [id number] Fredrick Smith 2023-04-08 00:00:00 2023-04-08 00:00:00 Telephone Flavia Denise [facility] 1.2.840.114 350.1.13.10 4.2.7.2.686 [id number] [facility] 2023-04-07 00:00:00 2023-04-07 00:00:00 Telephone Flavia Denise [facility] 1.2.840.114 350.1.13.10 4.2.7.2.686 [id number] [facility] 2023-03-19 10:00:00 2023-03-19 10:47:42 Outpatient R FLAVIA DENISE [facility] [id number] [facility] 2023-03-19 10:00:00 2023-03-19 10:47:42 Office Visit Flavia Denise [facility] 1.2.840.114 350.1.13.10 4.2.7.2.686 [id number] [facility] 2023-03-01 09:36:00 2023-03-04 17:50:00 Outpatient X OLYA CALHOUN [facility] [id number] [facility] 2023-03-01 09:36:00 2023-03-04 17:50:00 Emergency Berta Uribe David [facility] 1.2.840.114 350.1.13.10 4.2.7.2.686 [id number] [facility] 2023-03-03 14:20:00 2023-03-03 17:01:00 Surgery Flavia Denise [facility] 1.840.114 350.1.13.10 4.2.7.2.686 [id number] [facility] 2022-08-22 00:00:00 2022-08-22 00:00:00 Outpatient R [facility] [id number] [facility] 2022-07-11 14:00:00 2022-07-11 14:15:00 [employer] Visit Pob, Adc Lab Main Rob Caldera [facility] 1.2840.114 350.1.13.10 4.2.7.2.686 [id number] [facility] 2022-07-11 10:30:00 2022-07-11 11:11:49 Outpatient R VERONICA GALAN [facility] [id number] [facility] 2022-07-11 10:30:00 2022-07-11 11:11:49 Office Visit Rob Caldera [facility] 1.2840.114 350.1.13.10 4.2.7.2.686 [id number] [facility] 2022-07-11 00:00:00 2022-07-11 00:00:00 Orders Only Doctor Unassigned, [place] [facility] 1.840.114 350.1.13.10 4.2.7.2.686 [id number] [facility] 2022-07-09 00:00:00 2022-07-09 00:00:00 (TEL) STLMLC STLM [id number] [facility] 2021-09-24 18:10:00 2021-09-24 20:29:00 Emergency X AMAYA TINOCO [facility] ERT [id number] [facility] 2021-09-24 18:10:00 2021-09-24 20:29:00 Emergency Amaya Tinoco [facility] 1.2.840.114 350.1.13.10 4.2.7.2.686 [id number] [facility] 2021-07-30 14:29:00 2021-07-30 15:19:00 Emergency X CANDIDO KRUEGER [facility] ERT [id number] [facility] 2021-07-30 14:29:00 2021-07-30 15:19:00 Emergency Candido Krueger [facility] 1.2.840.114 350.1.13.10 4.2.7.2.686 [id number] [facility] 2021-07-30 00:00:00 2021-07-30 00:00:00 Orders Only Doctor Unassigned, [place] [facility] 1.2.840.114 350.1.13.10 4.2.7.2.686 [id number] [facility] 2020-08-14 00:20:00 2020-08-14 05:15:00 Emergency ANIBAL MANNING [facility] ERT [id number] [facility] 2020-08-14 00:20:00 2020-08-14 05:15:00 Emergency Perriflaviomelita Anibal [facility] 1.2.840.114 350.1.13.10 4.2.7.2.686 [id number] [facility] 2020-08-14 00:00:00 2020-08-14 00:00:00 Orders Only Doctor Unassigned, [place] [facility] 1.2.840.114 350.1.13.10 4.2.7.2.686 [id number] [facility] 2019-07-31 13:24:12 2019-07-31 15:25:00 Emergency X SOREN LEO [facility] ERT [id number] [facility] 2018-01-12 11:07:00 2018-01-12 11:07:00 Outpatient [facility] [id number] [facility] 2017-12-14 14:00:00 2017-12-14 14:00:00 Outpatient [facility] [id number] [facility] 2017-12-07 10:15:00 2017-12-07 10:15:00 Outpatient [facility] [id number] [facility] Results Test Description Test Time Test Comments Results Resul t Comments Source XR CHEST 1 VW 2025-01-25 5 18:04:48 ORDERING PHYSICIAN: BETH GARCIA CLINICAL INDICATIONS: ? Edema COMPARISON: 12/03/2024 FINDINGS: There is left lung base atelectasis, otherwise the lungs are clear.Costophrenic angles are sharp. The cardiomediastinal silhouette isenlarged. The pulmonary vasculature is mildly congested. There is nopneumothorax. The upper abdomen and osseous structures are unremarkable. [id number] 17:45:31* Test Item Value Reference Range Interpretation Comme nts NT-proBNP (test code = 57593-1) 264 pg/mL <=125 REMINGTON (test code = REMINGTON) Result Indeterminate-Consid er causes of NT-proBNP elevation other than Heart failure such as acute coronary syndrome, pulmonary embolism, pulmonary hypertension, sepsis, stroke, and renal dysfunction. Lab Interpretation (test code = 25145-3) [facility]normal [facility]OL[facility] ([id number])2025-02-17 17:36:03* Test Item Value Reference Range Interpretation Comme nts NA (test code = 6696591069) 138 mmol/L 135-145 K (test code = 4892430026) 3.9 mmol/L 3.5-5.0 CL (test code = 0279283513) 102 mmol/L 98-108 CO2 TOTAL (test code = 4005389628) 28 mmol/L 23-31 AGAP (test code = 4529594515) 8 2-16 BUN (test code = 4205078478) 32 mg/dL 7-23 H GLUCOSE (test code = 9005344585) 104 mg/dL 70-110 CREATININE (test code = 2160-0) 1.22 mg/dL 0.50-1.04 H TOTAL BILI (test code = 4800448208) 0.5 mg/dL 0.1-1.1 CALCIUM (test code = 6336865287) 8.8 mg/dL 8.6-10.6 T PROTEIN (test code = 2209943138) 7.3 g/dL 6.3-8.2 ALBUMIN (test code = 5652477257) 4.1 g/dL 3.5-5.0 ALK PHOS (test code = 4318672890) 89 U/L 34-122 ALTv (test code = 1742-6) 15 U/L 5-35 AST(SGOT) (test code = 3672351908) 21 U/L 13-40 eGFR (test code = 96451-8) 51.2 mL/min/1.73m2 CKD-EPI eGFR (2020). Assuming creatinine has been stable day-to-day for at least three months, the eGFR indicates Category G3a (45 - 59 mL/min/1.73 m2) Lab Interpretation (test code = 12318-4) [facility]normal [facility]2025-07-25 17:36:03* Test Item Value Reference Range Interpretation Comme nts MAGNESIUM (test code = 9950470554) 2.2 mg/dL 1.7-2.4 Lab Interpretation (test cod e = 22340-9) Normal [facility] WITH [id number] 17:22:36* Test Item Value Reference Range Interpretation Comme nts WBC (test code = 6690-2) 12.73 4.30-11.10 H RBC (test code = 789-8) 4.41 3.93-5.25 HGB (test code = 718-7) 13 g/dL 11.6-15.0 HCT (test code = 4544-3) 42.7 % 35.7-45.2 MCV (test code = 787-2) 96.8 fL 80.6-95.5 H MCH (test code = 785-6) 29.5 pg 25.9-32.8 MCHC (test code = 786-4) 30.4 g/dL 31.6-35.1 L RDW-SD (test code = 05332-3) 51 fL 39.0-49.9 H RDW-CV (test code = 788-0) 14.2 % 12.0-15.5 PLT (test code = 777-3) 205 166-358 MPV (test code = 20725-1) 11.1 fL 9.5-12.9 NRBC/100 WBC (test code = 1334870213) 0 0.0-10.0 NRBC x10^3 (test code = 1451636792) See_Comment [Automated message] The system which generated this result transmitted reference range: 10*3/?L. The reference range was not used to interpret this result as normal/abnormal. GRAN MAT (NEUT) % (test code = 770-8) 86.8 % IMM GRAN % (test code = 6822769252) 0.2 % LYMPH % (test code = 736-9) 5.7 % MONO % (test code = 5905-5) 6.1 % EOS % (test code = 713-8) 1 % BASO % (test code = 706-2) 0.2 % GRAN MAT x10^3(ANC) (test code = 3655325068) 11.04 10*3/uL 1.88-7.09 H IMM GRAN x10^3 (test code = 9606412510) 0.03 10*3/uL 0.00-0.06 LYMPH x10^3 (test code = 731-0) 0.73 10*3/uL 1.32-3.29 L MONO x10^3 (test code = 742-7) 0.78 10*3/uL 0.33-0.92 EOS x10^3 (test code = 711-2) 0.13 10*3/uL 0.03-0.39 BASO x10^3 (test code = 704-7) 0.01-0.07 Lab Interpretation (test code = 63517-4) Abnormal [facility] with [id number] 01:30:04* Test Item Value Reference Range Interpretation Comme nts WBC (test code = 6690-2) 11.57 4.30-11.10 H RBC (test code = 789-8) 3.96 3.93-5.25 HGB (test code = 718-7) 11.8 g/dL 11.6-15.0 HCT (test code = 4544-3) 36.4 % 35.7-45.2 MCV (test code = 787-2) 91.9 fL 80.6-95.5 MCH (test code = 785-6) 29.8 pg 25.9-32.8 MCHC (test code = 786-4) 32.4 g/dL 31.6-35.1 RDW-SD (test code = 28957-2) 43.8 fL 39.0-49.9 RDW-CV (test code = 788-0) 12.9 % 12.0-15.5 PLT (test code = 777-3) 112 166-358 L MPV (test code = 72269-7) 10.2 fL 9.5-12.9 NRBC/100 WBC (test code = 5690014737) 0 0.0-10.0 NRBC x10^3 (test code = 1726612446) See_Comment [Automated messa ge] The system which generated this result transmitted reference range: 10*3/?L. The reference range was not used to interpret this result as normal/abnormal. GRAN MAT (NEUT) % (test code = 770-8) 74.1 % IMM GRAN % (test code = 6176729315) 4.9 % LYMPH % (test code = 736-9) 12.7 % MONO % (test code = 5905-5) 7 % EOS % (test code = 713-8) 0.8 % BASO % (test code = 706-2) 0.5 % GRAN MAT x10^3(ANC) (test code = 0859178124) 8.57 10*3/uL 1.88-7.09 H IMM GRAN x10^3 (test code = 9945330442) 0.57 10*3/uL 0.00-0.06 H LYMPH x10^3 (test code = 731-0) 1.47 10*3/uL 1.32-3.29 MONO x10^3 (test code = 742-7) 0.81 10*3/uL 0.33-0.92 EOS x10^3 (test code = 711-2) 0.09 10*3/uL 0.03-0.39 BASO x10^3 (test code = 704-7) 0.06 10*3/uL 0.01-0.07 Lab Interpretation (test code = 26277-8) [facility]normal [facility] 1 [id number] 00:49:40ORDERING PROVIDER: ?Sandy FLORES HISTORY: Shortness of breath TECHNIQUE: AP view of the chest COMPARISON: Concurrent CTA chest FINDINGS: Small right pleural effusion and subjacent pulmonary opacities. Bluntingleft costophrenic angle appears to correlate with subsegmental atelectasisversus scarring on the comparison CT. ? No pneumothorax. ? The cardiacsilhouette and pulmonary vasculature are within normal limits. ?Milddegenerative changes are seen in the spine and shoulders. [facility] Chest pulmonary [id number] 00:46:32ORDERING PROVIDER: ?Sandy FLORES HISTORY: PE suspected, [...] ?Prior cholecystectomy. Otherwise, the visualized upperabdomen is unremarkable.[facility] Troponin [id number] 00:20:15* Test Item Value Reference Range Interpretation Comme nts TROPONIN I (test code = 9635049728) 0.006 ng/mL <=0.034 REMINGTON (test code = [...] of biotin. Lab Interpretation (test code = 12859-7) Normal [facility] Uao-[id number] 00:17:59* Test Item Value Reference Range Interpretation Comme [facility] NT-proBNP (test code = 56322-0) 74342 pg/mL <=125 H REMINGTON (test code = REMINGTON) Positive: Heart Failure Likely Lab Interpretation (test code = 94840-1) Abnormal [facility] Antonio[facility]. Metabolic Panel (34461)2024-12-04 00:11:18* Test Item Value Reference Range Interpretation Comme nts NA (test code = 0676909506) 137 mmol/L 135-145 K (test code = 1077395484) 3.6 mmol/L 3.5-5.0 CL (test code = 0907031135) 104 mmol/L 98-108 CO2 TOTAL (test code = 1088405583) 28 mmol/L 23-31 AGAP (test code = 7702344435) 5 2-16 BUN (test code = 3733255786) 10 mg/dL 7-23 GLUCOSE (test code = 3314172162) 102 mg/dL 70-110 CREATININE (test code = 2160-0) 0.83 mg/dL 0.50-1.04 TOTAL BILI (test code = 5133924955) 0.6 mg/dL 0.1-1.1 CALCIUM (test code = 6633480303) 7.8 mg/dL 8.6-10.6 L T PROTEIN (test code = 5762143997) 5.9 g/dL 6.3-8.2 L ALBUMIN (test code = 9247171732) 3.1 g/dL 3.5-5.0 L ALK PHOS (test code = 0829844752) 90 U/L 34-122 ALTv (test code = 1742-6) 46 U/L 5-35 H AST(SGOT) (test code = 7604384102) 21 U/L 13-40 eGFR (test code = 68024-0) 81.3 mL/min/1.73m2 CKD-EPI eGFR (2020). Assuming creatinine has been stable day-to-day for at least three months, the eGFR indicates Category G2 (60 - 89 mL/min/1.73 m2) Lab Interpretation (test code = 60938-4) Abnormal [facility] Antonio[facility]2025-05-11 00:11:18* Test Item Value Reference Range Interpretation Comme nts MAGNESIUM (test code = 3782503233) 1.4 mg/dL 1.7-2.4 L Lab Interpretation (test cod e = 03146-8) [facility]normal [facility] [id number] 21:49:51EXAM: XR ABDOMEN 2 11/30/2024 8:59 AM HISTORY: ileus COMPARISON: None. FINDINGS: Multiple loops ofgaseous dilated loops of small bowel measuring 4.3 cm inlargest diameter. Gas is noted in the largebowel loops without distention.Air is present in the rectum. No radiopaque stones identified. No acute bony abnormality is present. [facility]olecyst[facility] [id number] 20:43:36* Test Item Value Reference Range Interpretation Comme nts MAGNESIUM (test code = 9784370569) 2.3 mg/dL 1.7-2.4 Lab Interpretation (test cod e = 02250-6) Normal [facility] Metabolic Panel (NA, K, CL, CO2, GLUCOSE, BUN, CREATININE, CA)2024-12-02 20:43:36* Test Item Value Reference Range Interpretation Comme nts NA (test code = 6106761180) 134 mmol/L 135-145 L K (test code = 4835135215) 3.7 mmol/L 3.5-5.0 CL (test code = 8568840467) 105 mmol/L 98-108 CO2 TOTAL (test code = 1124734678) 25 mmol/L 23-31 AGAP (test code = 4496174914) 4 2-16 BUN (test code = 8130233973) 16 mg/dL 7-23 GLUCOSE (test code = 2238497439) 97 mg/dL 70-110 CREATININE (test code = 2160-0) 0.83 mg/dL 0.50-1.04 CALCIUM (test code = 2450878501) 7.8 mg/dL 8.6-10.6 L eGFR (test code = 63468-5) 81.3 mL/min/1.73m2 CKD-EPI eGFR (2020). Assuming creatinine has been stable day-to-day for at least three months, the eGFR indicates Category G2 (60 - 89 mL/min/1.73 m2) Lab Interpretation (test code = 14364-1) Abnormal [facility] Metabolic Panel (NA, K, CL, CO2, GLUCOSE, BUN, CREATININE, CA)2024-11-30 20:08:08* Test Item Value Reference Range Interpretation Comme nts NA (test code = 3569016417) 138 mmol/L 135-145 K (test code = 7985391958) 3.7 mmol/L 3.5-5.0 CL (test code = 6654180548) 104 mmol/L 98-108 CO2 TOTAL (test code = 4613177565) 24 mmol/L 23-31 AGAP (test code = 3053926872) 10 2-16 BUN (test code = 4802125367) 60 mg/dL 7-23 H GLUCOSE (test code = 6179984854) 118 mg/dL 70-110 H CREATININE (test code = 2160-0) 1.76 mg/dL 0.50-1.04 H CALCIUM (test code = 9639205141) 8.4 mg/dL 8.6-10.6 L eGFR (test code = 50408-0) 33 mL/min/1.73m2 CKD-EPI eGFR (2020). Assuming creatinine has been stable day-to-day for at least three months, the eGFR indicates Category G3b (30 - 44 mL/min/1.73 m2) Lab Interpretation (test code = 01960-2) [facility] pelvis wo [id number] 03:55:20ORDERING PHYSICIAN:BERTA CANTU CLINICAL INFORMATION: ? Nausea/vomiting [...] are clear. There are nosuspicious focal osseous lesions.[facility] AntonioCB WITH [id number] 02:02:09* Test Item Value Reference Range Interpretation [...] 33.4 g/dL 31.6-35.1 RDW-SD (test code = 75156-1) 45.9 fL 39.0-49.9 RDW-CV (test code = 788-0) 13.6 % 12.0-15.5 PLT (test code = 777-3) 272 166-358 MPV (test code = 29627-5) 10.4 fL 9.5-12.9 NRBC/100 WBC (test code = 4589782768) 0 0.0-10.0 NRBC x10^3 (test code = 5374132821) See_Comment [Automated messa ge] The system which generated this result transmitted reference range: 10*3/?L. The reference range was not used to interpret this result as normal/abnormal. SEG % (test code = 65476-1) 37 % 33-76 BAND % (test code = 90382-2) 24 % 0-1 H META % (test code = 26045-3) 7 % <=0 H LYMPH % (test code = 30951-2) 17 % 14-54 MONO % (test code = 14326-3) 12 % 0-4 H EOS % (test code = 23656-0) 2 % 0-3 BASO % (test code = 30164-5) 1 % 0-1 ANC (test code = 753-4) 3.41 10*3/uL 1.88-7.09 TOXIC CHANGES (test code = 803-7) Present A PLT ESTIMATE (test code = 9317-9) Normal Normal Lab Interpretation (test code = 49888-6) [facility] [id number] 01:34:06* Test Item Value Reference Range Interpretation Comme nts TROPONIN I (test code = 9255619287) 0.007 ng/mL <=0.034 REMINGTON (test code = REMINGTON) [...] of biotin. Lab Interpretation (test code = 52693-6) Normal [facility] AntonioN-TERMINAL VEA-XMD2219-24-07 01:31:25* Test Item Value Reference Range Interpretation Comme nts NT-proBNP (test code = 23965-1) 1140 pg/mL <=125 H REMINGTON (test code = REMINGTON) Positive: Heart Failure Likely Lab Interpretation (test code = 71711-2) [facility] Antonio[facility] METABOLIC PANEL (05403)2024-11-30 01:22:25* Test Item Value Reference Range Interpretation Comme nts NA (test code = 7071897120) 132 mmol/L 135-145 L K (test code = 5765296111) 3.7 mmol/L 3.5-5.0 CL (test code = 2031453237) 94 mmol/L 98-108 L CO2 TOTAL (test code = 6484937221) 26 mmol/L 23-31 AGAP (test code = 2202305593) 12 2-16 BUN (test code = 7533518801) 96 mg/dL 7-23 H GLUCOSE (test code = 9496975856) 118 mg/dL 70-110 H CREATININE (test code = 2160-0) 3.84 mg/dL 0.50-1.04 H TOTAL BILI (test code = 2703270504) 0.6 mg/dL 0.1-1.1 CALCIUM (test code = 0865077329) 8.5 mg/dL 8.6-10.6 L T PROTEIN (test code = 7497875233) 6.7 g/dL 6.3-8.2 ALBUMIN (test code = 7224872275) 3.6 g/dL 3.5-5.0 ALK PHOS (test code = 7945574613) 88 U/L 34-122 ALTv (test code = 1742-6) 184 U/L 5-35 H AST(SGOT) (test code = 0467820308) 22 U/L 13-40 eGFR (test code = 99978-9) 12.9 mL/min/1.73m2 CKD-EPI eGFR (2020). Assuming creatinine has been stable day-to-day for at least three months, the eGFR indicates Category G5 (<= 14mL/min/1.73 m2) Lab Interpretation (test code = 08406-5) [facility]normal [facility] Antonio[facility]ASE2025-[facility]-07 01:22:05* Test Item Value Reference Range Interpretation Comme nts LIPASE (test code = 2079883415) 34 U/L 0-220 Lab Interpretation (test cod e = 57338-3) Normal [facility] AntonioLactic Acid Whole Apbgc9402-81-43 01:10:23* Test Item Value Reference Range Interpretation Comme nts LACTIC ACID (test code = 6445336783) 1.52 mmol/L 0.50-2.20 Lab Interpretation (test cod e = 44578-8) Normal [facility] AntonioCT Abdomen pelvis w zdzfpavw9727-54-85 21:37:10CT ABDOMEN PELVIS W CONTRAST 11/01/2024 3:46 [...] bilateral hip joints. No concerning soft tissue abnormality.[facility] AntonioHIPS AFMRLMBDO1056-10-85 19:54:26History: ?severe bilateral pain; no injuryImages: ?3 views, each hipFindings: There is advanced osteoarthritis of the joints bilaterally with 95% narrowing of articular cartilage, subcortical eburnation, subchondral cyst formation, and ? osteophytosis.Grace mario alberto - ExternalCT HEAD WO [id number] 20:57:52EXAM: CT HEAD WO CONTRAST HISTORY: 58 [...] visualized.No parenchymal attenuation abnormality is seen. The montiel- white matterdifferentiation is preserved. The mastoid air cells and paranasal air sinuses are clear. The calvariumand central skull base are unremarkable. [facility] AntonioTroponin O6730-20-28 19:26:44* Test Item Value Reference Range Interpretation Comme nts TROPONIN I (test code = 6049948839) 0.010 ng/mL <=0.034 REMINGTON (test code = [...] of biotin. Lab Interpretation (test code = 93609-9) Normal [facility] AntonioMagnesium2024-05-29 19:15:27* Test Item Value Reference Range Interpretation Comme nts MAGNESIUM (test code = 5969559586) 1.9 mg/dL 1.7-2.4 Lab Interpretation (test cod e = 27494-7) Normal [facility] AntonioComp. Metabolic Panel (64529)2023-12-23 19:15:22* Test Item Value Reference Range Interpretation Comme nts NA (test code = 0544705997) 143 mmol/L 135-145 K (test code = 6142046845) 4.5 mmol/L 3.5-5.0 CL (test code = 4789891550) 111 mmol/L 98-108 H CO2 TOTAL (test code = 1288734822) 29 mmol/L 23-31 AGAP (test code = 3860978882) 3 2-16 BUN (test code = 3560095788) 22 mg/dL 7-23 GLUCOSE (test code = 2489438295) 121 mg/dL 70-110 H CREATININE (test code = 2160-0) 0.77 mg/dL 0.50-1.04 TOTAL BILI (test code = 8035906088) 0.6 mg/dL 0.1-1.1 CALCIUM (test code = 1550017640) 9.8 mg/dL 8.6-10.6 T PROTEIN (test code = 9495570809) 7.2 g/dL 6.3-8.2 ALBUMIN (test code = 5672606139) 4.3 g/dL 3.5-5.0 ALK PHOS (test code = 9370032806) 87 U/L 34-122 ALTv (test code = 1742-6) 49 U/L 5-35 H AST(SGOT) (test code = 7840882540) 36 U/L 13-40 eGFR (test code = 99765-6) 89.5 mL/min/1.73m2 Lab Interpretation (test cod e = 34734-4) Abnormal [facility] AntonioLipase2024-05-29 19:15:02* Test Item Value Reference Range Interpretation Comme nts LIPASE (test code = 6772498339) 81 U/L 0-220 Lab Interpretation (test cod e = 09707-0) Normal [facility] AntonioCb with Wjrb4022-38-30 19:08:24* Test Item Value Reference Range Interpretation [...] 32.2 g/dL 31.6-35.1 RDW-SD (test code = 41723-7) 52.2 fL 39.0-49.9 H RDW-CV (test code = 788-0) 14.5 % 12.0-15.5 PLT (test code = 777-3) 189 166-358 MPV (test code = 17547-4) 11.3 fL 9.5-12.9 NRBC/100 WBC (test code = 0407499802) 0.0 0.0-10.0 NRBC x10^3 (test code = 1208791538) See_Comment [Automated messa ge] The system which generated this result transmitted reference range: 10*3/?L. The reference range was not used to interpret this result as normal/abnormal. GRAN MAT (NEUT) % (test code = 770-8) 85.8 % IMM GRAN % (test code = 4443294964) 0.20 % LYMPH % (test code = 736-9) 8.4 % MONO % (test code = 5905-5) 5.2 % EOS % (test code = 713-8) 0.2 % BASO % (test code = 706-2) 0.2 % GRAN MAT x10^3(ANC) (test code = 6117594766) 7.81 10*3/uL 1.88-7.09 H IMM GRAN x10^3 (test code = 2960941004) 0.00-0.06 LYMPH x10^3 (test code = 731-0) 0.76 10*3/uL 1.32-3.29 L MONO x10^3 (test code = 742-7) 0.47 10*3/uL 0.33-0.92 EOS x10^3 (test code = 711-2) 0.03-0.39 L BASO x10^3 (test code = 704-7) 0.01-0.07 Lab Interpretation (test code = 72488-0) Abnormal [facility] AntonioMAGNESIUM2023-08-07 18:39:05* Test Item Value Reference Range Interpretation Comme nts MAGNESIUM (test code = 4691377304) 2.1 mg/dL 1.7-2.4 Lab Interpretation (test cod e = 09296-9) [facility] 18:39:05* Test Item Value Reference Range Interpretation Comme nts MAGNESIUM (test code = 6944947531) 2.1 mg/dL 1.7-2.4 Lab Interpretation (test cod e = 61114-7) Normal [facility] AntonioHEPATIC FUNCTION PANEL (42137) (ALB,T.PRO,BILI T,BU/BC,ALT,AST,ALK PHOS)2023-03-02 15:45:16* Test Item Value Reference Range Interpretation Comme nts TOTAL BILI (test code = 8272694757) 0.9 mg/dL 0.1-1.1 BILI UNCON (test code = 1889852549) 0.6 mg/dL 0.1-1.1 BILI CONJ (test code = 9182839561) 0.0 mg/dL 0.0-0.3 T PROTEIN (test code = 8391733482) 6.9 g/dL 6.3-8.2 ALBUMIN (test code = 8673439560) 4.0 g/dL 3.5-5.0 ALK PHOS (test code = 0163204834) 80 U/L 34-122 ALTv (test code = 1742-6) 17 U/L 5-35 AST(SGOT) (test code = 3193062682) 23 U/L 13-40 Lab Interpretation (test cod e = 62053-3) Normal [facility] AntonioHEPATIC FUNCTION PANEL (63702) (ALB,T.PRO,BILI T,BU/BC,ALT,AST,ALK PHOS)2023-03-02 15:45:16* Test Item Value Reference Range Interpretation Comme nts TOTAL BILI (test code = 7988071081) 0.9 mg/dL 0.1-1.1 BILI UNCON (test code = 3620198286) 0.6 mg/dL 0.1-1.1 BILI CONJ (test code = 1102752847) 0.0 mg/dL 0.0-0.3 T PROTEIN (test code = 4936394408) 6.9 g/dL 6.3-8.2 ALBUMIN (test code = 2175775673) 4.0 g/dL 3.5-5.0 ALK PHOS (test code = 4880103812) 80 U/L 34-122 ALTv (test code = 1742-6) 17 U/L 5-35 AST(SGOT) (test code = 0500013981) 23 U/L 13-40 Lab Interpretation (test cod e = 39525-0) Normal [facility] AntonioBASI METABOLIC PANEL (NA, K, CL, CO2, GLUCOSE, BUN, CREATININE, CA)2023-03-02 11:51:06* Test Item Value Reference Range Interpretation Comme nts NA (test code = 8954590208) 139 mmol/L 135-145 K (test code = 3842366944) 3.0 mmol/L 3.5-5.0 L CL (test code = 9943140165) 103 mmol/L 98-108 CO2 TOTAL (test code = 1411330307) 27 mmol/L 23-31 AGAP (test code = 6333095169) 9 2-16 BUN (test code = 5659154855) 13 mg/dL 7-23 GLUCOSE (test code = 9028631557) 115 mg/dL 70-110 H CREATININE (test code = 6650351927) 0.69 mg/dL 0.50-1.04 CALCIUM (test code = 3513006406) 9.4 mg/dL 8.6-10.6 eGFR (test code = 6442326369) 87.7 mL/min/1.73m2 REMINGTON (test code = REMINGTON) [...] imaging tests). Lab Interpretation (test code = 25289-2) [facility] (NA, K, CL, CO2, GLUCOSE, BUN, CREATININE, CA)2023-03-02 11:51:06* Test Item Value Reference Range Interpretation Comme nts NA (test code = 5313412742) 139 mmol/L 135-145 K (test code = 5518732349) 3.0 mmol/L 3.5-5.0 L CL (test code = 9776837777) 103 mmol/L 98-108 CO2 TOTAL (test code = 6460059649) 27 mmol/L 23-31 AGAP (test code = 0312422568) 9 2-16 BUN (test code = 8083317789) 13 mg/dL 7-23 GLUCOSE (test code = 2173043072) 115 mg/dL 70-110 H CREATININE (test code = 1125838905) 0.69 mg/dL 0.50-1.04 CALCIUM (test code = 2412698934) 9.4 mg/dL 8.6-10.6 eGFR (test code = 0285204494) 87.7 mL/min/1.73m2 REMINGTON (test code = REMINGTON) [...] imaging tests). Lab Interpretation (test code = 47294-2) Abnormal [facility]2023-08-07 11:38:59* Test Item Value Reference Range Interpretation Comme nts MAGNESIUM (test code = 1709599079) 2.0 mg/dL 1.7-2.4 Lab Interpretation (test cod e = 50259-4) Normal [facility]2023-08-07 11:38:59* Test Item Value Reference Range Interpretation Comme nts MAGNESIUM (test code = 0579776395) 2.0 mg/dL 1.7-2.4 Lab Interpretation (test cod e = 96988-1) Normal [facility] WITH [id number] 11:29:57* Test Item Value Reference Range Interpretation [...] 33.8 g/dL 31.6-35.1 RDW-SD (test code = 84581-2) 40.7 fL 39.0-49.9 RDW-CV (test code = 788-0) 12.5 % 12.0-15.5 PLT (test code = 777-3) 178 See_Comment [Automated message] The system which generated this result transmitted reference range: 166 - 358 10*3/?L. The reference range was not used to interpret this result as normal/abnormal. MPV (test code = 93093-6) 11.0 fL 9.5-12.9 NRBC/100 WBC (test code = 7073800251) 0.0 See_Comment [Automated message] The system which generated this result transmitted reference range: 0.0 - 10.0 /100 WBCs. The reference range was not used to interpret this result as normal/abnormal. NRBC x10^3 (test code = 8850096141) See_Comment [Automated message] The system which generated this result transmitted reference range: 10*3/?L. The reference range was not used to interpret this result as normal/abnormal. GRAN MAT (NEUT) % (test code = 770-8) 79.7 % IMM GRAN % (test code = 1937809973) 0.40 % LYMPH % (test code = 736-9) 11.5 % MONO % (test code = 5905-5) 8.3 % EOS % (test code = 713-8) 0.0 % BASO % (test code = 706-2) 0.1 % GRAN MAT x10^3(ANC) (test code = 9276808524) 11.28 10*3/uL 1.88-7.09 H IMM GRAN x10^3 (test code = 3601379039) 0.06 10*3/uL 0.00-0.06 LYMPH x10^3 (test code = 731-0) 1.62 10*3/uL 1.32-3.29 MONO x10^3 (test code = 742-7) 1.17 10*3/uL 0.33-0.92 H EOS x10^3 (test code = 711-2) 0.03-0.39 L BASO x10^3 (test code = 704-7) 0.01-0.07 Lab Interpretation (test code = 87101-7) Abnormal [facility] WITH [id number] 11:29:57* Test Item Value Reference Range Interpretation [...] 33.8 g/dL 31.6-35.1 RDW-SD (test code = 65180-1) 40.7 fL 39.0-49.9 RDW-CV (test code = 788-0) 12.5 % 12.0-15.5 PLT (test code = 777-3) 178 See_Comment [Automated message] The system which generated this result transmitted reference range: 166 - 358 10*3/?L. The reference range was not used to interpret this result as normal/abnormal. MPV (test code = 04767-7) 11.0 fL 9.5-12.9 NRBC/100 WBC (test code = 3921641440) 0.0 See_Comment [Automated message] The system which generated this result transmitted reference range: 0.0 - 10.0 /100 WBCs. The reference range was not used to interpret this result as normal/abnormal. NRBC x10^3 (test code = 3326619592) See_Comment [Automated message] The system which generated this result transmitted reference range: 10*3/?L. The reference range was not used to interpret this result as normal/abnormal. GRAN MAT (NEUT) % (test code = 770-8) 79.7 % IMM GRAN % (test code = 7784285599) 0.40 % LYMPH % (test code = 736-9) 11.5 % MONO % (test code = 5905-5) 8.3 % EOS % (test code = 713-8) 0.0 % BASO % (test code = 706-2) 0.1 % GRAN MAT x10^3(ANC) (test code = 7596336550) 11.28 10*3/uL 1.88-7.09 H IMM GRAN x10^3 (test code = 2664068570) 0.06 10*3/uL 0.00-0.06 LYMPH x10^3 (test code = 731-0) 1.62 10*3/uL 1.32-3.29 MONO x10^3 (test code = 742-7) 1.17 10*3/uL 0.33-0.92 H EOS x10^3 (test code = 711-2) 0.03-0.39 L BASO x10^3 (test code = 704-7) 0.01-0.07 Lab Interpretation (test code = 55291-5) [facility]normal [facility] AntonioGLYCOSYLATED HEMOGLOBIN (A1C)2023-03-01 22:48:46* Test Item Value Reference Range Interpretation Comme nts HGB A1C (test code = 4548-4) 5.5 % 4.0-5.7 REMINGTON (test code = REMINGTON) Reference RangesNormal: <5.7%Prediabetes: 5.7 - 6.4%Diabetes: > 6.5% Lab Interpretation (test code = 35835-9) Normal [facility] AntonioGLYCOSYLATED HEMOGLOBIN (A1C)2023-03-01 22:48:46* Test Item Value Reference Range Interpretation Comme nts HGB A1C (test code = 4548-4) 5.5 % 4.0-5.7 REMINGTON (test code = REMINGTON) Reference RangesNormal: <5.7%Prediabetes: 5.7 - 6.4%Diabetes: > 6.5% Lab Interpretation (test code = 52820-7) Normal [facility] WITH [id number] 15:55:43* Test Item Value Reference Range Interpretation [...] 34.1 g/dL 31.6-35.1 RDW-SD (test code = 91343-8) 40.2 fL 39.0-49.9 RDW-CV (test code = 788-0) 12.2 % 12.0-15.5 PLT (test code = 777-3) 200 See_Comment [Automated message] The system which generated this result transmitted reference range: 166 - 358 10*3/?L. The reference range was not used to interpret this result as normal/abnormal. MPV (test code = 71354-7) 10.9 fL 9.5-12.9 NRBC/100 WBC (test code = 9762499442) 0.0 See_Comment [Automated message] The system which generated this result transmitted reference range: 0.0 - 10.0 /100 WBCs. The reference range was not used to interpret this result as normal/abnormal. NRBC x10^3 (test code = 4727660499) See_Comment [Automated message] The system which generated this result transmitted reference range: 10*3/?L. The reference range was not used to interpret this result as normal/abnormal. GRAN MAT (NEUT) % (test code = 770-8) 89.3 % IMM GRAN % (test code = 3294204539) 0.40 % LYMPH % (test code = 736-9) 7.2 % MONO % (test code = 5905-5) 2.7 % EOS % (test code = 713-8) 0.2 % BASO % (test code = 706-2) 0.2 % GRAN MAT x10^3(ANC) (test code = 9624257687) 10.79 10*3/uL 1.88-7.09 H IMM GRAN x10^3 (test code = 5297051567) 0.05 10*3/uL 0.00-0.06 LYMPH x10^3 (test code = 731-0) 0.87 10*3/uL 1.32-3.29 L MONO x10^3 (test code = 742-7) 0.32 10*3/uL 0.33-0.92 L EOS x10^3 (test code = 711-2) 0.03-0.39 L BASO x10^3 (test code = 704-7) 0.01-0.07 REACT LYMPHS (test code = 4475499779) Rare GIANT PLATELETS (test code = 5908-9) Present See_Comment A [Automated message] The system which generated this result transmitted reference range: (none). The reference range was not used to interpret this result as normal/abnormal. Lab Interpretation (test code = 32156-6) Abnormal [facility] WITH [id number] 15:55:43* Test Item Value Reference Range Interpretation [...] 34.1 g/dL 31.6-35.1 RDW-SD (test code = 42657-1) 40.2 fL 39.0-49.9 RDW-CV (test code = 788-0) 12.2 % 12.0-15.5 PLT (test code = 777-3) 200 See_Comment [Automated message] The system which generated this result transmitted reference range: 166 - 358 10*3/?L. The reference range was not used to interpret this result as normal/abnormal. MPV (test code = 02453-0) 10.9 fL 9.5-12.9 NRBC/100 WBC (test code = 3778272562) 0.0 See_Comment [Automated message] The system which generated this result transmitted reference range: 0.0 - 10.0 /100 WBCs. The reference range was not used to interpret this result as normal/abnormal. NRBC x10^3 (test code = 2228931662) See_Comment [Automated message] The system which generated this result transmitted reference range: 10*3/?L. The reference range was not used to interpret this result as normal/abnormal. GRAN MAT (NEUT) % (test code = 770-8) 89.3 % IMM GRAN % (test code = 2580128049) 0.40 % LYMPH % (test code = 736-9) 7.2 % MONO % (test code = 5905-5) 2.7 % EOS % (test code = 713-8) 0.2 % BASO % (test code = 706-2) 0.2 % GRAN MAT x10^3(ANC) (test code = 4724544039) 10.79 10*3/uL 1.88-7.09 H IMM GRAN x10^3 (test code = 4177522523) 0.05 10*3/uL 0.00-0.06 LYMPH x10^3 (test code = 731-0) 0.87 10*3/uL 1.32-3.29 L MONO x10^3 (test code = 742-7) 0.32 10*3/uL 0.33-0.92 L EOS x10^3 (test code = 711-2) 0.03-0.39 L BASO x10^3 (test code = 704-7) 0.01-0.07 REACT LYMPHS (test code = 3157688680) Rare GIANT PLATELETS (test code = 5908-9) Present See_Comment A [Automated message] The system which generated this result transmitted reference range: (none). The reference range was not used to interpret this result as normal/abnormal. Lab Interpretation (test code = 00212-5) [facility] METABOLIC PANEL (73979)2023-03-01 15:35:52* Test Item Value Reference Range Interpretation Comme nts NA (test code = 5545213691) 141 mmol/L 135-145 K (test code = 9899743330) 3.9 mmol/L 3.5-5.0 CL (test code = 1278879936) 100 mmol/L 98-108 CO2 TOTAL (test code = 5076461464) 32 mmol/L 23-31 H AGAP (test code = 7099396290) 9 2-16 BUN (test code = 2766145916) 15 mg/dL 7-23 GLUCOSE (test code = 8386648795) 145 mg/dL 70-110 H CREATININE (test code = 4517507142) 0.74 mg/dL 0.50-1.04 TOTAL BILI (test code = 0928694057) 1.0 mg/dL 0.1-1.1 CALCIUM (test code = 0625023190) 9.8 mg/dL 8.6-10.6 T PROTEIN (test code = 4674783415) 8.2 g/dL 6.3-8.2 ALBUMIN (test code = 6435520097) 4.8 g/dL 3.5-5.0 ALK PHOS (test code = 5876936602) 96 U/L 34-122 ALTv (test code = 1742-6) 22 U/L 5-35 AST(SGOT) (test code = 2673022296) 32 U/L 13-40 eGFR (test code = 0849929452) 80.9 mL/min/1.73m2 REMINGTON (test code = REMINGTON) [...] imaging tests). Lab Interpretation (test code = 40332-5) [facility] METABOLIC PANEL (57114)2023-03-01 15:35:52* Test Item Value Reference Range Interpretation Comme nts NA (test code = 1956648757) 141 mmol/L 135-145 K (test code = 8068516737) 3.9 mmol/L 3.5-5.0 CL (test code = 1712546544) 100 mmol/L 98-108 CO2 TOTAL (test code = 7800988674) 32 mmol/L 23-31 H AGAP (test code = 2465646356) 9 2-16 BUN (test code = 2557002184) 15 mg/dL 7-23 GLUCOSE (test code = 3761255912) 145 mg/dL 70-110 H CREATININE (test code = 8192845958) 0.74 mg/dL 0.50-1.04 TOTAL BILI (test code = 1629561862) 1.0 mg/dL 0.1-1.1 CALCIUM (test code = 3442940898) 9.8 mg/dL 8.6-10.6 T PROTEIN (test code = 3792156908) 8.2 g/dL 6.3-8.2 ALBUMIN (test code = 7981598791) 4.8 g/dL 3.5-5.0 ALK PHOS (test code = 4171247305) 96 U/L 34-122 ALTv (test code = 1742-6) 22 U/L 5-35 AST(SGOT) (test code = 4403788054) 32 U/L 13-40 eGFR (test code = 5517770652) 80.9 mL/min/1.73m2 REMINGTON (test code = REMINGTON) [...] imaging tests). Lab Interpretation (test code = 51249-2) [facility] 15:35:31* Test Item Value Reference Range Interpretation Comme nts LIPASE (test code = 7735340975) 136 U/L 0-220 Lab Interpretation (test cod e = 61523-1) [facility] 15:35:31* Test Item Value Reference Range Interpretation Comme nts LIPASE (test code = 1410465904) 136 U/L 0-220 Lab Interpretation (test cod e = 73034-0) Normal [facility] URINALYSIS W/O SPECIFIC [id number] 16:47:00* Test Item Value Reference Range Interpretation [...] = 3257) Negative Negative - Negati ve [facility] AntonioPO[facility] URINALYSIS W/O SPECIFIC [id number] 16:47:00* Test Item Value Reference Range Interpretation [...] = 3257) Negative Negative - Negati ve [facility] AntonioTROPONIN [id number] 01:32:53* Test Item Value Reference Range Interpretation Comments TROPONIN I (test code = 4953667342) <0.012 See_Comment [Automated message] The system which [...] of biotin. Lab Interpretation (test code = 84638-4) [facility] Antonio[facility]-TERMINAL KQQ-PBN7247-67-02 01:29:36* Test Item Value Reference Range Interpretation Comme nts NT-proBNP (test code = 3582178395) 334 pg/mL See_Comment H [Automated message] The system which generated this result transmitted reference range: <=125. The reference range was not used to interpret this result as normal/abnormal. REMINGTON (test code = REMINGTON) Biotin has been reported to cause a negative bias, interpret results relative to patient's use of biotin. Lab Interpretation (test code = 45002-9) [facility]2022-03-02 01:22:09* Test Item Value Reference Range Interpretation Comme nts MAGNESIUM (test code = 9362177369) 1.7 mg/dL 1.7-2.4 Lab Interpretation (test cod e = 67892-2) [facility] METABOLIC PANEL (59437)2021-09-25 01:21:49* Test Item Value Reference Range Interpretation Comme nts NA (test code = 0506314724) 141 mmol/L 135-145 K (test code = 7362271964) 4.4 mmol/L 3.5-5.0 CL (test code = 2341483783) 103 mmol/L 98-108 CO2 TOTAL (test code = 0213591958) 30 mmol/L 23-31 AGAP (test code = 0142879333) 2-16 BUN (test code = 0632642273) 24 mg/dL 7-23 H GLUCOSE (test code = 2556096944) 91 mg/dL 70-110 CREATININE (test code = 0172794965) 0.99 mg/dL 0.50-1.04 TOTAL BILI (test code = 4907178745) 0.5 mg/dL 0.1-1.1 CALCIUM (test code = 6593576057) 9.6 mg/dL 8.6-10.6 T PROTEIN (test code = 7119693604) 6.9 g/dL 6.3-8.2 ALBUMIN (test code = 9472981382) 4.4 g/dL 3.5-5.0 ALK PHOS (test code = 4666479844) 79 U/L 34-122 ALTv (test code = 1742-6) 17 U/L 5-35 AST(SGOT) (test code = 7030913214) 21 U/L 13-40 eGFR (test code = 0153479495) mL/min/1.73m2 ERMINGTON (test code = REMINGTON) [employer] Glomerular [...] imaging tests). Lab Interpretation (test code = 40911-1) Abnormal [facility] WITH [id number] 01:04:49* Test Item Value Reference Range Interpretation Comme nts WBC (test code = 6690-2) See_Comment [Automated [employer]] The system which generated this result transmitted reference range: 4.30 - 11.10 10*3/?L. The reference range was not used to interpret this result as normal/abnormal. RBC (test code = 789-8) See_Comment [Automated [employer]] The system which generated this result transmitted [...] 32.2 g/dL 31.6-35.1 RDW-SD (test code = 68828-1) 46.6 fL 39.0-49.9 RDW-CV (test code = 788-0) 14.0 % 12.0-15.5 PLT (test code = 777-3) See_Comment [Automated messa ge] The system which generated this result transmitted reference range: 166 - 358 10*3/?L. The reference range was not used to interpret this result as normal/abnormal. MPV (test code = 14095-2) 11.2 fL 9.5-12.9 NRBC/100 WBC (test code = 3954233709) See_Comment [Automated me ssage] The system which generated this result transmitted reference range: 0.0 - 10.0 /100 WBCs. The reference range was not used to interpret this result as normal/abnormal. NRBC x10^3 (test code = 3226873214) <0.01 See_Comment [Automated me ssage] The system which generated this result transmitted reference range: 10*3/?L. The reference range was not used to interpret this result as normal/abnormal. GRAN MAT (NEUT) % (test code = 770-8) 68.8 % IMM GRAN % (test code = 5474814151) 0.50 % LYMPH % (test code = 736-9) 21.5 % MONO % (test code = 5905-5) 7.7 % EOS % (test code = 713-8) 1.3 % BASO % (test code = 706-2) 0.2 % GRAN MAT x10^3(ANC) (test code = 7450435402) 6.05 10*3/uL 1.88-7.09 IMM GRAN x10^3 (test code = 7966731268) 0.04 10*3/uL 0.00-0.06 LYMPH x10^3 (test code = 731-0) 1.89 10*3/uL 1.32-3.29 MONO x10^3 (test code = 742-7) 0.68 10*3/uL 0.33-0.92 EOS x10^3 (test code = 711-2) 0.11 10*3/uL 0.03-0.39 BASO x10^3 (test code = 704-7) <0.03 0.01-0.07 [facility] [id number] 09:25:00* Test Item Value Reference Range Interpretation Comme nts TROPONIN I (test code = 9690539750) <0.012 See_Comment [Automated message] The system which [...] biotin. ? Lab Interpretation (test code = 83809-8) Normal [facility]-[id number] 08:20:00* Test Item Value Reference Range Interpretation Comments D-DIMER (test code = 2911776755) <0.27 See_Comment [Automated message] The system which [...] a diagnosis. Lab Interpretation (test code = 55511-9) Normal [facility] Antonio[facility] CHEST 1 [id number] 07:48:151. Borderline cardiomegaly with no acute cardiopulmonary abnormalitiesidentified. RL: [id number] signed by Ray Choe DO at 08/14/2020 1:48 AMORDERING PHYSICIAN: ANIBAL CHINCHILLA CLINICAL HISTORY: chest tightness TECHNIQUE: Single view radiograph of the chest was performed. COMPARISON: Single view chest radiograph performed 07/31/2019 FINDINGS: The lungs are expanded and cl ear. No evidence of pleural effusionor pneumothorax is present. Borderline cardiomegaly without mediastinalwidening. No acute osseous abnormalities are identified. Mdmb, Radiant Results Inft User - 08/14/2020 1:49 AM CSTORDERING PHYSICIAN: ANIBAL CHINCHILLA CLINICAL HISTORY: chest tightness TECHNIQUE: Single view radiograph of the chest was performed.COMPARISON: Single view chest radiograph performed 07/31/2019FINDINGS: The lungs are expanded and clear. No evidence of pleural effusionor pneumothorax is present. Borderline cardiomegaly without mediastinalwidening. No acute osseous abnormalities are identified.IMPRESSION1. Borderline cardiomegaly with no acute cardiopulmonary abnormalitiesidentified.RL: [id number] [facility] AntonioTRINDERJITN [id number] 07:17:00* Test Item Value Reference Range Interpretation Comme [facility] TROPONIN I (test code = 6825722521) <0.012 See_Comment [Automated message] The system which generated this result transmitted reference range: <=0.034 ng/mL. The reference range was not used to interpret this result as normal/abnormal. REMINTGON (test code = REMINGTON) Equal or Less [...] biotin. ? Lab Interpretation (test code = 39516-8) Normal [facility] AntonioaPTT2021-01-19 07:16:00* Test Item Value Reference Range Interpretation Comme [facility] APTT Patient (test code = 3173-2) See_Comment [Automated message] The system which generated this result transmitted reference range: 23 - 38 Seconds. The reference range was not used to interpret this result as normal/abnormal. REMINGTON (test code = REMINGTON) The [facility] patient population mean normal value for aPTT is 30 seconds. Lab Interpretation (test code = 37071-9) Normal [facility] AntonioPROTHROMBIN TIME / [id number] 07:14:00* Test Item Value Reference Range Interpretation Comme [facility] PROTIME PATIENT (test code = 5964-2) See_Comment [Automated messa ge] The system which generated this result transmitted reference range: 12.0 - 14.7 Seconds. The reference range was not used to interpret this result as normal/abnormal. INR (test code = 6301-6) Normal INR <1.1; Warfarin Therapeutic range 2.0 to 3.0 or 2.5 to 3.5, depending upon the indications. Lab Interpretation (test code = 98343-8) [facility] METABOLIC PANEL (62631)2020-08-14 07:06:00* Test Item Value Reference Range Interpretation Comme nts NA (test code = 7979199906) 136 mmol/L 135-145 K (test code = 8881749275) 3.7 mmol/L 3.5-5 CL (test code = 2653311299) 104 mmol/L 98-108 CO2 TOTAL (test code = 4856386738) 26 mmol/L 23-31 AGAP (test code = 9757200072) 2-16 BUN (test code = 8316394543) 17 mg/dL 7-23 GLUCOSE (test code = 1004559848) 124 mg/dL 70-110 H CREATININE (test code = 5235560508) 0.83 mg/dL 0.5-1.04 TOTAL BILI (test code = 6512144082) 0.5 mg/dL 0.1-1.1 CALCIUM (test code = 4783516507) 9.0 mg/dL 8.6-10.6 T PROTEIN (test code = 6928191137) 7.0 g/dL 6.3-8.2 ALBUMIN (test code = 7182279870) 4.1 g/dL 3.5-5 ALK PHOS (test code = 0669792009) 100 U/L 34-122 ALTv (test code = 1742-6) 16 U/L 5-35 AST(SGOT) (test code = 3130828143) 19 U/L 13-40 eGFR Calculation (Non-) (test code = 3498036990) mL/min/1.73m2 eGFR Calculation () (test code = 3304709187) mL/min/1.73m2 REMINGTON (test code = REMINGTON) Association [...] imaging tests). Lab Interpretation (test code = 77305-7) Abnormal [facility] AntonioLIPASE, [id number] 07:06:00* Test Item Value Reference Range Interpretation Comme nts LIPASE (test code = 2276948822) 76 U/L 0-220 Lab Interpretation (test cod e = 16044-0) Normal [facility] AntonioCB WITH [id number] 06:53:00* Test Item Value Reference Range Interpretation Comme nts WBC (test code = 6690-2) See_Comment [Automated [employer]] The system which generated this result transmitted reference range: 4.30 - 11.10 10*3/?L. The reference range was not used to interpret this result as normal/abnormal. RBC (test code = 789-8) See_Comment [Automated [employer]] The system which generated this result transmitted [...] g/dL 31.6-35.1 L RDW-SD (test code = 95322-4) 44.0 fL 39-49.9 RDW-CV (test code = 788-0) 13.6 % 12-15.5 PLT (test code = 777-3) See_Comment [Automated messa ge] The system which generated this result transmitted reference range: 166 - 358 10*3/?L. The reference range was not used to interpret this result as normal/abnormal. MPV (test code = 14161-4) 10.8 fL 9.5-12.9 NRBC/100 WBC (test code = 1925626721) See_Comment [Automated Suso ssage] The system which generated this result transmitted reference range: 0.0 - 10.0 /100 WBCs. The reference range was not used to interpret this result as normal/abnormal. NRBC x10^3 (test code = 6992857181) <0.01 See_Comment [Automated Sobresalena ge] The system which generated this result transmitted reference range: 10*3/?L. The reference range was not used to interpret this result as normal/abnormal. GRAN MAT (NEUT) % (test code = 770-8) 62.9 % IMM GRAN % (test code = 1095713728) 0.30 % LYMPH % (test code = 736-9) 26.1 % MONO % (test code = 5905-5) 8.2 % EOS % (test code = 713-8) 2.1 % BASO % (test code = 706-2) 0.4 % GRAN MAT x10^3(ANC) (test code = 5810628217) 5.85 10*3/uL 1.88-7.09 IMM GRAN x10^3 (test code = 9574615339) 0.03 10*3/uL 0-0.06 LYMPH x10^3 (test code = 731-0) 2.43 10*3/uL 1.32-3.29 MONO x10^3 (test code = 742-7) 0.76 10*3/uL 0.33-0.92 EOS x10^3 (test code = 711-2) 0.20 10*3/uL 0.03-0.39 BASO x10^3 (test code = 704-7) 0.04 10*3/uL 0.01-0.07 Lab Interpretation (test code = 95047-0) Abnormal [facility] Consult Notes Date/Time Note Provider Source 2024-11-30 10:59:47 Associated Order(s): CONSULT GENERAL SURGERY Surgery Consultation / History & Physical Note 11/30/2024 Consult ordered by: Hospitalist Reason for Consult / Chief complaint: abdominal pain, N/V History of presenting illness: Yenni Mcdonnell is a 59 year old female with [...] with PCP and GI for colonoscopy at [facility]. On arrival to ED, found to be [...] N/A 03/03/2023 Surgeon: Flavia Denise MD; Location: [facility] ([facility]) Family [...] Vomiting and diarrhea Assessment and Plan: Yenni Mcdonnell is a 59 year old female with [...] again, may consider. Continued IVF for PAM Yang MD [facility] 2023-03-02 06:45:01 Associated Order(s): CONSULT GENERAL SURGERY Trauma & Acute Care Surgery Consult Reason for Consult: "cholecystitis" History of Present Illness: Yenni Mcdonnell is a 57 year old female presenting [...] report. Microbiology: N/A Pathology: N/A Assessment: Ms. Mcdonnell is a 57 year old female with [...] cholangiogram tomorrow. Flavia Denise M.D. 03/03/2023 14:46 [facility] - Health History and Physical Notes Date/Time Note Provider Source 2024-11-30 00:37:14 [facility] Hospitalist Admission H&P Date of Service: 11/30/2024 CHIEF COMPLAINT: Abdominal pain with intractable nausea and vomiting HISTORY OF PRESENT ILLNESS Yenni Mcdonnell is a 59 year old female who [...] N/A 03/03/2023 Surgeon: Flavia Denise MD; Location: [facility] ([facility]) ALLERGIES [...] given high risk of morbidity and mortality. 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 Hipolito Poe MD [facility] 2024-11-01 23:36:22 Medicine History & Physical Date of Service: 11/01/2024 Pt presents from: Home CC: Int N/V History of Present Illness: Yenni Mcdonnell is a 59 year old female with [...] Guardado MD, Last Rate: 125 mL/hr at 11/01/24 1829, 1,000 mL at 11/01/24 1829 nicotine (NICODERM) 21 mg/24 hr patch 1 Patch, 1 Patch, Topical, Q24H, Olya Calhoun DO ondansetron (ZOFRAN (PF)) injection 4 mg, 4 mg, Slow IV Push, Q6HPRN, Laurel Guardado MD Objective: Vitals: Vitals: 11/01/24 1810 11/01/24 1843 11/01/24 18411/01/24 194 BP: 133/75 133/63 (!) 152/85 Pulse: 91 88 90 Resp: 17 18 18 Temp: 36.7 ?C (98.1 ?F) 36.1 ?C (97 ?F) 36.5 ?C (97.7 ?F) TempSrc: SpO2: 95% 98% 97% Weight: 75 kg (165 lb 4.8 oz) 74.5 kg (164 lb 3.2 oz) Height: 1.676 m (5' 6") I/O's: No intake or output data in the 24 hours ending 11/01/246 Physical Exam: General: NAD, Alert, lying in [...] full understanding, Time discussed 3 minutes [place] 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 JOANNE-PHYSICIAN CASTING ROOM OPERATOR MIDLEVEL PROVIDER [facility] Notes <item>[1]Upcoming Encounters Date/Time Note Provider Source 2025-05-02 15:59:56 [facility]Lashawn [facility] 2025-05-02 15:59:56 Patient Instructions Marisela Skinner PA-C - 05/02/2025 3:59 PM CDT ____ Isaias Hyman, It was a pleasure to care for you today. Medication: All medications have been sent to your preferred pharmacy. Per our [facility] policy, we are only allowed to provide a one-time amount of medication which does not exceed 30-days worth of medication (no refills). Please contact your PCP for additional refills. Follow-up: Please feel free to message me via boosk if you have any concerns about today's visit. Please allow 1-2 business days (M-F) for responses. Our responses may take longer during the weekend and observed holidays. Please make sure you read your after visit summary that will be sent shortly to your boosk account. It contains your diagnosis, treatment plan, and any educational materials. Thank you for choosing [facility] for your care today. I hope you feel better soon! JOIE Sharma PA-C [facility] | [facility] | Internal Medicine ____ Attachments The following attachments cannot be sent through Care Everywhere.Adult Advisor: Cough (Norwegian) [facility] 2025-05-02 15:59:56 Marisela Skinner PA-C - 05/02/2025 2:09 PM CDT Patient verbally agrees to be evaluated and treated based on the presumptive diagnosis achieved through our video discussion via [email or web address]. Provider's Location: Provider is at home. Patient's Location: Patient is at home. Subjective HPI: Yenni Mcdonnell is a 60 year old female who presents for Cough Symptoms started: >10 day(s) ago Patient presents with symptoms of: persistent cough. Sx started with with headache, congestion, post nasal drip ache. Now has persistent coughing and fells fatigue. Was diagnosed with CHF a few months ago and denies any overt peripheral edema or orthopnea. Denies chest pain, sob, wheezing, or respiratory distress. Denies any rashes, nausea, vomiting, or diarrhea. Has not tested for Covid 19 or influenza with home test. Medication(s) Taken: Mucinex Risk Factors: +smoker | ChF on Lasix Review of Systems: Review of Systems HENT: Positive for congestion. Respiratory: Positive for cough. Negative for shortness of breath. Cardiovascular: Negative for chest pain. Gastrointestinal: Negative for abdominal pain. Neurological: Negative for dizziness and syncope. Psychiatric/Behavioral: Negative for confusion. Medications Ordered Prior to Encounter[1] Objective Vitals: Unable to obtain due to video encounter. Previous Vitals: 12/15/2024 2:50 PM 12/15/2024 3:06 PM 01/16/2025 1:07 PM 01/25/2025 2:51 PM 04/17/2025 11:12 AM MULTIPLE VITALS BP 149/57 142/80 127/89 Position SITTING SITTING SITTING Pulse 99 97 Resp 19 19 SpO2 98 % 100 % Temp 98.3 ?F (36.8 ?C) Temp src Tympanic Height 66 in 66 in Weight 160 lbs 165 lbs 179 lbs 188 lbs BMI 25.82 kg/m2 26.63 kg/m2 28.89 kg/m2 30.34 kg/m2 BSA (m2) 1.84 m2 1.87 m2 1.94 m2 1.99 m2 Labs | Imaging: EGFR Date/Time Value Ref Range Status 12/07/2024 11:30 AM 87 >59 mL/min/1.73 Final CREATININE Date/Time Value Ref Range Status 12/07/2024 11:30 AM 0.78 0.57 - 1.00 mg/dL Final BUN Date/Time Value Ref Range Status 12/07/2024 11:30 AM 11 6 - 24 mg/dL Final AST (SGOT) Date/Time Value Ref Range Status 12/07/2024 11:30 AM 13 0 - 40 IU/L Final ALT (SGPT) Date/Time Value Ref Range Status 12/07/2024 11:30 AM 21 0 - 32 IU/L Final No results found for: "HEMOGLOBIN" No results found for: "PLATELETS" No results found for: "WBC" Physical Exam Constitutional: General: She is not in acute distress. Appearance: Normal appearance. She is not ill-appearing. HENT: Head: Normocephalic and atraumatic. Pulmonary: Effort: Pulmonary effort is normal. No respiratory distress. Neurological: Mental Status: She is alert. Psychiatric: Judgment: Judgment normal. Assessment | Plan Yenni was seen today for cough. Diagnoses and all orders for this visit: URI, acute - Azithromycin 250 MG oral Tablet; Take 2 tablets by mouth on day 1 then 1 tablet by mouth daily for 4 days thereafter.. Return if symptoms worsen or fail to improve. The patient verbalizes understanding of today's education and discussion. All questions were answered and concerns addressed. Deshawn Skinner PA-C | [facility] | IM VVN Supervising Physician | Dr. Annemarie Wilde After-Hours Supervising Physician | Dr. Emile Franco Current Outpatient Medications on File Prior to Visit Medication Sig Dispense Refill Bupropion HCL XL 300 MG OR TB24 Take 1 tablet (300 mg total) by mouth daily. 90 tablet 1 Furosemide (LASIX) 20 MG oral Tablet Take 1 tablet (20 mg total) by mouth daily. 30 tablet 1 Gabapentin 300 MG oral Capsule TAKE 1 CAPSULE BY MOUTH EVERY DAY AT BEDTIME FOR 7 DAYS, THEN 1 CAPSULE TWICE A DAY FOR 7 DAYS, THEN 1 CAPSULE 3 TIMES A DAY. 90 capsule 1 Potassium Chloride (K-LENARD OR) Take 1 tablet by mouth daily. No current facility-administered medications on file prior to visit. T [facility] Scheduled Procedures Name Priority Associated Diagnoses Date/Ti me TOTAL HIP REPLACEMENT Primary osteoarthri tis of right hip Health Maintenance Due Date Last Done Comments CT Colonography 1965 Cologuard 1965 FIT Tests 1965 Sigmoidoscopy 1965 Pneumococcal Vaccine: 50+ Ye ars (1 of 2 - PCV) 1984 Mammogram 2005 Zoster Vaccines (1 of 2) 2015 Influenza Vaccines (#1) 2025 RSV Vaccines (1 - Risk 60-74 years 1-dose series) 2025 Physical Exam 06/07/2025 06/07/2024, 03/27, 04/14/2024 Creatinine Level (Kidney Fun ction Test) 12/07/2025 12/07/2024, 04/01/2024 PAP SMEAR WITH HPV 06/07/2029 06/07/2024, 0 07/28/2022 (Previously completed) Tdap Vaccines 02/22/2034 02/23/2024, 04/06/2021 COLONOSCOPY 02/01/2035 02/01/2025 Colorectal Cancer Screening 02/01/2035 [facility]2025-10-07 15:59:56 Diagnosis URI, acute - Primary Acute upper respiratory infections of unspecified site [facility]2025-10-07 15:59:56 [place] [id number] 12:19:42* Referral ID Status Reason Start Date Expiration Date Visits Re quested Visits Authorized CDT * Consultation (Routine) - Authorized Specialty Diagnoses / Procedures Referred By Mitra roach Referred To Contact Orthopedics Diagnoses Primary osteoarthritis of right hip Pre-operative laboratory examination Procedures OFFICE/OUTPATIENT [facility] 60 MINUTES Daniel Read MD [address] [place] [address] Phone: tel: fax: Referral ID Status Reason Start Date Expiration Date Visits Requested Visits Authorized [id number] Authorized Specialty Services Required 04/17/2025 07/16/2025 1 1 CDT * --------+ + + + | Specialty | Diagnoses / Procedures | Referred By Contact | Referred To Contact | + + + ===+ + | | Diagnoses | Daniel Read MD | | | | | | | | | Primary osteoarthritis of right hip | [address] [place] [address] | | | | | | | | | Pre-operative laboratory examination | [place] [address] | | | | | | | | | | Phone: tel: | | | | | | | | | | fax: | | + + + ---+ + Referral ID Status Reason Start Date Expiration Date Visits Re quested Visits Authorized [facility] GraceDontrell [id number] 12:19:42* [facility] [id number] 12:19:42* Daniel Read MD - 04/17/2025 10:50 AM CDT Orthopaedic Surgery Clinic Note Chief Complaint: Bilateral hip pain. HPI: Yenni Mcdonnell is a 59 year old female who presents to clinic for evaluation of Bilateral hip pain. She reports pain for the past 1 year. She denies any trauma or injury. Her pain is severe in nature, located in the groin and buttock, and is associated with stiffness and radiating pain. She has a long-standing history of sciatica as well. Her pain is exacerbated by walking, standing, rising from a chair, and climbing stairs and relieved by rest. She has tried treatment with activity modification, home exercise program, Tylenol, NSAIDs, and gabapentin with mild relief. She ambulates without assistive devices. She is interested in the MAC. Of note, she had a CHF exacerbation in November that required hospitalization. She follows with an outside Statistical Assistant for this. She is in appeal for an angiogram to be completed for workup of her heart condition. She takes Lasix. PMH: Past Medical History[1] PSH: Past Surgical History: Procedure Laterality Date CHOLECYSTECTOMY Medications: Current Outpatient Medications Medication Sig Dispense Refill Bupropion HCL XL 300 MG OR TB24 Take 1 tablet (300 mg total) by mouth daily. 90 tablet 1 Furosemide (LASIX) 20 MG oral Tablet Take 1 tablet (20 mg total) by mouth daily. 30 tablet 1 Gabapentin 300 MG oral Capsule TAKE 1 CAPSULE BY MOUTH EVERY DAY AT BEDTIME FOR 7 DAYS, THEN 1 CAPSULE TWICE A DAY FOR 7 DAYS, THEN 1 CAPSULE 3 TIMES A DAY. 90 capsule 1 Potassium Chloride (K-LENARD OR) Take 1 tablet by mouth daily. No current facility-administered medications for this visit. Allergies: Allergies[2] Family History: Family History[3] Social History: Social History Socioeconomic History Marital status: Spouse name: Not on file Number of children: Not on file Years of education: Not on file Highest education level: Not on file Occupational History Not on file Tobacco Use Smoking status: Every Day Current packs/day: 1.00 Average packs/day: 1 pack/day for 5.7 years (5.7 ttl pk-yrs) Types: Cigarettes Start date: 2019 Smokeless tobacco: Not on file Substance and Sexual Activity Alcohol use: Not on file Drug use: Not on file Sexual activity: Not on file Other Topics Concern Not on file Social History Narrative Not on file Social Drivers of Health Financial Resource Strain: Low Risk (03/02/2023) Received from [facility] Overall Financial Resource Strain (CARDIA) Difficulty of Paying Living Expenses: Not hard at all Food Insecurity: Food Insecurity Present (11/30/2024) [facility] Worried About Running Out of Food in the Last Year: Yes Ran Out of Food in the Last Year: Yes Transportation Needs: No Transportation Needs (11/30/2024) [facility] Lack of Transportation: No Physical Activity: Insufficiently Active (03/02/2023) Received from [facility] Exercise Vital Sign Days of Exercise per Week: 5 days Minutes of Exercise per Session: 20 min Stress: Not on file Social Connections: Unknown (03/02/2023) Received from [facility] Social Connection and Isolation Panel Frequency of Communication with Friends and Family: More than three times a week Frequency of Social Gatherings with Friends and Family: Not on file Attends Jain Services: Not on file Active Member of Clubs or Organizations: Not on file Attends Club or Organization Meetings: Not on file Marital Status: Intimate Partner Violence: Not on file Housing Stability: Not At Risk (11/30/2024) [facility] Has Housing: Yes Worried About Losing Housing: No Unable to Get Utilities: No Physical Exam: BMI Readings from Last 3 Encounters: 01/25/25 28.89 kg/m? 01/16/25 26.63 kg/m? 12/15/24 25.82 kg/m? General: Alert, no acute distress Pulm: Non-labored breathing Neuro: Gait: Antalgic gait Sensibility: Sensibility present to light touch throughout the bilateral lower extremities. Seated straight leg raise: Negative Musculoskeletal: Right hip: Flexion: 90 degrees IR/ER: 0/30 degrees Tenderness: None Tests: Log-roll: Positive Impingement: Positive Resisted hip flexion: Positive Left hip: Flexion: 100 degrees IR/ER: 0/30 degrees Tenderness: None Tests: Log-roll: Positive Impingement: Positive Resisted hip flexion: Positive Labs: HEMOGLOBIN A1C Date Value Ref Range Status 12/07/2024 6.0 4.8 - 5.6 % Final Comment: Prediabetes: 5.7 - 6.4 Diabetes: >6.4 Glycemic control for adults with diabetes: <7.0 Imaging: X-rays of the pelvis and Bilateral hip(s) showed joint space narrowing, subchondral sclerosis, and osteophyte formation, consistent with [id number] osteoarthritis. Assessment: Yenni Mcdonnell is a 59 year old female with Bilateral hip osteoarthritis. Plan: - Discussed with Ms. Mcdonnell that her symptoms are consistent with hip osteoarthritis. At this point, she has exhausted conservative treatment options and is ready to consider surgical intervention. She would like to proceed with Right MAC. - We discussed the risks of total hip arthroplasty (MAC), which included but was not limited to , heart attack, stroke or other medical complications related to anesthesia, infection, nerve or artery injury, blood clots with the possibility of pulmonary embolism and need for anticoagulation, mechanical complications, especially dislocation, leg length discrepancy, wear, breakage, loosening, need for repeated operations, persistent limp, need for use of walking aids, and need for re-operation. The patient understood these risks and the patient's questions were answered. - We will schedule for Right MAC - Pre-operative clearances to be obtained - PCP and Cardiology - Return to clinic for pre-operative assessment Daniel Read MD Orthopa[facility] [1]Past Medical History: Diagnosis Date Anxiety Depression History of diverticulitis History of substance abuse ([facility]) HTN (hypertension) Seasonal allergies [2] Allergies Allergen Reactions Seasonal Ic Cough, Itching and Runny Nose [3] Family History Problem Relation Name Age of Onset Colon Cancer Paternal Grandfather [facility]2025-09-22 12:19:42Upcoming Encounters Scheduled Orders Name Type Priority Associated Diagnoses Orde r Schedule CBC WITH DIFFERENTIAL Lab Routine Primary osteoarthritis of right hip Pre-operative laboratory examination Expected: 04/17/2025, Expires: 10/14/2025 BASIC METABOLIC PANEL (8) Lab Routine Primary osteoarthritis of right hip Pre-operative laboratory examination Expected: 04/17/2025, Expires: 10/14/2025 ECG- ADULT Cardiology Routine Primary osteoarthritis of right hip Pre-operative laboratory examination Expected: 04/17/2025, Expires: 10/14/2025 Scheduled Procedures Name Priority Associated Diagnoses Date/Ti me TOTAL HIP REPLACEMENT Primary osteoarthri tis of right hip Scheduled Referrals Name Type Priority Associated Diagnoses Orde r Schedule SURGICAL RISK ASSESSMENT BY PCP Referral Routine Primary osteoarthritis of right hip Pre-operative laboratory examination Ordered: 04/17/2025 AMB REFERRAL TO TOTAL JOINT REPLACEMENT EDUCATION Referral Routine Primary osteoarthritis of right hip Pre-operative laboratory examination Ordered: 04/17/2025 SURGICAL RISK ASSESSMENT BY CARDIOLOGY Referral Routine Primary osteoarthritis of right hip Pre-operative laboratory examination Ordered: 04/17/2025 Health Maintenance Due Date Last Done Comments CT Colonography 1965 Cologuard 1965 FIT Tests 1965 Sigmoidoscopy 1965 Pneumococcal Vaccine: 50+ Ye ars (1 of 2 - PCV) 1984 Mammogram 2005 Zoster Vaccines (1 of 2) 2015 Influenza Vaccines (#1) 2025 Physical Exam 06/07/2025 06/07/2024, 03/27, 04/14/2024 Creatinine Level (Kidney Fun ction Test) 12/07/2025 12/07/2024, 04/01/2024 PAP SMEAR WITH HPV 06/07/2029 06/07/2024, 0 07/28/2022 (Previously completed) Tdap Vaccines 02/22/2034 02/23/2024, 04/06/2021 COLONOSCOPY 02/01/2035 02/01/2025 Colorectal Cancer Screening 02/01/2035 RSV Vaccines (1 - 1-dose 75+ series) 2040 [facility]sbjzp3792-[facility]-83 12:19:42 Diagnosis Primary osteoarthritis of right hip - Primary Primary localized osteoarthrosis, pelvic region and thigh Primary osteoarthritis of left hip Primary localized osteoarthrosis, pelvic region and thigh Pre-operative laboratory examination Pre-procedural laboratory examination [facility] CenterZnyyxq8157-57-79 12:19:42 [facility]2025-09-22 11:12:55 Chief Complaint Patient presents with Hip Pain Bilateral ELI White III [facility] alberto Mqijeq7524-33-46 17:41:35 Patient given printed and verbal discharge instructions. Pt and/or family understanding of instructions, pt stable upon discharge, and encouraged to follow up with pcp and/or specialist. Advised to seek medical attention for new/prolonged/worsening of symptoms. Oliva Jones [facility]cyObcldx8595-57-65 12:46:15 Pt given call light and updated on plan of care, impending labs and imaging, and which provider was currently seeing her. Verbalized understanding. Daya Melgar [facility]cyMsbwol4943-71-32 11:10:58 Summary: Triage CC: patient states she stopped taking her lasix 7 days ago and when the swelling started back she resumed the lasix. Patient has redness, swelling, and pitting edema to the bilateral legs and feet PMHx: CHF PSH:see list MEDS:see list LMP: NA Tetanus: UTD Awake, alert, oriented, resp reg unlabored, skin warm, color appropriate for race, moves all ext without difficulty, amb with walker due to pain walking Appears in no distress Brii Vo [facility]cyGvompr7671-27-50 13:09:27 Chief Complaint Patient presents with Consultation Knee Pain RAHUL knee pain (injections) Katheryn BENITEZ [facility]2025-06-11 11:00:00 Images from the original note were not included. Venipuncture collection performed by clean technique on the left anticubitus. Total of 1 attempts were made. Slight pressure and a bandage/dressing were applied to the site(s). The patient experienced no complications. The following specimens were processed according to instructions and sent to [facility] laboratories per lab order on 01/02/25: LT BLUE SST 1 RED LAV 1 PPT DK GREEN (LiHep) DK GREEN (SodH) MONTIEL DK BLUE (K2) DK BLUE (S) ACD Blood Culture NIPT/NTD T [facility] HospitalBqfnki6189-74-76 23:02:38 Pt discharged with diagnosis of pneumonia pf right lower lobe due to infectious organism, SOB, and anxiety. Printed and verbal instructions reviewed with and given to pt. Prescriptions given x 3. pt verbalized understanding of teaching and recommended follow-up. Denies questions or concerns at this time. Pt wheeled out at discharge. Appears in no apparent distress. No ataxia noted. [place] 405705-05-10 17:46:03 Pt arrives to the Ed via [facility] for C/O of SOB. EMS reports pt was discharged to at 1300 from [facility] ICU. Pt called EMS because she reports she couldn't lay flat and catch her breath. Pt placed on 3L NC @97%. Pt has history of HTN. In the ED pt states, " she she feels like she having an anxiety attack. Pt reports pain 7/10 in neck and shoulders. [facility]2025-05-10 10:19:37 Problem: Venous Thromboembolism, (actual or risk [...] signs and symptoms Outcome: Progressing as expected [facility] Caitlyn Vila [facility]cyVwvpph0726-90-96 00:58:40 Problem: Venous Thromboembolism, (actual or risk [...] signs and symptoms Outcome: Progressing as expected T Leydi Olson [facility]cyWmqxgh9881-19-42 13:20:53 Problem: Venous Thromboembolism, (actual or risk [...] signs and symptoms Outcome: Progressing as expected [facility]2025-05-08 22:15:51 Problem: Venous Thromboembolism, (actual or risk [...] signs and symptoms Outcome: Progressing as expected Fang Lord [facility]cyRdtpec4290-04-02 17:05:37 Problem: Venous Thromboembolism, (actual or risk [...] signs and symptoms Outcome: Progressing as expected [facility]2025-05-08 01:18:52 Problem: Venous Thromboembolism, (actual or risk [...] symptoms Outcome: Progressing as expected Aruna Martins [facility]cyHdvlca4484-29-16 17:34:53 Problem: Venous Thromboembolism, (actual or risk [...] symptoms Outcome: Progressing as expected Keyla Knutson [facility]cyUyaski3768-61-25 03:41:34 Problem: Venous Thromboembolism, (actual or risk of) Goal: Absence of venous thromboembolism (Risk) 11/30/2024341 by Kristy Lennon RN Outcome: Progressing as expected 11/30/2024340 by Kristy Lennon RN Outcome: Progressing as expected Problem: Discharge Planning Goal: Adequate for discharge 11/30/2024 034 by Kristy Lennon RN Outcome: Progressing as expected 11/30/2024 034 by Kristy Lennon RN Outcome: Progressing as expected Problem: Infection Risk Goal: Absence of infection 11/30/2024341 by Kristy Lennon RN Outcome: Progressing as expected 11/30/2024340 by Kristy Lennon RN Outcome: Progressing as expected Problem: Cardiac Output - Decreased Goal: Cardiac output within specified parameters 11/30/2024 034 by Kristy Lennon RN Outcome: Progressing as expected 11/30/2024340 by Kristy Lennon RN Outcome: Progressing as expected Goal: Absence of signs and symptoms of decreased cardiac output 11/30/2024 034 by Kristy Lennon RN Outcome: Progressing as expected 11/30/2024340 by Kristy Lennon RN Outcome: Progressing as expected Problem: Fluid Volume - Imbalanced Goal: Absence of imbalanced fluid volume signs and symptoms Outcome: Progressing as expected [facility] HospitalVcvtqu6727-44-73 02:27:43 Patient admitted to [facility] ADC for diagnosis of vomiting & diarrhea, & PAM. Patient agrees to admission, discussed plan of care with patient and family. Patient is awake, alert, oriented, resp reg unlabored, color appropriate for race, PIV intact No adverse reaction to medications administered while in ED Belongings with patient to unit Report to LAW ENFORCEMENT OFFICER Mariluz Leo RNDayton Osteopathic HospitalUbcmwc0716-31-65 19:32:59 Pt arrived using ED wheelchair, denies use of wheel chair at home. Pt c/o abd pain, nausea, vomiting and diarrhea that started last . Pt denies seeing PCP prior to ED visit. 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 treatment: None ED Events Date/Time Event User Comments 11/29/241949 Medical Screening Begins BERTA URIBE MD -- 11/29/241949 First Provider Evaluation BERTA URIBE MD -- Chief Complaint Chief Complaint Patient presents with • Abdominal Pain • Nausea • Vomiting • Diarrhea ED Triage Notes Azucena Herrera RN 11/29/2024 19:37 Pt arrived using ED wheelchair, [...] / Immunizations Past Medical History: Diagnosis Date • Anxiety • Cervix prolapsed into vagina • Depression • Elevated blood sugar Tetanus received in last 5 years: Yes Past Surgical History Past Surgical History: Procedure Laterality Date • CHOLECYSTECTOMY LAPAROSCOPY WITH CHOLANGIOGRAM (SHX) N/A 03/03/2023 Surgeon: Flavia Denise MD; Location: [facility] LOCATION • DILATION AND CURETTAGE (SHX) Allergies No Known [...] 0.0 0.0 - 10.0 /100 WBCs NRBC x103<0.01 10*3/?L SEG % 37 33 - 76 [...] PLT ESTIMATE Normal Normal COMP. METABOLIC PANEL (31680) - Abnormal NA 132 (*) 135 - [...] and Treatments Orders Placed This Encounter Procedures • CT Abdomen pelvis wo contrast • XR Abdomen 2 vw • Abdominal 1 View - To confirm nasogastric tube placement. • CBC WITH DIFF • COMP. METABOLIC PANEL (22904) • LIPASE • TROPONIN I • N-TERMINAL PRO-BNP • Lactic Acid Whole Blood • URINALYSIS • GIARDIA CRYPTOSPORIDIUM AG SCR • CLOSTRIDIUM DIFFICILE TOXIN • Basic Metabolic Panel (NA, K, CL, CO2, GLUCOSE, BUN, CREATININE, CA) • CONSULT GENERAL SURGERY Orders Placed This Encounter Medications • NaCl 0.9% (NS) bolus infusion 1,000 mL • metoclopramide HCl (REGLAN) injection 10 mg • NaCl 0.9% (NS) bolus infusion 1,000 mL • metroNIDAZOLE in NaCl (iso-os) (FLAGYL I.V.) RTU IV infusion 500 mg • ciprofloxacin in 5 % dextrose (CIPRO) piggyback 200 mg • NaCl 0.9% (NS) IV infusion 1,000 mL • DISCONTD: NaCl 0.9% (NS) IV infusion 1,000 mL • heparin (porcine) injection 5,000 Units • acetaminophen (TYLENOL) tablet 650 mg • HYDROcodone-acetaminophen (NORCO 5) tablet 1 tablet • FENTanyl (PF) (SUBLIMAZE) injection 25 mcg • ondansetron (ZOFRAN (PF)) injection 4 mg • methylPREDNISolone sod succ (SOLU-MEDROL (PF)) injection 40 mg • BUPROPION HCL ORAL • buPROPion XL (WELLBUTRIN XL) tablet 150 mg [...] components within normal limits COMP. METABOLIC PANEL (72067) - Abnormal; Notable for the following components: [...] higher AdmissionCare documentation entered by: Berta Uribe [facility], edition, Copyright ? 2023 [facility] [employer] [facility] All Rights Reserved. [id number]:12:25-05:00 Medical Decision Making Problems Addressed: PAM (acute [...] is not hypoxic. Interpreted. Reassessment:stable Communication with chain sales consultant: None. Limitations to patient care and [...] She was admitted in guarded condition. Yenni Mcdonnell is a 59 year old female presenting [...] for Stopping: Berta Uribe Jr., MD Clinical Simulation Software Engineer [facility] Emergency Department [employer] is used frequently and may produce errors. Promptly contact for obvious discrepancies. Berta Uribe MD 11/30/24 6419 [facility]2025-05-06 19:30:00 AdmissionCare Guideline: Renal Failure (Acute), Inpatient [...] higher AdmissionCare documentation entered by: Berta Uribe [facility], 28 edition, Copyright ? 2023 [facility] All Rights Reserved. [id number]:12:25-05:00 [facility]2025-04-09 15:58:52 Problem: Falls, Risk of Goal: Absence [...] infection Outcome: Adequate for discharge Shelbie Paige [facility]cyPqhyfn2676-70-08 01:34:10 Problem: Falls, Risk of Goal: Absence of falls Outcome: Progressing as expected Problem: Pain Goal: Control of pain at or below patient's documented comfort goal Outcome: Progressing as expected Goal: Reduction in pain sensation Outcome: Progressing as expected Problem: Infection Risk Goal: Absence of infection Outcome: Progressing as expected Nina Motta [facility]cyAuokbb4556-26-64 18:22:08 Report hand off to William JOYNER, patient is ready to transport. Nina Ferguson [place] 559715-04-08 18:09:19 Pt blood pressure cuff was off and laying next to her. I reapplied cuff and took a BP to verify pt was not hypotensive. New BP documented Digna Hitchcock [facility]cyCoyopf4228-26-17 17:49:24 Patient urinated all over herself, patient was cleaned up and bed was changed and patient requested a bed guerrero to be at her side. Bed guerrero was given, patient is resting, and remains on the monitor. [facility] HospitalUarccg5685-69-25 14:53:55 Pt reports headache, vomiting, diarrhea starting last . Some sxs have improved, but she still has nausea and abdominal pain. 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 treatment: None Travel and Exposure Screening: Symptoms [...] N/A 03/03/2023 Surgeon: Flavia Denise MD; Location: [facility] DILATION AND CURETTAGE (SHX) Review [...] 0.0 0.0 - 10.0 /100 WBCs NRBC x103<0.01 10*3/?L GRAN MAT (NEUT) % 55.6 % IMM GRAN % 2.10 % LYMPH % 16.6 % MONO % 23.5 % EOS % 1.6 % BASO % 0.6 % GRAN MAT x103(ANC) 3.46 1.88 - 7.09 10*3/uL IMM GRAN x1030.13 (*) 0.00 - 0.06 10*3/uL LYMPH x1031.03 (*) 1.32 - 3.29 10*3/uL MONO x1031.46 (*) 0.33 - 0.92 10*3/uL EOS x1030.10 0.03 - 0.39 10*3/uL BASO x1030.04 0.01 - 0.07 10*3/uL BANDS Increased (*) TOXIC CHANGES Present (*) COMP. METABOLIC PANEL (04071) - Abnormal NA 137 135 - 145 [...] contrast CBC WITH DIFF COMP. METABOLIC PANEL (81095) LIPASE URINALYSIS Orders Placed This Encounter Medications NaCl 0.9% (NS) bolus infusion 1,000 mL famotidine (PEPCID (PF)) injection 20 mg ondansetron (ZOFRAN (PF)) injection 8 mg morpHINE (4 mg/mL) injection 4 mg iopamidol (ISOVUE 370-500 mL) injection 85 mL First Provider Eval: ED Events Date/Time Event User Comments 11/01/24 5304 Medical Screening Begins WINTER MARTIN MD -- [...] Calculator AdmissionCare documentation entered by: Flavio Mills [facility] [employer]Bot, 28 edition, Copyright ? 2023 [facility] [employer] All Rights Reserved. [id number]:39:32-05:00 ED COURSE Diagnosis/Impression as of 11/01/24 1743 [...] Electronically signed by: Flavio Mills MD 11/01/24 1743 [facility] HospitalElbzuq3230-74-86 14:49:00 AdmissionCare Guideline: Dehydration, Observation Based on [...] Calculator AdmissionCare documentation entered by: Flavio Mills [facility], 28th edition, Copyright ? 2023 [facility] All Rights Reserved. [id number]:39:32-05:00 [facility] HospitalYgetvp1643-94-25 08:14:05 Pt given results in office. [facility] Maria Guadalupe Zyylkm8345-93-61 12:57:17 Chief Complaint Patient presents with Follow-up Bilateral knee pain. Pt states she is in constant pain. Last inj 04/2024. [facility] GraceDontrell Qvgjjn9670-08-80 10:45:28 Yenni Mcdonnell is here today for her Well Woman Exam. No LMP recorded. Patient is postmenopausal. Control Method: post-menopausal The patient's last Pap smear was on 07/11/2022 and results were Normal Last Mammogram was on 11/2023 and results were Abnormal . Last DEXA (Bone Density Scan) was on N/A and results were N/A. Patient requests STD testing. DUMPER DUMPER A Lind Hjtuvt2873-75-63 15:03:32 Chief Complaint Patient presents with Knee Pain Chronic (10 years) bilateral knee pain Pt currently not working Pain is now effecting hips Mayra Salomon LVN Mayra Chanel Clhesc8981-27-03 14:55:47 Chief Complaint Patient presents with Follow-up 1 month follow up for Depression. Patent can't tell a difference on medications Casie Kaye LVN [place] 31539-09-19 08:53:11 Chief Complaint Patient presents with Physical Has already done labs. Would like to get anxiety or Depression medication Casie Kaye LVN [place] 31539-08-21 09:07:18 Chief Complaint Patient presents with New Patient Refills on medications. Referral to orthopedic surgeon. Left hand was numb for 10 days Casie Kaye LVN [place] 710614-07-30 02:46:15 Pt dc'd home ambulatory. Pt v/u of dc instructions, follow up, and wound care. 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 Not UTD on Tetanus. T Rebecca Nicole [place] 559714-05-29 18:32:40 Pt given printed and verbal discharge [...] a ride home, sitting on the lobby. [place] 875574-05-29 11:43:12 Pt states" I've been throwing up for 6hrs straight, hx of htn" Rita Lanza [place] 559713-09-13 15:56:09Addended by: FLAVIA DENISE MD on: 04/08/2023 03:56 PM Modules accepted: Orders [place] 42315-09-13 15:55:13 A prescription for hydralazine 25 mg BID with no refills was sent to the [facility] pharmacy. She will need to establish a PCP for any additional refills. [place] 405703-09-13 15:13:26 Patient notified of results/recommendations. Patient states hydralazine 25 mg BID not ordered. Per office visit note 03/19/23 lisinopril 40 mg tablet was ordered. Confirmed with [facility] order for hydralazine not received. Virgen Stone [place] 559713-09-13 13:29:[address] Denise via telephone that she does not approve refill for hydralazine, she advised the patient that she needed to contact PCP for that medication. Patient advised and understanding verbalized that she needed to see PCP for further refills. EILEEN DAVIS RN 04/08/2023 1:33 PM Eileen Davis [place] 559713-09-13 12:53:03 Yenni Mcdonnell is a 57 year old female Patient is calling back to check status of medication. I relayed to patient that Rx was filled 03/19and she needed to discuss further refills with PCP as documented in previous encounter. Patient states she is aware she is suppose to contact PCP, but states a prescription for 90day supply was suppose to be completed by provider. Please contact at earliest convenience to discuss further hydrALAZINE 25 mg tablet Nmico EsparzaDayton Osteopathic HospitalRmedqs7080-93-19 09:54:44 A refill was sent to [facility] with confirmation on 03/19/2023. The patient needs to contact her PCP for additional evaluation and need for refills. [facility] HospitalIcrilh9598-91-05 15:13:26 Pt calling in for a refill that Dr. Denise was willing to refill until pt gets PCP. Hydralazine 25 mgs twice daily. [facility] Pt has been out fro 3 days. Sara AdhikariDayton Osteopathic HospitalPslvzt0601-29-83 16:57:11 Adequate for discharge Annia Miramontes [facility]cyUzkqhu1077-03-92 02:47:24 Problem: Falls, Risk of Goal: Absence of [...] nausea/vomiting Outcome: Progressing as expected Micaela Kim [facility]cyQwzmqu2173-72-29 19:43:13 Problem: Falls, Risk of Goal: Absence of [...] nausea/vomiting Outcome: Progressing as expected Maya Chatman [facility]cyWqwcox3315-15-74 15:43:00 BRIEF OPERATIVE NOTE Date of Surgery: 03/03/2023 [...] see dictated operative report for additional detail. [facility] Nfvkov6788-30-80 02:00:00 Problem: Falls, Risk of Goal: Absence of [...] Absence of nausea/vomiting Outcome: Progressing as expected [facility] Snap TrendsGlclfv3313-35-89 12:34:20 Problem: Falls, Risk of Goal: Absence of [...] Absence of nausea/vomiting Outcome: Progressing as expected [facility] Wwcccu1645-06-57 02:41:16 Problem: Falls, Risk of Goal: Absence of [...] nausea/vomiting Outcome: Progressing as expected Azucena Herrera [place] 559713-08-06 14:14:49 Nurse handoff report called to William JOYNER for 2215 Digna Hitchcock [place] 559713-08-06 10:07:00 Dr Uribe notified pt is c/o headache and continues to vomit. New orders received and initiated. [place] 875573-08-06 09:35:04 Vomiting since midnight. Chills. 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 Negative for abdominal distention and abdominalpain. Genitourinary: Negative. Negative for dysuria, urgency, frequency [...] PLATELETS Present (*) (none) COMP. METABOLIC PANEL (03222) - Abnormal NA 141 135 - 145 [...] CONTRAST CBC WITH DIFF COMP. METABOLIC PANEL (37355) LIPASE URINALYSIS COVID-19 (ID NOW TESTING) LAB [...] Patch Procedures EKG Time 0940 Sinus bradycardia [place] normal Prolonged QT No acute ischemia Notes & MDM Patient was evaluated for an emergency medical condition related to Vomiting DDX GERD PUD Pancreatitis History and/or review of systems is limited by:History limited: None. ED Course as of 03/01/231847 Sun Mar 01, 2023 [address] Calhoun [DN] ED Course User Index [DN] Berta Uribe MD Diagnosis/Impression as of 03/01/231847 Vomiting, unspecified vomiting type, unspecified whether nausea [...] may be found in the ED course. Differentialdiagnosis considered and final disposition made based on information gathered during evaluation andmay not be completely ruled out or specifically listed. Vital signs were rechecked before final disposition. Diagnosis Final diagnoses: [R11.10] Vomiting, unspecified vomiting type, unspecified whether nausea present (Primary) [K80.20] Gallstones [K57.90] Diverticulosis [R82.4] Ketonuria Disposition & Follow Up ED Disposition ED Disposition Admit - Observation Condition -- Comment Is (or was) this a planned re-admission?: No Treatment Team: [facility] [[id number]] Is this patient COVID positive or a [...] for Stopping: Berta Uribe Jr., MD Clinical Simulation Software Engineer [facility] Emergency Department [employer] is used frequently and may produce errors. Promptly contact for obvious discrepancies. Berta Uribe MD 03/01/23 7228 [facility] EMERGENCY PHYSICIAN [facility]
[2025-05-16 00:43] LABS: Absolute Lymphocytes (CBC) 1.1 K/uL (0.7-4.9); Hematocrit 38.9 % (36.0-45.0); Hemoglobin 12.7 g/dL (12.0-15.0); MCH 28.4 pg (27.0-35.0); MCHC 32.5 g/dL (32.0-36.0); MCV 87.3 fL (80-100); MPV 8.8 fL (7.6-11.3); Nucleated RBC Absolute Count 0.0 (0-0); Nucleated Red Blood Cells % 0.0 % (0-0); PT Prothrombin Time 13.1 SECONDS (10-13.0); Protime INR 1.16; RBC Red Blood Cell Count 4.46 M/uL (3.86-4.86); White Blood Count 8.20 thou/uL (4.3-10.9)
[2025-05-16 00:59] LABS: ALT/SGPT 23.0 U/L (13-56); AST/SGOT 17.0 U/L (15-37); Albumin 3.1 g/dL (3.4-5.0); Albumin/Globulin Ratio 0.7 (1.1-1.8); Alkaline Phosphatase 98.0 U/L (45-117); Anion Gap 8.0 mEq/L (5.0-15.0); BUN Blood Urea Nitrogen 35.0 mg/dL (7-18); Bilirubin Indirect, Calculated 0.3 mg/dL (0.2-0.8); Globulin 4.2 g/dL (2.3-3.5); Glucose Level 140.0 mg/dL (74-106); Magnesium 2.2 mg/dL (1.6-2.4); NT PRO-BNP 253.0 pg/mL (<125); Potassium 3.0 mEq/L (3.5-5.1); Troponin High Sensitivity 8.1 pg/mL (<58.9)
[2025-05-16] MEDS ORDERED: DIAZEPAM 5 MG TABLET ONE (01:01)
[2025-05-16] MEDS ORDERED: FENTANYL CITR 100 MCG/2 ML ONE (01:01)
[2025-05-16] MEDS ORDERED: ONDANSETRON 4 MG/2 ML VIAL ONE (01:01)
[2025-05-16] MEDS ORDERED: FUROSEMIDE 40 MG/4 ML VIAL ONE (01:01)
[2025-05-16 01:05] LABS: Thyroid Stimulating Hormone 1.200 uIU/mL (0.358-3.740)
[2025-05-16 01:19] LABS: METHAMPHETAM POSITIVE (NEGATIVE); THC Cannibis NEGATIVE (NEGATIVE)
--- NOTE | 2025-05-16 02:30 | ER ---
Nurse's Notes [facility] Name: Yenni Arce Age: 60 yrs Sex: Female : 1965 Arrival Date: 05/15/2025 Time: 22:48 Bed 17 Private MD: Diagnosis: Bilateral lower extremity edema, tissue fluid retention, acute emotional upset, chronic bilateral hip pain, noncompliance with medication;Methamphetamine use disorder Presentation: 05/15 23:23 Chief complaint: Patient states: I started having swelling in both my legs a couple jb4 days ago and my water pill is not working. This has stopped me from having hip surgery and if I can't have my surgery I don't want to be here anymore. I don't want to live with the pain anymore. For the past 5 months I have been having suicidal thoughts. If i were to do it, I would get fentynel off the street and just go to sleep. Coronavirus screen: At this time, the client does not indicate any symptoms associated with coronavirus-19. Ebola Screen: No symptoms or risks identified at this time. Initial Sepsis Screen: Does the patient meet any 2 criteria? HR > 90 bpm. Yes Does the patient have a suspected source of infection? No. Patient's initial sepsis screen is negative. Risk Assessment: Do you want to hurt yourself or someone else? Patient reports desire/thoughts of hurting themselves or someone else. Provider notified. Onset of symptoms was May 15, 2025. Transition of care: patient was not received from another setting of care. 23:23 Method Of Arrival: Wheelchair jb4 23:23 Acuity: ROSA MARIA 2 jb4 Triage Assessment: 23:29 General: Appears in no apparent distress. uncomfortable, Behavior is cooperative, jb4 anxious, crying. Pain: Complains of pain in right leg and left leg Pain does not radiate. Pain currently is 10 out of 10 on a pain scale. Neuro: Level of Consciousness is awake, alert, obeys commands, Oriented to person, place, time, situation. Cardiovascular: Patient's skin is warm and dry. Respiratory: Airway is patent Respiratory effort is even, unlabored, Respiratory pattern is regular, symmetrical. Derm: Skin is intact, Skin is pink, warm \\T\\ dry. Musculoskeletal: Circulation, motion, and sensation intact. Range of motion: intact in all extremities. Historical: - Allergies: 23:26 No Known Allergies; jb4 - PMHx: 23:26 Hypertensive disorder; Osteoarthritis; CHF (Cholecystectomy); jb4 - PSHx: 23:26 Cholecystectomy; jb4 - Immunization history:: Adult Immunizations up to date. - Infectious Disease History:: Denies. - Family history:: not pertinent. - Social history:: Smoking status: Patient denies any tobacco usage or history of. Screenin:54 [facility] ED Fall Risk Assessment (Adult) History of falling in the last 3 months, cp4 including since admission No falls in past 3 months (0 pts) Confusion or Disorientation No (0 pts) Intoxicated or Sedated No (0 pts) Impaired Gait Yes (1 pt) Mobility Assist Device Used Yes (1 pt) Altered Elimination No (0 pt) Score/Fall Risk Level 0 - 2 = Low Risk Oriented to surroundings, Maintained a safe environment, Assessed \\T\\ reinforced patient's understanding of fall precautions, Hourly rounding (assess needs \\T\\ fall precautionary measures) done. Abuse screen: Denies threats or abuse. Denies injuries from another. Nutritional screening: No deficits noted. Tuberculosis screening: No symptoms or risk factors identified. Never had TB. Assessment: 23:54 General: Appears in no apparent distress. uncomfortable, Behavior is appropriate for cp4 age, anxious. Pain: Complains of pain in left leg and right leg Pain does not radiate. Pain currently is 10 out of 10 on a pain scale. Neuro: Level of Consciousness is awake, alert, obeys commands, Oriented to person, place, time, situation. Cardiovascular: Patient's skin is warm and dry. Respiratory: Airway is patent Respiratory effort is even, unlabored. GI: No signs and/or symptoms were reported involving the gastrointestinal system. : No signs and/or symptoms were reported regarding the genitourinary system. EENT: No signs and/or symptoms were reported regarding the EENT system. Derm: No signs and/or symptoms reported regarding the dermatologic system. Musculoskeletal: Reports pain in left leg and right leg. 05/16 01:00 Reassessment: Patient appears in no apparent distress at this time. Patient and/or cp4 family updated on plan of care and expected duration. Pain level reassessed. Patient is alert, oriented x 3, equal unlabored respirations, skin warm/dry/pink. 02:00 Reassessment: Patient appears in no apparent distress at this time. Patient and/or cp4 family updated on plan of care and expected duration. Pain level reassessed. Patient is alert, oriented x 3, equal unlabored respirations, skin warm/dry/pink. 03:04 Reassessment: Dispo pending. Waiting for patient ride. cp4 Psych: 05/15 23:56 [place] Suicide Severity Screening: In the past month, have you wished you were cp4 or wished you could go to sleep and not wake up? Patient responds "yes." "In the past month, have you actually had any thoughts of killing yourself?" Patient responds "yes." "In your lifetime, have you ever done anything, started to do anything, or prepared to do anything to end your life?" Patient responds "no.". Subjective: Patient's mood is sad, Delusions are denied, Hallucinations are denied Having thoughts of suicide. Plan for suicide is to take fentanyl off the street. Objective: Patient is cooperative, Speech is normal, Affect is appropriate. Interventions: Removed personal items and placed in bag. Patient placed in hospital gown. Searched person for dangerous items. Belonging list filled out. Safety Checks: Personal items have been removed. Safety Checks: Door is open. Pt denies substance abuse. Commitment: Patient will be a voluntary commitment. Vital Signs: 23:23 BP 134 / 69; Pulse 81; Resp 16; Temp 98.1(O); Pulse Ox 92% on R/A; Weight 81.65 kg (R); jb4 Height 5 ft. 6 in. ; Pain 05/05; 05/16 01:00 BP 109 / 56; Pulse 81; Resp 18; Pulse Ox 97% ; cp4 02:00 BP 128 / 59; Pulse 77; Resp 18; Pulse Ox 98% on 2 lpm NC; cp4 03:00 BP 131 / 64; Pulse 75; Resp 18; Pulse Ox 99% on 2 lpm NC; cp4 05/15 23:23 Body Mass Index 29.05 (81.65 kg, 167.64 cm) jb4 05/15 23:23 Pain Scale: Adult jb4 Catrina Coma Score: 02:46 Eye Response: spontaneous(4). Motor Response: obeys commands(6). Verbal Response: sp4 oriented(5). Total: 15. ED Course: 05/15 22:54 Patient arrived in ED. im 22:58 Narciso Yeung MD is Attending Physician. sp4 23:26 Triage completed. jb4 23:28 Arm band placed on right wrist. jb4 23:53 Raegan Melgar is Primary Nurse. cp4 23:54 Placed in gown. Bed in low position. Side rails up X2. Provided Education on: suicidal cp4 ideation. 23:54 No provider procedures requiring assistance completed. cp4 05/16 00:42 XRAY Chest (1 view) In Process Unspecified. EDMS 00:44 Inserted saline lock:. oe 01:33 Oxygen administration via nasal cannula \\T\\ 2L/min. cp4 03:39 intact, bleeding controlled, No redness/swelling at site. Pressure dressing applied. cp4 Administered Medications: 01:14 Drug: Ondansetron IVP 4 mg IVP once; over 2 minutes Route: IVP; Site: right antecubital;cp4 01:24 Follow up: Response: No adverse reaction cp4 01:14 Drug: Furosemide IVP 40 mg IVP once; give over 2 minutes Route: IVP; Site: right cp4 antecubital; 01:23 Follow up: Response: No adverse reaction cp4 01:15 Drug: fentaNYL (PF) IVP 100 mcg IVP once Route: IVP; Site: right antecubital; cp4 01:24 Follow up: Response: No adverse reaction; Pain is decreased cp4 01:15 Drug: Diazepam PO 5 mg PO once Route: PO; cp4 01:24 Follow up: Response: No adverse reaction; Anxiety decreased cp4 Medication: 05/15 23:54 VIS not applicable for this client. cp4 Outcome: 05/16 02:29 Discharge ordered by . sp4 03:39 Discharged to home via wheelchair, cp4 03:39 Condition: stable 03:39 Discharge instructions given to patient, family, Instructed on discharge instructions, follow up and referral plans. medication usage, Demonstrated understanding of instructions, follow-up care, medications, Prescriptions given X 5 03:41 Patient left the ED. cp4 Signatures: Dispatcher [employer] EDMS Dannie Chahal, AR RN jb4 Babatunde Graf Sergey, MD MD sp4 Jillian Steiner Christina cp4 Corrections: (The following items were deleted from the chart) 05/15 23:28 23:23 Chief complaint: Patient states: I started having swelling in both my legs a jb4 couple days ago and my water pill is not working. jb4
--- NOTE | 2025-05-16 02:30 | EDPHYS ---
Physician Documentation [facility] Name: Yenni Arce Age: 60 yrs Sex: Female : 1965 Arrival Date: 05/15/2025 Time: 22:48 Bed 17 Private MD: ED Physician Narciso Yeung HPI: 05/15 22:58 This 60 yrs old Female presents to ER via Unassigned with complaints of Pain sp4 All Over, Swelling of Lower Extremity. 05/16 02:46 60-year-old female with past medical history of diastolic heart failure, tricuspid sp4 regurgitation, laparoscopic cholecystectomy, esophagitis, acute kidney injury, anxiety hypertension depression, chronic bilateral hip arthritis and pain, presents with bilateral lower extremity swelling and also diffuse body aches. Patient reports pain is so bad she is experiencing some suicidal thoughts. Patient's home medications include bupropion XL, furosemide 20 mg twice daily, potassium 10 mg daily, hydrochlorothiazide 25 mg daily. Patient states she discontinued her medications approximately 2 months ago. Historical: - Allergies: 05/15 23:26 No Known Allergies; jb4 - PMHx: 23:26 Hypertensive disorder; Osteoarthritis; CHF (Cholecystectomy); jb4 - PSHx: 23:26 Cholecystectomy; jb4 - Immunization history:: Adult Immunizations up to date. - Infectious Disease History:: Denies. - Family history:: not pertinent. - Social history:: Smoking status: Patient denies any tobacco usage or history of. ROS: 05/16 02:46 Constitutional: Negative for fever, chills, and weight loss, positive for sp4 bilateral lower extremity swelling, diffuse bodyaches, chronic bilateral hip pain, positive for emotional upset All other systems are negative, Exam: 02:46 Constitutional: This is a well developed, well nourished patient who is awake, alert, sp4 and in no acute distress. Head/Face: Normocephalic, atraumatic. Eyes: Pupils equal round and reactive to light, extra-ocular motions intact. Lids and lashes normal. Conjunctiva and sclera are not injected. Cornea within normal limits. Periorbital areas with no swelling, redness, or edema. ENT: Nares patent. No nasal discharge, no septal abnormalities noted. Tympanic membranes are normal and external auditory canals are clear. Oropharynx with no redness, swelling, or masses, exudates, or evidence of obstruction, uvula midline. Mucous membranes moist. Neck: Trachea midline, no thyromegaly or masses palpated, and no cervical lymphadenopathy. Supple, full range of motion without nuchal rigidity, or vertebral point tenderness. Chest/axilla: Normal chest wall appearance and motion. Nontender with no deformity. No lesions are appreciated. Cardiovascular: Regular rate and rhythm with a normal S1 and S2. No gallops, murmurs, or rubs. No pulse deficits. Respiratory: Lungs have equal breath sounds bilaterally, clear to auscultation and percussion. No rales, rhonchi or wheezes noted. No increased work of breathing, no retractions or nasal flaring. Abdomen/GI: Soft, with normal bowel sounds. No distension or tympany. No guarding or rebound. No evidence of tenderness throughout. Back: No spinal tenderness. No costovertebral tenderness. Skin: Warm, dry with normal turgor. Normal color with no rashes, no lesions, and no evidence of cellulitis. MS/ Extremity: Pulses equal, no cyanosis. Neurovascular intact. Full, normal range of motion. Bilateral lower extremity edema with pitting. No JVD Neuro: Awake and alert, GCS 15, oriented to person, place, time, and situation. Cranial nerves II-XII grossly intact. Motor strength 5/5 in all extremities. Sensory grossly intact. Psych: Awake, alert, with orientation to person, place and time. Behavior, mood, and affect are within normal limits 02:46 ECG was reviewed by the Attending Physician. EKG at 0 121 sinus rhythm with occasional PVCs otherwise normal, rate 74 Vital Signs: 05/15 23:23 BP 134 / 69; Pulse 81; Resp 16; Temp 98.1(O); Pulse Ox 92% on R/A; Weight 81.65 kg (R); jb4 Height 5 ft. 6 in. ; Pain 05/05; 05/16 01:00 BP 109 / 56; Pulse 81; Resp 18; Pulse Ox 97% ; cp4 02:00 BP 128 / 59; Pulse 77; Resp 18; Pulse Ox 98% on 2 lpm NC; cp4 03:00 BP 131 / 64; Pulse 75; Resp 18; Pulse Ox 99% on 2 lpm NC; cp4 10/20 23:23 Body Mass Index 29.05 (81.65 kg, 167.64 cm) 4 05/15 23:23 Pain Scale: Adult jb4 [place] Coma Score: 02:46 Eye Response: spontaneous(4). Motor Response: obeys commands(6). Verbal Response: sp4 oriented(5). Total: 15. MDM: 05/15 23:05 Medical Screening Exam initiated sp4 05/16 02:53 Differential diagnosis: contusion, abrasion, tendonitis, Fluid retention. Data sp4 reviewed: vital signs, nurses notes, old medical records, lab test result(s), EKG, radiologic studies, plain films. Consideration of Admission/Observation Escalation of care including admission/observation considered. ED course: Patient labs are reassuring. No sign of significant heart failure, no sign of pulmonary edema on chest x-ray. Patient is stable from heart failure point of view. Will recommend to get back on Lasix 20 mg p.o. twice a day. As far as emotional upset patient states she is upset because her chronic pain and bilateral hip arthritis. Patient reports she is no longer having suicidal thoughts and request discharge home. Patient was offered transfer to the psychiatric hospital however she states that at this time she prefers to go home. Denies suicidal ideation or plan.. 05/15 23:06 Order name: Basic Metabolic Panel; Complete Time: 02: sp4 05/15 23:06 Order name: CBC with Diff; Complete Time: 02: sp4 05/15 23:06 Order name: LFT's; Complete Time: 02: sp4 05/15 23:06 Order name: Magnesium; Complete Time: 02: sp4 05/15 23:06 Order name: NT PRO-BNP; Complete Time: 02: sp4 05/15 23:06 Order name: PT-INR; Complete Time: 02: sp4 05/15 23:06 Order name: Troponin HS; Complete Time: 02: sp4 05/15 23:57 Order name: Urine Drug Screen; Complete Time: 02:21 sp4 05/15 23:57 Order name: TSH; Complete Time: 02: sp4 05/15 23:57 Order name: T4 Free; Complete Time: 02:21 sp4 05/15 23:57 Order name: Alcohol Level; Complete Time: 02: sp4 05/15 23:57 Order name: Salicylate; Complete Time: 02:21 sp4 05/15 23:57 Order name: Acetaminophen; Complete Time: 02:21 sp4 05/15 23:58 Order name: CK; Complete Time: 02:21 sp4 05/15 23:06 Order name: XRAY Chest (1 view) sp4 05/15 23:06 Order name: Cardiac monitoring; Complete Time: 00:20 sp4 05/15 23:06 Order name: EKG - Nurse/Tech; Complete Time: 01:24 sp4 05/15 23:06 Order name: IV Saline Lock; Complete Time: 01:24 sp4 05/15 23:06 Order name: Labs collected and sent; Complete Time: 01:24 sp4 05/15 23:06 Order name: O2 Per Protocol; Complete Time: 00:00 sp4 05/15 23:06 Order name: O2 Sat Monitoring; Complete Time: 00:00 sp4 EC: Rate is 74 beats/min. Rhythm is regular, Normal Sinus Rhythm with Occasional PVCs. QRS sp4 [place] is Normal. SD interval is normal. QRS interval is normal. QT interval is normal. No Q waves. T waves are Normal. No ST changes noted. Clinical impression: No evidence of ischemia. Interpreted by me. Reviewed by me. Administered Medications: 01:14 Drug: Ondansetron IVP 4 mg IVP once; over 2 minutes Route: IVP; Site: right antecubital;cp4 01:24 Follow up: Response: No adverse reaction cp4 01:14 Drug: Furosemide IVP 40 mg IVP once; give over 2 minutes Route: IVP; Site: right cp4 antecubital; 01:23 Follow up: Response: No adverse reaction cp4 01:15 Drug: fentaNYL (PF) IVP 100 mcg IVP once Route: IVP; Site: right antecubital; cp4 01:24 Follow up: Response: No adverse reaction; Pain is decreased cp4 01:15 Drug: Diazepam PO 5 mg PO once Route: PO; cp4 01:24 Follow up: Response: No adverse reaction; Anxiety decreased cp4 Disposition Summary: 05/16/25 02:29 Discharge Ordered Notes: Location: Home sp4 Problem: new sp4 Symptoms: have improved sp4 Condition: Stable sp4 Diagnosis - Bilateral lower extremity edema, tissue fluid retention, acute emotional upset, sp4 chronic bilateral hip pain, noncompliance with medication - Methamphetamine use disorder sp4 Followup: sp4 - With: Private Physician - When: 7 - 10 days - Reason: Recheck today's complaints Discharge Instructions: - Discharge Summary Sheet sp4 - Edema, [id number] sp4 Forms: - Patient Portal Instructions sp4 Prescriptions: - bupropion HBr 348 mg Oral Tablet, Extended Release 24 hr - take 1 tablet ORAL route daily; 30 tablet; Refills: 0, Product Selection sp4 Permitted - furosemide 20 mg Oral tablet - take 1 tablet ORAL route every 12 hours; 60 tablet; Refills: 0, Product sp4 Selection Permitted - Hydrochlorothiazide 25 mg Oral Tablet - take 1 tablet ORAL route once daily .; 30 tablet; Refills: 0, Product Selection sp4 Permitted - Potassium Chloride 10 mEq Oral capsule, extended release - take 1 tablet ORAL route once daily; 30 tablet; Refills: 0, Product Selection sp4 Permitted - Tramadol 50 mg Oral Tablet - take 1 tablet ORAL route every 8 hours as needed; 12 tablet; Refills: 0, sp4 Product Selection Permitted Signatures: Dispatcher [employer] EDMS Dannie Chahal RN RN jb4 Narciso Yeung MD MD sp4 Raegan Melgar cp4 Corrections: (The following items were deleted from the chart) 05/15 23:07 23:07 BASIC METABOLIC PANEL+C.LAB.BRZ ordered. EDMS EDMS 23:07 23:07 CBC+H.LAB.BRZ ordered. EDMS EDMS 23:07 23:07 HEPATIC FUNCTION+C.LAB.BRZ ordered. EDMS EDMS 23:07 23:07 MAGNESIUM+C.LAB.BRZ ordered. EDMS EDMS 23:07 23:07 PROBNP+C.LAB.BRZ ordered. EDMS EDMS 23:07 23:07 PROTIME (+INR)+COAG.LAB.BRZ ordered. EDMS EDMS 23:07 23:07 Troponin High Sensitivity+C.LAB.BRZ ordered. EDMS EDMS 23:07 23:07 Chest Single View+RAD.RAD.BRZ ordered. EDMS EDMS 23:58 23:58 ETHANOL+C.LAB.BRZ ordered. EDMS EDMS 23:58 23:58 SALICYLATE+C.LAB.BRZ ordered. EDMS EDMS 23:58 23:58 ACETAMINOPHEN+C.LAB.BRZ ordered. EDMS EDMS 23:58 CREATINE PHOSPHOKINASE+C.LAB.BRZ ordered. EDMS EDMS
--- NOTE | 2025-05-16 03:57 | RAD REPORT ---
EXAM DESCRIPTION: Chest Single View CLINICAL HISTORY: CHEST PAIN COMPARISON: None. FINDINGS: 1 view(s) of the chest. Tubes and lines: Leads overlie the chest. Cardiomediastinal silhouette: Atherosclerotic calcification of the thoracic aorta. Heart is not enlar ged. Lungs: No pneumothorax. Elevation of the left hemidiaphragm. Low lung volumes. Linear bibasilar opaci ties. Bones: No acute osseous abnormality. Degenerative change of the spine and shoulders. Upper abdomen: No abnormality identified. IMPRESSION: Linear bibasilar opacities may be related to subsegmental atelectasis. Electronically signed by: Zay Gannon DO 05/16/2025 01:24 AM CDT RP 4ZDM Due to temporary technical issues with the PACS/[employer] reporting system, reports are being ami d by the in-house radiologist without review as a courtesy to ensure prompt reporting the interpreting radiologist is fully responsible for the content of the report. Transcribed Date/Time: 05/16/2025 3:57 AM
[2025-05-16 10:57] VITALS: TEMP 98.1
[2025-05-16 11:01] VITALS: BP 131/64; O2SAT 99
== END 2025-05-16 03:41 | disposition home or self-care (01) ==
LOC: ER 22:48
DX: R60.0 Localized edema (principal); M25.552 Pain in left hip; M25.551 Pain in right hip; R45.89 Other symptoms and signs involving emotional state; F15.90 Other stimulant use, unspecified, uncomplicated; Z91.148 Patient's other noncompliance with medication regimen for other reason
CPT/HCPCS: 93005; 85025; 80048; 36415; 83735; 82550; 85610; 80076; 84443; 84484; 84439; 83880; 80307; 71045; 96375; 96374; 99285; 80143; 80179; 82077; J1938; J3010; J2405